=== PATIENT | male | born 1990 | race Caucasian/White ===

== ENCOUNTER 2019-07-09 23:14 | Inpatient (IN) ==
--- OUTSIDE RECORDS SUMMARY | 2019-07-09 23:17 | External Medical Summary | Continuity of Care Document ---
:1990 Author Name Joaquín Alfaro, Provider Address Unavailable Unavailable , Care Team Providers Name Role Phone Evette Benedict Unavailable [email or web address] PCP, UNKNOWN Unavailable Unavailable Problems Active medical history not documented Allergies and Adverse Reactions Allergy history not documented Medications Medications not documented Procedures Procedures not documented Immunizations Immunizations not documented Plan of Treatment Planned Observations Planned Goals not documented Results No Known Results Results not documented
[2019-07-10 00:03] LABS: Basophils # (auto) 0.02 K/uL (0-0.2); Basophils % (auto) 0.3 %; Eosinophils # (auto) 0.01 K/uL (0-0.5); Eosinophils % (auto) 0.2 %; Hemoglobin 11.8 g/dL (14.0-18.0); Immature Granulocytes # (auto) 0.01 K/uL (0.00-0.02); Immature Granulocytes % (auto) 0.2 %; Lymphocytes # (auto) 1.73 K/uL (1.2-3.4); Lymphocytes % (auto) 29.6 %; Mean Corpuscular Hemoglobin 32.2 pg (25-34); Mean Corpuscular Hgb Conc 35.8 g/dL (32-36); Mean Corpuscular Volume 89.9 fL (80-100); Mean Platelet Volume 10.7 fL (7.4-10.4); Monocytes # (auto) 0.51 K/uL (0.11-0.59); Monocytes % (auto) 8.7 %; Neutrophils # (auto) 3.56 K/uL (1.4-6.5); Platelet Count 193 K/uL (130-400); RDW Coefficient of Variation 11.9 % (11.5-14.5); Red Blood Count 3.67 M/uL (4.7-6.1); White Blood Count 5.84 K/uL (4.8-10.8)
[2019-07-10 00:13] LABS: Appearance Urine Clear (Clear); Bilirubin Urine Negative (Negative); Blood Urine Negative (Negative); Color Urine Yellow; Glucose Urine UA Negative (Negative); Ketones Urine Negative (Negative); Leukocyte Esterase Urine Negative (Negative); Nitrite Urine Negative (Negative); Protein Urine Negative (Negative); Specific Gravity Urine 1.008 (1.000-1.030); Urobilinogen Urine Negative (Negative); pH Urine 7.5 (4.5-7.5)
[2019-07-10 00:20] LABS: Alanine Aminotransferase 15 U/L (12-78); Albumin Level 4.1 gm/dl (3.4-5.0); Aspartate Aminotransferase 11 U/L (15-37); BUN Creatinine Ratio 5.2 (10-20); Blood Urea Nitrogen 3 mg/dl (7-18); Calcium 8.7 mg/dl (8.5-10.1); Carbon Dioxide 25 mmol/L (21-32); Chloride 88 mmol/L (98-107); Creatinine Clr Calc Pharmacy 171.6 ml/min; Est GFR (African American) > 150.0; Est GFR (Non-African American) 130.6; Glucose 88 mg/dl (70-99); Potassium 3.7 mmol/L (3.5-5.1); Sodium 121 mmol/L (136-145)
[2019-07-10 00:30] LABS: Amphetamines+Metham, Urine Neg (Neg); Barbiturates, Urine Neg (Neg); Benzodiazepine, Urine Neg (Neg); Cocaine, Urine Neg (Neg); MDMA (Ecstacy), Urine Neg (Neg); Methadone, Urine Neg (Neg); Opiate, Urine Neg (Neg); Phencyclidine, Urine Neg (Neg)
[2019-07-10 00:31] LABS: Albumin Globulin Ratio 1.6 (0.9-2); Alkaline Phosphatase 53 U/L (45-117); Bilirubin,Total 0.9 mg/dl (0.2-1); Globulin 2.5 gm/dl (2.5-4.0); Total Protein 6.6 gm/dl (6.4-8.2)
[2019-07-10 00:42] LABS: Acetaminophen < 2 ug/ml (10-30); Salicylate < 1.7 mg/dl (2.8-20)
[2019-07-10] MEDS ORDERED: SODIUM CHLORIDE 0.9% 1000ML 1,000 ML IV SCH (01:30)
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
[2019-07-10] MEDS ORDERED: ACETAMINOPHEN 325 MG TAB PO PRN (04:15)
[2019-07-10] MEDS ORDERED: ONDANSETRON INJ 2 MG/ML 2 ML VIAL IV PRN (04:15)
--- NOTE | 2019-07-10 04:24 | History & Physical Report ---
Date of Service July 10, 2019 Assessment & Plan (1) Hyponatremia: Admit Med/surg Fluid restrict to 1500ml Follow sodium level. (2) Psychogenic polydipsia: (3) Intellectual disability: History of Present Illness 29 y/o male presented to the ED following an argument with his mother. He is here for a mental health evaluation. The patient reported that he wanted to talk to his mother, but he had an outburst because often he and his mother can not gore ve a civil conversation. The patient reports that he was recently at the [facility] for depression and there he was able to taper his meds to off. He does report to drinking a lot of free water. He is felt not to have a mental health crisis and is being placed in observation due to hyponatremia. . 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 and No Beliefs That Will Affect Care: None marital status: Single Current Living Situation: Family current occupational status: unemployed Feels Safe at Home: Yes Smoking Status: Never smoker Review of Systems Review of Systems: NEEDS EDITING Constitutional- no fever; no weight loss Eyes- no acute visual changes ENT- no sinus drainage; no pharyngitis Pulmonary- no cough, no wheezing, no shortness of breath Cardiac- no chest pain, no palpitations, no orthopnea, no dependent edema GI- no nausea, no vomiting, no diarrhea, no melena, no hematochezia - no dysuria, no hematuria Musculoskeletal- no arthralgias, no myalgias Derm- no rashes, no new skin lesions, no changing skin lesions Hematologic- no unusual bruising, no unusual bleeding Lymphatics- no adenopathy Endocrine- no polyuria or polydipsia; no heat or cold intolerance Neuro- no headaches, no focal neurologic symptoms Psych- no anxiety. + depressive mood intermittently. Physical Exam Physical Exam: NEEDS EDITING General- adult male, resting comfortably, cooperative. Head- atraumatic Eyes- PERRL, EOMI, anicteric ENT- oropharynx clear Neck- supple, no JVD, no adenopathy, no thyromegaly; carotids +2/2, no bruits appreciated Lungs- clear to auscultation. No rales, rhonchi, or wheezes. Heart- regular rhythm; no murmur, no gallop, no rub appreciated Abdomen- normal bowel sounds, soft, nontender. Extremities- no pretibial edema, no calf tenderness; peripheral pulses intact Neuro- alert, oriented x 3; PERRL, EOMI; bonding molder II-XII grossly intact, Non-focal. Skin- warm & dry Results & Data Vital Signs (Past 12 Hours) Vital Signs Temp Pulse Pulse Resp BP BP Pulse Ox 07/10/19 03:28 68 18 124/68 98 07/10/19 01:40 65 18 117/76 100 07/09/19 23:18 36.6 C 84 18 145/90 H 100 Laboratory Results Laboratory Results WBC 5.84 K/uL (4.8-10.8) 07/09/19 23:41 RBC 3.67 M/uL (4.7-6.1) L 07/09/19 23:41 Hgb 11.8 g/dL (14.0-18.0) L 07/09/19 23:41 Hct 33.0 % (42-52) L 07/09/19 23:41 MCV 89.9 fL (80-100) 07/09/19 23:41 MCH 32.2 pg (25-34) 07/09/19 23:41 MCHC 35.8 g/dL (32-36) 07/09/19 23:41 RDW Std Deviation 39.0 fL (36.4-46.3) 07/09/19 23:41 RDW Coeff of Fito 11.9 % (11.5-14.5) 07/09/19 23:41 Plt Count 193 K/uL (130-400) 07/09/19 23:41 MPV 10.7 fL (7.4-10.4) H 07/09/19 23:41 Immature Gran % (Auto) 0.2 % 07/09/19 23:41 Neut % (Auto) 61.0 % 07/09/19 23:41 Lymph % (Auto) 29.6 % 07/09/19 23:41 [place] % (Auto) 8.7 % 07/09/19 23:41 Eos % (Auto) 0.2 % 07/09/19 23:41 Baso % (Auto) 0.3 % 07/09/19 23:41 Immature Gran # (Auto) 0.01 K/uL (0.00-0.02) 07/09/19 23:41 Neut # (Auto) 3.56 K/uL (1.4-6.5) 07/09/19 23:41 Lymph # (Auto) 1.73 K/uL (1.2-3.4) 07/09/19 23:41 [place] # (Auto) 0.51 K/uL (0.11-0.59) 07/09/19 23:41 Eos # (Auto) 0.01 K/uL (0-0.5) 07/09/19 23:41 Baso # (Auto) 0.02 K/uL (0-0.2) 07/09/19 23:41 Sodium 121 mmol/L (136-145) L 07/09/19 23:41 Potassium 3.7 mmol/L (3.5-5.1) 07/09/19 23:41 Chloride 88 mmol/L (98-107) L 07/09/19 23:41 Carbon Dioxide 25 mmol/L (21-32) 07/09/19 23:41 Anion Gap 8.0 (3-11) 07/09/19 23:41 BUN 3 mg/dl (7-18) L 07/09/19 23:41 Creatinine 0.65 mg/dl (0.6-1.4) 07/09/19 23:41 Est Cr Clr Drug Dosing 171.6 ml/min 07/09/19 23:41 Est GFR ( Amer) > 150.0 07/09/19 23:41 Est GFR (Non-Af Amer) 130.6 07/09/19 23:41 BUN/Creatinine Ratio 5.2 (10-20) L 07/09/19 23:41 Glucose 88 mg/dl (70-99) 07/09/19 23:41 Calcium 8.7 mg/dl (8.5-10.1) 07/09/19 23:41 Total Bilirubin 0.9 mg/dl (0.2-1) 07/09/19 23:41 AST 11 U/L (15-37) L 07/09/19 23:41 ALT 15 U/L (12-78) 07/09/19 23:41 Alkaline Phosphatase 53 U/L (45-117) 07/09/19 23:41 Total Protein 6.6 gm/dl (6.4-8.2) 07/09/19 23:41 Albumin 4.1 gm/dl (3.4-5.0) 07/09/19 23:41 Globulin 2.5 gm/dl (2.5-4.0) 07/09/19 23:41 Albumin/Globulin Ratio 1.6 (0.9-2) 07/09/19 23:41 TSH 1.980 uIu/ml (0.300-4.500) 07/09/19 23:41 Urine Color Yellow 07/09/19 23:59 Urine Appearance Clear (Clear) 07/09/19 23:59 Urine pH 7.5 (4.5-7.5) 07/09/19 23:59 Ur Specific [place] 1.008 (1.000-1.030) 07/09/19 23:59 Urine Protein Negative (Negative) 07/09/19 23:59 Urine Glucose (UA) Negative (Negative) 07/09/19 23:59 Urine Ketones Negative (Negative) 07/09/19 23:59 Urine Blood Negative (Negative) 07/09/19 23:59 Urine Nitrite Negative (Negative) 07/09/19 23:59 Urine Bilirubin Negative (Negative) 07/09/19 23:59 Urine Urobilinogen Negative (Negative) 07/09/19 23:59 Ur Leukocyte Esterase Negative (Negative) 07/09/19 23:59 Salicylates < 1.7 mg/dl (2.8-20) L 07/09/19 23:41 Urine Opiates Screen Neg (Neg) 07/09/19 23:59 Ur Methadone, Qual Neg (Neg) 07/09/19 23:59 Acetaminophen < 2 ug/ml (10-30) L 07/09/19 23:41 Urine Barbiturates Neg (Neg) 07/09/19 23:59 Ur Phencyclidine (PCP) Neg (Neg) 07/09/19 23:59 U Amphetamin/Meth Scrn Neg (Neg) 07/09/19 23:59 MDMA (Ecstasy) Screen Neg (Neg) 07/09/19 23:59 U Benzodiazepines Scrn Neg (Neg) 07/09/19 23:59 Ur Cocaine Metabolite Neg (Neg) 07/09/19 23:59 U Marijuana (THC) Screen Neg (Neg) 07/09/19 23:59 Ethyl Alcohol mg/dL < 3.0 mg/dl (0-3) 07/09/19 23:41 Code Status & VTE Plan VTE Prophylaxis Plan VTE Prophylaxis will be ordered: Yes PG Care Time/CCT Total # of Minutes Spent Total Time Spent: 45 Total Time Spent with Patient: Total time spent is greater than 50% in coordination of care (as documented) at patient's floor/unit and/or counseling patient:
[2019-07-10 06:51] LABS: BUN Creatinine Ratio 6.3 (10-20); Blood Urea Nitrogen 4 mg/dl (7-18); Calcium 9.1 mg/dl (8.5-10.1); Carbon Dioxide 24 mmol/L (21-32); Chloride 101 mmol/L (98-107); Creatinine Clr Calc Pharmacy 195.7 ml/min; Est GFR (African American) > 150.0; Est GFR (Non-African American) 137.8; Glucose 84 mg/dl (70-99); Magnesium 2.4 mg/dl (1.8-2.4); Potassium 3.5 mmol/L (3.5-5.1); Sodium 133 mmol/L (136-145)
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
[2019-07-11 08:22] VITALS: BP 108/64; TEMP 98.2; O2SAT 99
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
[2019-07-11 11:55] VITALS: PULSE 62
--- NOTE | 2019-07-11 17:03 | Discharge Summary ---
Date of Service July 11, 2019 Admission HPI Per Admitting Provider Record reviewed and case discussed with primary attending, Dr. Castro. The patient is known to me from multiple previous hospitalizations, last on our unit 1 year ago and 07/2018. At that time he had gone off of his psychotropic medications for the past 9 months, which is his pattern, and was willing to resume aripiprazole and fluoxetine. He had previously done well on a combination of aripiprazole, fluoxetine, and lorazepam. He had a family meeting with his mother, and was discharged to outpatient treatment with Dr. Cancino and his therapist at the [facility] psych clinic. He reports that he went off medications soon after discharge, and has not been on any psychotropic medications for about a year. He thinks that he was doing well, but also states that he was "depressed all last year." He attributes his depression to his mother, stating "the relationship is falling apart," which he blames on her for pushing him to get out of the house more and follow through on things like outpatient treatment. It is difficult to clarify the events that led to presentation, but he eventually states that he had an altercation with his mother, stating "I did something that scared her pretty bad, and I am beating myself up about it. I had an outburst of anger and frustration, hit something by accident, was just upset." Afterwards he "ran out of the house and did not want to come back," and the police came and brought him in. He admits to suicidal thoughts last week, stating "I think there may have been an incident, was out on the patio or something, saying some things or something." He denies that he held a knife to his throat and told his mother to kill him, although this was reported through can help when he presented to the ER. Multiple hospital staff have attempted to contact his mother and have had difficulty doing so, but she did report to nursing staff that he is not able to return to her home, and that she was dropping his belongings off at the hospital. He has been poorly compliant with treatment on the medical floor, refusing repeat lab draws to follow his sodium, which had come up to 133 as of yesterday. He says this is because he does not like needles, and he feels "traumatized" by medical treatment in the past. He is aware of the risks of hyponatremia, including seizures, which he has experienced in the past. He states he is not concerned about seizures currently because he has not had them in years, and because he thinks he has his water drinking under control for the past year. When reviewed his sodium results from admission, he admits that for the past few weeks he was drinking excessive water because "overly stressed." He describes his mood recently as overwhelmed and distraught, sleep is chronically disrupted, endorses hopelessness, low mood, inability to function on a daily basis, and difficulty processing information or doing basic activities independently. He admits to isolating in the home, and not following up with treatment after discharge from the [facility]. He is evasive when asked if he was prescribed medication there, stating "I don't think I need it." He indicates that he was noncompliant with outpatient treatment after discharge, but is unable to give details about what that treatment was. He reports that over the past year he has been "slipping back into old patterns," "rapidly went backwards again," but does not connect this with the fact that he went off his medications one year ago and has not been getting any mental health treatment. His goal is to move out of his mother's house, but he is unable to say what other options he has, and denies any other supports besides his younger brother, who also lives with her mother. He does have an outpatient business case analyst, Emily, but has been declining to contact her here in the hospital. He denies that he has been spending excessive amounts of time worrying about his appearance or applying makeup, but cannot explain how he spends his time at home. He continues to say that he is going to talk to his mother and that things will be okay after she listens to him, but per hospital staff she is stating unwillingness to talk with him or consider allowing him to return home. 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 Discharge Exam Constitutional WD/WN, vitals as above Eyes EOM intact bilaterally; no conjunctival abnormality ENMT external ear and nose normal, oropharynx normal Neck trachea midline, no thyromegaly normal visual inspection Respiratory normal respiratory effort, lungs clear to auscultation no respiratory distress Cardiovascular RRR, no murmur, no edema Gastrointestinal (Abdomen) Inspection/Auscultation: abdomen normal to inspection; abdomen not distended Musculoskeletal no cyanosis or clubbing, extremities motor strength 5/5 Skin no rashes, warm and dry Neurologic moves all extremities and awake Psychiatric Orientation: alert, oriented to person and cooperative Apperance: + disheveled Eye Contact: + fair eye contact Motor Behavior: no abnormal motor movements Speech: normal rate/rhythm/volume of speech Affect: + anxious affect Mood: + anxious mood Thought Process: + tangential thought process Thought Content: + preoccupation Suicidal Thoughts: denies suicidal thoughts, denies suicidal plan and denies suicidal intent Homicidal Thoughts: denies homicidal thoughts, denies homicidal plan and denies homicidal intent Hallucinations: no auditory hallucinations and no visual hallucinations Cognition: recent memory grossly intact and remote memory grossly intact Estimated Intelligence: + below average estimated intelligence Insight: + poor insight Judgement: + limited judgement Discharge Data Allergies Allergy/AdvReac Type Severity Reaction Status Date / Time No Known Allergies Allergy Verified 07/10/19 00:30 Consultations 07/10/19 01:25 ED Decision to Admit Stat 07/11/19 08:41 Consult Psychiatry Routine Hospital Course (1) Hyponatremia: Due to psychogenic polydipsia. In the past, the patient reports that he has had seizures, but none in a decade or more. - Na was 121 on admission, then up to 133 about 6 hours after getting normal saline in the ED. - No signs/symptoms of seizure, headache, or other neurologic issue. No signs/symptoms of osmotic demyelination syndrome. (2) Psychogenic polydipsia: (3) Intellectual disability: Admitted to inpatient psychiatry. Total Time Total Time Spent Total Time Spent (In Minutes): 35 Total Time Includes: Examination of the Patient and Communication With Other Providers Discharge Plan Discharge Items Patient Disposition: Transfer Behavioral Health Fac Reason For Visit: HYPONATREMIA Discharge Diagnosis: Hyponatremia, mental health issues Activity: Resume your previous activity Non-emergency contact: Primary Care Provider Call non-emergency contact if: your symptoms worsen Follow-up/Referrals: Jacob Donato III, CRNP [Primary Care Provider] - 07/17/19 8:45 am (Please, follow up at [facility] with Jacob MANTILLA on MondayJuly 17 at 8:45 am. He will be your new primary care provider. *The office is located at [facility] in [place]. This is across the road from [employer]. If you need to change this appointment, call the office at [phone]. PLEASE, BE SURE TO TAKE YOUR INSURANCE CARD AND A PHOTO ID WITH YOU TO THIS APPOINTMENT.) Diet: Regular Addtl Attending Provider Instructions: Please follow up with your PCP and psychiatrist. You should get your sodium checked in the next 1-2 days if you are willing. Pending Studies at Discharge: No Stand-Alone Forms: My [facility] Medications and DC Order Prescriptions: No Action No Known Home Medications RF: 0 Discharge Orders: Discharge Order (Routine); Ordered 07/11/19 Ordered By: Delio Castro Left Against Medical Advice (Routine); Ordered 07/10/19 Ordered By: Delio Rosenberg/Other Patient Handouts: Hypernatremia Dc Admission Data Admit Date/Time: 07/10/19 02:42 Attending Provider: Delio Castro Admit Provider: Teressa Dowd Primary Care Provider: Jacob Donato III Other Providers: Delio Castro ; Brigette Rg Other Interventions: Discharge Summary Assessment (RN) Last Done: 07/11/19 11:53 DC Date/Time DO NOT enter until pt leaves facility: 07/11/19 12:06
--- NOTE | 2019-07-11 17:04 | Hospitalist Progress Note ---
Date of Service July 10, 2019 Assessment & Plan (1) Hyponatremia: Due to psychogenic polydipsia. In the past, the patient reports that he has had seizures, but none in a decade or more. - Na was 121 on admission, then up to 133 about 6 hours after getting normal saline in the ED. - No signs/symptoms of seizure, headache, or other neurologic issue. No signs/symptoms of osmotic demyelination syndrome. (2) Psychogenic polydipsia: (3) Intellectual disability: Unable to capably understand his ongoing medical and social issues. Subjective Very upset about not being able to talk with his mom. Review of Systems Review of Systems: All systems reviewed & are unremarkable except as noted in HPI & below Physical Exam Constitutional: WD/WN, vitals as above Eyes: EOM intact bilaterally; no conjunctival abnormality ENMT: external ear and nose normal, oropharynx normal Neck: trachea midline, no thyromegaly normal visual inspection Respiratory: normal respiratory effort, lungs clear to auscultation no respiratory distress Cardiovascular: RRR, no murmur, no edema Gastrointestinal (Abdomen): Inspection/Auscultation: abdomen normal to inspection; abdomen not distended Musculoskeletal: no cyanosis or clubbing, extremities motor strength 5/5 Skin: no rashes, warm and dry Neurologic: moves all extremities and awake Psychiatric: Orientation: alert, oriented to person and cooperative Apperance: + disheveled Eye Contact: + fair eye contact Motor Behavior: no abnormal motor movements Speech: normal rate/rhythm/volume of speech Affect: + anxious affect Mood: + anxious mood Thought Process: + tangential thought process Thought Content: + preoccupation Suicidal Thoughts: denies suicidal thoughts, denies suicidal plan and denies suicidal intent Homicidal Thoughts: denies homicidal thoughts, denies homicidal plan and denies homicidal intent Hallucinations: no auditory hallucinations and no visual hallucinations Cognition: recent memory grossly intact and remote m rina grossly intact Estimated Intelligence: + below average estimated intelligence Insight: + poor insight Judgement: + limited judgement Results & Data Vital Signs (Past 12 Hours) Vital Signs Temp Pulse Pulse Pulse Resp BP Pulse Ox 07/11/19 11:53 36.8 C 81 65 62 16 108/64 99 07/11/19 07:38 36.8 C 65 16 108/64 99 PG Care Time/CCT Total # of Minutes Spent Total Time Spent with Patient: Total time spent is greater than 50% in coordination of care (as documented) at patient's floor/unit and/or counseling patient:
== END 2019-07-11 12:06 | DRG 641 ==
LOC: ED 23:14 → SUATTDRO 07-10 02:42 → 3E 07-10 02:42

== ENCOUNTER 2019-07-11 12:04 | Inpatient (IN) ==
[2019-07-11] MEDS ORDERED: ACETAMINOPHEN 325 MG TAB PO PRN (12:43)
[2019-07-11] MEDS ORDERED: BISMUTH SUBSALICYLATE PER ML OMNICELL CHARGE PO PRN (12:43)
[2019-07-11] MEDS ORDERED: SODIUM CHLORIDE 0.65% NA SOLN 45 ML (OCEAN) PRN (12:43)
[2019-07-11] MEDS ORDERED: MAGNESIUM HYDROXIDE SUSP 30 ML UDC PO PRN (12:43)
[2019-07-11] MEDS ORDERED: ALUMINUM/MAGNESIUM SUSP 30 ML UDC PO PRN (12:43)
[2019-07-12] MEDS: CEROVITE ADV FORMULA TAB PO SCH (09:32)
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
[2019-07-12] MEDS: FLUOXETINE HCL 10 MG CAP PO SCH (14:05)
[2019-07-12 14:20] LABS: Potassium 4.2 mmol/L (3.5-5.1)
[2019-07-12] MEDS ORDERED: HYDROCORTISONE 1% CRM 30 GM TUBE EXT PRN (14:24)
[2019-07-13] MEDS: CEROVITE ADV FORMULA TAB PO SCH (09:27)
[2019-07-13] MEDS: FLUOXETINE HCL 10 MG CAP PO SCH (09:27)
--- NOTE | 2019-07-13 12:23 | Psychiatric Progress Note ---
Date of Service July 13, 2019 Impression / Recommendations Impression This 29-year-old man presents with a history of multiple previous psychiatric hospitalizations. The crisis that precipitated the admission involved the patient having an argument with his mother over money. According to police reports, the patient had threatened to kill himself with a knife. He has a long history of nonadherence with outpatient psychiatric treatment and, according the mother, he frequently is unmanageable at home because of oppositional behaviors that have included his grabbing the phone out of her hands when she attempts to call 911 for help. He had been refusing serial sodium levels and presented with a serum sodium level of 121 several days ago. (1) Autism spectrum disorder: 07/12/19 -Many of the patient's presenting symptoms may best be explained by his diagnosis of autism spectrum disorder. -The ease with which the patient may be able to tolerate group and activity therapies as likely to be impacted by his pervasive developmental disorder. -The patient's current treatment will need to be informed by an understanding of the limitations as well as the opportunities for individuals who fall in the autism spectrum. -Certain symptoms of this disorder, including emotional lability and difficulty with mood regulation may benefit from a low-dose of an antidepressant, such as fluoxetine. -The patient is reluctant to accept psychiatric medications per, but today agreed to a trial of fluoxetine. We will begin at 10 mg daily and titrate as indicated. -Material risks and anticipated benefits of fluoxetine were reviewed with the patient and he indicated understanding. (2) OCD (obsessive compulsive disorder): 07/12 -Monitor the patient for excessive handwashing and other forms of bathing. -Begin fluoxetine 10 mg daily and titrate as indicated for mood regulation as well as for obsessive-compulsive symptoms. 07/13 --repeat sodium in am with plan to titrate to 20 mg, he states that Prozac weekly would be a beneficial option for him. 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 -He notes that he is aware of the risks associated with excessive water drinking and seeks to bring the behavior under control. He notes that recently he has been drinking significantly less water and often does not drink more than recommended, although he admits that recently he has been drinking more than he should. His explanation is that excessive water consumption relieves his anxiety and provides a calming effect. -As part of his treatment for psychogenic polydipsia we will focus on obsessive-compulsive symptoms as well as anxiety symptoms. As noted above, the patient is being offered a trial of fluoxetine, beginning 10 mg daily and this will be titrated as indicated. (4) Hyponatremia: 07/12 -The patient is aware that his serum sodium level was dangerously low. He is able to tell us that he realizes that low sodium levels can cause seizures and, in fact, he notes that he has experienced seizures related to hyponatremia on several occasions in the past. He also was advised that hyponatremia can also lead to , and the patient says that he is motivated to get his water consumption under better control. -Patient had been refusing to allow his blood to be drawn for follow-up serial serum sodium levels. Today, he is agreeing and we will order a stat serum sodium level, with serial sodium levels to follow. (5) Intellectual disability: 07/12 -The patient has explained that because of his intellectual disability he has difficulty processing information. Accordingly, he explains that he often has to have things explained to him slowly and several times over, and that he needs to have some time to process what he has been told before he is able to understand. -This circumstance has been considered by his treatment team on the behavioral health unit and we will approach individual, group and activity therapy informed of this need. Inventory Assets Strengths: Some insight into his needs and problematic behaviors. Family involvement. Needs: Adherence with treatment. Suitable placement. Mood regulation. Avoidance of water intoxication. Does not abuse alcohol or other drugs. Risk Factors Assessment Male: Yes Do You Have Access To A Gun?: No Health Problems: No Mental Health Diagnoses: Yes Substance Use Disorders: No Previous Attempt: No Family History of Suicide: No Previous Psychiatric Hospitalization: Yes Hopelessness: No Smoker: No Protective Factors Assessment Yazdanism Beliefs: Yes : No Responsible for Young Children: No Employed: No Stable Relationships: No Supportive Family: Yes Good Rapport with Provider: No Absence of Any Risk Factors Above: No Interval History Chief Complaint "I just wish my mom would understand this all". Review of Systems Sleep Information Total Hours of Sleep: 6.75 Meal Information Percent Meal Consumed - Breakfast: 100 Percent Meal Consumed - Lunch: 100 Percent Meal Consumed - Dinner: 100 Subjective Subjective Patient was seen & assessed and interval progress reviewed with nursing and social work. No polydipsia noted since transfer. Patient states he perseverates at home when angry and cannot control his PO intake. Drinking water makes him feel calmer. Mother is reportedly adamant that he cannot return home and no appropriate long term options given his OCD and mental health issues. He has agreed to Prozac trial. Sodium normalized 07/12. He denies urges to self harm on unit and states in past he did not require fluid restriction. Physical Exam Psychiatric Orientation: alert and oriented x 3 Apperance: appropriately dressed Eye Contact: + poor eye contact Affect: + anxious affect Mood: + depressed mood and + anxious mood Thought Process: + perseveration Thought Content: + preoccupation, + obsessions and reality based without delusions Suicidal Thoughts: denies suicidal thoughts Homicidal Thoughts: denies homicidal thoughts Hallucinations: no auditory hallucinations, no visual hallucinations and no tactile hallucinations Estimated Intelligence: + below average estimated intelligence Insight: + poor insight Judgement: + limited judgement Vital Signs (Past 24 Hours) Last Vital Signs Temp 36.5 C 07/13/19 06:00 Pulse 73 07/13/19 06:00 Resp 16 07/13/19 06:00 BP 115/68 07/13/19 06:00 Results & Data Laboratory Results Laboratory Results - last 24 hr 07/12/19 13:45 Sodium 137 Potassium 4.2 Current Inpatient Medications Current Inpatient Medications: Current Inpatient Medications Acetaminophen (Tylenol) 650 mg PO Q4H PRN PRN Reason: Headache or Minor Fever Stop: 08/10/19 12:42 Al Hydrox/Mg Hydrox/Simethicone (Maalox) 30 ml PO Q4H PRN PRN Reason: GI Upset Stop: 08/10/19 12:42 Bismuth Subsalicylate (Kaopectate) 15 ml PO PRN PRN PRN Reason: Loose Stool Stop: 08/10/19 12:42 Fluoxetine HCl (Prozac) 10 mg PO QAM MICHAEL Stop: 08/11/19 12:59 Last Admin: 07/13/19 09:27 Dose: 10 mg Documented by: Hydrocortisone (Hydrocortisone 1%) 1 appln EXT QID PRN PRN Reason: Rash/itching left leg Stop: 08/11/19 14:23 Hydroxyzine HCl (Vistaril) 25 mg PO Q4H PRN PRN Reason: Anxiety Stop: 08/10/19 12:42 Hydroxyzine HCl (Vistaril) 50 mg PO HSZ PRN PRN Reason: Insomnia Stop: 08/10/19 12:42 Magnesium Hydroxide (Milk Of Magnesia) 30 ml PO DAILY PRN PRN Reason: Constipation Stop: 08/10/19 12:42 Multivitamins/Minerals (Multivitamin W/ Minerals Tab) 1 tab PO QAM MICHAEL Stop: 08/11/19 08:59 Last Admin: 07/13/19 09:27 Dose: 1 tab Documented by: Sodium Chloride ([place] Nasal) 1 - 2 sprays NA PRN PRN PRN Reason: Nasal Dryness/Congestion Stop: 08/10/19 12:42 Mental Health & Subst Abuse Tx Therapist Name of Therapist: "they set up somebody at the [facility] but I don't know who and didn't go." Hvac Mechanic Name of Hvac Mechanic: Emily with [facility] & Krissy with [employer] CPT Code CPT Code 80519
[2019-07-14] MEDS: FLUOXETINE HCL 10 MG CAP PO SCH (08:50)
[2019-07-14] MEDS: CEROVITE ADV FORMULA TAB PO SCH (08:50)
--- NOTE | 2019-07-14 11:48 | Psychiatric Progress Note ---
Date of Service July 14, 2019 Impression / Recommendations Impression This 29-year-old man presents with a history of multiple previous psychiatric hospitalizations. The crisis that precipitated the admission involved the patient having an argument with his mother over money. According to police reports, the patient had threatened to kill himself with a knife. He has a long history of nonadherence with outpatient psychiatric treatment and, according the mother, he frequently is unmanageable at home because of oppositional behaviors that have included his grabbing the phone out of her hands when she attempts to call 911 for help. He had been refusing serial sodium levels and presented with a serum sodium level of 121 several days ago. (1) Autism spectrum disorder: 07/12/19 -Many of the patient's presenting symptoms may best be explained by his diagnosis of autism spectrum disorder. -The ease with which the patient may be able to tolerate group and activity therapies as likely to be impacted by his pervasive developmental disorder. -The patient's current treatment will need to be informed by an understanding of the limitations as well as the opportunities for individuals who fall in the autism spectrum. -Certain symptoms of this disorder, including emotional lability and difficulty with mood regulation may benefit from a low-dose of an antidepressant, such as fluoxetine. -The patient is reluctant to accept psychiatric medications per, but today agreed to a trial of fluoxetine. We will begin at 10 mg daily and titrate as indicated. -Material risks and anticipated benefits of fluoxetine were reviewed with the patient and he indicated understanding 07/[address] Daniel, agree unusual prosody to voice. suspect some of his water drinking may be more delusional than perseveration, unclear IQ. (2) OCD (obsessive compulsive disorder): 07/12 -Monitor the patient for excessive handwashing and other forms of bathing. -Begin fluoxetine 10 mg daily and titrate as indicated for mood regulation as well as for obsessive-compulsive symptoms. 07/13 --repeat sodium in am with plan to titrate to 20 mg, he states that Prozac weekly would be a beneficial option for him. 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 -He notes that he is aware of the risks associated with excessive water drinking and seeks to bring the behavior under control. He notes that recently he has been drinking significantly less water and often does not drink more than recommended, although he admits that recently he has been drinking more than he should. His explanation is that excessive water consumption relieves his anxiety and provides a calming effect. -As part of his treatment for psychogenic polydipsia we will focus on obsessive-compulsive symptoms as well as anxiety symptoms. As noted above, the patient is being offered a trial of fluoxetine, beginning 10 mg daily and this will be titrated as indicated. (4) Hyponatremia: 07/12 -The patient is aware that his serum sodium level was dangerously low. He is able to tell us that he realizes that low sodium levels can cause seizures and, in fact, he notes that he has experienced seizures related to hyponatremia on several occasions in the past. He also was advised that hyponatremia can also lead to , and the patient says that he is motivated to get his water consumption under better control. -Patient had been refusing to allow his blood to be drawn for follow-up serial serum sodium levels. Today, he is agreeing and we will order a stat serum sodium level, with serial sodium levels to follow. 07/14 sodium 144 today (5) Intellectual disability: 07/12 -The patient has explained that because of his intellectual disability he has difficulty processing information. Accordingly, he explains that he often has to have things explained to him slowly and several times over, and that he needs to have some time to process what he has been told before he is able to understand. -This circumstance has been considered by his treatment team on the behavioral health unit and we will approach individual, group and activity therapy informed of this need. Inventory Assets Strengths: Some insight into his needs and problematic behaviors. Family involvement. Needs: Adherence with treatment. Suitable placement. Mood regulation. Avoidance of water intoxication. Does not abuse alcohol or other drugs. Risk Factors Assessment Male: Yes Do You Have Access To A Gun?: No Health Problems: No Mental Health Diagnoses: Yes Substance Use Disorders: No Previous Attempt: No Family History of Suicide: No Previous Psychiatric Hospitalization: Yes Hopelessness: No Smoker: No Protective Factors Assessment Lutheran Beliefs: Yes : No Responsible for Young Children: No Employed: No Stable Relationships: No Supportive Family: Yes Good Rapport with Provider: No Absence of Any Risk Factors Above: No Interval History Chief Complaint "I'm still thinking about all this". Review of Systems Sleep Information Total Hours of Sleep: 7.5 Meal Information Percent Meal Consumed - Breakfast: 100 Percent Meal Consumed - Lunch: 100 Percent Meal Consumed - Dinner: 100 Subjective Subjective Patient was seen & assessed and interval progress reviewed with nursing and social work. Unclear how much time he is spending washing, hands not as red as yesterday. Does seem to pull at his hair when talking as if he doesn't notice but denies trich. Same preoccupations with mother but they've had no contact. He is still hoping that if he takes med and works on transition plan she will allow him back home temporarily. He reviewed how beneficial the schedule is here. Physical Exam Psychiatric Orientation: alert and oriented x 3 Apperance: appropriately dressed Eye Contact: + poor eye contact Affect: + anxious affect Mood: + depressed mood and + anxious mood Thought Process: + perseveration Thought Content: + preoccupation, + obsessions and reality based without delusions Suicidal Thoughts: denies suicidal thoughts Homicidal Thoughts: denies homicidal thoughts Hallucinations: no auditory hallucinations, no visual hallucinations and no tactile hallucinations Estimated Intelligence: + below average estimated intelligence Insight: + poor insight Judgement: + limited judgement Vital Signs (Past 24 Hours) Last Vital Signs Temp 36.5 C 07/14/19 06:00 Pulse 68 07/14/19 06:54 Resp 18 07/14/19 06:00 BP 111/68 07/14/19 06:54 Results & Data Laboratory Results Laboratory Results - last 24 hr 07/14/19 08:02 Sodium 144 D Current Inpatient Medications Current Inpatient Medications: Current Inpatient Medications Acetaminophen (Tylenol) 650 mg PO Q4H PRN PRN Reason: Headache or Minor Fever Stop: 08/10/19 12:42 Al Hydrox/Mg Hydrox/Simethicone (Maalox) 30 ml PO Q4H PRN PRN Reason: GI Upset Stop: 08/10/19 12:42 Bismuth Subsalicylate (Kaopectate) 15 ml PO PRN PRN PRN Reason: Loose Stool Stop: 08/10/19 12:42 Fluoxetine HCl (Prozac) 20 mg PO QAM MICHAEL Stop: 08/14/19 08:59 Hydrocortisone (Hydrocortisone 1%) 1 appln EXT QID PRN PRN Reason: Rash/itching left leg Stop: 08/11/19 14:23 Hydroxyzine HCl (Vistaril) 25 mg PO Q4H PRN PRN Reason: Anxiety Stop: 08/10/19 12:42 Hydroxyzine HCl (Vistaril) 50 mg PO HSZ PRN PRN Reason: Insomnia Stop: 08/10/19 12:42 Magnesium Hydroxide (Milk Of Magnesia) 30 ml PO DAILY PRN PRN Reason: Constipation Stop: 08/10/19 12:42 Multivitamins/Minerals (Multivitamin W/ Minerals Tab) 1 tab PO QAM MICHAEL Stop: 08/11/19 08:59 Last Admin: 07/14/19 08:50 Dose: 1 tab Documented by: Sodium Chloride ([place] Nasal) 1 - 2 sprays NA PRN PRN PRN Reason: Nasal Dryness/Congestion Stop: 08/10/19 12:42 Mental Health & Subst Abuse Tx Therapist Name of Therapist: "they set up somebody at the [facility] but I don't know who and didn't go." Physicist Acoustics Name of Physicist Acoustics: Emily with [facility] & Krissy with [employer] CPT Code CPT Code 40959
[2019-07-15] MEDS ORDERED: FLUOXETINE HCL 20 MG CAP PO SCH (09:00)
[2019-07-15] MEDS: CEROVITE ADV FORMULA TAB PO SCH (10:08)
--- NOTE | 2019-07-15 11:08 | Psychiatric Progress Note ---
Date of Service July 15, 2019 Impression / Recommendations Impression This 29-year-old man presents with a history of multiple previous psychiatric hospitalizations. The crisis that precipitated the admission involved the patient having an argument with his mother over money. According to police reports, the patient had threatened to kill himself with a knife. He has a long history of nonadherence with outpatient psychiatric treatment and, according the mother, he frequently is unmanageable at home because of oppositional behaviors that have included his grabbing the phone out of her hands when she attempts to call 911 for help. He had been refusing serial sodium levels and presented with a serum sodium level of 121 several days ago. He was agreeable with sodium recheck which was 137 and 144 on 07/12 and 07/14 respectively. Pt agreeable to titration of fluoxetine to 30mg qAM starting tomorrow. (1) Autism spectrum disorder: 07/12/19 -Many of the patient's presenting symptoms may best be explained by his diagnosis of autism spectrum disorder. -The ease with which the patient may be able to tolerate group and activity therapies as likely to be impacted by his pervasive developmental disorder. -The patient's current treatment will need to be informed by an understanding of the limitations as well as the opportunities for individuals who fall in the autism spectrum. -Certain symptoms of this disorder, including emotional lability and difficulty with mood regulation may benefit from a low-dose of an antidepressant, such as fluoxetine. -The patient is reluctant to accept psychiatric medications per, but today a greed to a trial of fluoxetine. We will begin at 10 mg daily and titrate as indicated. -Material risks and anticipated benefits of fluoxetine were reviewed with the patient and he indicated understanding 07/[address] Daniel, agree unusual prosody to voice. suspect some of his water drinking may be more delusional than perseveration, unclear IQ. 07/15 - Clarify diagnosis of autism spectrum disorder; unsure if historical diagnosis or newly determined (2) OCD (obsessive compulsive disorder): 07/12 -Monitor the patient for excessive handwashing and other forms of bathing. -Begin fluoxetine 10 mg daily and titrate as indicated for mood regulation as well as for obsessive-compulsive symptoms. 07/13 --repeat sodium in am with plan to titrate to 20 mg, he states that Prozac weekly would be a beneficial option for him. 07/15 - Pt agreeable to titration of fluoxetine to 30mg daily, starting tomorrow morning - Continue to assist in the development of healthy and effective coping strategies (3) Psychogenic polydipsia: 07/12 -The patient reports that he has a long history of excessive water consumption and notes that, as recently as several years in the past, he was consuming as much as 4 or 5 gallons of water per day. -He notes that he is aware of the risks associated with excessive water drinking and seeks to bring the behavior under control. He notes that recently he has been drinking significantly less water and often does not drink more than recommended, although he admits that recently he has been drinking more than he should. His explanation is that excessive water consumption relieves his anxiety and provides a calming effect. -As part of his treatment for psychogenic polydipsia we will focus on obsessive-compulsive symptoms as well as anxiety symptoms. As noted above, the patient is being offered a trial of fluoxetine, beginning 10 mg daily and this will be titrated as indicated. (4) Hyponatremia: 07/12 -The patient is aware that his serum sodium level was dangerously low. He is able to tell us that he realizes that low sodium levels can cause seizures and, in fact, he notes that he has experienced seizures related to hyponatremia on several occasions in the past. He also was advised that hyponatremia can also lead to , and the patient says that he is motivated to get his water consumption under better control. -Patient had been refusing to allow his blood to be drawn for follow-up serial serum sodium levels. Today, he is agreeing and we will order a stat serum sodium level, with serial sodium levels to follow. 07/14 sodium 144 today (5) Intellectual disability: 07/12 -The patient has explained that because of his intellectual disability he has difficulty processing information. Accordingly, he explains that he often has to have things explained to him slowly and several times over, and that he needs to have some time to process what he has been told before he is able to understand. -This circumstance has been considered by his treatment team on the behavioral health unit and we will approach individual, group and activity therapy informed of this need. Inventory Assets Strengths: Some insight into his needs and problematic behaviors. Family involvement. Needs: Adherence with treatment. Suitable placement. Mood regulation. Avoidance of water intoxication. Does not abuse alcohol or other drugs. Risk Factors Assessment Male: Yes Do You Have Access To A Gun?: No Health Problems: No Mental Health Diagnoses: Yes Substance Use Disorders: No Previous Attempt: No Family History of Suicide: No Previous Psychiatric Hospitalization: Yes Hopelessness: No Smoker: No Protective Factors Assessment Islam Beliefs: Yes : No Responsible for Young Children: No Employed: No Stable Relationships: No Supportive Family: Yes Good Rapport with Provider: No Absence of Any Risk Factors Above: No Interval History Identifying Information TASHA MAC is a 29-year-old M who currently lives in the [facility] with his mother and 27-year-old brother. He has a past diagnosis of recurrent major depression, as well as a history of obsessive-compulsive disorder and psychogenic polydipsia. He was brought into the emergency room on 07/09/2019 by the police following a verbal altercation with his mother in which he reportedly had threatened suicide. He was subsequently admitted to the medical service with a serum sodium level of 121, and then was transferred to the behavioral health unit on the afternoon of 07/11/2019 on a voluntary basis. Chief Complaint "I don't think she [mom] knows how far I've come." Review of Systems Notes Constitutional: denied Cardiovascular: denied Respiratory: denied Gastrointestinal: denied Neurological: denied Psychiatric: denies symptoms other than stated above Total of at least 10 systems reviewed, pertinent positives as above and in HPI. Sleep Information Total Hours of Sleep: 7 Sleep Comments: pt on q-15 minute checks Meal Information Percent Meal Consumed - Breakfast: 100 Percent Meal Consumed - Lunch: 100 Percent Meal Consumed - Dinner: 100 Subjective Subjective Patient was seen & assessed and interval progress reviewed with treatment team. Staff reports the patient is scheduled to meet with his sample case porter today. There will be attempts to have patient's mother involved in a family meeting to discuss discharge planning, as at this time the patient is not permitted to return home. Pt was seen today to assess progress since admission. Pt reports that he is doing well, but remains concerned about what will happen after discharge. Pt states that while he does wish to rectify things with his mother, he has come to the realization that they both would benefit with some space. He reports sadness because, "I don't think she knows how far I've come. She doesn't think I'm gonna make the changes I say I will." Pt reports a desire to "move on with my life." He also admits that living with his mother has "put a lot of added stress on me. I started slipping back into old patterns." Despite verbalizing these desires, patient admits to hesitancy with medication changes and committing to alternative housing options. Pt is agreeable to titrating fluoxetine to 30mg after discussing risks and benefits. Pt continues to deny SI and thoughts to harm himself or others. He denies acute needs or concerns at this time. Physical Exam Psychiatric Orientation: alert, oriented x 3 and cooperative Apperance: appropriately dressed (in long-sleeve sweater and scrub pants), appropriately groomed (thick layer of foundation covering face) and appeared stated age Eye Contact: good eye contact Motor Behavior: steady gait and station and + psychomotor agitation (fidgeting with hands, appearing restless) Speech: normal rate/rhythm/volume of speech (soft tone) Affect: + depressed affect and + anxious affect Mood: + anxious mood Thought Process: goal directed thought process and thought association intact Thought Content: + preoccupation (with housing options and repairing relationship with mother) and + guilt; no hopelessness Suicidal Thoughts: denies suicidal thoughts and denies suicidal intent Homicidal Thoughts: denies homicidal thoughts Hallucinations: no auditory hallucinations and no visual hallucinations Cognition: attention grossly intact and language grossly intact Insight: + poor insight Judgement: + limited judgement Vital Signs (Past 24 Hours) Last Vital Signs Temp 36.3 C L 07/15/19 06:57 Pulse 71 07/15/19 06:58 Resp 18 07/15/19 06:57 BP 134/83 07/15/19 06:58 Results & Data Current Inpatient Medications Current Inpatient Medications: Current Inpatient Medications Acetaminophen (Tylenol) 650 mg PO Q4H PRN PRN Reason: Headache or Minor Fever Stop: 08/10/19 12:42 Al Hydrox/Mg Hydrox/Simethicone (Maalox) 30 ml PO Q4H PRN PRN Reason: GI Upset Stop: 08/10/19 12:42 Bismuth Subsalicylate (Kaopectate) 15 ml PO PRN PRN PRN Reason: Loose Stool Stop: 08/10/19 12:42 Fluoxetine HCl (Prozac) 20 mg PO QAM [facility] Stop: 08/14/19 08:59 Last Admin: 07/15/19 10:08 Dose: 20 mg Documented by: Hydrocortisone (Hydrocortisone 1%) 1 appln EXT QID PRN PRN Reason: Rash/itching left leg Stop: 08/11/19 14:23 Hydroxyzine HCl (Vistaril) 25 mg PO Q4H PRN PRN Reason: Anxiety Stop: 08/10/19 12:42 Hydroxyzine HCl (Vistaril) 50 mg PO HSZ PRN PRN Reason: Insomnia Stop: 08/10/19 12:42 Magnesium Hydroxide (Milk Of Magnesia) 30 ml PO DAILY PRN PRN Reason: Constipation Stop: 08/10/19 12:42 Multivitamins/Minerals (Multivitamin W/ Minerals Tab) 1 tab PO QAM [facility] Stop: 08/11/19 08:59 Last Admin: 07/15/19 10:08 Dose: 1 tab Documented by: Sodium Chloride (Aspen Nasal) 1 - 2 sprays NA PRN PRN PRN Reason: Nasal Dryness/Congestion Stop: 08/10/19 12:42 Mental Health & Subst Abuse Tx Therapist Name of Therapist: "they set up somebody at the [facility] but I don't know who and didn't go." Surgical Training Specialist Name of Surgical Training Specialist: Emily with [facility] & Krissy with [facility] CPT Code CPT Code 56959
[2019-07-16] MEDS: FLUOXETINE HCL 10 MG CAP PO SCH (08:57)
[2019-07-16] MEDS: CEROVITE ADV FORMULA TAB PO SCH (08:57)
--- NOTE | 2019-07-16 10:38 | Psychiatric Progress Note ---
Date of Service July 16, 2019 Impression / Recommendations Impression This 29-year-old man presents with a history of multiple previous psychiatric hospitalizations. The crisis that precipitated the admission involved the patient having an argument with his mother over money. According to police reports, the patient had threatened to kill himself with a knife. He has a long history of nonadherence with outpatient psychiatric treatment and, according the mother, he frequently is unmanageable at home because of oppositional behaviors that have included his grabbing the phone out of her hands when she attempts to call 911 for help. He had been refusing serial sodium levels and presented with a serum sodium level of 121 several days ago. He was agreeable with sodium recheck which was 137 and 144 on 07/12 and 07/14 respectively. Patient agreeable to titration of fluoxetine to 30mg qAM starting tomorrow. (1) Anxiety: 07/16 -symptoms of CARLOS and social anxiety. -Titrate fluoxetine as below. -Continue encouragement, as he is finally taking steps to reach some of his long-term goals, including moving out of his mother's home and becoming more independent. -Encourage his BCM to meet with him here to develop rapport, and encouraged him to work closely with his outpatient clinicians to work towards his goals. -Work on healthy coping mechanisms and behavioral techniques for managing anxiety. -Family meeting with mother today. Patient is willing for a referral to the [facility], and is an appropriate candidate. [facility] agreed they would refer him, although there is a wait list. He is able to perform ADLs, do laundry, cooks, and clean, but has typically relied on his mother to do the shopping and manage his finances. The longterm setting would be helpful for him to increase his independence and confidence in his ability to function and live independently. He may benefit from a rep payee (reportedly currently his mother), and structured assistance to learn how to manage finances on his own. Our hope is that if he commits to working toward a goal of moving out of living independently, but his mother will allow him to return home temporarily. -Discussed with patient our plan to transition to a 304 involuntary outpatient commitment at the time of discharge, as a way to assist him in remaining engaged in treatment and moving towards his goals, given his tendency to disengage from treatment due to anxiety. Present on Admission?: Yes (2) OCD (obsessive compulsive disorder): 07/12 -Monitor the patient for excessive handwashing and other forms of bathing. -Begin fluoxetine 10 mg daily and titrate as indicated for mood regulation as well as for obsessive-compulsive symptoms. 07/13 -repeat sodium in am with plan to titrate to 20 mg, he states that Prozac weekly would be a beneficial option for him. 07/15 - Pt agreeable to titration of fluoxetine to 30mg daily, starting tomorrow morning - Continue to assist in the development of healthy and effective coping strategies Present on Admission?: Yes (3) Autism spectrum disorder: 07/12/19 -Many of the patient's presenting symptoms may best be explained by autism spectrum disorder. -The ease with which the patient may be able to tolerate group and activity therapies as likely to be impacted by his pervasive developmental disorder. -The patient's current treatment will need to be informed by an understanding of the limitations as well as the opportunities for individuals who fall in the autism spectrum. -Certain symptoms of this disorder, including emotional lability and difficulty with mood regulation may benefit from a low-dose of an an tidepressant, such as fluoxetine. -The patient is reluctant to accept psychiatric medications per, but today agreed to a trial of fluoxetine. We will begin at 10 mg daily and titrate as indicated. -Material risks and anticipated benefits of fluoxetine were reviewed with the patient and he indicated understanding 07/14 -Dx of autism by Dr. Daniel, agree unusual prosody to voice. suspect some of his water drinking may be more delusional than perseveration, unclear IQ. 07/15 -Clarify diagnosis of autism spectrum disorder; unsure if historical diagnosis or newly determined. 108 -Reviewed records from [facility] psych clinic from initial evaluation in October 2012, based on hospital records, clinical interview with patient, anxiety disorder interview schedule, and an [facility]I-III. He was diagnosed with anxiety disorder NOS, chronic PTSD, body dysmorphic disorder, delusional disorder somatic type, and dependent personality traits. Per mother, he has an IQ of 82, so has not been eligible for ID services. -Recommend neuropsychological testing as an outpatient to help clarify diagnoses. 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 -He notes that he is aware of the risks associated with excessive water drinking and seeks to bring the behavior under control. He notes that recently he has been drinking significantly less water and often does not drink more than recommended, although he admits that recently he has been drinking more than he should. His explanation is that excessive water consumption relieves his anxiety and provides a calming effect. -As part of his treatment for psychogenic polydipsia we will focus on obsessive-compulsive symptoms as well as anxiety symptoms. As noted above, the patient is being offered a trial of fluoxetine, beginning 10 mg daily and this will be titrated as indicated. Present on Admission?: Yes (5) Hyponatremia: 07/12 -The patient is aware that his serum sodium level was dangerously low. He is able to tell us that he realizes that low sodium levels can cause seizures and, in fact, he notes that he has experienced seizures related to hyponatremia on several occasions in the past. He also was advised that hyponatremia can also lead to , and the patient says that he is motivated to get his water consumption under better control. -Patient had been refusing to allow his blood to be drawn for follow-up serial serum sodium levels. Today, he is agreeing and we will order a stat serum sodium level, with serial sodium levels to follow. 07/14 sodium 144 today Present on Admission?: Yes (6) Body dysmorphic disorder: 07/16 -patient has a history of body dysmorphic disorder with focus on facial scarring. He continues to wear foundation on his face, but is less preoccupied with this than he has been in the past. Present on Admission?: Yes (7) Delusional disorder: 07/16 -history of delusional disorder somatic type. As above, less focused on this than during past hospitalizations. Consider an antipsychotic in the future, but will not pursue now as we have just resume fluoxetine, he is somewhat reluctant to take medication, and due to the high risk benefit ratio with these medications in delusional disorder. Present on Admission?: Yes Inventory Assets Strengths: Some insight into his needs and problematic behaviors. Family involvement. Needs: Adherence with treatment. Suitable placement. Mood regulation. Avoidance of water intoxication. Does not abuse alcohol or other drugs. Risk Factors Assessment Male: Yes Do You Have Access To A Gun?: No Health Problems: No Mental Health Diagnoses: Yes Substance Use Disorders: No Previous Attempt: No Family History of Suicide: No Previous Psychiatric Hospitalization: Yes Hopelessness: No Smoker: No Protective Factors Assessment Judaism Beliefs: Yes : No Responsible for Young Children: No Employed: No Stable Relationships: No Supportive Family: Yes Good Rapport with Provider: No Absence of Any Risk Factors Above: No Interval History Identifying Information TASHA MAC is a 29-year-old M who currently lives in the [place] area with his mother and 27-year-old brother. He has a past diagnosis of recurrent major depression, as well as a history of obsessive-compulsive disorder and psychogenic polydipsia. He was brought into the emergency room on 07/09/2019 by the police following a verbal altercation with his mother in which he reportedly had threatened suicide. He was subsequently admitted to the medical service with a serum sodium level of 121, and then was transferred to the behavioral health unit on the afternoon of 07/11/2019 on a voluntary basis. Chief Complaint "I'm a mess right now". Review of Systems Sleep Information Total Hours of Sleep: 7 Sleep Comments: pt on q-15 minute checks Meal Information Percent Meal Consumed - Breakfast: 100 Percent Meal Consumed - Lunch: 100 Percent Meal Consumed - Dinner: 100 Subjective Subjective Patient was seen & assessed and interval progress reviewed with nursing and social work. Staff report On my assessment, he was seen with Talha Mistry, MS2, with his permission. He is focused on meeting with his mother, stating that he is hopeful she will come in and visit with him, and that they will be able to reconcile. He states he has been "scared an overwhelmed, wasn't ready to make those changes, but I'm at the age where it has to happen, I want to be an independent adult, live on my own, I have goals, I want to accomplish those goals." He says "it may take me a couple of years, but I really want to do it." He states goals of getting his own place, working, and being independent, but also maintaining relationships with his family. He says he met with his watch case polisher yesterday and talked to her about group homes and low income housing options. He says his mother was upset that he was not on medication, but he is now willing to take meds and is on fluoxetine. He is hopeful his mother will allow him to return home while he works on his housing, stating he doesn't want their relationship to end on a bad note and wants to be able to say goodbye to his mother, brother, and the cats. He says he is also willing to go back to [facility], as he felt it was helpful in the past. He does his own cooking at home, but his mother usually does the grocery shopping. He is able to do his own laundry and has been doing it here, cleans the house, does dishes, and cleans up after himself. He does not have his own bank account and his mother manages all the finances, including his social security income. Mood remains distraught, easily overwhelmed, but more hopeful. He continues to spend excessive amounts of time in the bathroom applying foundation/makeup to his face. He reports embarrassment that "I had to live my entire life with my mother because I was suffering from mental illness, drowning myself with water, drowning my insides...I was isolated, had no human contact." He says he didn't meet with his watch case polisher the first time she came to his mother's house because "I was a little scared, hadn't had a watch case polisher in a long time." He was able to meet with her yesterday and thinks it went well. He denies SI, HI, AVH, and paranoia. Physical Exam Psychiatric Orientation: alert, oriented x 3 and cooperative Apperance: appropriately dressed, appropriately groomed and appeared stated age Wearing thick layer of foundation. Eye Contact: + fair eye contact Motor Behavior: steady gait and station fidgeting Speech: normal rate/rhythm/volume of speech Affect: + anxious affect and mood congruent with affect "overwhelmed" Thought Process: goal directed thought process Thought Content: reality based without delusions Suicidal Thoughts: + reports suicidal thoughts Homicidal Thoughts: + reports homicidal thoughts Hallucinations: no auditory hallucinations and no visual hallucinations Cognition: recent memory grossly intact, attention grossly intact and language grossly intact Insight: + fair insight Judgement: + fair judgement Vital Signs (Past 24 Hours) Last Vital Signs Temp 36.7 C 07/16/19 07:06 Pulse 78 07/16/19 07:07 Resp 18 07/16/19 07:06 BP 125/77 07/16/19 07:07 Results & Data Current Inpatient Medications Current Inpatient Medications: Current Inpatient Medications Acetaminophen (Tylenol) 650 mg PO Q4H PRN PRN Reason: Headache or Minor Fever Stop: 08/10/19 12:42 Al Hydrox/Mg Hydrox/Simethicone (Maalox) 30 ml PO Q4H PRN PRN Reason: GI Upset Stop: 08/10/19 12:42 Bismuth Subsalicylate (Kaopectate) 15 ml PO PRN PRN PRN Reason: Loose Stool Stop: 08/10/19 12:42 Fluoxetine HCl (Prozac) 30 mg PO QAM MICHAEL Stop: 08/15/19 08:59 Last Admin: 07/16/19 08:57 Dose: 30 mg Documented by: Hydrocortisone (Hydrocortisone 1%) 1 appln EXT QID PRN PRN Reason: Rash/itching left leg Stop: 08/11/19 14:23 Hydroxyzine HCl (Vistaril) 25 mg PO Q4H PRN PRN Reason: Anxiety Stop: 08/10/19 12:42 Hydroxyzine HCl (Vistaril) 50 mg PO HSZ PRN PRN Reason: Insomnia Stop: 08/10/19 12:42 Magnesium Hydroxide (Milk Of Magnesia) 30 ml PO DAILY PRN PRN Reason: Constipation Stop: 08/10/19 12:42 Multivitamins/Minerals (Multivitamin W/ Minerals Tab) 1 tab PO QAM MICHAEL Stop: 08/11/19 08:59 Last Admin: 07/16/19 08:57 Dose: 1 tab Documented by: Sodium Chloride ([place] Nasal) 1 - 2 sprays NA PRN PRN PRN Reason: Nasal Dryness/Congestion Stop: 08/10/19 12:42 Mental Health & Subst Abuse Tx Therapist Name of Therapist: "they set up somebody at the [facility] but I don't know who and didn't go." Home Attendant Name of Home Attendant: Emily with [facility] & Krissy with [facility] CPT Code CPT Code 95640
--- NOTE | 2019-07-17 09:26 | Psychiatric Progress Note ---
Date of Service July 17, 2019 Impression / Recommendations Impression 29-year-old man presents with a history of multiple previous psychiatric hospitalizations and diagnoses, recently hospitalized at the [facility] where he apparently declined medications, and was set up with a therapist and bottle caser, but then declined to engage in treatment. The crisis that precipitated this admission involved an argument with his mother. According to reports, the patient had also threatened to kill himself with a knife a week prior during an argument with his mother. He has a long history of resistance to treatment, nonadherence, and has not been in treatment for the past year since his last hospitalization here. He was initially admitted to the hospitalist service due to hyponatremia secondary to psychogenic polydipsia, which has since resolved. He has been restarted on fluoxetine, which was helpful in the past, and has been more engaged in treatment and willing to work on discharge plans at increasing his independence than he has on previous admissions. They are exploring options for supportive living, including housing transitions in the [facility]. At this time, inpatient treatment is medically necessary due to the risk of rapid relapse and decompensation if discharged without sufficient outpatient treatment and supports in place. 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 (1) Anxiety: 07/16 -symptoms of CARLOS and social anxiety. -Titrate fluoxetine as below. -Continue encouragement, as he is finally taking steps to reach some of his long-term goals, including moving out of his mother's home and becoming more independent. -Encourage his BCM to meet with him here to develop rapport, and encouraged him to work closely with his outpatient clinicians to work towards his goals. -Work on healthy coping mechanisms and behavioral techniques for managing anxiety. -Family meeting with mother today. Patient is willing for a referral to the [facility], and is an appropriate candidate. [facility]oke with Virg[facility] who agreed they would refer him, although there is a wait list. He is able to perform ADLs, do laundry, cooks, and clean, but has typically relied on his mother to do the shopping and manage his finances. The [facility] setting would be helpful for him to increase his independence and confidence in his ability to function and live independently. He may benefit from a rep payee (reportedly currently his mother), and structured assistance to learn how to manage finances on his own. Our hope is that if he commits to working toward a goal of moving out of living independently, but his mother will allow him to return home temporarily. -Discussed with patient our plan to transition to a 304 involuntary outpatient commitment at the time of discharge, as a way to assist him in remaining engaged in treatment and moving towards his goals, given his tendency to disengage from treatment due to anxiety. 07/17 -continue fluoxetine 30 mg daily which was just increased yesterday. -Family meeting held with mother; continue to explore housing options. -Refer for outpatient psychiatric care and therapy. -We have requested that his bottle caser meet with him here to complete the [facility] referral and start to develop rapport. (2) OCD (obsessive compulsive disorder): 07/12 -Monitor the patient for excessive handwashing and other forms of bathing. -Begin fluoxetine 10 mg daily and titrate as indicated for mood regulation as well as for obsessive-compulsive symptoms. 07/13 - Repeat sodium in am with plan to titrate to 20 mg, he states that Prozac weekly would be a beneficial option for him. 07/15 - Pt agreeable to titration of fluoxetine to 30mg daily, starting tomorrow morning - Continue to assist in the development of healthy and effective coping strategies 07/16 -Patient's OCD symptoms are much less severe than on previous hospitalizations. Although somewhat rigid in his routines, he is demonstrating an ability to be much more flexible and interactive with others, is less preoccupied with compulsive behaviors, and better able to function. (3) Autism spectrum disorder: 07/12/19 -Many of the patient's presenting symptoms may best be explained by autism spectrum disorder. -The ease with which the patient may be able to tolerate group and activity therapies as likely to be impacted by his pervasive developmental disorder. -The patient's current treatment will need to be informed by an understanding of the limitations as well as the opportunities for individuals who fall in the autism spectrum. -Certain symptoms of this disorder, including emotional lability and difficulty with mood regulation may benefit from a low-dose of an antidepressant, such as fluoxetine. -The patient is reluctant to accept psychiatric medications per, but today agreed to a trial of fluoxetine. We will begin at 10 mg daily and titrate as indicated. -Material risks and anticipated benefits of fluoxetine were reviewed with the patient and he indicated understanding 07/14 -Dx of autism by Dr. Daniel, agree unusual prosody to voice. suspect some of his water drinking may be more delusional than perseveration, unclear IQ. 07/15 -Clarify diagnosis of autism spectrum disorder; unsure if historical diagnosis or newly determined. 07/16 -Reviewed records from [facility] psych clinic from initial evaluation in October 2012, based on hospital records, clinical interview with patient, anxiety disorder interview schedule, and an MCMI-III. He was diagnosed with anxiety disorder NOS, chronic PTSD, body dysmorphic disorder, delusional disorder somatic type, and dependent personality traits. Per mother, he has an IQ of 82, so has not been eligible for ID services. -Recommend neuropsychological testing as an outpatient to help clarify diagnoses. (4) Psychogenic polydipsia: 07/12 -The patient reports that he has a long history of excessive water consumption and notes that, as recently as several years in the past, he was consuming as much as 4 or 5 gallons of water per day. -He notes that he is aware of the risks associated with excessive water drinking and seeks to bring the behavior under control. He notes that recently he has been drinking significantly less water and often does not drink more than recommended, although he admits that recently he has been drinking more than he should. His explanation is that excessive water consumption relieves his anxiety and provides a calming effect. -As part of his treatment for psychogenic polydipsia we will focus on obsessive-compulsive symptoms as well as anxiety symptoms. As noted above, the patient is being offered a trial of fluoxetine, beginning 10 mg daily and this will be titrated as indicated. (5) Hyponatremia: 07/12 -The patient is aware that his serum sodium level was dangerously low. He is able to tell us that he realizes that low sodium levels can cause seizures and, in fact, he notes that he has experienced seizures related to hyponatremia on several occasions in the past. He also was advised that hyponatremia can also lead to , and the patient says that he is motivated to get his water consumption under better control. -Patient had been refusing to allow his blood to be drawn for follow-up serial serum sodium levels. Today, he is agreeing and we will order a stat serum sodium level, with serial sodium levels to follow. 07/14 sodium 144 today (6) Body dysmorphic disorder: 07/16 -patient has a history of body dysmorphic disorder with focus on facial scarring. He continues to wear foundation on his face, but is less preoccupied with this than he has been in the past. (7) Delusional disorder: 07/16 -history of delusional disorder somatic type. As above, less focused on this than during past hospitalizations. Consider an antipsychotic in the future, but will not pursue now as we have just resume fluoxetine, he is somewhat reluctant to take medication, and due to the high risk benefit ratio with these medications in delusional disorder. Inventory Assets Strengths: Some insight into his needs and problematic behaviors. Family involvement. Needs: Adherence with treatment. Suitable placement. Mood regulation. Avoidance of water intoxication. Does not abuse alcohol or other drugs. Risk Factors Assessment Male: Yes Do You Have Access To A Gun?: No Health Problems: No Mental Health Diagnoses: Yes Substance Use Disorders: No Previous Attempt: No Family History of Suicide: No Previous Psychiatric Hospitalization: Yes Hopelessness: No Smoker: No Protective Factors Assessment Rastafari Beliefs: Yes : No Responsible for Young Children: No Employed: No Stable Relationships: No Supportive Family: Yes Good Rapport with Provider: No Absence of Any Risk Factors Above: No Interval History Identifying Information TASHA MAC is a 29-year-old M who currently lives in the [place] area with his mother and 27-year-old brother. He has a past diagnosis of recurrent major depression, as well as a history of obsessive-compulsive disorder and psychogenic polydipsia. He was brought into the emergency room on 07/09/2019 by the police following a verbal altercation with his mother in which he reportedly had threatened suicide. He was subsequently admitted to the medical service with a serum sodium level of 121, and then was transferred to the behavioral health unit on the afternoon of 07/11/2019 on a voluntary basis. Chief Complaint "She's not allowing me to come home". Review of Systems Sleep Information Total Hours of Sleep: 6.75 Sleep Comments: pt on q-15 minute checks Meal Information Percent Meal Consumed - Breakfast: 100 Percent Meal Consumed - Lunch: 100 Percent Meal Consumed - Dinner: 100 Subjective Subjective Patient was seen & assessed and interval progress reviewed with treatment team. Staff report he had a difficult family meeting with his mother yesterday, as she stated he absolutely could not come home, even temporarily. He was upset but able to process with staff. The oncology social work assisted him to call [facility] and apply for services, and he was anxious about answering their questions, but was able to complete the interview. He has been going to groups and interacting appropriately with staff and peers. On my assessment, he was seen with KATIE Salas, with his permission. He reports disappointment with his interaction with his mother, feeling she was angry and doesn't appreciate how hard it is for him to make changes, even though he wants to. He feels he has made progress over the years and that she doesn't recognize that, and that he cares more about her than she does about him. He is hopeful t hat they will be able to reconcile at some point. Mood is improved from admission, and appetite is good. He is performing ADLs, showering daily, and describes sleep as "decent, but it's always hard to sleep in hospitals." He denies SI. Physical Exam Psychiatric Well-nourished well-developed white male appearing his stated age. Casually dressed, adequately groomed. Wearing foundation on his face, bearded. Seated in no acute distress. Mild fidgeting, good eye contact, stable gait and station. Alert and oriented. Calm, cooperative, and pleasant. Mood is "okay," affect is stable, euthymic, mildly anxious, appropriate, and mood congruent. Thoughts are linear and goal directed. No SI, HI, hallucinations, delusions, or paranoia evident. Attention, language, and memory intact per interview. Insight and judgment are fair. Vital Signs (Past 24 Hours) Last Vital Signs Temp 36.2 C L 07/17/19 06:00 Pulse 84 07/17/19 06:00 Resp 16 07/17/19 06:00 BP 115/84 07/17/19 06:00 Results & Data Current Inpatient Medications Current Inpatient Medications: Current Inpatient Medications Acetaminophen (Tylenol) 650 mg PO Q4H PRN PRN Reason: Headache or Minor Fever Stop: 08/10/19 12:42 Al Hydrox/Mg Hydrox/Simethicone (Maalox) 30 ml PO Q4H PRN PRN Reason: GI Upset Stop: 08/10/19 12:42 Bismuth Subsalicylate (Kaopectate) 15 ml PO PRN PRN PRN Reason: Loose Stool Stop: 08/10/19 12:42 Fluoxetine HCl (Prozac) 30 mg PO QAM MICHAEL Stop: 08/15/19 08:59 Last Admin: 07/16/19 08:57 Dose: 30 mg Documented by: Hydrocortisone (Hydrocortisone 1%) 1 appln EXT QID PRN PRN Reason: Rash/itching left leg Stop: 08/11/19 14:23 Hydroxyzine HCl (Vistaril) 25 mg PO Q4H PRN PRN Reason: Anxiety Stop: 08/10/19 12:42 Hydroxyzine HCl (Vistaril) 50 mg PO HSZ PRN PRN Reason: Insomnia Stop: 08/10/19 12:42 Magnesium Hydroxide (Milk Of Magnesia) 30 ml PO DAILY PRN PRN Reason: Constipation Stop: 08/10/19 12:42 Multivitamins/Minerals (Multivitamin W/ Minerals Tab) 1 tab PO QAM MICHAEL Stop: 08/11/19 08:59 Last Admin: 07/16/19 08:57 Dose: 1 tab Documented by: Sodium Chloride ([place] Nasal) 1 - 2 sprays NA PRN PRN PRN Reason: Nasal Dryness/Congestion Stop: 08/10/19 12:42 Mental Health & Subst Abuse Tx Therapist Name of Therapist: "they set up somebody at the [facility] but I don't know who and didn't go." Drier Operator Helper Name of Drier Operator Helper: Emily with [facility] & Krissy with [facility] Post Discharge Appointments Primary Care Physician Name Of Family Doctor: Shamika Oro CPT Code CPT Code 06653
[2019-07-17] MEDS: FLUOXETINE HCL 10 MG CAP PO SCH (09:30)
[2019-07-17] MEDS: CEROVITE ADV FORMULA TAB PO SCH (09:30)
[2019-07-18] MEDS: FLUOXETINE HCL 10 MG CAP PO SCH (09:03)
[2019-07-18] MEDS: CEROVITE ADV FORMULA TAB PO SCH (09:03)
--- NOTE | 2019-07-18 12:45 | Psychiatric Progress Note ---
Date of Service July 18, 2019 Impression / Recommendations Impression 29-year-old man presents with a history of multiple previous psychiatric hospitalizations and diagnoses, recently hospitalized at the [facility] where he apparently declined medications, and was set up with a therapist and counter caser, but then declined to engage in treatment. The crisis that precipitated this admission involved an argument with his mother. According to reports, the patient had also threatened to kill himself with a knife a week prior during an argument with his mother. He has a long history of resistance to treatment, nonadherence, and has not been in treatment for the past year since his last hospitalization here. He was initially admitted to the hospitalist service due to hyponatremia secondary to psychogenic polydipsia, which has since resolved. He has been restarted on fluoxetine, which was helpful in the past, and has been more engaged in treatment and willing to work on discharge plans at increasing his independence than he has on previous admissions. They are exploring options for supportive living, including housing transitions. At this time, inpatient treatment is medically necessary due to the risk of rapid relapse and decompensation if discharged without sufficient outpatient treatment and supports in place. 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 (1) Anxiety: 07/16 -symptoms of CARLOS and social anxiety. -Titrate fluoxetine as below. -Continue encouragement, as he is finally taking steps to reach some of his long-term goals, including moving out of his mother's home and becoming more independent. -Encourage his BCM to meet with him here to develop rapport, and encouraged him to work closely with his outpatient clinicians to work towards his goals. -Work on healthy coping mechanisms and behavioral techniques for managing anxiety. -Family meeting with mother today. Patient is willing for a referral to the [facility], and is an appropriate candidate. [facility] with [facility] who agreed they would refer him, although there is a wait list. He is able to perform ADLs, do laundry, cooks, and clean, but has typically relied on his mother to do the shopping and manage his finances. The [facility]ci setting would be helpful for him to increase his independence and confidence in his ability to function and live independently. He may benefit from a rep payee (reportedly currently his mother), and structured assistance to learn how to manage finances on his own. Our hope is that if he commits to working toward a goal of moving out of living independently, but his mother will allow him to return home temporarily. -Discussed with patient our plan to transition to a 304 involuntary outpatient commitment at the time of discharge, as a way to assist him in remaining engaged in treatment and moving towards his goals, given his tendency to disengage from treatment due to anxiety. 07/17 -continue fluoxetine 30 mg daily which was just increased yesterday. -Family meeting held with mother; continue to explore housing options. -Refer for outpatient psychiatric care and therapy. -We have requested that his counter caser meet with him here to complete the [facility] referral and start to develop rapport. 07/18 - Continue fluoxetine 30mg daily, not willing for increase and actually was requesting to discontinue the medication - Accepted to [facility] through Housing Transitions - manager home healthcare has been involved in coordination of aftercare (2) OCD (obsessive compulsive disorder): 07/12 -Monitor the patient for excessive handwashing and other forms of bathing. -Begin fluoxetine 10 mg daily and titrate as indicated for mood regulation as well as for obsessive-compulsive symptoms. 07/13 - Repeat sodium in am with plan to titrate to 20 mg, he states that Prozac weekly would be a beneficial option for him. 07/15 - Pt agreeable to titration of fluoxetine to 30mg daily, starting tomorrow morning - Continue to assist in the development of healthy and effective coping strategies 07/16 -Patient's OCD symptoms are much less severe than on previous hospitalizations. Although somewhat rigid in his routines, he is demonstrating an ability to be much more flexible and interactive with others, is less preoccupied with compulsive behaviors, and better able to function. 07/18 - Continue fluoxetine 30mg daily (3) Autism spectrum disorder: 07/12/19 -Many of the patient's presenting symptoms may best be explained by autism spectrum disorder. -The ease with which the patient may be able to tolerate group and activity therapies as likely to be impacted by his pervasive developmental disorder. -The patient's current treatment will need to be informed by an understanding of the limitations as well as the opportunities for individuals who fall in the autism spectrum. -Certain symptoms of this disorder, including emotional lability and difficulty with mood regulation may benefit from a low-dose of an antidepressant, such as fluoxetine. -The patient is reluctant to accept psychiatric medications per, but today agreed to a trial of fluoxetine. We will begin at 10 mg daily and titrate as indicated. -Material risks and anticipated benefits of fluoxetine were reviewed with the patient and he indicated understanding 07/14 -Dx of autism by Dr. Daniel, agree unusual prosody to voice. suspect some of his water drinking may be more delusional than perseveration, unclear IQ. 07/15 -Clarify diagnosis of autism spectrum disorder; unsure if historical diagnosis or newly determined. 07/16 -Reviewed records from [facility] psych clinic from initial evaluation in October 2012, based on hospital records, clinical interview with patient, anxiety disorder interview schedule, and an MCMI-III. He was diagnosed with anxiety disorder NOS, chronic PTSD, body dysmorphic disorder, delusional disorder somatic type, and dependent personality traits. Per mother, he has an IQ of 82, so has not been eligible for ID services. -Recommend neuropsychological testing as an outpatient to help clarify diagnoses. (4) Psychogenic polydipsia: 07/12 -The patient reports that he has a long history of excessive water consumption and notes that, as recently as several years in the past, he was consuming as much as 4 or 5 gallons of water per day. -He notes that he is aware of the risks associated with excessive water drinking and seeks to bring the behavior under control. He notes that recently he has been drinking significantly less water and often does not drink more than recommended, although he admits that recently he has been drinking more than he should. His explanation is that excessive water consumption relieves his anxiety and provides a calming effect. -As part of his treatment for psychogenic polydipsia we will focus on obsessive-compulsive symptoms as well as anxiety symptoms. As noted above, the patient is being offered a trial of fluoxetine, beginning 10 mg daily and this will be titrated as indicated. (5) Hyponatremia: 07/12 -The patient is aware that his serum sodium level was dangerously low. He is able to tell us that he realizes that low sodium levels can cause seizures and, in fact, he notes that he has experienced seizures related to hyponatremia on several occasions in the past. He also was advised that hyponatremia can also lead to , and the patient says that he is motivated to get his water consumption under better control. -Patient had been refusing to allow his blood to be drawn for follow-up serial serum sodium levels. Today, he is agreeing and we will order a stat serum sodium level, with serial sodium levels to follow. 07/14 sodium 144 today 07/18 - Pt agreeable with having his sodium checked again tomorrow morning - labs ordered (6) Body dysmorphic disorder: 07/16 -patient has a history of body dysmorphic disorder with focus on facial scarring. He continues to wear foundation on his face, but is less preoccupied with this than he has been in the past. (7) Delusional disorder: 07/16 -history of delusional disorder somatic type. As above, less focused on this than during past hospitalizations. Consider an antipsychotic in the future, but will not pursue now as we have just resume fluoxetine, he is somewhat reluctant to take medication, and due to the high risk benefit ratio with these medications in delusional disorder. Inventory Assets Strengths: Some insight into his needs and problematic behaviors. Family involvement. Needs: Adherence with treatment. Suitable placement. Mood regulation. Avoidance of water intoxication. Does not abuse alcohol or other drugs. Risk Factors Assessment Male: Yes Do You Have Access To A Gun?: No Health Problems: No Mental Health Diagnoses: Yes Substance Use Disorders: No Previous Attempt: No Family History of Suicide: No Previous Psychiatric Hospitalization: Yes Hopelessness: No Smoker: No Protective Factors Assessment Hindu Beliefs: Yes : No Responsible for Young Children: No Employed: No Stable Relationships: No Supportive Family: Yes Good Rapport with Provider: No Absence of Any Risk Factors Above: No Interval History Identifying Information TASHA MAC is a 29-year-old M who currently lives in the [place] area with his mother and 27-year-old brother. He has a past diagnosis of recurrent major depression, as well as a history of obsessive-compulsive disorder and psychogenic polydipsia. He was brought into the emergency room on 07/09/2019 by the police following a verbal altercation with his mother in which he reportedly had threatened suicide. He was subsequently admitted to the medical service with a serum sodium level of 121, and then was transferred to the behavioral health unit on the afternoon of 07/11/2019 on a voluntary basis. Chief Complaint "Um, ok..." Review of Systems Notes Constitutional: denied Cardiovascular: denied Respiratory: denied Gastrointestinal: denied Neurological: denied Psychiatric: denies symptoms other than stated above Total of at least 10 systems reviewed, pertinent positives as above and in HPI. Sleep Information Total Hours of Sleep: 6.75 Sleep Comments: came to day room for water x 2 Meal Information Percent Meal Consumed - Breakfast: 100 Percent Meal Consumed - Lunch: 100 Percent Meal Consumed - Dinner: 100 Subjective Subjective Patient was seen & assessed and interval progress reviewed with nursing and social work. Staff reports the patient has been demonstrating improvement over the course of his admission. He has completed a CRR application, and was reportedly accepted at [facility] but they cannot take him until after the weekend. Patient was seen today to assess progress since admission. Pt is cooperative with conversation and reports that he is "Ok, I had a good conversation with my brother. And then talked to my mom on the phone." Pt states that he had a good meeting with staff from [facility] - stating "it went a lot better than I thought." Pt's affect appears to brighten when he discusses the idea of going to [facility]. He continues to report motivation to live independently, but is admittedly anxious about the process. He denies SI here on the unit, but is worried about how he would function out of the hospital if he does not have adequate support. Pt reports concern about his current dosage of fluoxetine, stating - "I think it is too high of a dose." Whe n asked why he believes this, he states, "I just feel like my bodily functions are off. I feel slowed, it's harder to focus." We discussed that while there is a possibility that these are medication side effects, it is most likely that these concerns will resolve over time as he continues on the medication. This provider explained that with anticipated transitions, it is not our recommendation that he discontinue medication at this time. This provider suggested the patient continue on the medication throughout this transitional period, and be sure to discuss any changes with his outpatient prescriber before deciding to discontinue. Pt was able to verbalize understanding of the reasoning for this, and was ultimately agreeable to continuing fluoxetine 30mg daily. Pt was willing to discuss his fluid intake, which he perceives to be improved. He states, "it's a lot less than it was when it was causing me seizures. I'm only sipping it now." Pt was hesitant, but ultimately agreeable, to having his serum sodium checked tomorrow morning, to ensure his hydration is not problematic. Pt denies other acute needs at this time. Physical Exam Psychiatric Orientation: alert, oriented x 3 and cooperative (timid, but pleasant) Apperance: appropriately dressed (wearing sweater and scrub pants) and appropriately groomed (wearing a thick layer of foundation, which is usual for the patient) Eye Contact: good eye contact Motor Behavior: steady gait and station and no abnormal motor movements Speech: normal rate/rhythm/volume of speech (timid speech) Affect: + anxious affect (highly anxious affect) and mood congruent with affect Mood: + anxious mood; no depressed mood Thought Process: goal directed thought process, clear/coherent thought process and + concrete thought process Thought Content: reality based without delusions Suicidal Thoughts: denies suicidal thoughts and denies suicidal intent Hallucinations: no auditory hallucinations and no visual hallucinations Cognition: remote memory grossly intact, attention grossly intact and language grossly intact Insight: + limited insight Judgement: + limited judgement Vital Signs (Past 24 Hours) Last Vital Signs Temp 36.7 C 07/18/19 06:00 Pulse 88 07/18/19 06:58 Resp 18 07/18/19 06:00 BP 123/83 07/18/19 06:58 Results & Data Current Inpatient Medications Current Inpatient Medications: Current Inpatient Medications Acetaminophen (Tylenol) 650 mg PO Q4H PRN PRN Reason: Headache or Minor Fever Stop: 08/10/19 12:42 Al Hydrox/Mg Hydrox/Simethicone (Maalox) 30 ml PO Q4H PRN PRN Reason: GI Upset Stop: 08/10/19 12:42 Bismuth Subsalicylate (Kaopectate) 15 ml PO PRN PRN PRN Reason: Loose Stool Stop: 08/10/19 12:42 Fluoxetine HCl (Prozac) 30 mg PO QAM MICHAEL Stop: 08/15/19 08:59 Last Admin: 07/18/19 09:03 Dose: 30 mg Documented by: Hydrocortisone (Hydrocortisone 1%) 1 appln EXT QID PRN PRN Reason: Rash/itching left leg Stop: 08/11/19 14:23 Hydroxyzine HCl (Vistaril) 25 mg PO Q4H PRN PRN Reason: Anxiety Stop: 08/10/19 12:42 Hydroxyzine HCl (Vistaril) 50 mg PO HSZ PRN PRN Reason: Insomnia Stop: 08/10/19 12:42 Magnesium Hydroxide (Milk Of Magnesia) 30 ml PO DAILY PRN PRN Reason: Constipation Stop: 08/10/19 12:42 Multivitamins/Minerals (Multivitamin W/ Minerals Tab) 1 tab PO QAM MICHAEL Stop: 08/11/19 08:59 Last Admin: 07/18/19 09:03 Dose: 1 tab Documented by: Sodium Chloride (Dinuba Nasal) 1 - 2 sprays NA PRN PRN PRN Reason: Nasal Dryness/Congestion Stop: 08/10/19 12:42 Mental Health & Subst Abuse Tx Therapist Name of Therapist: "they set up somebody at the [facility] but I don't know who and didn't go." [employer] Name of [employer]: Emily with [facility] & Krissy with [facility] Post Discharge Appointments Primary Care Physician Name Of Family Doctor: Shamika Oro Other #1: Name of Aftercare Appointment: [facility] [employer] - Krissy #2: Name of Aftercare Appointment: Clarita SOTELO [employer] Lieutenant - Nicolasa Tomas Phone Number of Aftercare Appointment: [phone] CPT Code CPT Code 56009
[2019-07-19] MEDS: FLUOXETINE HCL 10 MG CAP PO SCH (08:42)
[2019-07-19] MEDS: CEROVITE ADV FORMULA TAB PO SCH (08:42)
--- NOTE | 2019-07-19 15:32 | Psychiatric Progress Note ---
Date of Service July 19, 2019 Impression / Recommendations Impression 29-year-old man presents with a history of multiple previous psychiatric hospitalizations and diagnoses, recently hospitalized at the [facility] where he apparently declined medications, and was set up with a therapist and vocational case manager, but then declined to engage in treatment. During the current hospital stay the patient has worked to form alliances among his peer group here, and has also focused on developing improved coping strategies. He acknowledges that 1 of the coping strategies that he has used previously has been to drink excessive amounts of water as a way of managing his anxiety. In the hospital, the patient notes that he has been "practicing" managing anxiety without relying on excessive water consumption and says that he has limited his water intake to no more than the equivalent of 8 cups of water a day. His affect is brighter, and he reports that his mood is improved. He is tolerating fluoxetine without any difficulty and tells us that he feels that he is motivated to continue to take it because it has helped, both with depression and with anxiety. We have scheduled a outpatient commitment hearing for the beginning of next week, and the plan will be for the patient to be discharged to temporary housing shortly thereafter. (1) Anxiety: 07/16 -symptoms of CARLOS and social anxiety. -Titrate fluoxetine as below. -Continue encouragement, as he is finally taking steps to reach some of his long-term goals, including moving out of his mother's home and becoming more independent. -Encourage his BCM to meet with him here to develop rapport, and encouraged him to work closely with his outpatient clinicians to work towards his goals. -Work on healthy coping mechanisms and behavioral techniques for managing anxiety. -Family meeting with mother today. Patient is willing for a referral to the [facility], and is an appropriate candidate. [facility] with [facility] who agreed they would refer him, although there is a wait list. He is able to perform ADLs, do laundry, cooks, and clean, but has typically relied on his mother to do the shopping and manage his finances. The residential setting would be helpful for him to increase his independence and confidence in his ability to function and live independently. He may benefit from a rep payee (reportedly currently his mother), and structured assistance to learn how to manage finances on his own. Our hope is that if he commits to working toward a goal of moving out of living independently, but his mother will allow him to return home temporarily. -Discussed with patient our plan to transition to a 304 involuntary outpatient commitment at the time of discharge, as a way to assist him in remaining engaged in treatment and moving towards his goals, given his tendency to disengage from treatment due to anxiety. 07/17 -continue fluoxetine 30 mg daily which was just increased yesterday. -Family meeting held with mother; continue to explore housing options. -Refer for outpatient psychiatric care and therapy. -We have requested that his vocational case manager meet with him here to complete the [facility] referral and start to develop rapport. 07/18 - Continue fluoxetine 30mg daily, not willing for increase and actually was requesting to discontinue the medication - Accepted to [facility] through [facility] - mechanical engineering manager has been involved in coordination of aftercare 07/19 -Today, we discussed the patient's request yesterday to discontinue fluoxetine. We pointed out that he reports that his mood has been improving and that he is tolerating fluoxetine well. We also reinforced the fact that the patient will need to be adherent with recommended treatments on an outpatient basis as a condition of continuing treatment on an outpatient basis. The patient does say that he recognizes that fluoxetine has been helpful to him, both in terms of his depression and his anxiety and he voices a plan to continue taking it, as prescribed. (2) OCD (obsessive compulsive disorder): 07/12 -Monitor the patient for excessive handwashing and other forms of bathing. -Begin fluoxetine 10 mg daily and titrate as indicated for mood regulation as well as for obsessive-compulsive symptoms. 07/13 - Repeat sodium in am with plan to titrate to 20 mg, he states that Prozac weekly would be a beneficial option for him. 07/15 - Pt agreeable to titration of fluoxetine to 30mg daily, starting tomorrow morning - Continue to assist in the development of healthy and effective coping strategies 07/16 -Patient's OCD symptoms are much less severe than on previous hospitalizations. Although somewhat rigid in his routines, he is demonstrating an ability to be much more flexible and interactive with others, is less preoccupied with compulsive behaviors, and better able to function. 07/18 - Continue fluoxetine 30mg daily 07/19 -The patient was reminded today that fluoxetine can be helpful with depression, anxiety and with obsessive compulsive features. It is for that reason that we are recommending that he continue fluoxetine as prescribed. He was also advised that his outpatient provider may choose to titrate the med ication further. (3) Autism spectrum disorder: 07/12/19 -Many of the patient's presenting symptoms may best be explained by autism spectrum disorder. -The ease with which the patient may be able to tolerate group and activity therapies as likely to be impacted by his pervasive developmental disorder. -The patient's current treatment will need to be informed by an understanding of the limitations as well as the opportunities for individuals who fall in the autism spectrum. -Certain symptoms of this disorder, including emotional lability and difficu lty with mood regulation may benefit from a low-dose of an antidepressant, such as fluoxetine. -The patient is reluctant to accept psychiatric medications per, but today agreed to a trial of fluoxetine. We will begin at 10 mg daily and titrate as indicated. -Material risks and anticipated benefits of fluoxetine were reviewed with the patient and he indicated understanding 07/14 -Dx of autism by Dr. Daniel, agree unusual prosody to voice. suspect some of his water drinking may be more delusional than perseveration, unclear IQ. 07/15 -Clarify diagnosis of autism spectrum disorder; unsure if historical diagnosis or newly determined. 07/19 -Reportedly, diagnosis of autism Spectrum had previously been considered. The focus of treatment will remain on his anxiety, his obsessive-compulsive symptoms, and his excessive water drinking as a dysfunctional method of managing anxiety. 07/16 -Reviewed records from [facility] psych clinic from initial evaluation in October 2012, based on hospital records, clinical interview with patient, anxiety disorder interview schedule, and an MCMI-III. He was diagnosed with anxiety disorder NOS, chronic PTSD, body dysmorphic disorder, delusional di sorder somatic type, and dependent personality traits. Per mother, he has an IQ of 82, so has not been eligible for ID services. -Recommend neuropsychological testing as an outpatient to help clarify diagnoses. (4) Psychogenic polydipsia: 07/12 -The patient reports that he has a long history of excessive water consumption and notes that, as recently as several years in the past, he was consuming as much as 4 or 5 gallons of water per day. -He notes that he is aware of the risks associated with excessive water drinking and seeks to bring the behavior under control. He notes that recently he has been drinking significantly less water and often does not drink more than recommended, although he admits that recently he has been drinking more than he should. His explanation is that excessive water consumption relieves his anxiety and provides a calming effect. -As part of his treatment for psychogenic polydipsia we will focus on obsessive-compulsive symptoms as well as anxiety symptoms. As noted above, the patient is being offered a trial of fluoxetine, beginning 10 mg daily and this will be titrated as indicated. 07/19 -We have continued to educate the patient regarding the substantial risks associated with water intoxication including, up to seizures, grave disability and . The patient has consistently indicated understanding and expresses an eagerness to continue to learn improved coping strategies. -Today, the patient was able to discuss certain coping strategies that he has been able to use in the hospital as a way of avoiding excessive water intake. He notes that these strategies have primarily involved seeking out of the people with whom to discuss his concerns and he notes that, at home, he has tended to isolate and not talk about what he is feeling. He adds, "in the hospital, I have learned to talk to other people when I am feeling nervous. Usually, that helps." (5) Hyponatremia: 07/12 -The patient is aware that his serum sodium level was dangerously low. He is able to tell us that he realizes that low sodium levels can cause seizures and, in fact, he notes that he has experienced seizures related to hyponatremia on several occasions in the past. He also was advised that hyponatremia can also lead to , and the patient says that he is motivated to get his water consumption under better control. -Patient had been refusing to allow his blood to be drawn for follow-up serial serum sodium levels. Today, he is agreeing and we will order a stat serum sodium level, with serial sodium levels to follow. 07/14 sodium 144 today 07/18 - Pt agreeable with having his sodium checked again tomorrow morning - labs ordered 07/19 -Patient's serum sodium level today was within normal limits. (6) Body dysmorphic disorder: 07/16 -patient has a history of body dysmorphic disorder with focus on facial scarring. He continues to wear foundation on his face, but is less preoccupied with this than he has been in the past. (7) Delusional disorder: 07/16 -history of delusional disorder somatic type. As above, less focused on this than during past hospitalizations. Consider an antipsychotic in the future, but will not pursue now as we have just resume fluoxetine, he is somewhat reluctant to take medication, and due to the high risk benefit ratio with these medications in delusional disorder. 07/19 -The patient's body dysmorphia may be, at least in part, function of his autism spectrum symptoms. He genuinely seems unable to recognize that wearing fairly thick liquid "foundation" makeup unevenly on his face causes his appearance to "stand out" in a way that may send unintended signals to other people. The patient's mind, the makeup is simply a "tinted moisturizer" that hides facial scarring from acne. Inventory Assets Strengths: Some insight into his needs and problematic behaviors. Family involvement. Needs: Adherence with treatment. Suitable placement. Mood regulation. Avoidance of water intoxication. Does not abuse alcohol or other drugs. Risk Factors Assessment Male: Yes Do You Have Access To A Gun?: No Health Problems: No Mental Health Diagnoses: Yes Substance Use Disorders: No Previous Attempt: No Family History of Suicide: No Previous Psychiatric Hospitalization: Yes Hopelessness: No Smoker: No Protective Factors Assessment Episcopal Beliefs: Yes : No Responsible for Young Children: No Employed: No Stable Relationships: No Supportive Family: Yes Good Rapport with Provider: No Absence of Any Risk Factors Above: No Interval History Identifying Information TASHA MAC is a 29-year-old M who currently lives in the [place] area with his mother and 27-year-old brother. He has a past diagnosis of recurrent major depression, as well as a history of obsessive-compulsive disorder and psychogenic polydipsia. He was brought into the emergency room on 07/09/2019 by the police following a verbal altercation with his mother in which he reportedly had threatened suicide. He was subsequently admitted to the medical service with a serum sodium level of 121, and then was transferred to the behavioral health unit on the afternoon of 07/11/2019 on a voluntary basis. Chief Complaint "I am doing better." Review of Systems Sleep Information Total Hours of Sleep: 7.25 Sleep Comments: pt on q-15 minute checks Meal Information Percent Meal Consumed - Breakfast: 100 Percent Meal Consumed - Lunch: 100 Percent Meal Consumed - Dinner: 100 Subjective Subjective Patient was seen & assessed and interval progress reviewed with treatment team. I met with the patient individually in order to assess his current mental status, evaluate his response to treatment, coordinate any necessary changes in his treatment regimen with the patient, and address issues, questions and concerns that may arise. The patient begins by telling me that he is doing "better," but notes that he has recently been somewhat anxious because he is aware that there is a plan for him to go into a temporary housing placement. He is able to spontaneously articulate the wisdom associated with the decision for him to home at least for the time being, no longer live with his mother. He accepts his mother's decision to not allow him to return home and says that he realizes that "at the age of 29" it is time for him to take definitive steps towards having his own place. He also says that he finds that he does much better in the hospital and attributes this, as he has in the past, to increase to structure associated with psychiatric hospitalization. He indicates that he is aware that there is a structured program linked to his upcoming community placement and he feels that this will improve the likelihood of a positive long- term outcome with recovery. Also, we discussed the patient's history of nonadherence with outpatient treatment and the patient agrees that an outpatient commitment is likely to motivate him to keep his outpatient appointments, and take the medications that are prescribed. We also talked about the fact that the patient has sometimes used excessive water drinking as a way of managing his anxiety and, in fact, he acknowledges that he is feeling anxious about the prospects of living someplace other than with his mother, particularly within the context of his discomfort around people that he does not know very well. However, he was able to look at the strengths that he accessed during the current hospitalization, the fact that he was able to form alliances here among the patient population, and the fact that it is "time" for him to begin to "move on" with his life. We discussed coping strategies that he has learned in the hospital, and he notes that the one that has been most effective for him has been to address his concerns with other people when he is feeling anxious. He w as able to do this successfully during today's encounter and he specifically asked me to review of the rules and expectations of his upcoming placement with him as a way of feeling reassured. Patient was also reminded of the material risks associated with excessive water intake, including disability and even . Physical Exam Psychiatric Orientation: alert and oriented x 3 Apperance: appropriately dressed The patient wears fairly thick "foundation" makeup that, unfortunately, causes him to stand out when, in fact, he says that his goal is to "fit in" without being noticed. He continues to tell us that he wears the make up in order to hide acne scars, and has trouble accepting the observation that, in fact, the makeup seems to accentuate the scars rather than hide them. Eye Contact: + fair eye contact Motor Behavior: steady gait and station and no abnormal motor movements Speech: normal rate/rhythm/volume of speech Affect: + anxious affect "A little nervous, but not depressed. Unkind is excited about the next step." Thought Process: goal directed thought process Thought Content: reality based without delusions Suicidal Thoughts: denies suicidal thoughts Homicidal Thoughts: denies homicidal thoughts Hallucinations: no auditory hallucinations Cognition: recent memory grossly intact, remote memory grossly intact and language grossly intact Estimated Intelligence: + below average estimated intelligence Insight: + limited insight Judgement: + fair judgement Vital Signs (Past 24 Hours) Last Vital Signs Temp 36.7 C 07/19/19 07:04 Pulse 84 07/19/19 07:04 Resp 18 07/19/19 07:04 BP 125/77 07/19/19 07:04 Results & Data Laboratory Results Laboratory Results - last 24 hr 07/19/19 08:17 Sodium 138 Current Inpatient Medications Current Inpatient Medications: Current Inpatient Medications Acetaminophen (Tylenol) 650 mg PO Q4H PRN PRN Reason: Headache or Minor Fever Stop: 08/10/19 12:42 Al Hydrox/Mg Hydrox/Simethicone (Maalox) 30 ml PO Q4H PRN PRN Reason: GI Upset Stop: 08/10/19 12:42 Bismuth Subsalicylate (Kaopectate) 15 ml PO PRN PRN PRN Reason: Loose Stool Stop: 08/10/19 12:42 Fluoxetine HCl (Prozac) 30 mg PO QAM MICHAEL Stop: 08/15/19 08:59 Last Admin: 07/19/19 08:42 Dose: 30 mg Documented by: Hydrocortisone (Hydrocortisone 1%) 1 appln EXT QID PRN PRN Reason: Rash/itching left leg Stop: 08/11/19 14:23 Hydroxyzine HCl (Vistaril) 25 mg PO Q4H PRN PRN Reason: Anxiety Stop: 08/10/19 12:42 Hydroxyzine HCl (Vistaril) 50 mg PO HSZ PRN PRN Reason: Insomnia Stop: 08/10/19 12:42 Magnesium Hydroxide (Milk Of Magnesia) 30 ml PO DAILY PRN PRN Reason: Constipation Stop: 08/10/19 12:42 Multivitamins/Minerals (Multivitamin W/ Minerals Tab) 1 tab PO QAM MICHAEL Stop: 08/11/19 08:59 Last Admin: 07/19/19 08:42 Dose: 1 tab Documented by: Sodium Chloride (Angelina Nasal) 1 - 2 sprays NA PRN PRN PRN Reason: Nasal Dryness/Congestion Stop: 08/10/19 12:42 Mental Health & Subst Abuse Tx Psychiatrist Name of Psychiatrist: Yasmani Roberson Psychiatrist's Time of Appointment with Psychiatrist: Apt will be set after meeting with therapist. Psychiatric Appointment Comment: [address], [place], [place] [address] Therapist Name of Therapist: Yasmani Roberson - Litzy Espinoza Therapist's Date of Therapist Appointment: 07/24/19 Time of Therapist Appointment: 8:30am Therapy Appointment Comment: [address], [place] [address] Barrel Liner Name of Barrel Liner: [facility] Emily Phone Number for Barrel Liner: [phone] Case Management Appointment Comment: [address], [place] [address] Post Discharge Appointments Primary Care Physician Name Of Family Doctor: Shamika Oro [facility] Time of Appointment with PCP: Follow up as needed. Provider Appointment Comment: [address] [place] [address] Contact Information Discharge Discharge Address: [address], [place] [address] Contact Information Comment: Will be staying at [facility] intermediate. CPT Code CPT Code 52256
--- NOTE | 2019-07-20 08:54 | Psychiatric Progress Note ---
Date of Service July 20, 2019 Impression / Recommendations Impression 29-year-old man presents with a history of multiple previous psychiatric hospitalizations and diagnoses, recently hospitalized at the [facility] where he apparently declined medications, and was set up with a therapist and correctional counselor/case manager, but then declined to engage in treatment. During the current hospital stay the patient has worked to form alliances among his peer group here, and has also focused on developing improved coping strategies. He acknowledges that 1 of the coping strategies that he has used previously has been to drink excessive amounts of water as a way of managing his anxiety. In the hospital, the patient notes that he has been "practicing" managing anxiety without relying on excessive water consumption and says that he has limited his water intake to no more than the equivalent of 8 cups of water a day. His affect is brighter, and he reports that his mood is improved. He is tolerating fluoxetine without any difficulty and tells us that he feels that he is motivated to continue to take it because it has helped, both with depression and with anxiety. We have scheduled a outpatient commitment hearing for the beginning of next week, and the plan will be for the patient to be discharged to temporary housing shortly thereafter. (1) Anxiety: 07/16 -symptoms of CARLOS and social anxiety. -Titrate fluoxetine as below. -Continue encouragement, as he is finally taking steps to reach some of his long-term goals, including moving out of his mother's home and becoming more independent. -Encourage his BCM to meet with him here to develop rapport, and encouraged him to work closely with his outpatient clinicians to work towards his goals. -Work on healthy coping mechanisms and behavioral techniques for managing anxiety. -Family meeting with mother today. Patient is willing for a referral to the [facility], and is an appropriate candidate. [facility] with [facility] who agreed they would refer him, although there is a wait list. He is able to perform ADLs, do laundry, cooks, and clean, but has typically relied on his mother to do the shopping and manage his finances. The shelter setting would be helpful for him to increase his independence and confidence in his ability to function and live independently. He may benefit from a rep payee (reportedly currently his mother), and structured assistance to learn how to manage finances on his own. Our hope is that if he commits to working toward a goal of moving out of living independently, but his mother will allow him to return home temporarily. -Discussed with patient our plan to transition to a 304 involuntary outpatient commitment at the time of discharge, as a way to assist him in remaining engaged in treatment and moving towards his goals, given his tendency to disengage from treatment due to anxiety. 07/17 -continue fluoxetine 30 mg daily which was just increased yesterday. -Family meeting held with mother; continue to explore housing options. -Refer for outpatient psychiatric care and therapy. -We have requested that his correctional counselor/case manager meet with him here to complete the [facility] referral and start to develop rapport. 07/18 - Continue fluoxetine 30mg daily, not willing for increase and actually was requesting to discontinue the medication - Accepted to [facility] through [facility] - manager terminal has been involved in coordination of aftercare 07/19 -Today, we discussed the patient's request yesterday to discontinue fluoxetine. We pointed out that he reports that his mood has been improving and that he is tolerating fluoxetine well. We also reinforced the fact that the patient will need to be adherent with recommended treatments on an outpatient basis as a condition of continuing treatment on an outpatient basis. The patient does say that he recognizes that fluoxetine has been helpful to him, both in terms of his depression and his anxiety and he voices a plan to continue taking it, as prescribed. 07/20 - Continue fluoxetine 30mg daily (2) OCD (obsessive compulsive disorder): 07/12 -Monitor the patient for excessive handwashing and other forms of bathing. -Begin fluoxetine 10 mg daily and titrate as indicated for mood regulation as well as for obsessive-compulsive symptoms. 07/13 - Repeat sodium in am with plan to titrate to 20 mg, he states that Prozac weekly would be a beneficial option for him. 07/15 - Pt agreeable to titration of fluoxetine to 30mg daily, starting tomorrow morning - Continue to assist in the development of healthy and effective coping strategies 07/16 -Patient's OCD symptoms are much less severe than on previous hospitalizations. Although somewhat rigid in his routines, he is demonstrating an ability to be much more flexible and interactive with others, is less preoccupied with compulsive behaviors, and better able to function. 07/18 - Continue fluoxetine 30mg daily 07/19 -The patient was reminded today that fluoxetine can be helpful with depression, anxiety and with obsessive compulsive features. It is for that reason that we are recommending that he continue fluoxetine as prescribed. He was also advised that his outpatient provider may choose to titrate the medication further. (3) Autism spectrum disorder: 07/12/19 -Many of the patient's presenting symptoms may best be explained by autism spectrum disorder. -The ease with which the patient may be able to tolerate group and activity therapies as likely to be impacted by his pervasive developmental disorder. -The patient's current treatment will need to be informed by an understanding of the limitations as well as the opportunities for individuals who fall in the autism spectrum. -Certain symptoms of this disorder, including emotional lability and difficulty with mood regulation may benefit from a low-dose of an antidepressant, such as fluoxetine. -The patient is reluctant to accept psychiatric medications per, but today agreed to a trial of fluoxetine. We will begin at 10 mg daily and titrate as indicated. -Material risks and anticipated benefits of fluoxetine were reviewed with the patient and he indicated understanding 07/14 -Dx of autism by Dr. Daniel, agree unusual prosody to voice. suspect some of his water drinking may be more delusional than perseveration, unclear IQ. 07/15 -Clarify diagnosis of autism spectrum disorder; unsure if historical diagnosis or newly determined. -Reportedly, diagnosis of autism Spectrum had previously been considered. The focus of treatment will remain on his anxiety, his obsessive-compulsive symptoms, and his excessive water drinking as a dysfunctional method of managing anxiety. 07/16 -Reviewed records from [facility] psych clinic from initial evaluation in October 2012, based on hospital records, clinical interview with patient, anxiety disorder interview schedule, and an MCMI-III. He was diagnosed with anxiety disorder NOS, chronic PTSD, body dysmorphic disorder, delusional disorder somatic type, and dependent personality traits. Per mother, he has an IQ of 82, so has not been eligible for ID services. -Recommend neuropsychological testing as an outpatient to help clarify diagnoses. (4) Psychogenic polydipsia: 07/12 -The patient reports that he has a long history of excessive water consumpt ion and notes that, as recently as several years in the past, he was consuming as much as 4 or 5 gallons of water per day. -He notes that he is aware of the risks associated with excessive water dri nking and seeks to bring the behavior under control. He notes that recently he has been drinking significantly less water and often does not drink more than recommended, although he admits that recently he has been drinking more than he should. His explanation is that excessive water consumption relieves his anxiety and provides a calming effect. -As part of his treatment for psychogenic polydipsia we will focus on obsessive-compulsive symptoms as well as anxiety symptoms. As noted above, the patient is being offered a trial of fluoxetine, beginning 10 mg daily and this will be titrated as indicated. 07/19 -We have continued to educate the patient regarding the substantial risks associated with water intoxication including, up to seizures, grave disability and . The patient has consistently indicated understanding and expresses an eagerness to continue to learn improved coping strategies. -Today, the patient was able to discuss certain coping strategies that he has been able to use in the hospital as a way of avoiding excessive water intake. He notes that these strategies have primarily involved seeking out of the people with whom to discuss his concerns and he notes that, at home, he has tended to isolate and not talk about what he is feeling. He adds, "in the hospital, I have learned to talk to other people when I am feeling nervous. Usually, that helps." (5) Hyponatremia: 07/12 -The patient is aware that his serum sodium level was dangerously low. He is able to tell us that he realizes that low sodium levels can cause seizures and, in fact, he notes that he has experienced seizures related to hyponatremia on several occasions in the past. He also was advised that hyponatremia can also lead to , and the patient says that he is motivated to get his water consumption under better control. -Patient had been refusing to allow his blood to be drawn for follow-up serial serum sodium levels. Today, he is agreeing and we will order a stat serum sodium level, with serial sodium levels to follow. 07/14 sodium 144 today 07/18 - Pt agreeable with having his sodium checked again tomorrow morning - labs ordered 07/19 -Patient's serum sodium level today was within normal limits. (6) Body dysmorphic disorder: 07/16 -patient has a history of body dysmorphic disorder with focus on facial scarring. He continues to wear foundation on his face, but is less preoccupied with this than he has been in the past. (7) Delusional disorder: 07/16 -history of delusional disorder somatic type. As above, less focused on this than during past hospitalizations. Consider an antipsychotic in the future, but will not pursue now as we have just resume fluoxetine, he is somewhat reluctant to take medication, and due to the high risk benefit ratio with these medications in delusional disorder. 07/19 -The patient's body dysmorphia may be, at least in part, function of his autism spectrum symptoms. He genuinely seems unable to recognize that wearing fairly thick liquid "foundation" makeup unevenly on his face causes his appearance to "stand out" in a way that may send unintended signals to other people. The patient's mind, the makeup is simply a "tinted moisturizer" that hides facial scarring from acne. Inventory Assets Strengths: Some insight into his needs and problematic behaviors. Family involvement. Needs: Adherence with treatment. Suitable placement. Mood regulation. Avoidance of water intoxication. Does not abuse alcohol or other drugs. Risk Factors Assessment Male: Yes Do You Have Access To A Gun?: No Health Problems: No Mental Health Diagnoses: Yes Substance Use Disorders: No Previous Attempt: No Family History of Suicide: No Previous Psychiatric Hospitalization: Yes Hopelessness: No Smoker: No Protective Factors Assessment Episcopal Beliefs: Yes : No Responsible for Young Children: No Employed: No Stable Relationships: No Supportive Family: Yes Good Rapport with Provider: No Absence of Any Risk Factors Above: No Interval History Identifying Information TASHA MAC is a 29-year-old M who currently lives in the [place] area with his mother and 27-year-old brother. He has a past diagnosis of recurrent major depression, as well as a history of obsessive-compulsive disorder and psychogenic polydipsia. He was brought into the emergency room on 07/09/2019 by the police following a verbal altercation with his mother in which he reportedly had threatened suicide. He was subsequently admitted to the medical service with a serum sodium level of 121, and then was transferred to the behavioral health unit on the afternoon of 07/11/2019 on a voluntary basis. Chief Complaint "Ok....a little more sick in here [pointing to stomach]." Review of Systems Notes Constitutional: denied Cardiovascular: denied Respiratory: denied Gastrointestinal: reports nausea, described as "a weird feeling in my bowels" Neurological: denied Psychiatric: denies symptoms other than stated above Total of at least 10 systems reviewed, pertinent positives as above and in HPI. Sleep Information Total Hours of Sleep: 7.5 Sleep Comments: pt on q-15 minute checks Meal Information Percent Meal Consumed - Breakfast: 100 Percent Meal Consumed - Lunch: 100 Percent Meal Consumed - Dinner: 100 Subjective Subjective Patient was seen & assessed and interval progress reviewed with nursing and social work. Staff reports the patient has continued to do well, participates in groups, and is demonstrating improvement in condition. Pt rated his mood a 6/10 and "hopeful" last evening. Pt was seen today to assess progress since admission. Pt reports what is vaguely described as nausea. He begins the visit by discussing what he perceives to be side effects to "the medications", but symptoms which also could be attributed to the reported anxiety he admits to experiencing. Pt states that while he is excited for "a new start and being independent", he admits that he has been more nervous in the last few days. Pt states, "I am nervous, but this move will be tremendously great for my life." Pt does report desire to call [facility] to ask some additional questions about their facility and the expected daily schedule - as he believes this will help to calm his anxiety. Pt states that his mood has "stayed about the same, but I know it will eventually go up. Once I'm there and in the program and independent." Pt continues to deny SI and other concerns at this time. We finished the visit be again discussing the importance of remaining on medications during the transitional period and that discontinuation of fluoxetine is not recommended at this time. Pt was agreeable to continuing the medication. Physical Exam Psychiatric Orientation: alert, oriented x 3 and cooperative (and pleasant) Apperance: appropriately dressed (neat and casually in a sweater and scrub pants), appropriately groomed (thick layer of foundation covering patient's case; danielle is well groomed) and appeared stated age Eye Contact: good eye contact Motor Behavior: steady gait and station and no abnormal motor movements Speech: normal rate/rhythm/volume of speech (timid and hesitant, but spontaneous - frequently using "um" and "ah") Affect: + anxious affect (but brighter, appearing excited at times) and mood congruent with affect Mood: + anxious mood ("my mood has stayed about the same" and "nervous"); no depressed mood Thought Process: goal directed thought process, clear/coherent thought process and thought association intact Thought Content: + cognitive distortions (long-standing); no delusions, no hopelessness and no worthlessness Suicidal Thoughts: denies suicidal thoughts Homicidal Thoughts: denies homicidal thoughts Hallucinations: no auditory hallucinations and no visual hallucinations Cognition: attention grossly intact and language grossly intact Insight: + limited insight (improving overall, limited by chronic condition) Judgement: + limited judgement (improving overall, limited by chronic condition) Vital Signs (Past 24 Hours) Last Vital Signs Temp 36.7 C 07/20/19 07:00 Pulse 96 H 07/20/19 07:00 Resp 18 07/20/19 07:00 BP 123/74 07/20/19 07:00 Results & Data Laboratory Results Laboratory Results - last 24 hr 07/19/19 08:17 Sodium 138 Current Inpatient Medications Current Inpatient Medications: Current Inpatient Medications Acetaminophen (Tylenol) 650 mg PO Q4H PRN PRN Reason: Headache or Minor Fever Stop: 08/10/19 12:42 Al Hydrox/Mg Hydrox/Simethicone (Maalox) 30 ml PO Q4H PRN PRN Reason: GI Upset Stop: 08/10/19 12:42 Bismuth Subsalicylate (Kaopectate) 15 ml PO PRN PRN PRN Reason: Loose Stool Stop: 08/10/19 12:42 Fluoxetine HCl (Prozac) 30 mg PO QAM MICHAEL Stop: 08/15/19 08:59 Last Admin: 07/19/19 08:42 Dose: 30 mg Documented by: Hydrocortisone (Hydrocortisone 1%) 1 appln EXT QID PRN PRN Reason: Rash/itching left leg Stop: 08/11/19 14:23 Hydroxyzine HCl (Vistaril) 25 mg PO Q4H PRN PRN Reason: Anxiety Stop: 08/10/19 12:42 Hydroxyzine HCl (Vistaril) 50 mg PO HSZ PRN PRN Reason: Insomnia Stop: 08/10/19 12:42 Magnesium Hydroxide (Milk Of Magnesia) 30 ml PO DAILY PRN PRN Reason: Constipation Stop: 08/10/19 12:42 Multivitamins/Minerals (Multivitamin W/ Minerals Tab) 1 tab PO QAM MICHAEL Stop: 08/11/19 08:59 Last Admin: 07/19/19 08:42 Dose: 1 tab Documented by: Sodium Chloride (Hutton Nasal) 1 - 2 sprays NA PRN PRN PRN Reason: Nasal Dryness/Congestion Stop: 08/10/19 12:42 Mental Health & Subst Abuse Tx Psychiatrist Name of Psychiatrist: Yasmani Roberson Psychiatrist's Time of Appointment with Psychiatrist: Apt will be set after meeting with therapist. Psychiatric Appointment Comment: [address], [place] [address] Therapist Name of Therapist: Yasmani Roberson - Litzy Espinoza Therapist's Date of Therapist Appointment: 07/24/19 Time of Therapist Appointment: 8:30am Therapy Appointment Comment: [address], [place] [address] Production Associate Name of Production Associate: [facility] Rufus Diaz Phone Number for Production Associate: [phone] Case Management Appointment Comment: [address], [place] [address] Post Discharge Appointments Primary Care Physician Name Of Family Doctor: Shamika [facility] Time of Appointment with PCP: Follow up as needed. Provider Appointment Comment: [address] [place] [address] Other #1: Name of Aftercare Appointment: [facility] Production Associate - Krissy Kimbrough Phone Number of Aftercare Appointment: [phone] Aftercare Appointment Comment: [place] [address] #2: Name of Aftercare Appointment: Clarita SOTEL[facility] Benefit Manager - Nicolasa Tomas Phone Number of Aftercare Appointment: [phone] Contact Information Discharge Discharge Address: [address], [place] [address] Contact Information Comment: Will be staying at [facility]. CPT Code CPT Code 67532
[2019-07-20] MEDS: FLUOXETINE HCL 10 MG CAP PO SCH (09:11)
[2019-07-20] MEDS: CEROVITE ADV FORMULA TAB PO SCH (09:11)
--- NOTE | 2019-07-21 08:51 | Psychiatric Progress Note ---
Date of Service July 21, 2019 Impression / Recommendations Impression 29-year-old man presents with a history of multiple previous psychiatric hospitalizations and diagnoses, recently hospitalized at the [facility] where he apparently declined medications, and was set up with a therapist and high risk case manager, but then declined to engage in treatment. During the current hospital stay the patient has worked to form alliances among his peer group here, and has also focused on developing improved coping strategies. He acknowledges that 1 of the coping strategies that he has used previously has been to drink excessive amounts of water as a way of managing his anxiety. In the hospital, the patient notes that he has been "practicing" managing anxiety without relying on excessive water consumption and says that he has limited his water intake to no more than the equivalent of 8 cups of water a day. His affect is brighter, and he reports that his mood is improved. He is tolerating fluoxetine without any difficulty and tells us that he feels that he is motivated to continue to take it because it has helped, both with depression and with anxiety. We have scheduled a outpatient commitment hearing for the beginning of next week, and the plan will be for the patient to be discharged to temporary housing shortly thereafter. (1) Anxiety: 07/16 -symptoms of CARLOS and social anxiety. -Titrate fluoxetine as below. -Continue encouragement, as he is finally taking steps to reach some of his long-term goals, including moving out of his mother's home and becoming more independent. -Encourage his BCM to meet with him here to develop rapport, and encouraged him to work closely with his outpatient clinicians to work towards his goals. -Work on healthy coping mechanisms and behavioral techniques for managing anxiety. -Family meeting with mother today. Patient is willing for a referral to the [facility], and is an appropriate candidate. [facility] with [facility] who agreed they would refer him, although there is a wait list. He is able to perform ADLs, do laundry, cooks, and clean, but has typically relied on his mother to do the shopping and manage his finances. The nursing home setting would be helpful for him to increase his independence and confidence in his ability to function and live independently. He may benefit from a rep payee (reportedly currently his mother), and structured assistance to learn how to manage finances on his own. Our hope is that if he commits to working toward a goal of moving out of living independently, but his mother will allow him to return home temporarily. -Discussed with patient our plan to transition to a 304 involuntary outpatient commitment at the time of discharge, as a way to assist him in remaining engaged in treatment and moving towards his goals, given his tendency to disengage from treatment due to anxiety. 07/17 -continue fluoxetine 30 mg daily which was just increased yesterday. -Family meeting held with mother; continue to explore housing options. -Refer for outpatient psychiatric care and therapy. -We have requested that his high risk case manager meet with him here to complete the [facility] referral and start to develop rapport. 07/18 - Continue fluoxetine 30mg daily, not willing for increase and actually was requesting to discontinue the medication - Accepted to [facility] - logistics project manager has been involved in coordination of aftercare 07/19 -Today, we discussed the patient's request yesterday to discontinue fluoxetine. We pointed out that he reports that his mood has been improving and that he is tolerating fluoxetine well. We also reinforced the fact that the patient will need to be adherent with recommended treatments on an outpatient basis as a condition of continuing treatment on an outpatient basis. The patient does say that he recognizes that fluoxetine has been helpful to him, both in terms of his depression and his anxiety and he voices a plan to continue taking it, as prescribed. 07/20 - Continue fluoxetine 30mg daily 07/21 - Continue treatment plan as above, fluoxetine 30mg daily (2) OCD (obsessive compulsive disorder): 07/12 -Monitor the patient for excessive handwashing and other forms of bathing. -Begin fluoxetine 10 mg daily and titrate as indicated for mood regulation as well as for obsessive-compulsive symptoms. 07/13 - Repeat sodium in am with plan to titrate to 20 mg, he states that Prozac weekly would be a beneficial option for him. 07/15 - Pt agreeable to titration of fluoxetine to 30mg daily, starting tomorrow morning - Continue to assist in the development of healthy and effective coping strategies 07/16 -Patient's OCD symptoms are much less severe than on previous hospitalizations. Although somewhat rigid in his routines, he is demonstrating an ability to be much more flexible and interactive with others, is less preoccupied with compulsive behaviors, and better able to function. 07/18 - Continue fluoxetine 30mg daily 07/19 -The patient was reminded today that fluoxetine can be helpful with depression, anxiety and with obsessive compulsive features. It is for that reason that we are recommending that he continue fluoxetine as prescribed. He was also advised that his outpatient provider may choose to titrate the medication further. (3) Autism spectrum disorder: 07/12/19 -Many of the patient's presenting symptoms may best be explained by autism spectrum disorder. -The ease with which the patient may be able to tolerate group and activity therapies as likely to be impacted by his pervasive developmental disorder. -The patient's current treatment will need to be informed by an understanding of the limitations as well as the opportunities for individuals who fall in the autism spectrum. -Certain symptoms of this disorder, including emotional lability and difficulty with mood regulation may benefit from a low-dose of an antidepressant, such as fluoxetine. -The patient is reluctant to accept psychiatric medications per, but today agreed to a trial of fluoxetine. We will begin at 10 mg daily and titrate as indicated. -Material risks and anticipated benefits of fluoxetine were reviewed with the patient and he indicated understanding 07/14 -Dx of autism by Dr. Daniel, agree unusual prosody to voice. suspect some of his water drinking may be more delusional than perseveration, unclear IQ. 07/15 -Clarify diagnosis of autism spectrum disorder; unsure if historical diagnosis or newly determined. -Reportedly, diagnosis of autism Spectrum had previously been considered. The focus of treatment will remain on his anxiety, his obsessive-compulsive symptoms, and his excessive water drinking as a dysfunctional method of managing anxiety. 07/16 -Reviewed records from [facility] psych clinic from initial evaluation in October 2012, based on hospital records, clinical interview with patient, anxiety disorder interview schedule, and an MCMI-III. He was diagnosed with anxiety disorder NOS, chronic PTSD, body dysmorphic disorder, delusional disorder somatic type, and dependent personality traits. Per mother, he has an IQ of 82, so has not been eligible for ID services. -Recommend neuropsychological testing as an outpatient to help clarify diagnoses. (4) Psychogenic polydipsia: 07/12 -The patient reports that he has a long history of excessive water consumption and notes that, as recently as several years in the past, he was consuming as much as 4 or 5 gallons of water per day. -He notes that he is aware of the risks associated with excessive water drinking and seeks to bring the behavior under control. He notes that recently he has been drinking significantly less water and often does not drink more than recommended, although he admits that recently he has been drinking more than he should. His explanation is that excessive water consumption relieves his anxiety and provides a calming effect. -As part of his treatment for psychogenic polydipsia we will focus on obsessive-compulsive symptoms as well as anxiety symptoms. As noted above, the patient is being offered a trial of fluoxetine, beginning 10 mg daily and this will be titrated as indicated. 07/19 -We have continued to educate the patient regarding the substantial risks associated with water intoxication including, up to seizures, grave disability and . The patient has consistently indicated understanding and expresses an eagerness to continue to learn improved coping strategies. -Today, the patient was able to discuss certain coping strategies that he has been able to use in the hospital as a way of avoiding excessive water intake. He notes that these strategies have primarily involved seeking out of the people with whom to discuss his concerns and he notes that, at home, he has tended to isolate and not talk about what he is feeling. He adds, "in the hospital, I have learned to talk to other people when I am feeling nervous. Usually, that helps." (5) Hyponatremia: 07/12 -The patient is aware that his serum sodium level was dangerously low. He is able to tell us that he realizes that low sodium levels can cause seizures and, in fact, he notes that he has experienced seizures related to hyponatremia on several occasions in the past. He also was advised that hyponatremia can also lead to , and the patient says that he is motivated to get his water consumption under better control. -Patient had been refusing to allow his blood to be drawn for follow-up serial serum sodium levels. Today, he is agreeing and we will order a stat serum sodium level, with serial sodium levels to follow. 07/14 sodium 144 today 07/18 - Pt agreeable with having his sodium checked again tomorrow morning - labs ordered 07/19 -Patient's serum sodium level today was within normal limits. (6) Body dysmorphic disorder: 07/16 -patient has a history of body dysmorphic disorder with focus on facial scarring. He continues to wear foundation on his face, but is less preoccupied with this than he has been in the past. (7) Delusional disorder: 07/16 -history of delusional disorder somatic type. As above, less focused on this than during past hospitalizations. Consider an antipsychotic in the future, but will not pursue now as we have just resume fluoxetine, he is somewhat reluctant to take medication, and due to the high risk benefit ratio with these medications in delusional disorder. 07/19 -The patient's body dysmorphia may be, at least in part, function of his autism spectrum symptoms. He genuinely seems unable to recognize that wearing fairly thick liquid "foundation" makeup unevenly on his face causes his appearance to "stand out" in a way that may send unintended signals to other people. The patient's mind, the makeup is simply a "tinted moisturizer" that hides facial scarring from acne. Inventory Assets Strengths: Some insight into his needs and problematic behaviors. Family involvement. Needs: Adherence with treatment. Suitable placement. Mood regulation. Avoidance of water intoxication. Does not abuse alcohol or other drugs. Risk Factors Assessment Male: Yes Do You Have Access To A Gun?: No Health Problems: No Mental Health Diagnoses: Yes Substance Use Disorders: No Previous Attempt: No Family History of Suicide: No Previous Psychiatric Hospitalization: Yes Hopelessness: No Smoker: No Protective Factors Assessment Druze Beliefs: Yes : No Responsible for Young Children: No Employed: No Stable Relationships: No Supportive Family: Yes Good Rapport with Provider: No Absence of Any Risk Factors Above: No Interval History Identifying Information TASHA MAC is a 29-year-old M who currently lives in the [place] area with his mother and 27-year-old brother. He has a past diagnosis of recurrent major depression, as well as a history of obsessive-compulsive disorder and psychogenic polydipsia. He was brought into the emergency room on 07/09/2019 by the police following a verbal altercation with his mother in which he reportedly had threatened suicide. He was subsequently admitted to the medical service with a serum sodium level of 121, and then was transferred to the behavioral health unit on the afternoon of 07/11/2019 on a voluntary basis. Chief Complaint "Well, we talked about transportation. I don't know, I'm still nervous." Review of Systems Notes Constitutional: denied Cardiovascular: denied Respiratory: denied Gastrointestinal: denied Neurological: denied Psychiatric: denies symptoms other than stated above Total of at least 10 systems reviewed, pertinent positives as above and in HPI. Sleep Information Total Hours of Sleep: 8.25 Sleep Comments: pt appeared to sleep 1.25 hrs during evening shift. pt on q-15 minute checks Meal Information Percent Meal Consumed - Breakfast: 100 Percent Meal Consumed - Lunch: 100 Percent Meal Consumed - Dinner: 100 Subjective Subjective Patient was seen & assessed and interval progress reviewed with nursing and social work. Staff reports the patient is aware of plan for discharge tomorrow after his 304 outpatient commitment hearing. He rated his mood a 6/10 and "hopeful and anxious." Pt was seen today to assess progress since admission. He states that he and social work discussed fine details of his discharge plan today, specifically transportation. He states that he is considering calling his mother for a ride rather than taking the taxi that we had planned to arrange. Pt was informed that our recommendation was that he take a taxi, and it was suggested that his mother drop off any desired belongings to him at [facility]. Pt continued to have difficulty accepting this plan, as he wants to show his mom his progress and share this "big step" with her. He rates his mood a 6/10 and states he is "right in between" in regard to mood. He states, "I'm excited and thankful, but also nervewracked and scared." Pt denies SI and despite his anxiety, he admits to feeling comfortable with being discharged tomorrow. Physical Exam Psychiatric Orientation: alert, oriented x 3 and cooperative (but remains timid and reserved) Apperance: appropriately dressed and appropriately groomed (wearing a thick layer of foundation covering face) Eye Contact: good eye contact Motor Behavior: steady gait and station and no abnormal motor movements Speech: normal rate/rhythm/volume of speech Affect: + anxious affect Mood: + anxious mood Thought Process: goal directed thought process and + concrete thought process Thought Content: + preoccupation (with determining transportation) and + cognitive distortions; no hopelessness and no worthlessness Suicidal Thoughts: denies suicidal thoughts Homicidal Thoughts: denies homicidal thoughts Hallucinations: no auditory hallucinations and no visual hallucinations Cognition: attention grossly intact and language grossly intact Insight: + limited insight Judgement: + limited judgement Vital Signs (Past 24 Hours) Last Vital Signs Temp 36.6 C 07/21/19 07:09 Pulse 83 07/21/19 07:10 Resp 18 07/21/19 07:09 BP 116/71 07/21/19 07:10 Results & Data Current Inpatient Medications Current Inpatient Medications: Current Inpatient Medications Acetaminophen (Tylenol) 650 mg PO Q4H PRN PRN Reason: Headache or Minor Fever Stop: 08/10/19 12:42 Al Hydrox/Mg Hydrox/Simethicone (Maalox) 30 ml PO Q4H PRN PRN Reason: GI Upset Stop: 08/10/19 12:42 Bismuth Subsalicylate (Kaopectate) 15 ml PO PRN PRN PRN Reason: Loose Stool Stop: 08/10/19 12:42 Fluoxetine HCl (Prozac) 30 mg PO QAM MICHAEL Stop: 08/15/19 08:59 Last Admin: 07/20/19 09:11 Dose: 30 mg Documented by: Hydrocortisone (Hydrocortisone 1%) 1 appln EXT QID PRN PRN Reason: Rash/itching left leg Stop: 08/11/19 14:23 Hydroxyzine HCl (Vistaril) 25 mg PO Q4H PRN PRN Reason: Anxiety Stop: 08/10/19 12:42 Hydroxyzine HCl (Vistaril) 50 mg PO HSZ PRN PRN Reason: Insomnia Stop: 08/10/19 12:42 Magnesium Hydroxide (Milk Of Magnesia) 30 ml PO DAILY PRN PRN Reason: Constipation Stop: 08/10/19 12:42 Multivitamins/Minerals (Multivitamin W/ Minerals Tab) 1 tab PO QAM MICHAEL Stop: 08/11/19 08:59 Last Admin: 07/20/19 09:11 Dose: 1 tab Documented by: Sodium Chloride ([place] Nasal) 1 - 2 sprays NA PRN PRN PRN Reason: Nasal Dryness/Congestion Stop: 08/10/19 12:42 Mental Health & Subst Abuse Tx Psychiatrist Name of Psychiatrist: Yasmani Roberson Psychiatrist's Time of Appointment with Psychiatrist: Apt will be set after meeting with therapist. Psychiatric Appointment Comment: [address], [place] [address] Therapist Name of Therapist: Yamsani Roberson - Litzy Espinoza Therapist's Date of Therapist Appointment: 07/24/19 Time of Therapist Appointment: 8:30am Therapy Appointment Comment: [address], [place] [address] Plastic Worker Name of Plastic Worker: [facility] - Emily Phone Number for Plastic Worker: [phone] Case Management Appointment Comment: [address], [place] [address] Post Discharge Appointments Primary Care Physician Name Of Family Doctor: Shamika Oro [facility] Time of Appointment with PCP: Follow up as needed. Provider Appointment Comment: [address] [place] [address] Other #1: Name of Aftercare Appointment: [facility] Plastic Worker - Krissy Kimbrough Phone Number of Aftercare Appointment: [phone] Aftercare Appointment Comment: [address] [place] [address] #2: Name of Aftercare Appointment: [facility] - Nicolasa Tomas Phone Number of Aftercare Appointment: [phone] Contact Information Discharge Discharge Address: [address], [place] [address] Contact Information Comment: Will be staying at [facility]. CPT Code CPT Code 53437
[2019-07-21] MEDS: CEROVITE ADV FORMULA TAB PO SCH (09:07)
[2019-07-21] MEDS: FLUOXETINE HCL 10 MG CAP PO SCH (09:07)
[2019-07-22] MEDS: FLUOXETINE HCL 10 MG CAP PO SCH (08:09)
[2019-07-22] MEDS: CEROVITE ADV FORMULA TAB PO SCH (08:09)
--- NOTE | 2019-07-22 10:40 | Discharge Summary ---
Date of Service July 22, 2019 History of Present Illness The patient is a 29 year old male who presented to the emergency department for ar mental health evaluation. Per police report, the patient had an argument with his mother over a money. According to the police report the patient threatened to kill himself with a knife to his neck last week. The patient himself says that he only said that he wished he was and that he wanted to kill himself, but insists that his mother is "exaggerating." The police report also notes that when the patient's mother tries to call 911 because of his behaviors, the patient takes the phone away from her. He acknowledges that during the argument he did kick a door with full force and that that behavior frightened his mother. The patient reports that he was recently at the [facility] where they psychiatric medication. He reports that he is depressed, but only within the context of the fact that his mother is unwilling to allow him to return home at this point and, as above, his goal is to prove himself to her, by which he means that he can follow the rules and not argue with her. He does acknowledge that living with his mother has been stressful and that the 2 of them periodically get into arguments. At the same time, he notes that he is "comfortable" living at home and is rendered anxious by the possibility of having to live elsewhere. He notes that he has no friends and is exquisitely uncomfortable around persons other than his mother and his brother. According the patient, he has had periodic thoughts of killing himself by, for example, jumping from a high structure, but he has never acted on these thoughts and notes that he does not have any history of intentional self-injurious behaviors. Patient also acknowledges a long history of consuming large quantities of water. His assertion is that the problem was much more severe a number of years ago and, at the height of his water use, he was consuming as many as 4 or 5 gallons of water daily. He also acknowledges that, recently, he has been drinking "more water than I should," and describes this behavior as being motivated by the fact that drinking water makes him feel less anxious and more calm. He understands that his serum sodium level was dangerously low at admission and he understands that he is taking at risk by using water consumption as a means of managing anxiety. Initially, the patient denied that he had any symptoms of OCD and, specifically, when asked if he had excessive handwashing, fear of germs, or found that he needed to [place] excessively he answered in the negative. However, when it was observed that his hands are badly chapped he acknowledged that he "has a thing" about germs and washes his hands very regularly. He then alters his report and says "I think my hands just get chapped easily." The patient is wearing foundation makeup on his face and seems to have no awareness that this would be considered as being somewhat peculiar by other people. Also complicating the clinical picture is the fact that the patient appears to be intellectually disabled, and we would estimate his IQ to be at the 50-55 up to 70 range. He is unable to subtract 7 from 100 and after about a minute says "97?" When asked to subtract 7 from 10 he said that he could not solve the problem, and when he was shown the math problem on a piece of paper from disease 10 minus 7) he thought for a moment and said "17." When he was reminded that he should be subtracting not adding, he told us that he had forgotten how to do math. He was able to read the phrase "issue brief, addressing claims"but struggled with several of the words, and spontaneously noted that he has difficulty with comprehension when he reads. Physical Exam Psychiatric Orientation: alert and cooperative Apperance: appropriately dressed, appropriately groomed and appeared stated age Eye Contact: + fair eye contact Motor Behavior: steady gait and station and no abnormal motor movements Speech: normal rate/rhythm/volume of speech Affect is euthymic with mild anxiety, smiles appropriately, congruent with stated mood. "Ready, but a little anxious." Thought Process: goal directed thought process Thought Content: reality based without delusions Suicidal Thoughts: denies suicidal thoughts Homicidal Thoughts: denies homicidal thoughts Hallucinations: no auditory hallucinations and no visual hallucinations Cognition: recent memory grossly intact, attention grossly intact and language grossly intact Estimated Intelligence: consistent with education level Insight: + fair insight Judgement: + fair judgement Vital Signs (Past 24 Hours) Last Vital Signs Temp 36.6 C 07/22/19 09:25 Pulse 84 07/22/19 09:25 Resp 18 07/22/19 09:25 BP 115/84 07/22/19 09:25 Principal Diagnosis Generalized anxiety disorder Social anxiety Obsessive-compulsive disorder Rule out autism spectrum disorder Body dysmorphic disorder Psychogenic polydipsia Hyponatremia Psychiatric Data Patient was hospitalized on our unit for 11 days. He was restarted on fluoxetine, which has been beneficial in the past, and tolerated it well. He attended and participated in groups and therapy, and had a family meeting with his mother on 07/16/2019. She indicated unwillingness to allow him to return to the home, which she was disappointed about, although also stated that it was his goal to move out and live independently. He agreed to a referral to the [facility], which was completed by his blended manager rn case. He was assisted to explore other options for housing in the interim, and was accepted at [facility] through [facility]. His psychogenic polydipsia improved and sodium level normalized. A question of autism spectrum disorder was raised; old records from [facility] psychological clinic reviewed including his initial evaluation and diagnoses there. It was questioned whether his body dysmorphia may be in part a function of autism spectrum symptoms, as he seemed unable to recognize that wearing thick liquid foundation on his face because this is apparent to stand out, and reported his belief that the makeup was a tinted moisturizer hiding facial scarring from acne. He was referred for outpatient therapy and psychiatric care, and placed on a 304 involuntary commitment prior to discharge given his history of noncompliance with outpatient treatment, and multiple recent hospitalizations, including medical treatment for severe hyponatremia due to psychogenic polydipsia. Day of Discharge Assessment Patient reports that he is looking forward to discharge, but also anxious about going to [facility] and the new environment. He is hopeful that he will be successful and eventually be able to get independent housing and a job. Although the hospital has been helpful, he is now feeling bored, and feels "I am absolutely ready for this change in my life." He states he is trying to notice his thoughts and focus on positives. He denies thoughts of harming himself or anyone else, and denies excessive water intake. He denies side effects to medications, and is willing to follow up with outpatient treatment. Reviewed what will be discussed at his 304 outpatient commitment hearing, and he states he agrees with the recommended treatment, but does not want to attend the hearing as he thinks it will make him more anxious. The IOC was granted. Transition of Care Transition Of Care Record: was reviewed with the patient Advance Directives Advance Directives Information Provided: Yes Advance Directives: No Mental Health Advance Directive: No Advance Directives on File: No Living Will: No Power of Partition Notcher: No Advance Directives Reason:: Declines as Mental Health Visit. Risk Factors Assessment Risk factors were mitigated by admission to the inpatient unit, education about his diagnoses and the recommended treatment, use of medications to target anxiety symptoms, involving him in groups and therapy, working on healthy coping skills and a discharge safety plan, family meeting with his mother, involving his BCM, referring him for assistance with housing/local alf, referring him for outpatient psychiatric care and therapy, treating comorbid medical conditions, and placing him on an involuntary outpatient commitment due to his history of noncompliance with outpatient treatment. He has demonstrated improvement in mood and anxiety, it has been in good behavioral control here without agitation, aggression, or threats to others, has consistently denied thoughts of harming himself and has not engaged in self-injurious behaviors, is tending to ADLs independently and taking medication as prescribed, stating willingness to follow up as an outpatient, and reporting help with the future. He is no longer at acute risk of harm to himself or others, and will be discharged on an involuntary outpatient commitment. Male: Yes : Yes Do You Have Access To A Gun?: No Health Problems: No Mental Health Diagnoses: Yes Substance Use Disorders: No Previous Attempt: No Family History of Suicide: No Previous Psychiatric Hospitalization: Yes Hopelessness: No Smoker: No Protective Factors Assessment Mu-Ism Beliefs: Yes : No Responsible for Young Children: No Employed: No Stable Relationships: No Supportive Family: Yes Good Rapport with Provider: No Absence of Any Risk Factors Above: No Tobacco Cessation at Discharge Tobacco Cessation Medication Prescribed at Discharge: Not Applicable/Non-Smoker Total Time Total Time Spent: Greater Than 30 Minutes Total Time Includes: Examination of the patient, Discharge Planning, Medication Reconciliation and Communication with other providers (304 [facility]) Discharge Data Lab Results 07/12/19 07/14/19 07/19/19 13:45 08:02 08:17 Sodium 137 144 D 138 Potassium 4.2 Hospital Course (1) Anxiety: 07/16 -symptoms of CARLOS and social anxiety. -Titrate fluoxetine as below. -Continue encouragement, as he is finally taking steps to reach some of his long-term goals, including moving out of his mother's home and becoming more independent. -Encourage his BCM to meet with him here to develop rapport, and encouraged him to work closely with his outpatient clinicians to work towards his goals. -Work on healthy coping mechanisms and behavioral techniques for managing anxiety. -Family meeting with mother today. Patient is willing for a referral to the [facility], and is an appropriate candidate. Spoke with Virgilio at the [facility] service unit who agreed they would refer him, although there is a wait list. He is able to perform ADLs, do laundry, cooks, and clean, but has typically relied on his mother to do the shopping and manage his finances. The intermediate setting would be helpful for him to increase his independence and confidence in his ability to function and live independently. He may benefit from a rep payee (reportedly currently his mother), and structured assistance to learn how to manage finances on his own. Our hope is that if he commits to working toward a goal of moving out of living independently, but his mother will allow him to return home temporarily. -Discussed with patient our plan to transition to a 304 involuntary outpatient commitment at the time of discharge, as a way to assist him in remaining engaged in treatment and moving towards his goals, given his tendency to disengage from treatment due to anxiety. 07/17 -continue fluoxetine 30 mg daily which was just increased yesterday. -Family meeting held with mother; continue to explore housing options. -Refer for outpatient psychiatric care and therapy. -We have requested that his manager rn case meet with him here to complete the [facility] referral and start to develop rapport. 07/18 - Continue fluoxetine 30mg daily, not willing for increase and actually was requesting to discontinue the medication - Accepted to [facility] through [facility] - fountain manager has been involved in coordination of aftercare 07/19 -Today, we discussed the patient's request yesterday to discontinue fluoxetine. We pointed out that he reports that his mood has been improving and that he is tolerating fluoxetine well. We also reinforced the fact that the patient will need to be adherent with recommended treatments on an outpatient basis as a condition of continuing treatment on an outpatient basis. The patient does say that he recognizes that fluoxetine has been helpful to him, both in terms of his depression and his anxiety and he voices a plan to continue taking it, as prescribed. 07/20 - Continue fluoxetine 30mg daily 07/21 - Continue treatment plan as above, fluoxetine 30mg daily (2) OCD (obsessive compulsive disorder): 07/12 -Monitor the patient for excessive handwashing and other forms of bathing. -Begin fluoxetine 10 mg daily and titrate as indicated for mood regulation as well as for obsessive-compulsive symptoms. 07/13 - Repeat sodium in am with plan to titrate to 20 mg, he states that Prozac weekly would be a beneficial option for him. 07/15 - Pt agreeable to titration of fluoxetine to 30mg daily, starting tomorrow morning - Continue to assist in the development of healthy and effective coping strat egies 07/16 -Patient's OCD symptoms are much less severe than on previous hospitalizations. Although somewhat rigid in his routines, he is demonstrating an ability to be much more flexible and interactive with others, is less preoccupied with compulsive behaviors, and better able to function. 07/18 - Continue fluoxetine 30mg daily 07/19 -The patient was reminded today that fluoxetine can be helpful with depression, anxiety and with obsessive compulsive features. It is for that reason that we are recommending that he continue fluoxetine as prescribed. He was also advised that his outpatient provider may choose to titrate the medication further. (3) Autism spectrum disorder: 07/12/19 -Many of the patient's presenting symptoms may best be explained by autism spectrum disorder. -The ease with which the patient may be able to tolerate group and activity therapies as likely to be impacted by his pervasive developmental disorder. -The patient's current treatment will need to be informed by an understanding of the limitations as well as the opportunities for individuals who fall in the autism spectrum. -Certain symptoms of this disorder, including emotional lability and difficulty with mood regulation may benefit from a low-dose of an antidepressant, such as fluoxetine. -The patient is reluctant to accept psychiatric medications per, but today agreed to a trial of fluoxetine. We will begin at 10 mg daily and titrate as indicated. -Material risks and anticipated benefits of fluoxetine were reviewed with the patient and he indicated understanding 07/14 -Dx of autism by Dr. Daniel, agree unusual prosody to voice. suspect some of his water drinking may be more delusional than perseveration, unclear IQ. 07/15 -Clarify diagnosis of autism spectrum disorder; unsure if historical diagnosis or newly determined. -Reportedly, diagnosis of autism Spectrum had previously been considered. The focus of treatment will remain on his anxiety, his obsessive-compulsive symptoms, and his excessive water drinking as a dysfunctional method of managing anxiety. 07/16 -Reviewed records from [facility] psych clinic from initial evaluation in October 2012, based on hospital records, clinical interview with patient, anxiety disorder interview schedule, and an MCMI-III. He was diagnosed with anxiety disorder NOS, chronic PTSD, body dysmorphic disorder, delusional disorder somatic type, and dependent personality traits. Per mother, he has an IQ of 82, so has not been eligible for ID services. -Recommend neuropsychological testing as an outpatient to help clarify diagnoses. (4) Psychogenic polydipsia: 07/12 -The patient reports that he has a long history of excessive water consumption and notes that, as recently as several years in the past, he was consuming as much as 4 or 5 gallons of water per day. -He notes that he is aware of the risks associated with excessive water drinking and seeks to bring the behavior under control. He notes that recently he has been drinking significantly less water and often does not drink more than recommended, although he admits that recently he has been drinking more than he should. His explanation is that excessive water consumption relieves his anxiety and provides a calming effect. -As part of his treatment for psychogenic polydipsia we will focus on obsessive-compulsive symptoms as well as anxiety symptoms. As noted above, the patient is being offered a trial of fluoxetine, beginning 10 mg daily and this will be titrated as indicated. 07/19 -We have continued to educate the patient regarding the substantial risks associated with water intoxication including, up to seizures, grave disability and . The patient has consistently indicated understanding and expresses an eagerness to continue to learn improved coping strategies. -Today, the patient was able to discuss certain coping strategies that he has been able to use in the hospital as a way of avoiding excessive water intake. He notes that these strategies have primarily involved seeking out of the people with whom to discuss his concerns and he notes that, at home, he has tended to isolate and not talk about what he is feeling. He adds, "in the hospital, I have learned to talk to other people when I am feeling nervous. Usually, that helps." (5) Hyponatremia: 07/12 -The patient is aware that his serum sodium level was dangerously low. He is able to tell us that he realizes that low sodium levels can cause seizures and, in fact, he notes that he has experienced seizures related to hyponatremia on several occasions in the past. He also was advised that hyponatremia can also lead to , and the patient says that he is motivated to get his water consumption under better control. -Patient had been refusing to allow his blood to be drawn for follow-up serial serum sodium levels. Today, he is agreeing and we will order a stat serum sodium level, with serial sodium levels to follow. 07/14 sodium 144 today 07/18 - Pt agreeable with having his sodium checked again tomorrow morning - labs ordered 07/19 -Patient's serum sodium level today was within normal limits. (6) Body dysmorphic disorder: 07/16 -patient has a history of body dysmorphic disorder with focus on facial scarring. He continues to wear foundation on his face, but is less preoccupied with this than he has been in the past. (7) Delusional disorder: 07/16 -history of delusional disorder somatic type. As above, less focused on this than during past hospitalizations. Consider an antipsychotic in the future, but will not pursue now as we have just resume fluoxetine, he is somewhat reluctant to take medication, and due to the high risk benefit ratio with these medications in delusional disorder. 07/19 -The patient's body dysmorphia may be, at least in part, function of his autism spectrum symptoms. He genuinely seems unable to recognize that wearing fairly thick liquid "foundation" makeup unevenly on his face causes his appearance to "stand out" in a way that may send unintended signals to other people. The patient's mind, the makeup is simply a "tinted moisturizer" that hides facial scarring from acne. Mental Health & Subst Abuse Tx Psychiatrist Name of Psychiatrist: Yasmani Roberson Psychiatrist's Time of Appointment with Psychiatrist: Apt will be set after meeting with therapist. Psychiatric Appointment Comment: [address], [place] [address] Psychiatrist Release of Information: Obtained, Reviewed and Signed Therapist Name of Therapist: Yasmani Roberson - Litzy Espinoza Therapist's Date of Therapist Appointment: 07/24/19 Time of Therapist Appointment: 8:30am Therapy Appointment Comment: [address], [place] [address] Therapist Release of Information: Obtained, Reviewed and Signed Kettle Chipper Name of Kettle Chipper: Shalonda Diaz Phone Number for Kettle Chipper: [phone] Date of Appointment with Kettle Chipper: 07/25/19 Time of Appointment with Kettle Chipper: 2:30 p.m. Case Management Appointment Comment: Will meet with you at [facility] Kettle Chipper Release of Information: Obtained, Reviewed and Signed Post Discharge Appointments Primary Care Physician Name Of Family Doctor: Shamika Oros Primary Care Time of Appointment with PCP: Follow up as needed. Provider Appointment Comment: [address] [place] [address] Primary Care Release of Information: Obtained, Reviewed and Signed Smoking Cessation Counseling Tobacco Cessation Medication Prescribed at Discharge: Not Applicable/Non-Smoker Contact Information Discharge Discharge Address: [address], [place] [address] Contact Information Comment: Will be staying at [facility] alf. Discharge Plan Discharge Items Patient Disposition: Home - Home Health Services Reason For Visit: DEPRESSION Discharge Diagnosis: OCD, Depression Activity: Per Instructions section Non-emergency contact: Primary Care Provider, Psychiatrist and Therapist Call non-emergency contact if: you have any medication questions and your symptoms worsen Follow-up/Referrals: PCP,NO [Primary Care Provider] - Diet: Regular Addtl Attending Provider Instructions: SPECIAL CARE INSTRUCTIONS: 1. Follow through with your scheduled aftercare appointments. If unable to keep an appointment, please call to reschedule. 2. Take your medication only as prescribed. Medication should not be changed or stopped without the approval of your doctor. In the event of worsening symptoms or concerns about side effects, contact your doctor immediately. 3. Utilize new healthy coping skills, anger management skills, and stress management skills learned during your hospitalization. Journal feelings and process them with a support person. Identify stressors or situations that may result in relapse, deterioration or inappropriate behaviors and develop a plan to deal with those issues. 4. If your coping skills are ineffective and you are in crisis, contact your outpatient providers for direction. If unable to reach your providers, please call the CAN HELP LINE AT or go to the closest Emergency Room. 5. Avoid alcohol and un-prescribed drugs. 6. You have been provided with the Mental Health Advance Directives Pamphlet for your review. AFTERCARE APPOINTMENTS: * Please call your insurance company prior to your scheduled appointment to confirm your aftercare providers are covered. Take your insurance information to your appointments. WHO TO CALL AND WHEN: Medical Emergencies: For questions or emergencies related to your hospital stay, please contact the Inpatient Behavioral Health Unit at [phone]. A delivery mgr is on-call 01/05 for the Behavioral Health Unit for emergencies At any time you feel your situation is an emergency, you may also call 911 immediately. Your Doctors Instructions noted above were prepared by provider Brigette Rg MD. Pending Studies at Discharge: No Stand-Alone Forms: [facility] Medications and DC Order Prescriptions: New fluoxetine 10 mg Capsule 30 mg PO QAM Qty: 90 RF: 0 No Action No Known Home Medications RF: 0 Discharge Orders: Discharge Order (Routine); Ordered 07/22/19 Ordered By: Brigette Rg Admission Data Admit Date/Time: 07/11/19 12:07 Attending Provider: Brigette Rg Admit Provider: Brigette Rg Primary Care Provider: PCP,NO Other Interventions: Discharge Summary Assessment (RN) Last Done: 07/22/19 09:25 PSY Interdisciplinary Discharge Planning Last Done: 07/22/19 09:57 DC Date/Time DO NOT enter until pt leaves facility: 07/22/19 10:25 Coding Level of Care Code 36768 D/C day mgmt > 30 min Diagnoses Anxiety F41.9 OCD (obsessive compulsive disorder) F42.9 Autism spectrum disorder F84.0 Psychogenic polydipsia R63.1; F54 Hyponatremia E87.1 Body dysmorphic disorder F45.22 Delusional disorder F22
== END 2019-07-22 10:25 | disposition home or self-care (01) | DRG 880 ==
LOC: SUATTDRO 12:07 → 3S 12:07

== ENCOUNTER 2019-07-30 17:20 | Inpatient (IN) ==
[2019-07-30 18:01] LABS: Appearance Urine Clear (Clear); Bilirubin Urine Negative (Negative); Blood Urine Negative (Negative); Color Urine Yellow; Glucose Urine UA Negative (Negative); Ketones Urine Negative (Negative); Leukocyte Esterase Urine Negative (Negative); Nitrite Urine Negative (Negative); Protein Urine Negative (Negative); Specific Gravity Urine 1.008 (1.000-1.030); Urobilinogen Urine Negative (Negative)
[2019-07-30 18:37] LABS: Basophils # (auto) 0.02 K/uL (0-0.2); Basophils % (auto) 0.2 %; Eosinophils # (auto) 0.01 K/uL (0-0.5); Eosinophils % (auto) 0.1 %; Hematocrit (blood only) 33.7 % (42-52); Hemoglobin 12.2 g/dL (14.0-18.0); Immature Granulocytes # (auto) 0.01 K/uL (0.00-0.02); Immature Granulocytes % (auto) 0.1 %; Lymphocytes % (auto) 16.1 %; Mean Corpuscular Hemoglobin 32.5 pg (25-34); Mean Corpuscular Hgb Conc 36.2 g/dL (32-36); Mean Corpuscular Volume 89.9 fL (80-100); Monocytes # (auto) 0.48 K/uL (0.11-0.59); Monocytes % (auto) 5.5 %; Neutrophils # (auto) 6.76 K/uL (1.4-6.5); Platelet Count 270 K/uL (130-400); RDW Standard Deviation 39.1 fL (36.4-46.3); Red Blood Count 3.75 M/uL (4.7-6.1); White Blood Count 8.68 K/uL (4.8-10.8)
[2019-07-30 18:54] LABS: Albumin Level 3.9 gm/dl (3.4-5.0); BUN Creatinine Ratio 4.5 (10-20); Calcium 8.9 mg/dl (8.5-10.1); Creatinine Clr Calc Pharmacy 144.8 ml/min; Est GFR (African American) 141.1; Est GFR (Non-African American) 121.8; Potassium 3.8 mmol/L (3.5-5.1)
[2019-07-30 18:57] LABS: Acetaminophen < 2 ug/ml (10-30); Salicylate < 1.7 mg/dl (2.8-20)
[2019-07-30 19:05] LABS: Albumin Globulin Ratio 1.3 (0.9-2); Bilirubin,Total 0.8 mg/dl (0.2-1); Globulin 2.9 gm/dl (2.5-4.0); Thyroid Stimulating Hormone 1.02 uIu/ml (0.300-4.500); Total Protein 6.8 gm/dl (6.4-8.2)
[2019-07-30 19:09] LABS: Amphetamines+Metham, Urine Neg (Neg); Barbiturates, Urine Neg (Neg); Benzodiazepine, Urine Neg (Neg); Cocaine, Urine Neg (Neg); MDMA (Ecstacy), Urine Neg (Neg); Methadone, Urine Neg (Neg); Opiate, Urine Neg (Neg); Phencyclidine, Urine Neg (Neg)
[2019-07-30] MEDS: SODIUM CHLORIDE 0.9% 1000ML 1,000 ML IV SCH (19:38)
--- NOTE | 2019-07-30 19:59 | History & Physical Report ---
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 Pt states he was recently moved to a half way house, but it is not working well for him. He has a lot of stress and anxiety about his new living situation. He is unable to sleep there. This is all causing him a lot of anxiety and when he becomes this anxious, he drinks excess amounts of water to cope. He states he has done in this in the past, most recently earlier this month. He states a few years ago the situation became so extreme that he actually had a seizure due to his sodium dropping so low. He was concerned that his anxiety was so poorly uncontrolled today that this would happen again, so he came to the ED for care. Pt denies fever, SOB, abd pain, n/v/c/d, LE pain or swelling. Pt states he had a bit of chest pain when his anxiety was highest today, which has happened before. It has since resolved. He was having night sweats, which he has had in the past with hypoNa. Pt states that he is feeling better already because he came for care before his Na became low enough to cause a seizure. 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: No Beliefs That Will Affect Care: Adventism (The patient says that he was raised [employer]ian and although he does not currently attend episcopal he would like to.) marital status: Single Current Living Situation: Family current occupational status: unemployed Feels Safe at Home: Yes Smoking Status: Never smoker Second Hand Exposure: No ; Hx Alcohol Use: No Hx Substance Use: No Review of Systems Review of Systems: Pertinent positives and negatives reviewed in HPI--all others negative Physical Exam Constitutional: WD/WN, vitals as above Eyes: normal visual tavarez by confrontation and + anicteric sclerae Neck: normal visual inspection and trachea midline Respiratory: normal respiratory effort, lungs clear to auscultation Cardiovascular: Rate/Rhythm: regular rate and regular rhythm Gastrointestinal (Abdomen): Inspection/Auscultation: abdomen not distended Percussion/Palpation: abdomen soft; abdomen nontender Musculoskeletal: Head/Neck/Chest: normocephalic and head atraumatic negative for edema, peripheral pulses intact Skin: no rashes, warm and dry Neurologic: awake; not confused Speech / Cognition: normal speech Psychiatric: Orientation: oriented x 3 and cooperative Apperance: appropriately groomed Affect: + anxious affect Results & Data Vital Signs (Past 12 Hours) Vital Signs Temp Pulse Pulse Resp BP BP Pulse Ox 07/30/19 19:37 87 20 140/81 99 07/30/19 17:31 36.4 C L 100 H 18 150/74 H 97 Code Status & VTE Plan Code Status Full code "Of course if there is an emergency I would want to live" VTE Prophylaxis Plan VTE Prophylaxis will be ordered: Yes PG Care Time/CCT Total # of Minutes Spent Total Time Spent with Patient: Total time spent is greater than 50% in coordination of care (as documented) at patient's floor/unit and/or counseling patient: (1) Depression Depression Type: unspecified Qualified Code(s): F32.9 - Major depressive disorder, single episode, unspecified
[2019-07-30] MEDS ORDERED: ACETAMINOPHEN 325 MG TAB PO PRN (20:28)
[2019-07-30] MEDS ORDERED: ONDANSETRON INJ 2 MG/ML 2 ML VIAL IV PRN (20:28)
[2019-07-30] MEDS ORDERED: MAGNESIUM HYDROXIDE SUSP 30 ML UDC PO PRN (20:28)
--- NOTE | 2019-07-30 21:06 | Emergency Department Note ---
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 The patient states that he is overwhelmed at his care facility at [facility]. He notes that he gets frequent panic attacks and is diaphoretic at night. The patient reports that the night staff there is not helpful and do not explain tasks to him well. He states that he has been drinking more water than normal because it calms him down. He denies any suicidal or homicidal ideation. He states that he does not feel guilty. He denies any changes in his energy level or appetite. He states that he has difficulty concentrating. 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 going to [facility] eventually, wants admitted to mental health unit current occupational status: unemployed Feels Safe at Home: No Is there a partner from a previous relationship who is making you feel unsafe now?: No Smoking Status: Never smoker Second Hand Exposure: No ; Hx Alcohol Use: No Hx Substance Use: No Review of Systems See HPI for pertinent positives & negatives. and A total of 10 systems reviewed and were otherwise negative Physical Exam Vital Signs Vital Signs - 24 hr 07/30/19 17:31 07/30/19 19:37 Temperature 36.4 C L Temperature Source Oral Sepsis Recent Fever Within 48 Hours No Sepsis New/Unexplained Change in Mental Status No Sepsis Action Taken by Nursing No Action Required Pulse Rate 100 H Pulse Rate [Finger] 87 Respiratory Rate 18 20 Respiratory Effort / Characteristics Non-Labored Spontaneous Respiratory Depth Normal Blood Pressure 150/74 H Blood Pressure [Left Arm] 140/81 Blood Pressure Mean 99 Blood Pressure Mean [Left Arm] 100 Pulse Oximetry 97 99 Oxygen Delivery Method Room Air Room Air Physical Exam GENERAL: He is oriented to person, place, and time. He appears well-developed and well-nourished. He does not appear distressed. ____ HENT: Exam performed. - Head: Normocephalic and atraumatic. - Right Ear: External ear normal. No mastoid tenderness. - Left Ear: External ear normal. No mastoid tenderness. - Mouth/Throat: The oropharynx is clear and moist. No trismus in the jaw. No dental abscesses or uvula swelling. No oropharyngeal exudate or tonsillar abscesses. ____ EYES: Conjunctivae and EOM are normal. Pupils are equal, round, and reactive to light. Right eye exhibits no discharge. Left eye exhibits no discharge. No scleral icterus. ____ NECK: Normal range of motion. Neck supple. No JVD present. No spinous process tenderness present. No carotid bruit present. No rigidity. No tracheal deviation and normal range of motion present. No Brudzinski's sign and no Kernig's sign noted. ____ CV: Normal rate, regular rhythm, normal heart sounds and intact distal pulses. There is no peripheral edema. Palpable radial pulses bue. ____ PULM/CHEST: Effort normal and breath sounds normal. No respiratory distress. No stridor. He has no wheezes. He has no rales. - Chest Wall: He exhibits no tenderness. ____ ABD: The abdomen is soft. Bowel sounds are normal. He has no distension. No mass is present. There is no tenderness. There is no rebound, no guarding, no Galdamez's sign and no tenderness at McBurney's point. Rovsig negative MUSC/SKEL: Normal range of motion. There is no peripheral edema, tenderness or deformity. LYMPH: No cervical adenopathy. ____ NEURO: He is alert and oriented to person, place, and time. He has normal strength. No cranial nerve deficit or sensory deficit. Coordination and gait normal. GCS eye subscore is 4. GCS verbal subscore is 5. GCS motor subscore is 6. cerbellar tests wnl. ____ SKIN: Skin is warm and dry. He is not diaphoretic. ____ PSYCH: He has a normal mood. Bizarre affect. His behavior is normal. Judgment and thought content normal. ____ Course 175: The patient was evaluated in room A7, and a complete history and physical examination were performed. EMR reviewed. Patient has a history of OCD and psy chogenic polydipsia. 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 1900: Vital sign stable. Sodium level is 123. Labs are within normal limits. The patient will be admitted for hyponatremia and psychogenic polydipsia. Discussed the case with Dr. Decker about any physician group who accepted the admission. Patient be started on 1 L normal saline IV to replace his sodium. No need for hypertonic saline at this time as patient is not having any seizures or acute neurological deficits. Administered Medications Sodium Chloride (Nss 1000ml) 1,000 mls @ 125 mls/hr IV .Q8H MICHAEL Stop: 08/29/19 18:59 Last Admin: 07/30/19 19:38 Dose: 125 mls/hr Documented by: [id number] Medical Decision Making Medical Records Attestation: I reviewed the patient's medical records. Home Medications Current Medication List: was personally reviewed by me Laboratory Data Attestation: I reviewed the patient's lab results. Result diagrams: 07/30/19 18:17 07/30/19 18:17 Lab Results 07/30/19 07/30/19 07/30/19 Range/Units 17:40 17:40 18:17 WBC 8.68 (4.8-10.8) K/uL RBC 3.75 L (4.7-6.1) M/uL Hgb 12.2 L (14.0-18.0) g/dL Hct 33.7 L (42-52) % MCV 89.9 (80-100) fL MCH 32.5 (25-34) pg MCHC 36.2 H (32-36) g/dL RDW Std Deviation 39.1 (36.4-46.3) fL RDW Coeff of Fito 12.0 (11.5-14.5) % Plt Count 270 (130-400) K/uL MPV 10.0 (7.4-10.4) fL Immature Gran % (Auto) 0.1 % Neut % (Auto) 78.0 % Lymph % (Auto) 16.1 % Lasalle % (Auto) 5.5 % Eos % (Auto) 0.1 % Baso % (Auto) 0.2 % Immature Gran # (Auto) 0.01 (0.00-0.02) K/uL Neut # (Auto) 6.76 H (1.4-6.5) K/uL Lymph # (Auto) 1.40 (1.2-3.4) K/uL Lasalle # (Auto) 0.48 (0.11-0.59) K/uL Eos # (Auto) 0.01 (0-0.5) K/uL Baso # (Auto) 0.02 (0-0.2) K/uL Sodium (136-145) mmol/L Potassium (3.5-5.1) mmol/L Chloride (98-107) mmol/L Carbon Dioxide (21-32) mmol/L Anion Gap (3-11) BUN (7-18) mg/dl Creatinine (0.6-1.4) mg/dl Est Cr Clr Drug Dosing ml/min Est GFR ( Amer) Est GFR (Non-Af Amer) BUN/Creatinine Ratio (10-20) Glucose (70-99) mg/dl Calcium (8.5-10.1) mg/dl Total Bilirubin (0.2-1) mg/dl AST (15-37) U/L ALT (12-78) U/L Alkaline Phosphatase (45-117) U/L Total Protein (6.4-8.2) gm/dl Albumin (3.4-5.0) gm/dl Globulin (2.5-4.0) gm/dl Albumin/Globulin Ratio (0.9-2) TSH (0.300-4.500) uIu/ml Urine Color Yellow Urine Appearance Clear (Clear) Urine pH 7.0 (4.5-7.5) Ur Specific Hampton 1.008 (1.000-1.030) Urine Protein Negative (Negative) Urine Glucose (UA) Negative (Negative) Urine Ketones Negative (Negative) Urine Blood Negative (Negative) Urine Nitrite Negative (Negative) Urine Bilirubin Negative (Negative) Urine Urobilinogen Negative (Negative) Ur Leukocyte Esterase Negative (Negative) Salicylates (2.8-20) mg/dl Urine Opiates Screen Neg (Neg) Ur Methadone, Qual Neg (Neg) Acetaminophen (10-30) ug/ml Urine Barbiturates Neg (Neg) Ur Phencyclidine (PCP) Neg (Neg) U Amphetamin/Meth Scrn Neg (Neg) MDMA (Ecstasy) Screen Neg (Neg) U Benzodiazepines Scrn Neg (Neg) Ur Cocaine Metabolite Neg (Neg) U Marijuana (THC) Screen Neg (Neg) Ethyl Alcohol mg/dL (0-3) mg/dl 07/30/19 07/30/19 07/30/19 Range/Units 18:17 18:17 18:17 WBC (4.8-10.8) K/uL RBC (4.7-6.1) M/uL Hgb (14.0-18.0) g/dL Hct (42-52) % MCV (80-100) fL MCH (25-34) pg MCHC (32-36) g/dL RDW Std Deviation (36.4-46.3) fL RDW Coeff of Fito (11.5-14.5) % Plt Count (130-400) K/uL MPV (7.4-10.4) fL Immature Gran % (Auto) % Neut % (Auto) % Lymph % (Auto) % Lasalle % (Auto) % Eos % (Auto) % Baso % (Auto) % Immature Gran # (Auto) (0.00-0.02) K/uL Neut # (Auto) (1.4-6.5) K/uL Lymph # (Auto) (1.2-3.4) K/uL Lasalle # (Auto) (0.11-0.59) K/uL Eos # (Auto) (0-0.5) K/uL Baso # (Auto) (0-0.2) K/uL Sodium 123 L (136-145) mmol/L Potassium 3.8 (3.5-5.1) mmol/L Chloride 89 L (98-107) mmol/L Carbon Dioxide 27 (21-32) mmol/L Anion Gap 7.0 (3-11) BUN 3 L (7-18) mg/dl Creatinine 0.77 (0.6-1.4) mg/dl Est Cr Clr Drug Dosing 144.8 ml/min Est GFR ( Amer) 141.1 Est GFR (Non-Af Amer) 121.8 BUN/Creatinine Ratio 4.5 L (10-20) Glucose 95 (70-99) mg/dl Calcium 8.9 (8.5-10.1) mg/dl Total Bilirubin 0.8 (0.2-1) mg/dl AST 8 L (15-37) U/L ALT 17 (12-78) U/L Alkaline Phosphatase 59 (45-117) U/L Total Protein 6.8 (6.4-8.2) gm/dl Albumin 3.9 (3.4-5.0) gm/dl Globulin 2.9 (2.5-4.0) gm/dl Albumin/Globulin Ratio 1.3 (0.9-2) TSH 1.020 (0.300-4.500) uIu/ml Urine Color Urine Appearance (Clear) Urine pH (4.5-7.5) Ur Specific Hampton (1.000-1.030) Urine Protein (Negative) Urine Glucose (UA) (Negative) Urine Ketones (Negative) Urine Blood (Negative) Urine Nitrite (Negative) Urine Bilirubin (Negative) Urine Urobilinogen (Negative) Ur Leukocyte Esterase (Negative) Salicylates < 1.7 L (2.8-20) mg/dl Urine Opiates Screen (Neg) Ur Methadone, Qual (Neg) Acetaminophen < 2 L (10-30) ug/ml Urine Barbiturates (Neg) Ur Phencyclidine (PCP) (Neg) U Amphetamin/Meth Scrn (Neg) MDMA (Ecstasy) Screen (Neg) U Benzodiazepines Scrn (Neg) Ur Cocaine Metabolite (Neg) U Marijuana (THC) Screen (Neg) Ethyl Alcohol mg/dL < 3.0 (0-3) mg/dl Blood Pressure Blood Pressure Findings: Elevated blood pressure Blood Pressure Disposition: further management by hospitalist YADIRA Narrative [id number]: The patient was evaluated in room A7, and a complete history and physical examination were performed. EMR reviewed. Patient has a history of OCD and psychogenic polydipsia. 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 1900: Vital sign stable. Sodium level is 123. Labs are within normal limits. The patient will be admitted for hyponatremia and psychogenic polydipsia. Discussed the case with Dr. Decker about any physician group who accepted the admission. Patient be started on 1 L normal saline IV to replace his sodium. No need for hypertonic saline at this time as patient is not having any seizures or acute neurological deficits. Impression & Plan Hyponatremia, Psychogenic polydipsia Discharge Plan Visit Data *Final* Discharge Date/Time: 07/30/19 20:19 Chief Complaint: Mental Health Evaluation Stated Complaint: MENTAL HEALTH DECLINING BECAUSE OF PLACE ED Provider: Tanmay Jaimes Discharge Problem: Hyponatremia, Psychogenic polydipsia Patient Disposition: Admitted As Inpatient Discharge Instructions Interventions: ED Discharge Assessment Last Done: 07/30/19 20:19 The scribe's documentation has been prepared under my direction and personally reviewed by me in its entirety. I confirm that the note above accurately reflects all work, treatment, procedures, and medical decision making performed by me.
[2019-07-30 21:47] LABS: BUN Creatinine Ratio 5.4 (10-20); Calcium 9.6 mg/dl (8.5-10.1); Creatinine Clr Calc Pharmacy 157.1 ml/min; Est GFR (African American) 145.9; Est GFR (Non-African American) 125.9; Potassium 3.9 mmol/L (3.5-5.1)
[2019-07-31] MEDS: SODIUM CHLORIDE 0.9% 1000ML 1,000 ML IV SCH ×2 (02:34→10:31)
[2019-07-31] MEDS: FLUOXETINE HCL 10 MG CAP PO SCH (09:10)
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
[2019-07-31 15:29] LABS: Calcium 9.4 mg/dl (8.5-10.1); Creatinine Clr Calc Pharmacy 118.6 ml/min; Est GFR (African American) 125.6; Est GFR (Non-African American) 108.4; Potassium 4.1 mmol/L (3.5-5.1)
--- NOTE | 2019-07-31 16:28 | Hospitalist Progress Note ---
Date of Service July 31, 2019 Assessment & Plan (1) Hyponatremia: This seems to be resolved from lab work, will recheck in the morning. Patient is now off IV fluids. Will liberalize p.o. intake of p.o. fluids to 2 L daily. (2) Psychogenic polydipsia: Patient has a long-standing psychiatric history. He was [facility] but not did not do well there and is now back in the hospital. I did discuss with the psychiatry coordinator, arrangements were made for some sort of rehab placement on discharge. Until then, patient is not stable from a psychiatric perspective for discharge home as he has a significant chance of relapse. (3) Anxiety: continue home meds Subjective Patient is awake and alert. He is in no distress. He does appear to be anxious but denies any other complaint. Review of Systems Review of Systems: All systems reviewed & are unremarkable except as noted in HPI & below Physical Exam Physical Exam: GENERAL: Non-toxic in appearance. INTEGUMENTARY: Warm, dry, and [place]. HEAD: Normocephalic. EYES: without scleral icterus or trauma. ENT/OROPHARYNX: clear and moist. LYMPHADENOPATHY/NECK: Is supple without lymphadenopathy or meningismus. RESPIRATORY: Lungs clear and equal. CARDIOVASCULAR: Regular rate and rhythm. GI/ABDOMEN: Soft and nontender. No organomegaly or pulsatile mass. No rebound or guarding. Normal bowel sounds. EXTREMITIES: Warm and well perfused. BACK: No CVA tenderness. NEUROLOGICAL: Intact without focal deficits. PSYCHIATRIC: normal affect. MUSCULOSKELETAL: Normally developed with good muscle tone. Results & Data Vital Signs (Past 12 Hours) Vital Signs Temp Pulse Pulse Resp BP Pulse Ox 07/31/19 15:57 36.9 C 71 18 114/69 98 07/31/19 12:31 36.8 C 96 H 20 151/84 H 98 07/31/19 08:08 36.8 C 75 20 113/68 100 07/31/19 07:29 64 PG Care Time/CCT Total # of Minutes Spent Total Time Spent with Patient: Total time spent is greater than 50% in coordination of care (as documented) at patient's floor/unit and/or counseling patient:
[2019-08-01 04:30] VITALS: BP 129/78; PULSE 76; TEMP 97.7; O2SAT 99
[2019-08-01 07:43] LABS: BUN Creatinine Ratio 4.4 (10-20); Calcium 9.6 mg/dl (8.5-10.1); Creatinine Clr Calc Pharmacy 132.8 ml/min; Est GFR (African American) 136.2; Est GFR (Non-African American) 117.5; Potassium 4.4 mmol/L (3.5-5.1)
[2019-08-01] MEDS: FLUOXETINE HCL 10 MG CAP PO SCH (07:55)
--- NOTE | 2019-08-01 09:45 | Discharge Summary ---
Date of Service August 01, 2019 Admission HPI Per Admitting Provider 29-year-old male admitted medically on 07/30/2019 for hyponatremia as a result of chronic episodes of psychogenic polydipsia. Patient reportedly presented at the doors of the behavioral health unit at [facility] with all of his belongings packed, expecting immediate admission. Patient was escorted to the emergency department where a mental health evaluation was completed. Patient was found to be hyponatremic with a sodium level of 123. Patient was admitted medically for correction. Psychiatric consultation is requested to evaluate patient for "anxiety induced polydipsia." He is well-known to our service from prior psychiatric consultations and inpatient admissions - the most recent was on our unit from 07/11/19 - 07/22/19. Patient was discharged from our unit to [facility] ([facility]), as recommended disposition of a supervised CRR setting was not possible due to reportedly no bed availability. Patient remained at the facility for about 9 days, before he presented to the hospital. Patient states he has been compliant with his psychiatric medications and has been meeting with his corrections caseworker as scheduled. Patient's case was reviewed and discussed with psychiatrist and psychiatric nurse liaison. Patient was cooperative with psychiatric evaluation today. He is observed to be laying in bed, alert and somewhat anxious. Patient shares with this provider that he is "a little tired today" and admits he has not been sleeping well during his time at [facility]. Patient shares with this provider that "things at [facility] did not work out the way I had planned." In addition to "night sweats" and inability to sleep, the patient states he was not able to keep up with the expectations of the facility. She shares with this provider that they are assigned "night chores", which the patient feels were not effectively explained in a way that allowed him to be successful with their completion. Patient states these tasks include mopping the floor, taking out the trash, sweeping floors, and doing dishes. Patient feels that he would have been more successful at these tasks if they had been adequately explained to him. Patient states "no one understood that these are things I had never done before."Patient states "the routine was brand-new to me, they were acting like I had the structure my whole life." Patient still believes that he had made the right decision in stepping out and living independently; however, reports numerous times that he felt he was not adequately supported by staff. Patient does admit to panic attacks, poor sleep, and "night sweats" while staying at the facility. His anxiety, admittedly, did lead to increased consumption of waterwhich is not an unusual coping strategy for him. Patient states "I am glad that I came here for treatment, it was probably smart. Otherwise I might of had a seizure." Patient maintains that his goal is to be transferred to the psychiatric unit. He is agreeable with us communicating with his corrections caseworker and other County representatives, in order to determine the status of a CRR bed. Patient is understanding that this has been a recommendation for a more supportive living environment. It was explained to patient that if these things could be pulled together in a timely manner, patient may not require an inpatient psychiatric admission. Patient was agreeable with this option should the correct steps fall into place. Patient does not feel that he is at immediate harm to himself or others, and remains agreeable with eventual plan to have him placed in a CRR. Patient does state that he was scheduled to have a tour of 1 of the CRR's tomorrow. He also admits to a psychiatric follow-up appointment scheduled for tomorrow. Patient admits that he has been compliant with all outpatient follow- up and is continued to take his psychiatric medication, fluoxetine 30 mg daily. Pt denies SI, HI, SIB, A/V hallucinations, paranoia, dinora/hypomania, other symptoms more suggestive of a bipolar presentation, PTSD, eating disorder, and other specific psychiatric symptoms. Admission Exam Per Admitting Provider Constitutional: WD/WN, vitals as above Eyes: normal visual tavarez by confrontation and + anicteric sclerae Neck: normal visual inspection and trachea midline Respiratory: normal respiratory effort, lungs clear to auscultation Cardiovascular: Rate/Rhythm: regular rate and regular rhythm Gastrointestinal (Abdomen): Inspection/Auscultation: abdomen not distended Percussion/Palpation: abdomen soft; abdomen nontender Musculoskeletal: Head/Neck/Chest: normocephalic and head atraumatic negative for edema, peripheral pulses intact Skin: no rashes, warm and dry Neurologic: awake; not confused Speech / Cognition: normal speech Psychiatric: Orientation: oriented x 3 and cooperative Apperance: appropriately groomed Affect: + anxious affect Principal Diagnosis 1. Hyponatremia 2. Psychogenic polydipsia 3. Chronic anxiety disorder Discharge Exam GENERAL: Non-toxic in appearance. INTEGUMENTARY: Warm, dry, and [place]. HEAD: Normocephalic. EYES: without scleral icterus or trauma. ENT/OROPHARYNX: clear and moist. LYMPHADENOPATHY/NECK: Is supple without lymphadenopathy or meningismus. RESPIRATORY: Lungs clear and equal. CARDIOVASCULAR: Regular rate and rhythm. GI/ABDOMEN: Soft and nontender. No organomegaly or pulsatile mass. No rebound or guarding. Normal bowel sounds. EXTREMITIES: Warm and well perfused. BACK: No CVA tenderness. NEUROLOGICAL: Intact without focal deficits. PSYCHIATRIC: normal affect. MUSCULOSKELETAL: Normally developed with good muscle tone. Discharge Data Allergies Allergy/AdvReac Type Severity Reaction Status Date / Time No Known Allergies Allergy Verified 07/30/19 19:25 Consultations 07/30/19 18:59 ED Decision to Admit Stat 07/30/19 20:28 Consult Case Management - Discharge Planning Routine Consult Psychiatry Routine Hospital Course (1) Hyponatremia: Patient was initially started on IV normal saline and a 1 L fluid restriction was put in place. Patient's sodium did correct fairly readily. The IV fluids were stopped the patient's fluid restriction was liberalized to 2 L. Patient's last sodium was 141. (2) Psychogenic polydipsia: Patient has a long-standing psychiatric history. He [facility] but not did not do well there and is now back in the hospital. I discussed with psychiatry today, the plan is to admit the patient to behavioral health unit today my rounds ensure appropriate outpatient accommodations. Patient will require outpatient psychiatric follow-up as well as a PCP. (3) Anxiety: Patient is on fluoxetine which be continued. Total Time Total Time Spent Total Time Spent (In Minutes): Discharge the patient was in excess of 30 minutes. Discharge Plan Discharge Items Patient Disposition: Transfer Behavioral Health Fac Reason For Visit: HYPONATREMIA Discharge Diagnosis: 1. Hyponatremia 2 psychogenic polydipsia 3. Chronic anxiety disorder Activity: Resume your previous activity Bathing: No limitations Non-emergency contact: Primary Care Provider and Psychiatrist Call non-emergency contact if: you have any medication questions Follow-up/Referrals: PCP,NO [Primary Care Provider] - Diet: Regular Fluids: 2000ml (8 cups) Addtl Attending Provider Instructions: Patient will need to be referred to a PCP prior to discharge. Pending Studies at Discharge: No Stand-Alone Forms: [facility], Suicide Prevention Resources Skilled Items DNR: No Lines: None Medications and DC Order Prescriptions: Continued fluoxetine 10 mg Capsule 30 mg PO QAM Qty: 90 RF: 0 Discharge Orders: Discharge Order (Routine); Ordered 08/01/19 Ordered By: Tarik Medel Admission Data Admit Date/Time: 07/30/19 19:51 Attending Provider: Tarik Medel Admit Provider: Kendra Decker Primary Care Provider: PCP,NO Other Providers: Kendra Decker ; Brigette Rg
== END 2019-08-01 10:42 | DRG 641 ==
LOC: ED 17:20 → 2N 19:51 → SUATTDRO 19:51 → 2N 20:19

== ENCOUNTER 2019-08-01 10:40 | Inpatient (IN) ==
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
[2019-08-01] MEDS ORDERED: ACETAMINOPHEN 325 MG TAB PO PRN (11:31)
[2019-08-01] MEDS ORDERED: SODIUM CHLORIDE 0.65% NA SOLN 45 ML (OCEAN) PRN (11:31)
[2019-08-01] MEDS ORDERED: BISMUTH SUBSALICYLATE PER ML OMNICELL CHARGE PO PRN (11:31)
[2019-08-01] MEDS ORDERED: MAGNESIUM HYDROXIDE SUSP 30 ML UDC PO PRN (11:31)
[2019-08-01] MEDS ORDERED: ALUMINUM/MAGNESIUM SUSP 30 ML UDC PO PRN (11:31)
[2019-08-01 11:50] VITALS: O2SAT 99
[2019-08-02] MEDS: FLUOXETINE HCL 10 MG CAP PO SCH (09:07)
--- NOTE | 2019-08-02 10:52 | Psychiatric Progress Note ---
Date of Service August 02, 2019 Impression / Recommendations Abdirahman Wells has a long history of mental health treatment for a variety of diagnoses, often with nonadherence to medications and outpatient treatment. He has had a series of recent hospitalizations (this is his 3rd in the past 2 months), and has stated a willingness to engage more fully with treatment and outpatient services, with a desire to increase his independence and eventually be able to work and function in society. He agreed to go back on fluoxetine during his hospitalization here earlier this month, and aftercare was arranged at [facility]. He also agreed to a referral to the CRR, but unfortunately they stated a bed was not yet available at the time of discharge, so he instead went to [facility], a local half-way, which not surprisingly was very stressful for him. He had never lived outside his mother's home or worked, and was quite isolated. The transition caused an exacerbation of his anxiety and OCD, which resulted in excessive free water ingestion and hyponatremia. He has had seizures in the past due to hyponatremia, and although he presented to the hospital requesting inpatient psychiatric treatment for stabilization, he had to be admitted medically for several days first to correct his sodium. Team is planning to work with patient to begin setting limits, as it is likely the patient's compulsions may contribute to difficulty transitioning to a CRR. Ideally, beginning this process here will allow additional success when patient is transitioned from the inpatient hospital setting. Inpatient treatment is medically necessary due to the severity of his symptoms and risk for , disability, or serious injury as a result of psychogenic polydipsia/severe anxiety. (1) Anxiety: 08/01 -continue fluoxetine 30 mg daily and consider further dose titration, but concerns due to risk of worsening hyponatremia. For now, we will focus on behavioral techniques to manage anxiety and healthy ways to cope (in place of drinking excess free water). -Filed for 306 conversion hearing, as patient is on a 304 IOC and signed in voluntarily, so will transition to involuntary commitment to maintain his IOC. -Involve [facility] and long term staff to coordinate transition to [facility]. -Involve family if they are willing. -Encourage participation in groups and therapy, work on healthy coping skills and discharge safety plan. 08/02 - Continue fluoxetine 30mg, continue to encourage titration - Continue to encourage behavioral techniques to improve anxiety - Pt may also benefit from setting of limits on this unit regarding his lengthy morning routine and very rigid schedules - as it is not likely he will be permitted to keep up with this behavior at a supportive living facility. - Continue to coordinate with CRRs for likely transition (2) OCD (obsessive compulsive disorder): As above. (3) Autism spectrum disorder: Outpatient neuropsychological testing to help clarify diagnoses has been recommended, unclear if it was scheduled by his piano case maker. 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 Inventory Assets Strengths: Willing for treatment, wants to make changes in his life Needs: Supportive living environment, increase supports Risk Factors Assessment Male: Yes : Yes Do You Have Access To A Gun?: No Health Problems: No Mental Health Diagnoses: Yes Substance Use Disorders: No Previous Attempt: No Family History of Suicide: No Previous Psychiatric Hospitalization: Yes Hopelessness: No Smoker: No Protective Factors Assessment : No Responsible for Young Children: No Employed: No Stable Relationships: No Supportive Family: No Good Rapport with Provider: No Interval History Identifying Information TASHA MAC is a 29-year-old M with a history of OCD, body dysmorphic disorder, social anxiety, psychogenic polydipsia, and dependent personality traits who was admitted on 08/01/19 10:40 on a 201 voluntary commitment for severe anxiety with psychogenic polydipsia resulting in hyponatremia, which required medical hospitalization for stabilization from 07/30/19 through 08/01/19. He was on an involuntary outpatient commitment at the time of his last discharge 07/22/19. Chief Complaint "Um, I can't really talk right now. Can you get the nurses, I need to have something from my locker. Something I use." Review of Systems Notes Constitutional: denied Cardiovascular: denied Respiratory: denied Gastrointestinal: denied Neurological: denied Psychiatric: denies symptoms other than stated above Total of at least 10 systems reviewed, pertinent positives as above and in HPI. Sleep Information Total Hours of Sleep: 6.75 Meal Information Percent Meal Consumed - Breakfast: 100 Percent Meal Consumed - Lunch: 100 Percent Meal Consumed - Dinner: 100 Subjective Subjective Patient was seen & assessed and interval progress reviewed with treatment team. Staff report the patient rated his mood a 10/10 and hopeful yesterday despite being admitted with inability to care for self outside of the hospital. This provider attempted several times to meet with the patient during his morning routine. He was avoiding conversation and appeared uncomfortable. He had a towel covering his head and face for our initial conversations. Refusing to speak until he "got something out of my locker." Pt became irritable with staff as they attempted to set limits, requesting to pour his moisturizer into a paper cup rather than sitting with him for his lengthy application. Pt refused this option and actually walked away with the container. Pt returned to this provider's office irritable, anxious, and tearful. We discussed that would team would like to assist with preparing him for the transition to a supportive living facility, in which it is likely that restrictions will be set with regard to this routine. He was informed that staff would be meeting with him this afternoon to discuss how we can be supportive in this process. Pt denies SI/HI today. He denies other acute needs or concerns at this time. Physical Exam Psychiatric Orientation: alert, oriented x 3 and + guarded; + uncooperative Apperance: appropriately dressed (but wearing a towel covering his head and face) and appeared stated age Eye Contact: + poor eye contact (avoiding eye contact, face covered with towel) Motor Behavior: steady gait and station and no abnormal motor movements Speech: normal rate/rhythm/volume of speech (timid, brief responses to questions) Affect: + anxious affect (highly anxious ) and + irritable affect Mood: + anxious mood ("It just so much contributed to my anxiety") Thought Process: + perseveration (on getting moisturizer from locker) Thought Content: + preoccupation and + obsessions Suicidal Thoughts: denies suicidal thoughts Homicidal Thoughts: denies homicidal thoughts Hallucinations: no auditory hallucinations and no visual hallucinations Cognition: language grossly intact Insight: + impaired insight Judgement: + impaired judgement Vital Signs (Past 24 Hours) Last Vital Signs Temp 36.9 C 08/02/19 06:00 Pulse 92 H 08/02/19 06:00 Resp 16 08/02/19 06:00 BP 115/70 08/02/19 06:00 Pulse Ox 99 08/01/19 10:54 Results & Data Current Inpatient Medications Current Inpatient Medications: Current Inpatient Medications Acetaminophen (Tylenol) 650 mg PO Q4H PRN PRN Reason: Headache or Minor Fever Stop: 08/31/19 11:30 Al Hydrox/Mg Hydrox/Simethicone (Maalox) 30 ml PO Q4H PRN PRN Reason: GI Upset Stop: 08/31/19 11:30 Bismuth Subsalicylate (Kaopectate) 15 ml PO PRN PRN PRN Reason: Loose Stool Stop: 08/31/19 11:30 Fluoxetine HCl (Prozac) 30 mg PO QAM MICHAEL Stop: 09/01/19 08:59 Last Admin: 08/02/19 09:07 Dose: 30 mg Documented by: Hydroxyzine HCl (Vistaril) 25 mg PO Q4H PRN PRN Reason: Anxiety Stop: 08/31/19 11:30 Hydroxyzine HCl (Vistaril) 50 mg PO HSZ PRN PRN Reason: Insomnia Stop: 08/31/19 11:30 Magnesium Hydroxide (Milk Of Magnesia) 30 ml PO DAILY PRN PRN Reason: Constipation Stop: 08/31/19 11:30 Sodium Chloride ([place] Base Nasal) 1 - 2 sprays NA PRN PRN PRN Reason: Nasal Dryness/Congestion Stop: 08/31/19 11:30 Mental Health & Subst Abuse Tx Therapist Name of Therapist: [facility] [employer] Name of Intermodal Truck Driver: BHUPINDER Diaz Post Discharge Appointments Primary Care Physician Name Of Family Doctor: Shorty Perkins
[2019-08-03] MEDS: FLUOXETINE HCL 10 MG CAP PO SCH (08:53)
--- NOTE | 2019-08-03 16:31 | Psychiatric Progress Note ---
Date of Service August 03, 2019 Impression / Recommendations Abdirahman Wells has a long history of mental health treatment for a variety of diagnoses, often with nonadherence to medications and outpatient treatment. He has had a series of recent hospitalizations (this is his 3rd in the past 2 months), and has stated a willingness to engage more fully with treatment and outpatient services, with a desire to increase his independence and eventually be able to work and function in society. He agreed to go back on fluoxetine during his hospitalization here earlier this month, and aftercare was arranged at [facility]. He also agreed to a referral to the [facility], but unfortunately they stated a bed was not yet available at the time of discharge, so he instead went to [facility], a local snf, which not surprisingly was very stressful for him. He had never lived outside his mother's home or worked, and was quite isolated. The transition caused an exacerbation of his anxiety and OCD, which resulted in excessive free water ingestion and hyponatremia. He has had seizures in the past due to hyponatremia, and although he presented to the hospital requesting inpatient psychiatric treatment for stabilization, he had to be admitted medically for several days first to correct his sodium. Team is planning to work with patient to begin setting limits, as it is likely the patient's compulsions may contribute to difficulty transitioning to a CRR. Ideally, beginning this process here will allow additional success when patient is transitioned from the inpatient hospital setting. Inpatient treatment is medically necessary due to the severity of his symptoms and risk for , disability, or serious injury as a result of psychogenic polydipsia/severe anxiety. (1) Anxiety: 08/01 -continue fluoxetine 30 mg daily and consider further dose titration, but concerns due to risk of worsening hyponatremia. For now, we will focus on behavioral techniques to manage anxiety and healthy ways to cope (in place of drinking excess free water). -Filed for 306 conversion hearing, as patient is on a 304 IOC and signed in voluntarily, so will transition to involuntary commitment to maintain his IOC. -Involve [facility] and [facility] staff to coordinate transition to [facility]. -Involve family if they are willing. -Encourage participation in groups and therapy, work on healthy coping skills and discharge safety plan. 08/02 - Continue fluoxetine 30mg, continue to encourage titration - Continue to encourage behavioral techniques to improve anxiety - Pt may also benefit from setting of limits on this unit regarding his lengthy morning routine and very rigid schedules - as it is not likely he will be permitted to keep up with this behavior at a supportive living facility. - Continue to coordinate with CRRs for likely transition - titration of prozac to 40mg recommended but declined by patient - pt expected to be out of room and attending activities on unit with efforts to minimize time spent in grooming behaviors - repeat bmp for sodium monitoring in AM (2) OCD (obsessive compulsive disorder): As above. (3) Autism spectrum disorder: Outpatient neuropsychological testing to help clarify diagnoses has been recommended, unclear if it was scheduled by his senior case manager. 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 08/03 - bmp in AM Inventory Assets Strengths: Willing for treatment, wants to make changes in his life Needs: Supportive living environment, increase supports Risk Factors Assessment Male: Yes : Yes Do You Have Access To A Gun?: No Health Problems: No Mental Health Diagnoses: Yes Substance Use Disorders: No Previous Attempt: No Family History of Suicide: No Previous Psychiatric Hospitalization: Yes Hopelessness: No Smoker: No Protective Factors Assessment : No Responsible for Young Children: No Employed: No Stable Relationships: No Supportive Family: No Good Rapport with Provider: No Interval History Identifying Information TASHA MAC is a 29-year-old M with a history of OCD, body dysmorphic disorder, social anxiety, psychogenic polydipsia, and dependent personality traits who was admitted on 08/01/19 10:40 on a 201 voluntary commitment for severe anxiety with psychogenic polydipsia resulting in hyponatremia, which required medical hospitalization for stabilization from 07/30/19 through 08/01/19. He was on an involuntary outpatient commitment at the time of his last discharge 07/22/19. Chief Complaint "I'm not going to ever fall back into what I was doing". Review of Systems Notes sweats when anxious Sleep Information Total Hours of Sleep: 6 Meal Information Percent Meal Consumed - Breakfast: 100 Percent Meal Consumed - Lunch: 100 Percent Meal Consumed - Dinner: 100 Subjective Subjective Patient was seen & assessed and interval progress reviewed with treatment team. Reviewed recent failed discharge and representation. Per staff pt rated mood as 6/10 last pm but appeared angry this AM externalizing responsibility for his failures to staff whom he felt didn't prepare him adequately for life outside of hospital. This morning he describes feeling overwhelmed by chores at the home. Complains they shouldn't be expected of him at night when he is tired and wants to go to bed. Denies that chores were interfering with rituals and he minimizes importance of grooming rituals today. Denies anxiety associated with fear of failure. He seems to perceive he has made great progress and comments he will never revert to former patterns of behavior such as excessive water drinking (however he was again hyponatremic on representation.) He refuses to consider further titration on ssri and expresses concern that the medication makes his body "not function right" but unable to identify a specific SE of concern. Physical Exam Psychiatric Orientation: alert, oriented x 3 and cooperative Apperance: + inappropriately groomed (wearing heavy concealer on face) Eye Contact: + poor eye contact averted gaze Motor Behavior: steady gait and station rubs face repeatedly overproductive, mild dysfluency Affect: + anxious affect Mood: + anxious mood feels under pressure Thought Process: + perseveration Thought Content: + compulsions Suicidal Thoughts: denies suicidal thoughts Homicidal Thoughts: denies homicidal thoughts Hallucinations: no auditory hallucinations Insight: + limited insight Judgement: + limited judgement Vital Signs (Past 24 Hours) Last Vital Signs Temp 36.6 C 08/03/19 06:57 Pulse 77 08/03/19 06:58 Resp 18 08/03/19 06:57 BP 132/78 08/03/19 06:58 Pulse Ox 99 08/01/19 10:54 Results & Data Current Inpatient Medications Current Inpatient Medications: Current Inpatient Medications Acetaminophen (Tylenol) 650 mg PO Q4H PRN PRN Reason: Headache or Minor Fever Stop: 08/31/19 11:30 Al Hydrox/Mg Hydrox/Simethicone (Maalox) 30 ml PO Q4H PRN PRN Reason: GI Upset Stop: 08/31/19 11:30 Bismuth Subsalicylate (Kaopectate) 15 ml PO PRN PRN PRN Reason: Loose Stool Stop: 08/31/19 11:30 Fluoxetine HCl (Prozac) 30 mg PO QAM MICHAEL Stop: 09/01/19 08:59 Last Admin: 08/03/19 08:53 Dose: 30 mg Documented by: Hydroxyzine HCl (Vistaril) 25 mg PO Q4H PRN PRN Reason: Anxiety Stop: 08/31/19 11:30 Hydroxyzine HCl (Vistaril) 50 mg PO HSZ PRN PRN Reason: Insomnia Stop: 08/31/19 11:30 Magnesium Hydroxide (Milk Of Magnesia) 30 ml PO DAILY PRN PRN Reason: Constipation Stop: 08/31/19 11:30 Sodium Chloride ([place] Nasal) 1 - 2 sprays NA PRN PRN PRN Reason: Nasal Dryness/Congestion Stop: 08/31/19 11:30 Mental Health & Subst Abuse Tx Therapist Name of Therapist: [facility] Name of Able Seaman: BHUPINDER Diaz Post Discharge Appointments Primary Care Physician Name Of Family Doctor: Shorty Perkins
[2019-08-04 06:56] LABS: BUN Creatinine Ratio 4.9 (10-20); Creatinine Clr Calc Pharmacy 131.8 ml/min; Est GFR (African American) 138.2; Est GFR (Non-African American) 119.3; Potassium 4.4 mmol/L (3.5-5.1)
[2019-08-04] MEDS: FLUOXETINE HCL 10 MG CAP PO SCH (09:27)
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
[2019-08-05] MEDS: FLUOXETINE HCL 10 MG CAP PO SCH (08:59)
--- NOTE | 2019-08-05 09:58 | Psychiatric Progress Note ---
Date of Service August 05, 2019 Impression / Recommendations Abdiarhman Wells has a long history of mental health treatment for a variety of diagnoses, often with nonadherence to medications and outpatient treatment. He has had a series of recent hospitalizations (this is his 3rd in the past 2 months), and has stated a willingness to engage more fully with treatment and outpatient services, with a desire to increase his independence and eventually be able to work and function in society. He agreed to go back on fluoxetine during his hospitalization here earlier this month, and aftercare was arranged at [facility]. He also agreed to a referral to the CRR, but unfortunately they stated a bed was not yet available at the time of discharge, so he instead went to [facility], a local custodial, which not surprisingly was very stressful for him. He had never lived outside his mother's home or worked, and was quite isolated. The transition caused an exacerbation of his anxiety and OCD, which resulted in excessive free water ingestion and hyponatremia. He has had seizures in the past due to hyponatremia, and although he presented to the hospital requesting inpatient psychiatric treatment for stabilization, he had to be admitted medically for several days first to correct his sodium. Team is planning to work with patient to begin setting limits, as it is likely the patient's compulsions may contribute to difficulty transitioning to a CRR. Ideally, beginning this process here will allow additional success when patient is transitioned from the inpatient hospital setting. Based on the patient's history, it is highly likely that a complicated discharge plan with multiple transitions will usually destabilize the patient, with high likelihood of rapid inpatient medical or psychiatric readmissions or even seizure/. We will continue to invest time in the practice of behavioral modifications to support increased independence, and continue attempts to coordinate an appropriate discharge plan that we will reduce destabilization of condition at discharge. Inpatient treatment is medically necessary due to the severity of his symptoms and risk for , disability, or serious injury as a result of psychogenic polydipsia/severe anxiety. (1) Anxiety: 08/01 -continue fluoxetine 30 mg daily and consider further dose titration, but concerns due to risk of worsening hyponatremia. For now, we will focus on behavioral techniques to manage anxiety and healthy ways to cope (in place of drinking excess free water). -Filed for 306 conversion hearing, as patient is on a 304 IOC and signed in voluntarily, so will transition to involuntary commitment to maintain his IOC. -Involve BCM and intermediate staff to coordinate transition to [facility]. -Involve family if they are willing. -Encourage participation in groups and therapy, work on healthy coping skills and discharge safety plan. 08/02 - Continue fluoxetine 30mg, continue to encourage titration - Continue to encourage behavioral techniques to improve anxiety - Pt may also benefit from setting of limits on this unit regarding his lengthy morning routine and very rigid schedules - as it is not likely he will be permitted to keep up with this behavior at a supportive living facility. - Continue to coordinate with CRRs for likely transition 08/03 - titration of prozac to 40mg recommended but declined by patient - pt expected to be out of room and attending activities on unit with efforts to minimize time spent in grooming behaviors - repeat bmp for sodium monitoring in AM 08/04 - 08/05 -Doing well with behavioral modification efforts on the unit - Disposition uncertain (2) OCD (obsessive compulsive disorder): As above. (3) Autism spectrum disorder: Outpatient neuropsychological testing to help clarify diagnoses has been recommended, unclear if it was scheduled by his assistant case manager. 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 08/03 - bmp in AM 08/04/2019 -Sodium remains normal on repeat BMP Inventory Assets Strengths: Willing for treatment, wants to make changes in his life Needs: Supportive living environment, increase supports Risk Factors Assessment Male: Yes : Yes Do You Have Access To A Gun?: No Health Problems: No Mental Health Diagnoses: Yes Substance Use Disorders: No Previous Attempt: No Family History of Suicide: No Previous Psychiatric Hospitalization: Yes Hopelessness: No Smoker: No Protective Factors Assessment : No Responsible for Young Children: No Employed: No Stable Relationships: No Supportive Family: No Good Rapport with Provider: No Interval History Identifying Information TASHA MAC is a 29-year-old M with a history of OCD, body dysmorphic disorder, social anxiety, psychogenic polydipsia, and dependent personality traits who was admitted on 08/01/19 10:40 on a 201 voluntary commitment for severe anxiety with psychogenic polydipsia resulting in hyponatremia, which required medical hospitalization for stabilization from 07/30/19 through 08/01/19. He was on an involuntary outpatient commitment at the time of his last discharge 07/22/19. Chief Complaint "Um, okay. Going to groups is keeping me busy." Review of Systems Notes Constitutional: denied Cardiovascular: denied Respiratory: denied Gastrointestinal: denied Neurological: denied Psychiatric: denies symptoms other than stated above Total of at least 10 systems reviewed, pertinent positives as above and in HPI. Sleep Information Total Hours of Sleep: 7 Sleep Comments: pt on q-15 minute checks Meal Information Percent Meal Consumed - Breakfast: 100 Percent Meal Consumed - Lunch: 100 Percent Meal Consumed - Dinner: 100 Subjective Subjective Patient was seen & assessed and interval progress reviewed with treatment team. Staff reports the patient has been cooperative with behavioral modification techniques with regard to his rigid morning routine interfering with participation in group programming. At this time, there is limited outpatient supports that would mimic the structure of the inpatient setting, the only setting in which patient has reliably shown stability of his mood and compulsive behaviors. We continue to coordinate with patient's assistant case manager, [facility], and CRR to determine appropriate discharge planning. Patient was seen today to assess progress since admission. He states he stays busy over the weekend by attending groups. Patient is able to comment on ways in which his anxiety has improved during this admission. He does admit, however, that at this time he does not feel there has been a significant change to allow him to function appropriately if he were to be discharged back to [facility]. Patient was asked about coping strategies and behavioral techniques that would allow him to function in that setting, which she is unable to provide at this time. It is clear that the patient's condition is improving; however, he himself admits that the supports at [facility] were not appropriate for his level of functioning. Patient does state he is concerned about his safety should he return there, and recognizes that transitional periods are difficult for him. Patient does state that he spoke with his mother and sister over the phone yesterday, and wonders if his mom could provide input to staff at [facility] that would tailor support more appropriately. Patient denies any significant mood concerns, as well as suicidal ideation. We discussed possible discharge options, and patient continues to feel he would be best supported in a CRR. Patient denies other needs or concerns at this time. Physical Exam Psychiatric Orientation: alert, oriented x 3 and cooperative Apperance: appropriately dressed, appropriately groomed (Wearing thick layer of foundation, unchanged from typical presentation) and appeared stated age Eye Contact: good eye contact Motor Behavior: steady gait and station and no abnormal motor movements (Scratching danielle when more anxious) Speech: normal rate/rhythm/volume of speech (Soft speech, monotone) Affect: + anxious affect and mood congruent with affect Mood: + anxious mood ("Still a little nervous about what happens next") Thought Process: goal directed thought process, clear/coherent thought process and + concrete thought process Thought Content: reality based without delusions; no hopelessness Suicidal Thoughts: denies suicidal thoughts and denies suicidal intent Homicidal Thoughts: denies homicidal thoughts Hallucinations: no auditory hallucinations and no visual hallucinations Cognition: attention grossly intact and language grossly intact Insight: + fair insight (While in the inpatient hospital setting) Judgement: + fair judgement (While in the inpatient hospital setting) Vital Signs (Past 24 Hours) Last Vital Signs Temp 36.8 C 08/05/19 06:50 Pulse 91 H 08/05/19 06:51 Resp 18 08/05/19 06:50 BP 120/71 08/05/19 06:51 Pulse Ox 99 08/01/19 10:54 Results & Data Current Inpatient Medications Current Inpatient Medications: Current Inpatient Medications Acetaminophen (Tylenol) 650 mg PO Q4H PRN PRN Reason: Headache or Minor Fever Stop: 08/31/19 11:30 Al Hydrox/Mg Hydrox/Simethicone (Maalox) 30 ml PO Q4H PRN PRN Reason: GI Upset Stop: 08/31/19 11:30 Bismuth Subsalicylate (Kaopectate) 15 ml PO PRN PRN PRN Reason: Loose Stool Stop: 08/31/19 11:30 Fluoxetine HCl (Prozac) 30 mg PO QAM MICHAEL Stop: 09/01/19 08:59 Last Admin: 08/05/19 08:59 Dose: 30 mg Documented by: Hydroxyzine HCl (Vistaril) 25 mg PO Q4H PRN PRN Reason: Anxiety Stop: 08/31/19 11:30 Hydroxyzine HCl (Vistaril) 50 mg PO HSZ PRN PRN Reason: Insomnia Stop: 08/31/19 11:30 Magnesium Hydroxide (Milk Of Magnesia) 30 ml PO DAILY PRN PRN Reason: Constipation Stop: 08/31/19 11:30 Sodium Chloride ([place] Nasal) 1 - 2 sprays NA PRN PRN PRN Reason: Nasal Dryness/Congestion Stop: 08/31/19 11:30 Mental Health & Subst Abuse Tx Psychiatrist Name of Psychiatrist: Yasmani Roberson Psychiatrist's Time of Appointment with Psychiatrist: Will see after established with therapist Psychiatric Appointment Comment: [address] [facility] [address], [place] [address], [place] Therapist Name of Therapist: Yasmani Mcghee Therapist's Therapy Appointment Comment: [address] [facility], [place] [address], [place] Rn Chemical Dependency Name of Rn Chemical Dependency: BHUPINDER Diaz Phone Number for Rn Chemical Dependency: [phone] Post Discharge Appointments Primary Care Physician Name Of Family Doctor: Shorty Perkins Primary Care Provider Appointment Comment: Yvon Acevedo, [place] [address] Other #1: Name of Aftercare Appointment: Shorty Rn Chemical Dependency - Krissy Kimbrough Contact Information Discharge
[2019-08-05] MEDS ORDERED: TUBERCULIN SKIN TEST 5 TU in SYRINGE 0 ML ID ONE (18:00)
[2019-08-06] MEDS: FLUOXETINE HCL 10 MG CAP PO SCH (08:10)
--- NOTE | 2019-08-06 13:32 | Psychiatric Progress Note ---
Date of Service August 06, 2019 Impression / Recommendations Abdirahman Wells has a long history of mental health treatment for a variety of diagnoses, often with nonadherence to medications and outpatient treatment. He has had a series of recent hospitalizations (this is his 3rd in the past 2 months), and has stated a willingness to engage more fully with treatment and outpatient services, with a desire to increase his independence and eventually be able to work and function in society. He agreed to go back on fluoxetine during his hospitalization here earlier this month, and aftercare was arranged at [facility]. He also agreed to a referral to the CRR, but unfortunately they stated a bed was not yet available at the time of discharge, so he instead went to [facility], a local retirement, which not surprisingly was very stressful for him. He had never lived outside his mother's home or worked, and was quite isolated. The transition caused an exacerbation of his anxiety and OCD, which resulted in excessive free water ingestion and hyponatremia. He has had seizures in the past due to hyponatremia, and although he presented to the hospital requesting inpatient psychiatric treatment for stabilization, he had to be admitted medically for several days first to correct his sodium. Team is planning to work with patient to begin setting limits, as it is likely the patient's compulsions may contribute to difficulty transitioning to a CRR. Ideally, beginning this process here will allow additional success when patient is transitioned from the inpatient hospital setting. Based on the patient's history, it is highly likely that a complicated discharge plan with multiple transitions will usually destabilize the patient, with high likelihood of rapid inpatient medical or psychiatric readmissions or even seizure/. We will continue to invest time in the practice of behavioral modifications to support increased independence, and continue attempts to coordinate an appropriate discharge plan that we will reduce destabilization of condition at discharge. Inpatient treatment is medically necessary due to the severity of his symptoms and risk for , disability, or serious injury as a result of psychogenic polydipsia/severe anxiety. (1) Anxiety: 08/01 -continue fluoxetine 30 mg daily and consider further dose titration, but concerns due to risk of worsening hyponatremia. For now, we will focus on behavioral techniques to manage anxiety and healthy ways to cope (in place of drinking excess free water). -Filed for 306 conversion hearing, as patient is on a 304 IOC and signed in voluntarily, so will transition to involuntary commitment to maintain his IOC. -Involve BCM and [facility] staff to coordinate transition to [facility]. -Involve family if they are willing. -Encourage participation in groups and therapy, work on healthy coping skills and discharge safety plan. 08/02 - Continue fluoxetine 30mg, continue to encourage titration - Continue to encourage behavioral techniques to improve anxiety - Pt may also benefit from setting of limits on this unit regarding his lengthy morning routine and very rigid schedules - as it is not likely he will be permitted to keep up with this behavior at a supportive living facility. - Continue to coordinate with CRRs for likely transition 08/03 - titration of prozac to 40mg recommended but declined by patient - pt expected to be out of room and attending activities on unit with efforts to minimize time spent in grooming behaviors - repeat bmp for sodium monitoring in AM 08/04 - 08/05 -Doing well with behavioral modification efforts on the unit - Disposition uncertain 08/06 - Pt denying significant anxiety; revisited option to titrate fluoxetine which he is declining - Continue to encourage timely participation in group and recreational programming - Continue to sent appropriate behavioral limits to prepare patient for expectations of CRR/usp living (2) OCD (obsessive compulsive disorder): As above. (3) Autism spectrum disorder: Outpatient neuropsychological testing to help clarify diagnoses has been recommended, unclear if it was scheduled by his vocational case manager. 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 08/03 - bmp in AM 08/04/2019 -Sodium remains normal on repeat BMP Inventory Assets Strengths: Willing for treatment, wants to make changes in his life Needs: Supportive living environment, increase supports Risk Factors Assessment Male: Yes : Yes Do You Have Access To A Gun?: No Health Problems: No Mental Health Diagnoses: Yes Substance Use Disorders: No Previous Attempt: No Family History of Suicide: No Previous Psychiatric Hospitalization: Yes Hopelessness: No Smoker: No Protective Factors Assessment : No Responsible for Young Children: No Employed: No Stable Relationships: No Supportive Family: No Good Rapport with Provider: No Interval History Identifying Information TASHA MAC is a 29-year-old M with a history of OCD, body dysmorphic disorder, social anxiety, psychogenic polydipsia, and dependent personality traits who was admitted on 08/01/19 10:40 on a 201 voluntary commitment for severe anxiety with psychogenic polydipsia resulting in hyponatremia, which required medical hospitalization for stabilization from 07/30/19 through 08/01/19. He was on an involuntary outpatient commitment at the time of his last discharge 07/22/19. Chief Complaint "We had to draw something that inspired us during groups, so I richard that man." Review of Systems Notes Constitutional: denied Cardiovascular: denied Respiratory: denied Gastrointestinal: denied Neurological: denied Psychiatric: denies symptoms other than stated above Total of at least 10 systems reviewed, pertinent positives as above and in HPI. Sleep Information Total Hours of Sleep: 6.75 Sleep Comments: pt on q-15 minute check Meal Information Percent Meal Consumed - Breakfast: 100 Percent Meal Consumed - Lunch: 100 Percent Meal Consumed - Dinner: 100 Subjective Subjective Patient was seen & assessed and interval progress reviewed with nursing and social work. Staff reports the patient has been participating in groups, but requires several prompts in order to attend them in a timely manner. He continues to spend excessive amounts of time consuming meals and perfecting his morning routine. Staff has observed an increase in his water intake, which is being loosely monitored and attempts to have patient take on more autonomy and managing his drinking habits. There is a meeting scheduled for tomorrow afternoon involving [facility] representatives, staff from his R, and other individuals in order to discuss discharge planning. Patient was seen today to assess progress since admission. He states that he is doing well, and keeping busy by attending groups. He states that they have been doing a lot of craft activities today, and they were requested to draw something that inspires them. Patient did show this provider the picture he richard of Arnold. Patient states that he has not experiencing any anxiety today. Rating his anxiety is 0/10. "I continue to shock myself, I have actually been doing really well. I mean, I went to the [employer] game and was around a bunch of people and did not have any panic attacks, I felt relaxed. I even bought something." Patient was encouraged in his progress, and this provider continued to express the teens objectives at this time to encourage appropriate safety and support as part of his discharge plan. Patient continues to verbalize that "things will be different, I do not think I will get back to such a bad place" when he is discharged; however, patient was reminded that when he is anxious and overwhelmed his water intake increases which increases his risk of seizures. Patient reports ongoing awareness of this fact. Patient states that his future goals include "getting a job, living in my own place. I want to learn how to pay bills and know how an income actually works." We revisited the topic of titrating fluoxetine, which patient is declining at this time as he does not feel it is necessary. He does tolerate a discussion about warning signs that may direct him to have this conversation with his outpatient prescriber. Patient is able to identify warning signs of: increased anxiety, anticipating life transitions, symptoms of depression, and if coping strategies are not as effective. Patient denies suicidal ideation or other safety concerns at this time. He denies any other needs or concerns. Physical Exam Psychiatric Orientation: alert, oriented x 3 and cooperative Apperance: appropriately dressed (Casually, wearing sweater and sweatpants), appropriately groomed (Wearing thick layer of foundation, unchanged from baseline appearance) and appeared stated age Eye Contact: good eye contact Motor Behavior: steady gait and station and no abnormal motor movements Speech: normal rate/rhythm/volume of speech Affect: + anxious affect (Appearing more calm today) Mood: no anxious mood ("Actually no anxiety") Thought Process: goal directed thought process and clear/coherent thought process Thought Content: reality based without delusions; no hopelessness and no worthlessness Suicidal Thoughts: denies suicidal thoughts and denies suicidal intent Homicidal Thoughts: denies homicidal thoughts Hallucinations: no auditory hallucinations and no visual hallucinations Cognition: attention grossly intact and language grossly intact Insight: + fair insight (With regard to treatment expectations and decision making) Judgement: + fair judgement (With regard to treatment expectations and decision making) Vital Signs (Past 24 Hours) Last Vital Signs Temp 36.5 C 08/06/19 06:54 Pulse 76 08/06/19 06:55 Resp 18 08/06/19 06:54 BP 111/72 08/06/19 06:55 Pulse Ox 99 08/01/19 10:54 Results & Data Current Inpatient Medications Current Inpatient Medications: Current Inpatient Medications Acetaminophen (Tylenol) 650 mg PO Q4H PRN PRN Reason: Headache or Minor Fever Stop: 08/31/19 11:30 Al Hydrox/Mg Hydrox/Simethicone (Maalox) 30 ml PO Q4H PRN PRN Reason: GI Upset Stop: 08/31/19 11:30 Bismuth Subsalicylate (Kaopectate) 15 ml PO PRN PRN PRN Reason: Loose Stool Stop: 08/31/19 11:30 Fluoxetine HCl (Prozac) 30 mg PO QAM MICHAEL Stop: 09/01/19 08:59 Last Admin: 08/06/19 08:10 Dose: 30 mg Documented by: Hydroxyzine HCl (Vistaril) 25 mg PO Q4H PRN PRN Reason: Anxiety Stop: 08/31/19 11:30 Hydroxyzine HCl (Vistaril) 50 mg PO HSZ PRN PRN Reason: Insomnia Stop: 08/31/19 11:30 Magnesium Hydroxide (Milk Of Magnesia) 30 ml PO DAILY PRN PRN Reason: Constipation Stop: 08/31/19 11:30 Miscellaneous (Ppd Check) 1 ea N/A Q48H ONE Stop: 08/07/19 16:01 Sodium Chloride ([place] Nasal) 1 - 2 sprays NA PRN PRN PRN Reason: Nasal Dryness/Congestion Stop: 08/31/19 11:30 Mental Health & Subst Abuse Tx Psychiatrist Name of Psychiatrist: Yasmani Roberson Psychiatrist's Time of Appointment with Psychiatrist: Will see after established with therapist Psychiatric Appointment Comment: [address] [facility], [place] [address], [place] Therapist Name of Therapist: Yasmani Mcghee Therapist's Therapy Appointment Comment: [address] [facility], [place] [address], [place] Candy Puller Name of Candy Puller: BHUPINDER Diaz Phone Number for Candy Puller: [phone] Post Discharge Appointments Primary Care Physician Name Of Family Doctor: Shorty Perkins Primary Care Provider Appointment Comment: Yvon Acevedo, [place] [address] Other #1: Name of Aftercare Appointment: Shorty Candy Puller - Krissy Kimbrough Contact Information Discharge
[2019-08-07] MEDS: FLUOXETINE HCL 10 MG CAP PO SCH (08:53)
--- NOTE | 2019-08-07 11:32 | Psychiatric Progress Note ---
Date of Service August 07, 2019 Impression / Recommendations Abdirahman Wells has a long history of mental health treatment for a variety of diagnoses, often with nonadherence to medications and outpatient treatment. He has had a series of recent hospitalizations (this is his 3rd in the past 2 months), and has stated a willingness to engage more fully with treatment and outpatient services, with a desire to increase his independence and eventually be able to work and function in society. He agreed to go back on fluoxetine during his hospitalization here earlier this month, and aftercare was arranged at [facility]. He also agreed to a referral to the [facility], but unfortunately they stated a bed was not yet available at the time of discharge, so he instead went to [facility], a local alf, which not surprisingly was very stressful for him. He had never lived outside his mother's home or worked, and was quite isolated. The transition caused an exacerbation of his anxiety and OCD, which resulted in excessive free water ingestion and hyponatremia. He has had seizures in the past due to hyponatremia, and although he presented to the hospital requesting inpatient psychiatric treatment for stabilization, he had to be admitted medically for several days first to correct his sodium. Team is planning to work with patient to begin setting limits, as it is likely the patient's compulsions may contribute to difficulty transitioning to a CRR. Ideally, beginning this process here will allow additional success when patient is transitioned from the inpatient hospital setting. Based on the patient's history, it is highly likely that a complicated discharge plan with multiple transitions will usually destabilize the patient, with high likelihood of rapid inpatient medical or psychiatric readmissions or even seizure/. We will continue to invest time in the practice of behavioral modifications to support increased independence, and continue attempts to coordinate an appropriate discharge plan that we will reduce destabilization of condition at discharge. Inpatient treatment is medically necessary due to the severity of his symptoms and risk for , disability, or serious injury as a result of psychogenic polydipsia/severe anxiety. (1) Anxiety: 08/01 -continue fluoxetine 30 mg daily and consider further dose titration, but concerns due to risk of worsening hyponatremia. For now, we will focus on behavioral techniques to manage anxiety and healthy ways to cope (in place of drinking excess free water). -Filed for 306 conversion hearing, as patient is on a 304 IOC and signed in voluntarily, so will transition to involuntary commitment to maintain his IOC. -Involve [facility] and jail staff to coordinate transition to [facility]. -Involve family if they are willing. -Encourage participation in groups and therapy, work on healthy coping skills and discharge safety plan. 08/02 - Continue fluoxetine 30mg, continue to encourage titration - Continue to encourage behavioral techniques to improve anxiety - Pt may also benefit from setting of limits on this unit regarding his lengthy morning routine and very rigid schedules - as it is not likely he will be permitted to keep up with this behavior at a supportive living facility. - Continue to coordinate with CRRs for likely transition 08/03 - titration of prozac to 40mg recommended but declined by patient - pt expected to be out of room and attending activities on unit with efforts to minimize time spent in grooming behaviors - repeat bmp for sodium monitoring in AM 08/04 - 08/05 -Doing well with behavioral modification efforts on the unit - Disposition uncertain 08/06 - Pt denying significant anxiety; revisited option to titrate fluoxetine which he is declining - Continue to encourage timely participation in group and recreational programming - Continue to sent appropriate behavioral limits to prepare patient for expectations of CRR/jail living (2) OCD (obsessive compulsive disorder): As above. (3) Autism spectrum disorder: Outpatient neuropsychological testing to help clarify diagnoses has been recommended, unclear if it was scheduled by his welfare case worker. 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 08/03 - bmp in AM 08/04/2019 -Sodium remains normal on repeat BMP Inventory Assets Strengths: Willing for treatment, wants to make changes in his life Needs: Supportive living environment, increase supports Risk Factors Assessment Male: Yes : Yes Do You Have Access To A Gun?: No Health Problems: No Mental Health Diagnoses: Yes Substance Use Disorders: No Previous Attempt: No Family History of Suicide: No Previous Psychiatric Hospitalization: Yes Hopelessness: No Smoker: No Protective Factors Assessment : No Responsible for Young Children: No Employed: No Stable Relationships: No Supportive Family: No Good Rapport with Provider: No Interval History Identifying Information TASHA MAC is a 29-year-old M with a history of OCD, body dysmorphic disorder, social anxiety, psychogenic polydipsia, and dependent personality traits who was admitted on 08/01/19 10:40 on a 201 voluntary commitment for severe anxiety with psychogenic polydipsia resulting in hyponatremia, which required medical hospitalization for stabilization from 07/30/19 through 08/01/19. He was on an involuntary outpatient commitment at the time of his last discharge 07/22/19. Chief Complaint "Good, I'm going to groups, saw Naomi the other day about the CRR". Review of Systems Sleep Information Total Hours of Sleep: 7.25 Sleep Comments: pt on q-15 minute checks Meal Information Percent Meal Consumed - Breakfast: 100 Percent Meal Consumed - Lunch: 100 Percent Meal Consumed - Dinner: 100 Subjective Subjective Patient was seen & assessed and interval progress reviewed with treatment team. On my assessment, he reports he feels positive and that he is making progress, is going to groups and participating, and working on his anxiety and OCD. He continues to struggle with excessive water intake at times, exacerbated by periods of high anxiety. He states he is coming to terms with the fact that he may have to go back to [facility] for a while, and feels optimistic that he will be successful with increased outpatient support. He is worried about his mother as she has been sick with an ear infection, and feels "out of the loop" as he doesn't live at home anymore. He recognizes the necessity of working on his OCD so that he can complete tasks in a reasonable amount of time, with a fci goal of getting a job. 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 He also hopes to eventually move to a city, maybe [place] and then later [place]. Physical Exam Psychiatric Orientation: alert, oriented x 3 and cooperative Apperance: appropriately dressed and appropriately groomed (wearing foundation on face) Eye Contact: good eye contact Motor Behavior: steady gait and station and no abnormal motor movements Speech: normal rate/rhythm/volume of speech Affect: + blunted affect "okay" Thought Process: goal directed thought process and linear/logical thought process Thought Content: reality based without delusions and + compulsions Suicidal Thoughts: denies suicidal thoughts Homicidal Thoughts: denies homicidal thoughts Hallucinations: no auditory hallucinations Insight: good insight Judgement: good judgement Vital Signs (Past 24 Hours) Last Vital Signs Temp 36.9 C 08/07/19 07:00 Pulse 90 08/07/19 07:00 Resp 18 08/07/19 07:00 BP 122/74 08/07/19 07:00 Pulse Ox 99 08/01/19 10:54 Results & Data Current Inpatient Medications Current Inpatient Medications: Current Inpatient Medications Acetaminophen (Tylenol) 650 mg PO Q4H PRN PRN Reason: Headache or Minor Fever Stop: 08/31/19 11:30 Al Hydrox/Mg Hydrox/Simethicone (Maalox) 30 ml PO Q4H PRN PRN Reason: GI Upset Stop: 08/31/19 11:30 Bismuth Subsalicylate (Kaopectate) 15 ml PO PRN PRN PRN Reason: Loose Stool Stop: 08/31/19 11:30 Fluoxetine HCl (Prozac) 30 mg PO QAM MICHAEL Stop: 09/01/19 08:59 Last Admin: 08/07/19 08:53 Dose: 30 mg Documented by: Hydroxyzine HCl (Vistaril) 25 mg PO Q4H PRN PRN Reason: Anxiety Stop: 08/31/19 11:30 Hydroxyzine HCl (Vistaril) 50 mg PO HSZ PRN PRN Reason: Insomnia Stop: 08/31/19 11:30 Magnesium Hydroxide (Milk Of Magnesia) 30 ml PO DAILY PRN PRN Reason: Constipation Stop: 08/31/19 11:30 Miscellaneous (Ppd Check) 1 ea N/A Q48H ONE Stop: 08/07/19 16:01 Sodium Chloride ([place] Nasal) 1 - 2 sprays NA PRN PRN PRN Reason: Nasal Dryness/Congestion Stop: 08/31/19 11:30 Mental Health & Subst Abuse Tx Psychiatrist Name of Psychiatrist: Yasmani Roberson Psychiatrist's Time of Appointment with Psychiatrist: Will see after established with therapist Psychiatric Appointment Comment: [address] [facility], [place] [address], [place] Therapist Name of Therapist: Yasmani Mcghee Therapist's Therapy Appointment Comment: [address] [facility], [place] [address], [place] Housekeeping Director Name of Housekeeping Director: BHUPINDER Diaz Phone Number for Housekeeping Director: [phone] Post Discharge Appointments Primary Care Physician Name Of Family Doctor: Shorty Perkins Primary Care Provider Appointment Comment: [address], [place] [id number] Contact Information Discharge
[2019-08-07] MEDS ORDERED: PPD CHECK ONE (16:00)
[2019-08-08 06:50] VITALS: BP 115/70; PULSE 82; TEMP 98.2
[2019-08-08] MEDS: FLUOXETINE HCL 10 MG CAP PO SCH (09:05)
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
== END 2019-08-08 11:15 | disposition home or self-care (01) | DRG 880 ==
LOC: 3S 10:40

== ENCOUNTER 2019-11-26 21:49 | Inpatient (IN) ==
[2019-11-26] MEDS ORDERED: SODIUM CHLORIDE 0.9% 1000ML 1,000 ML IV ONE (21:57)
[2019-11-26 22:27] LABS: INR 1.1 (0.9-1.1); Partial Thromboplastin Ratio 1.2; Partial Thromboplastin Time 32.1 Seconds (21.0-31.0); Prothrombin Time 11.4 Seconds (9.0-12.0)
[2019-11-26] MEDS ORDERED: LORazepam 0.5 MG/1 ML VIAL IV STA (22:45)
[2019-11-26 22:48] LABS: Alanine Aminotransferase 16 U/L (12-78); Albumin Globulin Ratio 1.5 (0.9-2); Albumin Level 4.5 gm/dl (3.4-5.0); Alkaline Phosphatase 70 U/L (45-117); Aspartate Aminotransferase 20 U/L (15-37); BUN Creatinine Ratio 3.3 (10-20); Bilirubin,Total 2.1 mg/dl (0.2-1); Blood Urea Nitrogen 3 mg/dl (7-18); Carbon Dioxide 11 mmol/L (21-32); Chloride 61 mmol/L (98-107); Creatinine Clr Calc Pharmacy 120.8 ml/min; Est GFR (African American) 119.4; Glucose 156 mg/dl (70-99); Magnesium 1.5 mg/dl (1.8-2.4); Potassium 2.5 mmol/L (3.5-5.1); Sodium 97 mmol/L (136-145); Total Protein 7.5 gm/dl (6.4-8.2); Troponin I < 0.015 ng/ml (0-0.045)
[2019-11-26] MEDS ORDERED: IOVERSOL 100ml IV PRN (22:49)
--- NOTE | 2019-11-26 22:52 | Emergency Department Note ---
Entered by Coby Mathis acting as a scribe for History of Present Illness General Chief complaint: Altered Mental Status Stated complaint: AMS, SEMI RESPONESIVE, PROLASPED RECTUM Time Seen by Provider: 11/26/19 21:57 Source: EMS Mode of arrival: ambulatory History of Present Illness Provider complaint: syncope Onset (ago): minute(s) (prior to arrival) Location: left and right Quality: + other (syncope) Associated symptoms: + cough, + nausea/vomiting and + other (Positive seizure; Positive blood in mouth;) Treatments prior to arrival: other (2 mg of Ativan;) The patient, who is a 29 year old male with a medical history of hyponatremia, body dysmorphic disorder and autism spectrum disorder, presents to the Emergency Room with complaints of syncope episode that was observed prior to arrival. EMS reports that the patient's brother found him unresponsive with something in his rectum and blood in his mouth. EMS states that the patient has been sick for the past three days. EMS informs that the patient was walking around his house coughing and stating felt like he was becoming diabetic. EMS notes that the patient vomited prior to their arrival. EMS reports that during transport the patient glucose was 234, lungs were clear, blood pressure was normal and he was altered. EMS informs that the patient had a seizure episode during transport and was given 2 mg of Ativan. EMS reports that the patient lives with family. HPI and ROS limited secondary to altered mental status. Home Medications Home Medications Medication Instructions Recorded Confirmed Type fluoxetine 30 mg PO QAM #90 cap 07/22/19 07/30/19 Rx Allergies Allergy/AdvReac Type Severity Reaction Status Date / Time No Known Allergies Allergy Verified 07/30/19 19:25 Past Med/Surg History Medical History Anxiety (Acute) Autism spectrum disorder Body dysmorphic disorder Delusional disorder (Chronic 04/30/13) Depression (Acute) DVT prophylaxis Hyponatremia (Acute) Hyponatremia (Acute) OCD (obsessive compulsive disorder) Psychogenic polydipsia (Acute) Family History Other No significant family history Denies family history of Myocardial infarction Stroke Social History Preferred Language: Ecuadorean Communication Ability: Effective 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 going to [facility] eventually, wants admitted to mental health unit current occupational status: unemployed Other Information That Helps Us Care for You: No Feels Safe at Home: Yes Safety Concerns: Feels Safe At This Time Smoking Status: Never smoker Second Hand Exposure: No ; Hx Alcohol Use: No Hx Substance Use: No Review of Systems See HPI for pertinent positives & negatives. and A total of 10 systems reviewed and were otherwise negative Physical Exam Vital Signs Vital Signs - 24 hr 11/26/19 21:44 11/26/19 21:57 11/26/19 22:00 Temperature 36.5 C Temperature Source Oral Pulse Rate 80 79 76 Pulse Rate [Right Finger] Pulse Rate from SpO2 Sensor 76 Pulse Rhythm Regular Regular Pulse Strength Normal Respiratory Rate 22 26 H 17 Respiratory Effort / Characteristics Spontaneous Respiratory Depth Normal Respiratory Pattern Irregular Blood Pressure 135/72 124/71 Blood Pressure Mean 93 98 Blood Pressure Position Lying Pulse Oximetry 98 100 100 Oxygen Delivery Method Non-rebreather Non-rebreather Oxygen Flow Rate 15 15 Sepsis New/Unexplained Change in Mental Status Yes Sepsis Action Taken by Nursing No Action Required 11/26/19 22:02 11/26/19 22:05 11/26/19 22:10 Temperature Temperature Source Pulse Rate 78 73 79 Pulse Rate [Right Finger] Pulse Rate from SpO2 Sensor 71 73 72 Pulse Rhythm Pulse Strength Respiratory Rate 14 18 14 Respiratory Effort / Characteristics Respiratory Depth Respiratory Pattern Blood Pressure 134/76 140/73 Blood Pressure Mean 89 83 Blood Pressure Position Pulse Oximetry 100 100 100 Oxygen Delivery Method Oxygen Flow Rate Sepsis New/Unexplained Change in Mental Status Sepsis Action Taken by Nursing 11/26/19 22:15 11/26/19 22:20 11/26/19 22:26 Temperature Temperature Source Pulse Rate 81 76 84 Pulse Rate [Right Finger] Pulse Rate from SpO2 Sensor 74 74 76 Pulse Rhythm Pulse Strength Respiratory Rate 21 23 16 Respiratory Effort / Characteristics Respiratory Depth Respiratory Pattern Blood Pressure 134/83 127/67 136/73 Blood Pressure Mean 96 85 85 Blood Pressure Position Pulse Oximetry 100 100 100 Oxygen Delivery Method Oxygen Flow Rate Sepsis New/Unexplained Change in Mental Status Sepsis Action Taken by Nursing 11/26/19 22:27 11/26/19 22:30 11/26/19 22:33 Temperature Temperature Source Pulse Rate 78 79 Pulse Rate [Right Finger] 76 Pulse Rate from SpO2 Sensor 82 76 Pulse Rhythm Pulse Strength Respiratory Rate 24 21 20 Respiratory Effort / Characteristics Spontaneous Respiratory Depth Respiratory Pattern Blood Pressure 134/70 Blood Pressure Mean 92 Blood Pressure Position Pulse Oximetry 84 L 100 100 Oxygen Delivery Method Non-rebreather Oxygen Flow Rate 15 Sepsis New/Unexplained Change in Mental Status Sepsis Action Taken by Nursing 11/26/19 22:56 11/26/19 23:00 11/26/19 23:01 Temperature Temperature Source Pulse Rate 92 H 89 93 H Pulse Rate [Right Finger] Pulse Rate from SpO2 Sensor 92 H 90 94 H Pulse Rhythm Pulse Strength Respiratory Rate 22 19 17 Respiratory Effort / Characteristics Respiratory Depth Respiratory Pattern Blood Pressure 129/84 Blood Pressure Mean 96 Blood Pressure Position Pulse Oximetry 100 100 100 Oxygen Delivery Method Oxygen Flow Rate Sepsis New/Unexplained Change in Mental Status Sepsis Action Taken by Nursing 11/26/19 23:15 11/26/19 23:30 11/26/19 23:45 Temperature Temperature Source Pulse Rate 85 93 H 88 Pulse Rate [Right Finger] Pulse Rate from SpO2 Sensor 85 95 H 87 Pulse Rhythm Pulse Strength Respiratory Rate 23 25 H 25 H Respiratory Effort / Characteristics Respiratory Depth Respiratory Pattern Blood Pressure 117/81 135/78 131/77 Blood Pressure Mean 86 98 100 Blood Pressure Position Pulse Oximetry 100 100 100 Oxygen Delivery Method Oxygen Flow Rate Sepsis New/Unexplained Change in Mental Status Sepsis Action Taken by Nursing 11/27/19 00:00 11/27/19 00:15 Temperature Temperature Source Pulse Rate 88 89 Pulse Rate [Right Finger] Pulse Rate from SpO2 Sensor 87 90 Pulse Rhythm Pulse Strength Respiratory Rate 21 19 Respiratory Effort / Characteristics Respiratory Depth Respiratory Pattern Blood Pressure 130/77 133/78 Blood Pressure Mean 91 91 Blood Pressure Position Pulse Oximetry 100 100 Oxygen Delivery Method Non-rebreather Room Air Oxygen Flow Rate 15 Sepsis New/Unexplained Change in Mental Status Sepsis Action Taken by Nursing GENERAL: somnolent, pale appearing, well nourished, diaphoretic, no distress, non-toxic. Appearance of makeup noted to be on face EYE EXAM: normal conjunctiva, PERRL and EOM's grossly intact OROPHARYNX: no exudate, no erythema, lips, buccal mucosa, and tongue normal and mucous membranes are dry NECK: supple, no nuchal rigidity, no adenopathy, non-tender LUNGS: Clear to auscultation. Normal chest wall mechanics, no w/r/r HEART: no murmurs, S1 normal and S2 normal ABDOMEN: abdomen soft, non-tender, normo-active bowel sounds, no masses, no rebound or guarding. BACK: Back is symmetrical on inspection and there is no deformity, no midline tenderness, no CVA tenderness. : Circumcised, no penile discharge, bilaterally distended testicles. RECTAL: Large rectal prolapse noted, no evidence of foreign body. SKIN: no rashes and no bruising, no petechiae UPPER EXTREMITIES: upper extremities are grossly normal, no evidence of trauma, normal distal pulses bilaterally. LOWER EXTREMITIES: No pitting edema, no evidence of trauma, normal distal pulses bilaterally. NEURO EXAM: Withdraws to pain, unable to cooperate for additional neurological testing. Course Course 215: Past medical records reviewed. The patient was evaluated in room B1. A complete history and physical exam was performed. 2235: I reassessed the patient who is slowly waking up. The patient is opening his eyes to voices and moving all extremities spontaneously. 2255: I discussed the patient's current state and history with the patient's mother. 2314: I informed the patient's mother that the patient will need to be admitted medically. 2328: I reviewed the patient's case with Dr. Allen, [facility] Hospitalist. HE will evaluate the patient for further management. 0010: I reassessed the patient who's vitals are stable, open eyes to voice, now knows his name, no other changes. VS stable. 0056: I reassessed the patient who is more awake and confused. Sugar was applied to the prolapsed rectum. Consultations Consultation #1: I reviewed the patient's case with Dr. Allen, [facility] Hospitalist. HE will evaluate the patient for further management. Time: 23:28 Administered Medications Heparin Sodium (Porcine) (Heparin Sodium (Porcine)) 5,000 units SQ Q12 MICHAEL Stop: 12/27/19 08:59 Last Admin: 11/28/19 20:50 Dose: 5,000 units Documented by: [id number] Cosigned by: [id number] Admin: 11/28/19 08:42 Dose: 5,000 units Documented by: [id number] Cosigned by: [id number] Admin: 11/27/19 20:49 Dose: 5,000 units Documented by: [id number] Cosigned by: [id number] Admin: 11/27/19 07:56 Dose: 5,000 units Documented by: [id number] Cosigned by: [id number] Ioversol (Optiray 320 100ml) 90 ml IV ONCE PRN PRN Reason: Interaction Checking Stop: 11/30/19 22:48 Last Admin: 11/26/19 22:49 Dose: 90 ml Documented by: [id number] Discontinued Medications Desmopressin Acetate (Ddavp) 0.1 mg PO Q4H MICHAEL Stop: 12/27/19 00:14 Last Admin: 11/27/19 08:13 Dose: Not Given Documented by: [id number] Sodium Chloride (Nss 1000ml) 1,000 mls @ 999 mls/hr IV .Q1H1M ONE Stop: 11/26/19 22:57 Last Infusion: 11/27/19 11:09 Dose: 0 mls/hr Documented by: [id number] Infusion: 11/26/19 23:25 Dose: 0 mls/hr Documented by: [id number] Admin: 11/26/19 23:02 Dose: 999 mls/hr Documented by: [id number] Lorazepam (Ativan) 0.5 mg in 1 mls @ 1 mls/min IV NOW STA Stop: 11/26/19 22:46 Last Admin: 11/27/19 00:44 Dose: Not Given Documented by: [id number] Desmopressin Acetate 1 mcg/ (Sodium Chloride) 50.25 mls @ 100 mls/hr IV Q6H MICHAEL Stop: 12/27/19 00:59 Last Infusion: 11/27/19 08:26 Dose: 0 mls/hr Documented by: [id number] Admin: 11/27/19 07:55 Dose: 100 mls/hr Documented by: [id number] Infusion: 11/27/19 02:26 Dose: 0 mls/hr Documented by: [id number] Admin: 11/27/19 01:55 Dose: 100 mls/hr Documented by: [id number] Potassium Chloride (K Lee / Wtr) 10 meq in 100 mls @ 100 mls/hr IV Q1H MICHAEL Stop: 11/27/19 06:56 Last Infusion: 11/27/19 08:00 Dose: 0 mls/hr Documented by: [id number] Admin: 11/27/19 06:40 Dose: 75 mls/hr Documented by: [id number] Infusion: 11/27/19 06:40 Dose: 75 mls/hr Documented by: [id number] Admin: 11/27/19 05:39 Dose: 75 mls/hr Documented by: [id number] Potassium Chloride (K Lee / Wtr) 10 meq in 100 mls @ 100 mls/hr IV Q1H MICHAEL Stop: 11/27/19 12:59 Last Infusion: 11/27/19 17:05 Dose: 0 mls/hr Documented by: [id number] Admin: 11/27/19 15:44 Dose: 75 mls/hr Documented by: [id number] Infusion: 11/27/19 15:37 Dose: 75 mls/hr Documented by: [id number] Admin: 11/27/19 14:17 Dose: 75 mls/hr Documented by: [id number] Infusion: 11/27/19 12:26 Dose: 75 mls/hr Documented by: [id number] Admin: 11/27/19 11:06 Dose: 75 mls/hr Documented by: [id number] Infusion: 11/27/19 10:56 Dose: 75 mls/hr Documented by: [id number] Admin: 11/27/19 09:36 Dose: 75 mls/hr Documented by: [id number] Desmopressin Acetate 1 mcg/ (Sodium Chloride) 50.25 mls @ 100 mls/hr IV 2200 ONE Stop: 11/27/19 22:30 Last Infusion: 11/27/19 22:23 Dose: 0 mls/hr Documented by: [id number] Admin: 11/27/19 21:52 Dose: 100 mls/hr Documented by: [id number] Potassium Chloride (K Lee / Wtr) 10 meq in 100 mls @ 100 mls/hr IV Q1H MICHAEL Stop: 11/28/19 00:30 Last Infusion: 11/28/19 00:57 Dose: 0 mls/hr Documented by: [id number] Admin: 11/27/19 23:57 Dose: 100 mls/hr Documented by: [id number] Infusion: 11/27/19 23:54 Dose: 0 mls/hr Documented by: [id number] Admin: 11/27/19 22:59 Dose: 100 mls/hr Documented by: [id number] Dextrose ([email or web address]) 250 mls @ 999 mls/hr IV .Q16M STA Stop: 11/28/19 01:05 Last Infusion: 11/28/19 01:22 Dose: 0 mls/hr Documented by: [id number] Admin: 11/28/19 01:02 Dose: 999 mls/hr Documented by: [id number] Dextrose (D5w) 250 mls @ 999 mls/hr IV .Q16M STA Stop: 11/28/19 02:37 Last Infusion: 11/28/19 02:46 Dose: 0 mls/hr Documented by: [id number] Admin: 11/28/19 02:27 Dose: 999 mls/hr Documented by: [id number] Potassium Chloride (K Lee / Wtr) 10 meq in 100 mls @ 100 mls/hr IV Q1H MICHAEL Stop: 11/28/19 08:44 Last Infusion: 11/28/19 12:24 Dose: 0 mls/hr Documented by: [id number] Admin: 11/28/19 11:07 Dose: 100 mls/hr Documented by: [id number] Infusion: 11/28/19 09:41 Dose: 100 mls/hr Documented by: [id number] Admin: 11/28/19 08:41 Dose: 100 mls/hr Documented by: [id number] Dextrose ([email or web address]) 500 mls @ 250 mls/hr IV .Q2H ONE Stop: 11/28/19 16:59 Last Infusion: 11/28/19 18:35 Dose: 0 mls/hr Documented by: [id number] Admin: 11/28/19 15:45 Dose: 250 mls/hr Documented by: [id number] Desmopressin Acetate 2 mcg/ (Syringe) 10 mls @ 300 mls/hr IV ONE ONE Stop: 11/28/19 15:16 Last Infusion: 11/28/19 15:46 Dose: 0 mls/hr Documented by: [id number] Admin: 11/28/19 15:44 Dose: 300 mls/hr Documented by: [id number] Critical Care Time Critical Care Time: Yes Total Critical Care Time: 50 I have personally spent 50 minutes of critical care time in the direct management of this patient. This includes bedside care, interpretation of diagnostic studies, and testing, discussion with consultants, patient, and family members, and other required patient management activities. This 50 minutes is in excess of all separately billable procedures. Medical Decision Making Differential Diagnosis Differential diagnosis includes: metabolic, infection, hypoglycemia, electrolyte abnormalities, cardiac sources, intracerebral event, toxicologic, neurologic, as well as others were entertained. Medical Records Attestation: I reviewed the patient's medical records. Home Medications Current Medication List: was personally reviewed by me Laboratory Data Attestation: I reviewed the patient's lab results. Result diagrams: 11/27/19 04:13 11/28/19 19:53 Lab Results 11/26/19 11/26/19 11/26/19 Range/Units 21:59 21:59 21:59 WBC 10.84 H (4.8-10.8) K/uL RBC 4.02 L (4.7-6.1) M/uL Hgb 12.5 L (14.0-18.0) g/dL POC Hgb Hct 33.0 L (42-52) % POC Hct MCV 82.1 (80-100) fL MCH 31.1 (25-34) pg MCHC 37.9 H (32-36) g/dL RDW Std Deviation 36.4 (36.4-46.3) fL RDW Coeff of Fito 12.1 (11.5-14.5) % Plt Count 223 (130-400) K/uL MPV 10.5 H (7.4-10.4) fL Immature Gran % (Auto) 0.2 % Neut % (Auto) 81.8 % Lymph % (Auto) 8.1 % Glynn % (Auto) 9.9 % Eos % (Auto) 0.0 % Baso % (Auto) 0.0 % Immature Gran # (Auto) 0.02 (0.00-0.02) K/uL Neut # (Auto) 8.78 H (1.4-6.5) K/uL Lymph # (Auto) 0.87 L (1.2-3.4) K/uL Glynn # (Auto) 1.06 H (0.11-0.59) K/uL Eos # (Auto) 0.00 (0-0.5) K/uL Baso # (Auto) 0.00 (0-0.2) K/uL Echinocytes 3+ PT 11.4 (9.0-12.0) Seconds INR 1.1 (0.9-1.1) APTT 32.1 H (21.0-31.0) Seconds PTT Ratio 1.2 Specimen Type POC pH (7.35-7.45) POC pCO2 (35-46) mmHg POC pO2 (80-95) mmHg POC HCO3 (19-24) laverne/L POC Total CO2 (24-31) mmol/L POC Base Excess (-9-1.8) laverne/L POC O2 Saturation POC Sodium Sodium (136-145) mmol/L POC Potassium Potassium (3.5-5.1) mmol/L Chloride (98-107) mmol/L Carbon Dioxide (21-32) mmol/L Anion Gap (3-11) BUN (7-18) mg/dl Creatinine (0.6-1.4) mg/dl POC Creatinine (0.6-1.3) mg/dl Est Cr Clr Drug Dosing ml/min Est GFR ( Amer) Est GFR (Non-Af Amer) BUN/Creatinine Ratio (10-20) Glucose (70-99) mg/dl POC Glucose (70-99) mg/dl Osmolality (280-300) mOsm/kg Lactate (0.4-2.0) mmol/L Calcium (8.5-10.1) mg/dl Phosphorus (2.5-4.9) mg/dl Magnesium (1.8-2.4) mg/dl Total Bilirubin (0.2-1) mg/dl AST (15-37) U/L ALT (12-78) U/L Alkaline Phosphatase (45-117) U/L Troponin I (0-0.045) ng/ml Total Protein (6.4-8.2) gm/dl Albumin (3.4-5.0) gm/dl Globulin (2.5-4.0) gm/dl Albumin/Globulin Ratio (0.9-2) Procalcitonin (0-0.5) ng/ml Urine Color Urine Appearance (Clear) Urine pH (4.5-7.5) Ur Specific Stanton (1.000-1.030) Urine Protein (Negative) Urine Glucose (UA) (Negative) Urine Ketones (Negative) Urine Blood (Negative) Urine Nitrite (Negative) Urine Bilirubin (Negative) Urine Urobilinogen (Negative) Ur Leukocyte Esterase (Negative) Urine Opiates Screen (Neg) Ur Methadone, Qual (Neg) Urine Barbiturates (Neg) Ur Phencyclidine (PCP) (Neg) U Amphetamin/Meth Scrn (Neg) MDMA (Ecstasy) Screen (Neg) U Benzodiazepines Scrn (Neg) Ur Cocaine Metabolite (Neg) U Marijuana (THC) Screen (Neg) Ethyl Alcohol mg/dL (0-3) mg/dl Influenza Type A (PCR) (Neg) Influenza Type B (PCR) (Neg) Blood Type A Positive Antibody Screen NEGATIVE 11/26/19 11/26/19 11/26/19 Range/Units 21:59 21:59 21:59 WBC (4.8-10.8) K/uL RBC (4.7-6.1) M/uL Hgb (14.0-18.0) g/dL POC Hgb Hct (42-52) % POC Hct MCV (80-100) fL MCH (25-34) pg MCHC (32-36) g/dL RDW Std Deviation (36.4-46.3) fL RDW Coeff of Fito (11.5-14.5) % Plt Count (130-400) K/uL MPV (7.4-10.4) fL Immature Gran % (Auto) % Neut % (Auto) % Lymph % (Auto) % Glynn % (Auto) % Eos % (Auto) % Baso % (Auto) % Immature Gran # (Auto) (0.00-0.02) K/uL Neut # (Auto) (1.4-6.5) K/uL Lymph # (Auto) (1.2-3.4) K/uL Glynn # (Auto) (0.11-0.59) K/uL Eos # (Auto) (0-0.5) K/uL Baso # (Auto) (0-0.2) K/uL Echinocytes PT (9.0-12.0) Seconds INR (0.9-1.1) APTT (21.0-31.0) Seconds PTT Ratio Specimen Type POC pH (7.35-7.45) POC pCO2 (35-46) mmHg POC pO2 (80-95) mmHg POC HCO3 (19-24) laverne/L POC Total CO2 (24-31) mmol/L POC Base Excess (-9-1.8) laverne/L POC O2 Saturation POC Sodium Sodium 97 L* (136-145) mmol/L POC Potassium Potassium 2.5 L* (3.5-5.1) mmol/L Chloride 61 L (98-107) mmol/L Carbon Dioxide 11 L (21-32) mmol/L Anion Gap 25.0 H (3-11) BUN 3 L (7-18) mg/dl Creatinine 0.98 (0.6-1.4) mg/dl POC Creatinine (0.6-1.3) mg/dl Est Cr Clr Drug Dosing 120.8 ml/min Est GFR ( Amer) 119.4 Est GFR (Non-Af Amer) 103.0 BUN/Creatinine Ratio 3.3 L (10-20) Glucose 156 H (70-99) mg/dl POC Glucose (70-99) mg/dl Osmolality (280-300) mOsm/kg Lactate 13.0 H* (0.4-2.0) mmol/L Calcium 8.0 L (8.5-10.1) mg/dl Phosphorus 1.9 L (2.5-4.9) mg/dl Magnesium 1.5 L (1.8-2.4) mg/dl Total Bilirubin 2.1 H (0.2-1) mg/dl AST 20 (15-37) U/L ALT 16 (12-78) U/L Alkaline Phosphatase 70 (45-117) U/L Troponin I < 0.015 (0-0.045) ng/ml Total Protein 7.5 (6.4-8.2) gm/dl Albumin 4.5 (3.4-5.0) gm/dl Globulin 3.0 (2.5-4.0) gm/dl Albumin/Globulin Ratio 1.5 (0.9-2) Procalcitonin (0-0.5) ng/ml Urine Color Urine Appearance (Clear) Urine pH (4.5-7.5) Ur Specific Stanton (1.000-1.030) Urine Protein (Negative) Urine Glucose (UA) (Negative) Urine Ketones (Negative) Urine Blood (Negative) Urine Nitrite (Negative) Urine Bilirubin (Negative) Urine Urobilinogen (Negative) Ur Leukocyte Esterase (Negative) Urine Opiates Screen (Neg) Ur Methadone, Qual (Neg) Urine Barbiturates (Neg) Ur Phencyclidine (PCP) (Neg) U Amphetamin/Meth Scrn (Neg) MDMA (Ecstasy) Screen (Neg) U Benzodiazepines Scrn (Neg) Ur Cocaine Metabolite (Neg) U Marijuana (THC) Screen (Neg) Ethyl Alcohol mg/dL < 3.0 (0-3) mg/dl Influenza Type A (PCR) (Neg) Influenza Type B (PCR) (Neg) Blood Type Antibody Screen 11/26/19 11/26/19 11/26/19 Range/Units 21:59 21:59 22:00 WBC (4.8-10.8) K/uL RBC (4.7-6.1) M/uL Hgb (14.0-18.0) g/dL POC Hgb Hct (42-52) % POC Hct MCV (80-100) fL MCH (25-34) pg MCHC (32-36) g/dL RDW Std Deviation (36.4-46.3) fL RDW Coeff of Fito (11.5-14.5) % Plt Count (130-400) K/uL MPV (7.4-10.4) fL Immature Gran % (Auto) % Neut % (Auto) % Lymph % (Auto) % Glynn % (Auto) % Eos % (Auto) % Baso % (Auto) % Immature Gran # (Auto) (0.00-0.02) K/uL Neut # (Auto) (1.4-6.5) K/uL Lymph # (Auto) (1.2-3.4) K/uL Glynn # (Auto) (0.11-0.59) K/uL Eos # (Auto) (0-0.5) K/uL Baso # (Auto) (0-0.2) K/uL Echinocytes PT (9.0-12.0) Seconds INR (0.9-1.1) APTT (21.0-31.0) Seconds PTT Ratio Specimen Type POC pH (7.35-7.45) POC pCO2 (35-46) mmHg POC pO2 (80-95) mmHg POC HCO3 (19-24) laverne/L POC Total CO2 (24-31) mmol/L POC Base Excess (-9-1.8) laverne/L POC O2 Saturation POC Sodium Sodium (136-145) mmol/L POC Potassium Potassium (3.5-5.1) mmol/L Chloride (98-107) mmol/L Carbon Dioxide (21-32) mmol/L Anion Gap (3-11) BUN (7-18) mg/dl Creatinine (0.6-1.4) mg/dl POC Creatinine (0.6-1.3) mg/dl Est Cr Clr Drug Dosing ml/min Est GFR ( Amer) Est GFR (Non-Af Amer) BUN/Creatinine Ratio (10-20) Glucose (70-99) mg/dl POC Glucose 184 H (70-99) mg/dl Osmolality 206 L* (280-300) mOsm/kg Lactate (0.4-2.0) mmol/L Calcium (8.5-10.1) mg/dl Phosphorus (2.5-4.9) mg/dl Magnesium (1.8-2.4) mg/dl Total Bilirubin (0.2-1) mg/dl AST (15-37) U/L ALT (12-78) U/L Alkaline Phosphatase (45-117) U/L Troponin I (0-0.045) ng/ml Total Protein (6.4-8.2) gm/dl Albumin (3.4-5.0) gm/dl Globulin (2.5-4.0) gm/dl Albumin/Globulin Ratio (0.9-2) Procalcitonin < 0.05 (0-0.5) ng/ml Urine Color Urine Appearance (Clear) Urine pH (4.5-7.5) Ur Specific Stanton (1.000-1.030) Urine Protein (Negative) Urine Glucose (UA) (Negative) Urine Ketones (Negative) Urine Blood (Negative) Urine Nitrite (Negative) Urine Bilirubin (Negative) Urine Urobilinogen (Negative) Ur Leukocyte Esterase (Negative) Urine Opiates Screen (Neg) Ur Methadone, Qual (Neg) Urine Barbiturates (Neg) Ur Phencyclidine (PCP) (Neg) U Amphetamin/Meth Scrn (Neg) MDMA (Ecstasy) Screen (Neg) U Benzodiazepines Scrn (Neg) Ur Cocaine Metabolite (Neg) U Marijuana (THC) Screen (Neg) Ethyl Alcohol mg/dL (0-3) mg/dl Influenza Type A (PCR) (Neg) Influenza Type B (PCR) (Neg) Blood Type Antibody Screen 02/18/20 02/18/20 02/18/20 Range/Units 22:08 22:19 23:40 WBC (4.8-10.8) K/uL RBC (4.7-6.1) M/uL Hgb (14.0-18.0) g/dL POC Hgb Not Reportable Hct (42-52) % POC Hct Not Reportable MCV (80-100) fL MCH (25-34) pg MCHC (32-36) g/dL RDW Std Deviation (36.4-46.3) fL RDW Coeff of Fito (11.5-14.5) % Plt Count (130-400) K/uL MPV (7.4-10.4) fL Immature Gran % (Auto) % Neut % (Auto) % Lymph % (Auto) % Glynn % (Auto) % Eos % (Auto) % Baso % (Auto) % Immature Gran # (Auto) (0.00-0.02) K/uL Neut # (Auto) (1.4-6.5) K/uL Lymph # (Auto) (1.2-3.4) K/uL Glynn # (Auto) (0.11-0.59) K/uL Eos # (Auto) (0-0.5) K/uL Baso # (Auto) (0-0.2) K/uL Echinocytes PT (9.0-12.0) Seconds INR (0.9-1.1) APTT (21.0-31.0) Seconds PTT Ratio Specimen Type Arterial POC pH 7.27 L (7.35-7.45) POC pCO2 24 L (35-46) mmHg POC pO2 307 H (80-95) mmHg POC HCO3 11 L (19-24) laverne/L POC Total CO2 12 L (24-31) mmol/L POC Base Excess -16.0 L (-9-1.8) laverne/L POC O2 Saturation 100 POC Sodium Not Reportable Sodium (136-145) mmol/L POC Potassium Not Reportable Potassium (3.5-5.1) mmol/L Chloride (98-107) mmol/L Carbon Dioxide (21-32) mmol/L Anion Gap (3-11) BUN (7-18) mg/dl Creatinine (0.6-1.4) mg/dl POC Creatinine 0.4 L (0.6-1.3) mg/dl Est Cr Clr Drug Dosing ml/min Est GFR ( Amer) Est GFR (Non-Af Amer) BUN/Creatinine Ratio (10-20) Glucose (70-99) mg/dl POC Glucose (70-99) mg/dl Osmolality (280-300) mOsm/kg Lactate (0.4-2.0) mmol/L Calcium (8.5-10.1) mg/dl Phosphorus (2.5-4.9) mg/dl Magnesium (1.8-2.4) mg/dl Total Bilirubin (0.2-1) mg/dl AST (15-37) U/L ALT (12-78) U/L Alkaline Phosphatase (45-117) U/L Troponin I (0-0.045) ng/ml Total Protein (6.4-8.2) gm/dl Albumin (3.4-5.0) gm/dl Globulin (2.5-4.0) gm/dl Albumin/Globulin Ratio (0.9-2) Procalcitonin (0-0.5) ng/ml Urine Color Urine Appearance (Clear) Urine pH (4.5-7.5) Ur Specific Stanton (1.000-1.030) Urine Protein (Negative) Urine Glucose (UA) (Negative) Urine Ketones (Negative) Urine Blood (Negative) Urine Nitrite (Negative) Urine Bilirubin (Negative) Urine Urobilinogen (Negative) Ur Leukocyte Esterase (Negative) Urine Opiates Screen Neg (Neg) Ur Methadone, Qual Neg (Neg) Urine Barbiturates Neg (Neg) Ur Phencyclidine (PCP) Neg (Neg) U Amphetamin/Meth Scrn Neg (Neg) MDMA (Ecstasy) Screen Neg (Neg) U Benzodiazepines Scrn Neg (Neg) Ur Cocaine Metabolite Neg (Neg) U Marijuana (THC) Screen Neg (Neg) Ethyl Alcohol mg/dL (0-3) mg/dl Influenza Type A (PCR) (Neg) Influenza Type B (PCR) (Neg) Blood Type Antibody Screen 11/26/19 11/26/19 11/27/19 Range/Units 23:40 23:59 00:03 WBC (4.8-10.8) K/uL RBC (4.7-6.1) M/uL Hgb (14.0-18.0) g/dL POC Hgb Hct (42-52) % POC Hct MCV (80-100) fL MCH (25-34) pg MCHC (32-36) g/dL RDW Std Deviation (36.4-46.3) fL RDW Coeff of Fito (11.5-14.5) % Plt Count (130-400) K/uL MPV (7.4-10.4) fL Immature Gran % (Auto) % Neut % (Auto) % Lymph % (Auto) % Glynn % (Auto) % Eos % (Auto) % Baso % (Auto) % Immature Gran # (Auto) (0.00-0.02) K/uL Neut # (Auto) (1.4-6.5) K/uL Lymph # (Auto) (1.2-3.4) K/uL Glynn # (Auto) (0.11-0.59) K/uL Eos # (Auto) (0-0.5) K/uL Baso # (Auto) (0-0.2) K/uL Echinocytes PT (9.0-12.0) Seconds INR (0.9-1.1) APTT (21.0-31.0) Seconds PTT Ratio Specimen Type POC pH (7.35-7.45) POC pCO2 (35-46) mmHg POC pO2 (80-95) mmHg POC HCO3 (19-24) laverne/L POC Total CO2 (24-31) mmol/L POC Base Excess (-9-1.8) laverne/L POC O2 Saturation POC Sodium Sodium 100 L* (136-145) mmol/L POC Potassium Potassium 2.7 L (3.5-5.1) mmol/L Chloride 64 L (98-107) mmol/L Carbon Dioxide 19 L (21-32) mmol/L Anion Gap 16.0 H (3-11) BUN 2 L (7-18) mg/dl Creatinine 0.56 L D (0.6-1.4) mg/dl POC Creatinine (0.6-1.3) mg/dl Est Cr Clr Drug Dosing 211.4 ml/min Est GFR ( Amer) > 150.0 Est GFR (Non-Af Amer) 138.8 BUN/Creatinine Ratio 3.8 L (10-20) Glucose 121 H (70-99) mg/dl POC Glucose (70-99) mg/dl Osmolality (280-300) mOsm/kg Lactate (0.4-2.0) mmol/L Calcium 8.0 L (8.5-10.1) mg/dl Phosphorus (2.5-4.9) mg/dl Magnesium (1.8-2.4) mg/dl Total Bilirubin (0.2-1) mg/dl AST (15-37) U/L ALT (12-78) U/L Alkaline Phosphatase (45-117) U/L Troponin I (0-0.045) ng/ml Total Protein (6.4-8.2) gm/dl Albumin (3.4-5.0) gm/dl Globulin (2.5-4.0) gm/dl Albumin/Globulin Ratio (0.9-2) Procalcitonin (0-0.5) ng/ml Urine Color Yellow Urine Appearance Clear (Clear) Urine pH 5.0 (4.5-7.5) Ur Specific Stanton 1.012 (1.000-1.030) Urine Protein Negative (Negative) Urine Glucose (UA) 1+ H (Negative) Urine Ketones 1+ H (Negative) Urine Blood Negative (Negative) Urine Nitrite Negative (Negative) Urine Bilirubin Negative (Negative) Urine Urobilinogen Negative (Negative) Ur Leukocyte Esterase Negative (Negative) Urine Opiates Screen (Neg) Ur Methadone, Qual (Neg) Urine Barbiturates (Neg) Ur Phencyclidine (PCP) (Neg) U Amphetamin/Meth Scrn (Neg) MDMA (Ecstasy) Screen (Neg) U Benzodiazepines Scrn (Neg) Ur Cocaine Metabolite (Neg) U Marijuana (THC) Screen (Neg) Ethyl Alcohol mg/dL (0-3) mg/dl Influenza Type A (PCR) Neg for Influ A (Neg) Influenza Type B (PCR) Neg for Influ B (Neg) Blood Type Antibody Screen 11/27/19 Range/Units 00:07 WBC (4.8-10.8) K/uL RBC (4.7-6.1) M/uL Hgb (14.0-18.0) g/dL POC Hgb Hct (42-52) % POC Hct MCV (80-100) fL MCH (25-34) pg MCHC (32-36) g/dL RDW Std Deviation (36.4-46.3) fL RDW Coeff of Fito (11.5-14.5) % Plt Count (130-400) K/uL MPV (7.4-10.4) fL Immature Gran % (Auto) % Neut % (Auto) % Lymph % (Auto) % Glynn % (Auto) % Eos % (Auto) % Baso % (Auto) % Immature Gran # (Auto) (0.00-0.02) K/uL Neut # (Auto) (1.4-6.5) K/uL Lymph # (Auto) (1.2-3.4) K/uL Glynn # (Auto) (0.11-0.59) K/uL Eos # (Auto) (0-0.5) K/uL Baso # (Auto) (0-0.2) K/uL Echinocytes PT (9.0-12.0) Seconds INR (0.9-1.1) APTT (21.0-31.0) Seconds PTT Ratio Specimen Type POC pH (7.35-7.45) POC pCO2 (35-46) mmHg POC pO2 (80-95) mmHg POC HCO3 (19-24) laverne/L POC Total CO2 (24-31) mmol/L POC Base Excess (-9-1.8) laverne/L POC O2 Saturation POC Sodium Sodium (136-145) mmol/L POC Potassium Potassium (3.5-5.1) mmol/L Chloride (98-107) mmol/L Carbon Dioxide (21-32) mmol/L Anion Gap (3-11) BUN (7-18) mg/dl Creatinine (0.6-1.4) mg/dl POC Creatinine (0.6-1.3) mg/dl Est Cr Clr Drug Dosing ml/min Est GFR ( Amer) Est GFR (Non-Af Amer) BUN/Creatinine Ratio (10-20) Glucose (70-99) mg/dl POC Glucose (70-99) mg/dl Osmolality (280-300) mOsm/kg Lactate 3.1 H* (0.4-2.0) mmol/L Calcium (8.5-10.1) mg/dl Phosphorus (2.5-4.9) mg/dl Magnesium (1.8-2.4) mg/dl Total Bilirubin (0.2-1) mg/dl AST (15-37) U/L ALT (12-78) U/L Alkaline Phosphatase (45-117) U/L Troponin I (0-0.045) ng/ml Total Protein (6.4-8.2) gm/dl Albumin (3.4-5.0) gm/dl Globulin (2.5-4.0) gm/dl Albumin/Globulin Ratio (0.9-2) Procalcitonin (0-0.5) ng/ml Urine Color Urine Appearance (Clear) Urine pH (4.5-7.5) Ur Specific Stanton (1.000-1.030) Urine Protein (Negative) Urine Glucose (UA) (Negative) Urine Ketones (Negative) Urine Blood (Negative) Urine Nitrite (Negative) Urine Bilirubin (Negative) Urine Urobilinogen (Negative) Ur Leukocyte Esterase (Negative) Urine Opiates Screen (Neg) Ur Methadone, Qual (Neg) Urine Barbiturates (Neg) Ur Phencyclidine (PCP) (Neg) U Amphetamin/Meth Scrn (Neg) MDMA (Ecstasy) Screen (Neg) U Benzodiazepines Scrn (Neg) Ur Cocaine Metabolite (Neg) U Marijuana (THC) Screen (Neg) Ethyl Alcohol mg/dL (0-3) mg/dl Influenza Type A (PCR) (Neg) Influenza Type B (PCR) (Neg) Blood Type Antibody Screen Imaging Data Attestation: I personally reviewed and interpreted this imaging study as follows: My Impression: Single View CHEST XRAY No cardiomegaly No effusions No wide mediastinum No focal consolidation No acute pulmonary edema Gastric distention noted. Radiologist's Impression: Radiology results as stated below per my review and the radiologist's interpretation: CT abd pelvis IV con only CLINICAL HISTORY: unresponsive, rectal prolapse COMPARISON STUDY: None. TECHNIQUE: The patient was scanned in a dynamic helical fashion during intravenous administration of 90 cc of Optiray 320 A dose lowering technique was utilized adhering to the principles of ALARA. CT DOSE: 907.06 mGy.cm FINDINGS: Lower chest: There are minor dependent atelectatic changes present. Liver: There is a 22 mm hypodense lesion within the right hepatic lobe. There is a 10 mm hypodense lesion within the right hepatic lobe. There is a 1 cm hypodense lesion within the left hepatic lobe. The 22 mm lesion demonstrates equivocal focus of peripheral nodular enhancement. This potentially could represent a hemangioma. An MRI might be considered for further characterization of these lesions. Gallbladder: Unremarkable. Spleen: Normal in size and attenuation. Pancreas: Unremarkable. Adrenal glands: Unremarkable. Kidneys: There is mild bilateral hydronephrosis, likely secondary to a distended urinary bladder Bowel: There is pronounced gastric distention. There is no evidence for colonic or small bowel obstruction. There is rectal prolapse. There is no acute diverticulitis. The appendix is not visualized. Bowel evaluation is limited given the lack of orally administered contrast and the paucity of intra- abdominal fat. Peritoneum: There is no intraperitoneal free air or abdominal ascites. Vasculature: The abdominal aorta is normal in course and caliber. Adenopathy: None. Pelvic viscera: The bladder is distended measuring 20 cm in craniocaudad dimension Skeletal structures: No destructive osseous lesions are seen. IMPRESSION: 1. Pronounced gastric distention 2. No evidence of small bowel or colonic obstruction 3. Distended bladder measuring 20 cm with secondary mild dilatation of the renal collecting systems 4. Rectal prolapse 5. Indeterminate hepatic hypodense lesions. If further characterization is desired, an MRI would be considered the test of choice ACT 112: Negative or not required by law. Electronically signed by: Ken Ochoa M.D. 11/26/2019 11:[address] head/brain wo con CLINICAL HISTORY: Acute change in mental status COMPARISON STUDY: September 2012 TECHNIQUE: Axial CT of the brain is performed from the vertex to the skull base. IV contrast was not administered for this examination. A dose lowering technique was utilized adhering to the principles of ALARA. CT DOSE: 1228.53 mGy.cm FINDINGS: No intra or extra-axial mass lesions are visualized. There is no CT evidence of acute cortical infarction. There is no evidence of midline shift. There is no acute hemorrhage. No calvarial fractures are visualized. The study was degraded by motion artifact, and repeated. There is no evidence of pathologic ventricular dilatation. There is no evidence of acute sinusitis IMPRESSION: No acute intracranial findings ACT 112: Negative or not required by law. Electronically signed by: Ken Ochoa M.D. 11/26/2019 10:51 PM ECG Data Attestation: I personally reviewed and interpreted this ECG as follows: Indication: + altered mental status Rate (beats per minute): 76 Rhythm: + sinus rhythm ECG Intervals/blocks: + First degree AV block and + Normal QRS ECG Yarnell: + Normal ECG Findings: + Other (Prolonged QTC; No acute ischemic changes; ) Blood Pressure Blood Pressure Findings: Normal blood pressure MDM Narrative Patient brought in by EMS for altered mental status and seizure. Pt given ativan prior to arrival for seizure which likely contributed to somnolence and altered mentation. VS stable. IV's established and labs sent. CXR performed. POC CR performed and pt sent to CT. After arrival of mother, discussed pt's past medical and psychiatric history. Pt's mentation continued to slowly improve. No evidence of trauma. As labs began to return, pt found to have severe hyponatremia. Prior records show psychogenic polydipsia contributing to hyponatremia as low as 121, however no record of this severe low. Other electrolytes low also. Elevated lactic acid and pH 7.2. Cultures sent as a precaution, however I do not suspect infectious etiology at this time. Pt at risk for complications of hyponatremia and did have a seizure en route. No other seizure like activity while in the ER. Hospitalist contacted and we disc ussed hypertonic saline and desmopressin. He would like repeat BMP prior to starting. NSS originally started on arrival, this was stopped until correct calculations about sodium repletion could be performed. Additional labs added after abnormalities noted. No evidence of perf, FB, ischemia, volvulus, on CT given large rectal prolapse. Pt seen by hospitalist team who also contacted ICU [facility]. I continued to check on the patient and update family. Pt remained stable in the ER and mentation was slowly improving. Impression & Plan Altered mental status, Hyponatremia, Hypokalemia, Hypochloremia, Hypomagnesemia, Rectal prolapse Discharge Plan Visit Data *Final* Discharge Date/Time: 11/27/19 00:45 Chief Complaint: Altered Mental Status Stated Complaint: AMS, SEMI RESPONESIVE, PROLASPED RECTUM ED Provider: Danita Felix Discharge Problem: Altered mental status, Hyponatremia, Hypokalemia, Hypochloremia, Hypomagnesemia, Rectal prolapse Patient Disposition: Admitted As Inpatient Discharge Instructions Interventions: ED Discharge Assessment Last Done: 11/27/19 00:45 Discharge Problem: Altered mental status Qualifiers: Altered mental status type: somnolence Qualified Code(s): R40.0 - Somnolence The scribe's documentation has been prepared under my direction and personally reviewed by me in its entirety. I confirm that the note above accurately reflects all work, treatment, procedures, and medical decision making performed by me.
--- NOTE | 2019-11-26 23:02 | CT Scan Report ---
CT abd pelvis IV con only CLINICAL HISTORY: unresponsive, rectal prolapse COMPARISON STUDY: None. TECHNIQUE: The patient was scanned in a dynamic helical fashion during intravenous administration of 90 cc of Optiray 320 A dose lowering technique was utilized adhering to the principles of ALARA. CT DOSE: 907.06 mGy.cm FINDINGS: Lower chest: There are minor dependent atelectatic changes present. Liver: There is a 22 mm hypodense lesion within the right hepatic lobe. There is a 10 mm hypodense le heladio within the right hepatic lobe. There is a 1 cm hypodense lesion within the left hepatic lobe. Th e 22 mm lesion demonstrates equivocal focus of peripheral nodular enhancement. This potentially could represent a hemangioma. An MRI might be considered for further characterization of these lesions. Gallbladder: Unremarkable. Spleen: Normal in size and attenuation. Pancreas: Unremarkable. Adrenal glands: Unremarkable. Kidneys: There is mild bilateral hydronephrosis, likely secondary to a distended urinary bladder Bowel: There is pronounced gastric distention. There is no evidence for colonic or small bowel obstru ction. There is rectal prolapse. There is no acute diverticulitis. The appendix is not visualized. Olvin wel evaluation is limited given the lack of orally administered contrast and the paucity of intra-abd ominal fat. Peritoneum: There is no intraperitoneal free air or abdominal ascites. Vasculature: The abdominal aorta is normal in course and caliber. Adenopathy: None. Pelvic viscera: The bladder is distended measuring 20 cm in craniocaudad dimension Skeletal structures: No destructive osseous lesions are seen. IMPRESSION: 1. Pronounced gastric distention 2. No evidence of small bowel or colonic obstruction 3. Distended bladder measuring 20 cm with secondary mild dilatation of the renal collecting systems 4. Rectal prolapse 5. Indeterminate hepatic hypodense lesions. If further characterization is desired, an MRI would be c onsidered the test of choice ACT 112: Negative or not required by law. Electronically signed by: Ken Ochoa M.D. 11/26/2019 11:00 PM
[2019-11-26 23:13] LABS: Hemoglobin 12.5 g/dL (14.0-18.0); Mean Corpuscular Hemoglobin 31.1 pg (25-34); Mean Corpuscular Hgb Conc 37.9 g/dL (32-36); Mean Corpuscular Volume 82.1 fL (80-100); Mean Platelet Volume 10.5 fL (7.4-10.4); Platelet Count 223 K/uL (130-400); RDW Coefficient of Variation 12.1 % (11.5-14.5); RDW Standard Deviation 36.4 fL (36.4-46.3); Red Blood Count 4.02 M/uL (4.7-6.1); White Blood Count 10.84 K/uL (4.8-10.8)
[2019-11-26 23:25] LABS: Phosphorus 1.9 mg/dl (2.5-4.9)
[2019-11-26 23:56] LABS: Appearance Urine Clear (Clear); Bilirubin Urine Negative (Negative); Blood Urine Negative (Negative); Color Urine Yellow; Glucose Urine UA 1+ (Negative); Ketones Urine 1+ (Negative); Leukocyte Esterase Urine Negative (Negative); Nitrite Urine Negative (Negative); Protein Urine Negative (Negative); Specific Gravity Urine 1.012 (1.000-1.030); Urobilinogen Urine Negative (Negative)
[2019-11-26 23:57] LABS: Echinocytes 3+; Immature Granulocytes # (auto) 0.02 K/uL (0.00-0.02); Immature Granulocytes % (auto) 0.2 %; Lymphocytes # (auto) 0.87 K/uL (1.2-3.4); Lymphocytes % (auto) 8.1 %; Monocytes # (auto) 1.06 K/uL (0.11-0.59); Monocytes % (auto) 9.9 %; Neutrophils # (auto) 8.78 K/uL (1.4-6.5); Neutrophils % (auto) 81.8 %
[2019-11-27 00:15] LABS: Amphetamines+Metham, Urine Neg (Neg); Barbiturates, Urine Neg (Neg); Benzodiazepine, Urine Neg (Neg); Cocaine, Urine Neg (Neg); MDMA (Ecstacy), Urine Neg (Neg); Methadone, Urine Neg (Neg); Opiate, Urine Neg (Neg); Phencyclidine, Urine Neg (Neg)
[2019-11-27] MEDS ORDERED: DESMOPRESSIN ACETATE 0.1 MG TAB PO SCH (00:15)
--- NOTE | 2019-11-27 00:23 | History & Physical Report ---
Date of Service November 27, 2019 Assessment & Plan (1) Hyponatremia: Russell Whalen is a 29-year-old male with a past medical history of OCD with body dysmorphic disorder and psychogenic polydipsia, autism spectrum disorder, hypernatremia with hospitalization, depression, and anxiety who was found unresponsive by his brother. Per EMS patient had an episode of emesis prior to admission and had a seizure episode during transport and was given 2 mg of Ativan. On arrival to the emergency department he was found to be profoundly hyponatremic to a serum sodium of 97, unclear duration. Severe symptomatic hyponatremia2/2 hx psychogenic polydipsia. Treat as chronic CThead with no acute intracranial findings - CT-Ab: Pronounced gastric distention, No evidence of small bowel or colonic obstruction, Distended bladder measuring 20 cm with secondary mild dilatation of the renal collecting systems, Rectal prolapse, Indeterminate hepatic hypodense lesions. - Sodium 97 on admit, weight 97.7kg (TBW ~52.6) - Serum osm 206, urine osm 50. Low suspicion for desalination - Seizure x1 prior to admit treated with lorazepam in route to emergency department - Pt ~500cc NSS in ED and rapidly diurested 3L. Estimate 1.9 mmol Na per 1L output for ~6-7Na change. hold hypertonic saline tx for stat repeat BMP, 2 or 3%NSS to bring up to 8meq change (overnight target sodium 103M EQ) then hold for ODS. - Desmopressin clamp 1 mcg IV every 6 hours Penny to prevent precipitous increase in Na. Patient is at high risk for osmotic demyelination syndrome given presenting sodium less than 100, hypokalemia, and concern for body dysmorphia/eating disorder. If seizures, worsening mental status, vomiting, or other signs of ICP worsen give 100 mL bolus of 3% saline over 10 minutes Target sodium change less than equal to 810 mEQ 24-hour, BMP every 4 hour and adjust hypertonic saline 3% as needed NGT decompression of stomach emptied on arrival to ICU, patient vomited approximately 2 L of water - Transfer to ICU for further care History of intellectual disability with OCD/anxiety/body dysmorphic disorder Patient on no medications in the last year. Previously on fluoxetine 20 mg nightly, Abilify, and Lorazepam 0.5 mg every morning. Was previously seen Dr. oliver with psychiatry, has had inpatient missions for psychiatry in the past Has been undergoing therapy for extreme anxiety, dysmorphic disorder, and difficulty leaving the home -Recommend psychiatric evaluation follow-up once clinically stable On previous admissions patient was not able to capably show understanding of his ongoing medical issues Rectal Prolapse - Edematous, reduced in ED Medical management at this time. Patient is medically stable and able to engage in conversation, may consider medical management options (fluid, fiber, etc.) versus surgical referral for rectal procidentia if indicated. Follow clinically at this time DVT prophylaxis: Heparin 5000 twice daily Diet: N.p.o. CODE STATUS: Full code Disposition: ICU (2) Psychogenic polydipsia: (3) Autism spectrum disorder: (4) OCD (obsessive compulsive disorder): (5) Body dysmorphic disorder: (6) Anxiety: (7) Depression: (8) DVT prophylaxis: History of Present Illness Chief Complaint: Altered mental status, severe hyponatremia Primary Care Provider: NO PCP Russell is a 29-year-old male with a past medical history of body dysmorphic disorder, OCD, and psychogenic polydipsia with hospital admissions for hyponatremia who was found unconscious by his brother and who had a seizure in route to the emergency department. On admission he was found to be profoundly hyponatremic to 97. He is unable to give history at time of admission. Collaterals collected from his mother who was present at bedside. She reports that Russell is a history of psychiatric illness, with extreme anxiety and dysmorphic body image. She reports that he had multiple hospitalizations for psychogenic polydipsia in the past resulting in hyponatremia, he recently has been living in a temporary house for the past 1 to 2 months and she is unsure how much water he may have been drinking recently. She notices last known normal was about 4 PM, she does not know if he has been drinking large amounts of water before today. She reports he has not been on any medications in the last month, but had been on fluoxetine, Abilify, and lorazepam more than a year ago. Reports that he does not smoke alcohol, use tobacco products, or take recreational drugs. She notes that if he were to take anything with water he would probably be vitamins because he perseverates on things he perceives as healthy. Medical/surgical/allergy history reviewed in EMR, unable to be collected from patient due to mental status CODE STATUS: Full code per patient's mother Allergies Allergy/AdvReac Type Severity Reaction Status Date / Time No Known Allergies Allergy Verified 07/30/19 19:25 Home Medications Home Medications Medication Instructions Recorded Confirmed Type fluoxetine 30 mg PO QAM #90 cap 07/22/19 07/30/19 Rx Past Med/Surg History Medical History Anxiety (Acute) Autism spectrum disorder Body dysmorphic disorder Delusional disorder (Chronic 04/30/13) Depression (Acute) DVT prophylaxis Hyponatremia (Acute) Hyponatremia (Acute) OCD (obsessive compulsive disorder) Psychogenic polydipsia (Acute) Family History Other No significant family history Denies family history of Myocardial infarction Stroke Social History Preferred Language: Khmer Communication Ability: Effective Biomedical Analytical Scientist Required: No Beliefs That Will Affect Care: None marital status: Single Current Living Situation: Parent Current Living Situation Comment: [facility]. going to [facility] eventually, wants admitted to mental health unit current occupational status: unemployed Other Information That Helps Us Care for You: No Feels Safe at Home: Yes Safety Concerns: Feels Safe At This Time Smoking Status: Never smoker Second Hand Exposure: No ; Hx Alcohol Use: No Hx Substance Use: No Review of Systems Review of Systems: Unobtainable due to reduced consciousness Physical Exam Physical Exam: General: Lethargic, arouses transiently to voice and appears postictal. Does not answer questions. Follows simple commands "squeeze my hand " HEENT: Atraumatic, normocephalic. Pupils equal and reactive to light and accommodation. Pulm: CTAB A&P. -wheezes, -rales, -rhonchi. Symmetrical chest rise. No increase work of breathing. No respiratory distress. Cardiac: RRR, -mrg. Radial pulses intact and symmetrical. Abdominal: Soft, nonrigid, patient does not moan to palpation. Epigastric distention present. Bowel sounds intact /GI: Large rectal prolapse present, reduced by emergency department. Remaining 2-3 cm prolapse, edematous, reducible. No oseas bleeding. Line extremities: PT and radial pulses intact and symmetrical bilaterally. No pitting edema. Skin warm, moist Results & Data Vital Signs (Past 12 Hours) Vital Signs Temp Pulse Pulse Resp BP Pulse Ox 11/26/19 23:45 88 25 H 131/77 100 11/26/19 23:30 93 H 25 H 135/78 100 11/26/19 23:15 85 23 117/81 100 11/26/19 23:01 93 H 17 129/84 100 11/26/19 23:00 89 19 100 11/26/19 22:56 92 H 22 100 11/26/19 22:33 76 20 100 11/26/19 22:30 79 21 134/70 100 11/26/19 22:27 78 24 84 L 11/26/19 22:26 84 16 136/73 100 11/26/19 22:20 76 23 127/67 100 11/26/19 22:15 81 21 134/83 100 11/26/19 22:10 79 14 140/73 100 11/26/19 22:05 73 18 134/76 100 11/26/19 22:02 78 14 100 11/26/19 22:00 76 17 124/71 100 11/26/19 21:57 79 26 H 100 11/26/19 21:44 36.5 C 80 22 135/72 98 Critical Care Time Critical Care Time: Yes Total Critical Care Time: 45 Total critical care time was 45 minutes Supervising Physician Co-Signing Physician Notes Attending addendum: I have physically seen this patient, have supervised the medical residents activities, and agree with the H&P unless as otherwise noted. Assessment and Plan: Hyponatremia/psychogenic polydipsia- Patient will be admitted to the ICU for close treatment and observation. Sodium 97, potassium 2.5, serum osmolality 206 and urine osmolality 50, upon admission. Treatment as per protocol. Follow serial BMP and magnesium levels. Desmopressin IV as noted. Complications: Severe rectal prolapse, treated in the ED with sugar pack. Significant urinary retention, with urinary bladder diameter 20 cc. Jo catheter placed and will be serially clamped and allowed to drain Psychiatry to be consulted. Remaining orders and notations as noted. Resident Activity Tracking Resident Involvement: Resident Care Provided Care Provided: Adult Hospital Medicine (1) Depression Depression Type: unspecified Qualified Code(s): F32.9 - Major depressive disorder, single episode, unspecified
[2019-11-27 00:41] LABS: BUN Creatinine Ratio 3.8 (10-20); Blood Urea Nitrogen 2 mg/dl (7-18); Carbon Dioxide 19 mmol/L (21-32); Chloride 64 mmol/L (98-107); Creatinine Clr Calc Pharmacy 211.4 ml/min; Est GFR (African American) > 150.0; Est GFR (Non-African American) 138.8; Glucose 121 mg/dl (70-99); Potassium 2.7 mmol/L (3.5-5.1); Sodium 100 mmol/L (136-145)
[2019-11-27 01:03] LABS: Influenza A virus by PCR Neg for Influ A (Neg); Influenza B virus by PCR Neg for Influ B (Neg)
[2019-11-27] MEDS ORDERED: ICU PROTOCOL FOR HYPERGLYCEMIA PRN (01:49)
[2019-11-27] MEDS: DESMOPRESSIN ACETATE 1 MCG in SODIUM CHLORIDE 0.9% 50 ML IV SCH ×3 (01:55→07:55)
--- NOTE | 2019-11-27 02:02 | Critical Care Consultation ---
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 presented with severe hyponatremia with associated seizure Neuro - Autism spectrum disorder/multiple psychiatric disorderswe will restart home med fluoxetine when appropriate -Patient with a recent psych admission multiple admissions for hyponatremia secondary to psychogenic polydipsia -We will consult psych once patient stable Seizuregiven 2 mg Ativan and route to the ER, management per hyponatremia Cardiac - Currently normal sinus rhythm, no history of heart disease, continue to monitor on telemetry Respiratory - Maintaining sats on room air, monitor on continuous pulse ox GI - Prolapsed rectumpatient's brother found him stated that patient had foreign object inserted into his rectum -No abdominal extractions on CT abdomen, did show pronounced gastric distention and patient did vomit what appeared to be water-like emesis on arrival to the ICU -Currently applying dextrose covered gauze, pink/red in color, no cyanosis -GI consulted, follow-up recs RENAL/LYTES - Hyponatremiapatient with known psychogenic polydipsia multiple previous admission -Patient began to auto diuresis and had to be given DDAVP after urinating 5 L -Sodium 103 corrected within range, monitoring every 2 hours BMPs and continue DDAVP -Nephrology consulted will follow up recs -N.p.o. for now Electrolyte abnormalitiesdilutional from excessive water intake -Beginning to correct, given potassium for 2.5, continue to monitor routine BMPs - Foleystrict I's and O's every hour ENDO - No history of diabetes, ICU hyperglycemic protocol HEME - H&H stable, monitor routine CBCs ID - No indication for infectious process LINES/IV ACCESS - Peripheral IVs DVT PROPHYLAXIS - SCDs, heparin I have personally spent 60 minutes of critical care time in the direct management of this patient. This is a life/limb threatening event. This includes time spent evaluating patient, direct bedside care, chart review, placing orders, interpretation of diagnostic studies, discussion with consultants, patient, and family members, as well as other required patient management activities. This time is exclusive of all separately billable procedures, and teaching time and separate from and in addition to any other critical care service time. Thank you for allowing us to participate in the care of this patient. Please refer to my attending physician's documentation for any further recommendations. (2) Altered mental status: (3) Hypokalemia: (4) Hypochloremia: (5) Hypomagnesemia: (6) Rectal prolapse: (7) Depression: (8) Anxiety: (9) Body dysmorphic disorder: (10) Hyponatremia: (11) OCD (obsessive compulsive disorder): (12) Autism spectrum disorder: (13) Psychogenic polydipsia: (14) Hyponatremia: (15) DVT prophylaxis: (16) Seizure: Supervising Physician Co-Signing Physician Notes Patient seen and examined. Discussed with critical care BG overnight and on multidisciplinary rounds. Agree with assessment and plan as noted. 29-year-old male with history of psychogenic polydipsia and multiple prior admissions for symptomatic hyponatremia presented with same. He apparently suffered a seizure. He received a few doses of DDAVP and was monitored with serial sodium levels. He is not had any additional seizure activity noted. His mental status is returned back to normal. The patient did present with a prolapse of the rectum which spontaneously resolved. Plan: 1. Symptomatic hyponatremia: Appreciate nephrology consult. Continue to m onitor and fluid restrict. Continue serial BMPs. DDAVP in the event the patient should correct to rapidly. 2. Psychogenic polydipsia: Fluid restriction. 3. Pleural upset rectum: Spontaneously resolved. Will need to follow-up colorectal surgery to see if intervention is required. 4. Massively dilated stomach. Suspect this is related to massive water intake. Continue to follow for now. Exam is benign. 5. Baseline psych issues: The patient has had multiple interventions performed previously. 6. Leukocytosis. Suspect stress reaction especially in the setting of seizure but will follow. No indication for antibiotics currently. 7. Lactic acidosis: Related to seizure. Clearing. Continue to follow clinically. We will continue to follow in the ICU until sodium stabilizes and labs are required less frequently. 65 minutes critical care time evaluating managing and stabilizing patient including life-threatening illness. History of Present Illness Attending Physician: Fer Acuna MD History of Present Illness Mr. Whalen is a 29-year-old male with autism spectrum disorder, multiple psychological disorders, psychogenic polydipsia with prior episodes of associated hyponatremia including seizures who presented to the emergency department via EMS for altered mental status and had a seizure in route and received 2 mg Ativan. Patient was reportedly found down by his brother with foreign object in his rectum. On arrival to the emergency department patient was found to be severely hyponatremic with sodium of 96. He also had a prolapsed rectum which sugar was applied to. CT of abdomen showed bowel distention without obstruction. Patient was given 500 mL normal saline and soon began to auto diuresis and produced a total of 5 L urine output before receiving IV DDAVP. Repeat sodium is within range. On arrival to the ICU the patient remains confused but was able to tell me that he was at [facility] and the month was November was unsure of the year. Unsure of patient's cognitive baseline given diagnosis. Patient vomited large amounts of water-like emesis shortly after arrival while attempting to place an NG tube which he did not tolerate. Patient did not desaturate and no evidence of aspiration. He currently denies headache, dizziness, shortness of breath, chest pain, palpitations, abdominal pain. He reports pain at rectum is very mild. Patient remain in ICU for further management of severe symptomatic hypona tremia. Allergies Allergy/AdvReac Type Severity Reaction Status Date / Time No Known Allergies Allergy Verified 07/30/19 19:25 Home Medications Home Medications Medication Instructions Recorded Confirmed Type fluoxetine 30 mg PO QAM #90 cap 07/22/19 07/30/19 Rx Patient History Medical History Anxiety (Acute) Autism spectrum disorder Body dysmorphic disorder Delusional disorder (Chronic 04/30/13) Depression (Acute) DVT prophylaxis Hyponatremia (Acute) Hyponatremia (Acute) OCD (obsessive compulsive disorder) Psychogenic polydipsia (Acute) Family History Other No significant family history Denies family history of Myocardial infarction Stroke Social History Preferred Language: Somali Communication Ability: Effective 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 going to [facility] eventually, wants admitted to mental health unit current occupational status: unemployed Other Information That Helps Us Care for You: No Feels Safe at Home: Yes Safety Concerns: Feels Safe At This Time Smoking Status: Never smoker Second Hand Exposure: No ; Hx Alcohol Use: No Hx Substance Use: No Review of Systems Review of Systems: All systems reviewed & are unremarkable except as noted in HPI & below Physical Exam Eyes: PERRL, conjunctivae normal, anicteric sclerae ENMT: external ear and nose normal, oropharynx normal Neck: trachea midline, no thyromegaly Respiratory: normal respiratory effort, lungs clear to auscultation Cardiovascular: RRR, no murmur, no edema Heart Sounds: normal S1 and normal S2 Extremities: normal capillary refill; no pedal edema Gastrointestinal (Abdomen): normal bowel sounds, soft, nontender, no hepatosplenomegaly Prolapsed rectum, red in color without cyanosis Skin: no rashes, warm and dry Neurologic: PERRL, EOMI, accommodation nl, no face palsy, no dysarthria Psychiatric: Orientation: oriented to place and cooperative Eye Contact: + poor eye contact Speech: + pressured speech Affect: + flat affect Genitourinary: Indwelling Jo present Results & Data ([facility]) Vital Signs (Past 12 Hours) Vital Signs Temp Pulse Pulse Resp BP BP Pulse Ox 11/27/19 01:15 36.3 C L 90 28 H 134/78 98 11/27/19 00:45 89 19 126/72 100 11/27/19 00:30 36.5 C 93 H 21 138/76 99 11/27/19 00:15 89 19 133/78 100 11/27/19 00:00 88 21 130/77 100 11/26/19 23:45 88 25 H 131/77 100 11/26/19 23:30 93 H 25 H 135/78 100 11/26/19 23:15 85 23 117/81 100 11/26/19 23:01 93 H 17 129/84 100 11/26/19 23:00 89 19 100 11/26/19 22:56 92 H 22 100 11/26/19 22:33 76 20 100 11/26/19 22:30 79 21 134/70 100 11/26/19 22:27 78 24 84 L 11/26/19 22:26 84 16 136/73 100 11/26/19 22:20 76 23 127/67 100 11/26/19 22:15 81 21 134/83 100 11/26/19 22:10 79 14 140/73 100 11/26/19 22:05 73 18 134/76 100 11/26/19 22:02 78 14 100 11/26/19 22:00 76 17 124/71 100 11/26/19 21:57 79 26 H 100 11/26/19 21:44 36.5 C 80 22 135/72 98 Coding Level of Care Code Critical Care 1st 30-74 mins Diagnoses Hyponatremia E87.1 Altered mental status R40.0 Altered mental status type: somnolence Hypokalemia E87.6 Hypochloremia E87.8 Hypomagnesemia E83.42 Rectal prolapse K62.3 Depression F32.9 Depression Type: unspecified Anxiety F41.9 Body dysmorphic disorder F45.22 Hyponatremia E87.1 OCD (obsessive compulsive disorder) F42.9 Autism spectrum disorder F84.0 Psychogenic polydipsia R63.1; F54 Hyponatremia E87.1 DVT prophylaxis Z29.9 Seizure R56.9 Time Spent (min) 65 (1) Depression Depression Type: unspecified Qualified Code(s): F32.9 - Major depressive disorder, single episode, unspecified (2) Altered mental status Altered mental status type: somnolence Qualified Code(s): R40.0 - Somnolence
[2019-11-27 03:08] LABS: BUN Creatinine Ratio 4.6 (10-20); Blood Urea Nitrogen 2 mg/dl (7-18); Calcium 7.9 mg/dl (8.5-10.1); Carbon Dioxide 19 mmol/L (21-32); Chloride 67 mmol/L (98-107); Creatinine Clr Calc Pharmacy 242.5 ml/min; Est GFR (African American) > 150.0; Est GFR (Non-African American) > 150.0; Glucose 120 mg/dl (70-99); Potassium 2.6 mmol/L (3.5-5.1); Sodium 102 mmol/L (136-145)
[2019-11-27 03:43] LABS: Hematocrit (blood only) 31.5 % (42-52); Hemoglobin 12.4 g/dL (14.0-18.0); Mean Corpuscular Hemoglobin 31.2 pg (25-34); Mean Corpuscular Hgb Conc 39.4 g/dL (32-36); Mean Corpuscular Volume 79.1 fL (80-100); Platelet Count 194 K/uL (130-400); Red Blood Count 3.98 M/uL (4.7-6.1); White Blood Count 13.71 K/uL (4.8-10.8)
[2019-11-27 03:45] LABS: Mean Platelet Volume 10.5 fL (7.4-10.4); RDW Coefficient of Variation 12.2 % (11.5-14.5); RDW Standard Deviation 35.5 fL (36.4-46.3)
[2019-11-27 03:46] LABS: Echinocytes 2+; Immature Granulocytes # (auto) 0.02 K/uL (0.00-0.02); Immature Granulocytes % (auto) 0.1 %; Lymphocytes # (auto) 1.03 K/uL (1.2-3.4); Lymphocytes % (auto) 7.5 %; Monocytes # (auto) 0.63 K/uL (0.11-0.59); Monocytes % (auto) 4.6 %; Neutrophils # (auto) 12.03 K/uL (1.4-6.5); Neutrophils % (auto) 87.8 %
[2019-11-27 04:34] LABS: Base Excess VBG -2.5 mEq/L; Oxygen Saturation VBG 85.1 %; pH VBG 7.48 (7.36-7.41)
[2019-11-27 04:37] LABS: Hematocrit (blood only) 30.9 % (42-52); Hemoglobin 12.2 g/dL (14.0-18.0); Mean Corpuscular Hemoglobin 31.4 pg (25-34); Mean Corpuscular Hgb Conc 39.5 g/dL (32-36); Mean Corpuscular Volume 79.6 fL (80-100); Mean Platelet Volume 10.6 fL (7.4-10.4); Platelet Count 186 K/uL (130-400); RDW Coefficient of Variation 12.2 % (11.5-14.5); RDW Standard Deviation 35.2 fL (36.4-46.3); Red Blood Count 3.88 M/uL (4.7-6.1); White Blood Count 11.38 K/uL (4.8-10.8)
[2019-11-27 04:52] LABS: Echinocytes 3+; Immature Granulocytes # (auto) 0.03 K/uL (0.00-0.02); Immature Granulocytes % (auto) 0.3 %; Lymphocytes # (auto) 0.68 K/uL (1.2-3.4); Monocytes # (auto) 1.06 K/uL (0.11-0.59); Monocytes % (auto) 9.3 %; Neutrophils # (auto) 9.61 K/uL (1.4-6.5); Neutrophils % (auto) 84.4 %; Toxic Vacuolation Occasional
[2019-11-27 04:54] LABS: BUN Creatinine Ratio 3.6 (10-20); Blood Urea Nitrogen 2 mg/dl (7-18); Calcium 8.2 mg/dl (8.5-10.1); Carbon Dioxide 19 mmol/L (21-32); Chloride 67 mmol/L (98-107); Creatinine Clr Calc Pharmacy 232.3 ml/min; Est GFR (African American) > 150.0; Est GFR (Non-African American) 147.9; Glucose 108 mg/dl (70-99); Magnesium 1.9 mg/dl (1.8-2.4); Phosphorus 2.6 mg/dl (2.5-4.9); Potassium 2.5 mmol/L (3.5-5.1); Sodium 103 mmol/L (136-145)
[2019-11-27] MEDS: POTASSIUM CHLORIDE / WTR 10 MEQ/100 ML PLCT IV SCH ×8 (05:39→23:57)
--- NOTE | 2019-11-27 07:13 | XRay Report ---
XR chest 1V portable HISTORY: SEPSIS COMPARISON: Chest 05/06/2013. FINDINGS: There are low lung volumes. Prominence of interstitial markings may be due to the poor insp iratory effort. No focal lung consolidations to suggest pneumonia. No evidence for pulmonary edema. T he heart is normal in size. Slightly rotated study. Moderate gaseous distention of the stomach. IMPRESSION: 1. No acute process within the chest. 2. Moderate gaseous distention of the stomach. ACT 112: Negative or not required by law. Electronically signed by: Edwin Sanders M.D. 11/27/2019 7:12 AM
[2019-11-27 07:55] LABS: BUN Creatinine Ratio 3.6 (10-20); Blood Urea Nitrogen 2 mg/dl (7-18); Calcium 8.6 mg/dl (8.5-10.1); Carbon Dioxide 19 mmol/L (21-32); Chloride 69 mmol/L (98-107); Creatinine Clr Calc Pharmacy 237.3 ml/min; Est GFR (African American) > 150.0; Est GFR (Non-African American) 149.2; Glucose 85 mg/dl (70-99); Potassium 2.8 mmol/L (3.5-5.1); Sodium 105 mmol/L (136-145)
[2019-11-27] MEDS: HEPARIN SOD 5,000 UNIT/0.5 ML VIAL SQ SCH ×2 (07:56→20:49)
--- NOTE | 2019-11-27 08:50 | Hospitalist Progress Note ---
Date of Service November 27, 2019 Assessment & Plan (1) Hyponatremia: Russell Whalen is a 29-year-old male with a past medical history of OCD with body dysmorphic disorder and psychogenic polydipsia, autism spectrum disorder, hypernatremia with hospitalization, depression, and anxiety who was found unresponsive by his brother. Per EMS patient had an episode of emesis prior to admission and had a seizure episode during transport and was given 2 mg of Ativan. On arrival to the emergency department he was found to be profoundly hyponatremic to a serum sodium of 97, unclear duration. Severe symptomatic hyponatremia2/2 hx psychogenic polydipsia. Treat as chronic CThead with no acute intracranial findings - CT-Ab: Pronounced gastric distention, No evidence of small bowel or colonic obstruction, Distended bladder measuring 20 cm with secondary mild dilatation of the renal collecting systems, Rectal prolapse, Indeterminate hepatic hypodense lesions. - Sodium 97 on admit, weight 97.7kg (TBW ~52.6) - Serum osm 206, urine osm 50. Low suspicion for desalination - Seizure x1 prior to admit treated with lorazepam in route to emergency department - Pt ~500cc NSS in ED and rapidly diurested 3L. Estimate 1.9 mmol Na per 1L output for ~6-7Na change. hold hypertonic saline tx for stat repeat BMP, 2 or 3%NSS to bring up to 8meq change (overnight target sodium 103M EQ) then hold for ODS. - Desmopressin clamp 1 mcg IV every 6 hours Penny to prevent precipitous increase in Na. Patient is at high risk for osmotic demyelination syndrome given presenting sodium less than 100, hypokalemia, and concern for body dysmorphia/eating disorder. If seizures, worsening mental status, vomiting, or other signs of ICP worsen give 100 mL bolus of 3% saline over 10 minutes Target sodium change less than equal to 810 mEQ 24-hour, BMP every 4 hour and adjust hypertonic saline 3% as needed NGT decompression of stomach emptied on arrival to ICU, patient vomited approximately 2 L of water - Transfer to ICU for further care History of intellectual disability with OCD/anxiety/body dysmorphic disorder Patient on no medications in the last year. Previously on fluoxetine 20 mg nightly, Abilify, and Lorazepam 0.5 mg every morning. Was previously seen Dr. oliver with psychiatry, has had inpatient missions for psychiatry in the past Has been undergoing therapy for extreme anxiety, dysmorphic disorder, and difficulty leaving the home -Recommend psychiatric evaluation follow-up once clinically stable On previous admissions patient was not able to capably show understanding of his ongoing medical issues Rectal Prolapse - Edematous, reduced in ED Medical management at this time. Patient is medically stable and able to engage in conversation, may consider medical management options (fluid, fiber, etc.) versus surgical referral for rectal procidentia if indicated. Follow clinically at this time DVT prophylaxis: Heparin 5000 twice daily Diet: N.p.o. CODE STATUS: Full code Disposition: ICU (2) Psychogenic polydipsia: (3) Autism spectrum disorder: (4) OCD (obsessive compulsive disorder): (5) Body dysmorphic disorder: (6) Anxiety: (7) Depression: Admission and Anticipated Discharge Date Admission Date: November 27, 2019 Review of Systems Review of Systems: Unobtainable due to reduced consciousness Physical Exam Constitutional: WD/WN, vitals as above Eyes: + anicteric sclerae, PERRL and EOM intact bilaterally; no eyelid abnormality and no conjunctival abnormality Respiratory: normal respiratory effort, lungs clear to auscultation Cardiovascular: Rate/Rhythm: regular rate and regular rhythm Heart Sounds: normal S1 and normal S2; no gallop, no murmur and no cardiac rub Vessels: no JVD Gastrointestinal (Abdomen): normal bowel sounds, soft, nontender, no hepatosplenomegaly Rectal Exam: + abnormal visual inspection of rectum (rectal prolapse) Musculoskeletal: Extremities: extremities normal to inspection and + abnormal strength (3/5 throughout) Neurologic: CN's II-XI intact bilaterally, normal sensation to monofilament, awake and + confused Motor/Sensory: no tremor Psychiatric: Orientation: alert, oriented to person and oriented to place; + not oriented to time Apperance: + disheveled Eye Contact: good eye contact Motor Behavior: no abnormal motor movements Affect: + depressed affect Lymphatic: no cervical or axillary lymphadenopathy Results & Data ([facility]) Vital Signs (Past 12 Hours) Vital Signs Temp Pulse Pulse Resp BP BP Pulse Ox 11/27/19 07:00 85 16 114/60 97 11/27/19 06:00 84 26 H 123/60 100 11/27/19 05:00 73 20 113/55 L 100 11/27/19 04:10 36.6 C 75 18 100/50 L 100 11/27/19 03:00 72 12 112/54 L 99 11/27/19 02:10 91 H 24 134/75 99 11/27/19 01:49 90 11/27/19 01:15 36.3 C L 90 28 H 134/78 98 11/27/19 01:10 36.3 C L 90 28 H 98 11/27/19 00:45 89 19 126/72 100 11/27/19 00:30 36.5 C 93 H 21 138/76 99 11/27/19 00:15 89 19 133/78 100 11/27/19 00:00 88 21 130/77 100 11/26/19 23:45 88 25 H 131/77 100 11/26/19 23:30 93 H 25 H 135/78 100 11/26/19 23:15 85 23 117/81 100 11/26/19 23:01 93 H 17 129/84 100 11/26/19 23:00 89 19 100 11/26/19 22:56 92 H 22 100 11/26/19 22:33 76 20 100 11/26/19 22:30 79 21 134/70 100 11/26/19 22:27 78 24 84 L 11/26/19 22:26 84 16 136/73 100 11/26/19 22:20 76 23 127/67 100 11/26/19 22:15 81 21 134/83 100 11/26/19 22:10 79 14 140/73 100 11/26/19 22:05 73 18 134/76 100 11/26/19 22:02 78 14 100 11/26/19 22:00 76 17 124/71 100 11/26/19 21:57 79 26 H 100 11/26/19 21:44 36.5 C 80 22 135/72 98 (1) Depression Depression Type: unspecified Qualified Code(s): F32.9 - Major depressive disorder, single episode, unspecified
[2019-11-27] MEDS ORDERED: HEPARIN SOD 5,000 UNIT/0.5 ML VIAL SQ SCH (09:00)
--- NOTE | 2019-11-27 09:01 | Gastrointestinal Consultation ---
Date of Consultation November 27, 2019 Assessment & Plan (1) Rectal prolapse: Critically ill male admitted to the ICU w/ psychogenic polydipsia, severe hyponatremia with associated seizure w/ past history of body dysmorphia, OCD, autism spectrum disorder reportedly found at home with foreign body in rectum, noted to have rectal prolapse in the ED. Given the severity of prolapse, inability to be successfully reduced in the ED, Russell will need to be evaluated by general surgery or perhaps a colorectal surgeon at a tertiary care center. This was discussed w/ ICU staff at time of consultation. Agree w/ NG to LIS if pt is agreeable. He will also need non- urgent contrast enhanced imaging of his liver given concern for hepatic lesion. Will sign off. Thank you for allowing us to participate in the care of this patient. Please call with any acute changes, questions or concerns. Please see addendum below with additional recommendation from my supervising physician. Present on Admission?: Yes Supervising Physician Co-Signing Physician Notes I saw and evaluated the patient. We were consulted with regard to rectal prolapse which was noted during the patient's admission yesterday. It appears that attempts to reduce it were not successful. Patient is a very poor historian and we were able to review his patient medical record to obtain details. Of note the patient did have a noncontrast CT performed which showed a 6 question of some sort of lesion within the liver. Physical examination Disheveled appearing, will answer basic questions Rectal: Bagel sized prolapse of rectum noted with purple discoloration Impression: Patient with what appears to be a significant rectal prolapse and discoloration. This is generally a problem that is not typically handled by gastroenterology, therefore my experience with this type of problem is very limited. Perhaps you should consider referral to general surgery or to a center with colorectal surgery given the severity of the prolapse. For the abnormal CT scan I would recommend a contrast-enhanced CT of the liver once the patient is stabilized and can tolerate a contrast-enhanced study. Recommendations Consider a general surgery or colorectal surgery evaluation Consider repeat CT scan once patient stable for contrast-enhanced study Please call with any questions or concerns GI to sign off History of Present Illness Reason for Consultation: rectal prolapse Requesting Physician: Aristides Attending Physician: Dimitri Irving History of Present Illness 29 year old critically ill male admitted to the ICU w/ psychogenic polydipsia, severe hyponatremia with associated seizure w/ past history of body dysmorphia, OCD, autism spectrum disorder and others below - GI asked to evaluate for rectal prolapse. Pt was seen and evaluated, chart reviewed. He is unable to provide any pertitent past history. No family at bedside. Per chart review, pt was found down w/ foreign body in rectum. CTAP: Pronounced gastric distention No evidence of small bowel or colonic obstructionDistended bladder measuring 20 cm with secondary mild dilatation of the renal collecting systems Rectal prolapse Indeterminate hepatic hypodense lesions. If further characterization is desired, an MRI would be considered the test of choice Allergies Allergy/AdvReac Type Severity Reaction Status Date / Time No Known Allergies Allergy Verified 07/30/19 19:25 Home Medications Home Medications Medication Instructions Recorded Confirmed Type fluoxetine 30 mg PO QAM #90 cap 07/22/19 07/30/19 Rx Patient History Medical History Anxiety (Acute) Autism spectrum disorder Body dysmorphic disorder Delusional disorder (Chronic 04/30/13) Depression (Acute) DVT prophylaxis Hyponatremia (Acute) Hyponatremia (Acute) OCD (obsessive compulsive disorder) Psychogenic polydipsia (Acute) Family History Other No significant family history Denies family history of Myocardial infarction Stroke Social History Preferred Language: Arabic Communication Ability: Effective 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 going to [facility] eventually, wants admitted to mental health unit current occupational status: unemployed Other Information That Helps Us Care for You: No Feels Safe at Home: Yes Safety Concerns: Feels Safe At This Time Smoking Status: Never smoker Second Hand Exposure: No ; Hx Alcohol Use: No Hx Substance Use: No Review of Systems Constitutional: no fever and no chills Respiratory: no cough and no dyspnea Cardiovascular: no chest pain Gastrointestinal: no abdominal pain, no coffee ground emesis, no hematemesis, no blood in stools and no melena Physical Exam Constitutional: average body habitus; no acute distress Respiratory: normal respiratory effort Cardiovascular: Rate/Rhythm: regular rate and regular rhythm Gastrointestinal (Abdomen): normal bowel sounds, soft, nontender, no hepatosplenomegaly Rectal examination performed by Dr. José Miguel Kennedy. Monitored by ANNALEE Villegas. External examination revealed rectal prolapse. Internal examination, manipulation or reduction was deferred due to the severity of prolapse. It was discussed at time of consultation pt would need to be evaluated by general surgery or colorectal surgery. Skin: no rashes, warm and dry Results & Data ([facility]) Vital Signs (Past 12 Hours) Vital Signs Temp Pulse Pulse Resp BP BP Pulse Ox 11/27/19 07:00 85 16 114/60 97 11/27/19 06:00 84 26 H 123/60 100 11/27/19 05:00 73 20 113/55 L 100 11/27/19 04:10 36.6 C 75 18 100/50 L 100 11/27/19 03:00 72 12 112/54 L 99 11/27/19 02:10 91 H 24 134/75 99 11/27/19 01:49 90 11/27/19 01:15 36.3 C L 90 28 H 134/78 98 11/27/19 01:10 36.3 C L 90 28 H 98 11/27/19 00:45 89 19 126/72 100 11/27/19 00:30 36.5 C 93 H 21 138/76 99 11/27/19 00:15 89 19 133/78 100 11/27/19 00:00 88 21 130/77 100 11/26/19 23:45 88 25 H 131/77 100 11/26/19 23:30 93 H 25 H 135/78 100 11/26/19 23:15 85 23 117/81 100 11/26/19 23:01 93 H 17 129/84 100 11/26/19 23:00 89 19 100 11/26/19 22:56 92 H 22 100 11/26/19 22:33 76 20 100 11/26/19 22:30 79 21 134/70 100 11/26/19 22:27 78 24 84 L 11/26/19 22:26 84 16 136/73 100 11/26/19 22:20 76 23 127/67 100 11/26/19 22:15 81 21 134/83 100 11/26/19 22:10 79 14 140/73 100 11/26/19 22:05 73 18 134/76 100 11/26/19 22:02 78 14 100 11/26/19 22:00 76 17 124/71 100 11/26/19 21:57 79 26 H 100 11/26/19 21:44 36.5 C 80 22 135/72 98 Laboratory Results 11/27/19 11/27/19 11/27/19 Range/Units 07:01 04:13 04:13 WBC (4.8-10.8) K/uL RBC (4.7-6.1) M/uL Hgb (14.0-18.0) g/dL Hct (42-52) % MCV (80-100) fL MCH (25-34) pg MCHC (32-36) g/dL RDW Std Deviation (36.4-46.3) fL RDW Coeff of Fito (11.5-14.5) % Plt Count (130-400) K/uL MPV (7.4-10.4) fL Immature Gran % (Auto) % Neut % (Auto) % Lymph % (Auto) % [place] % (Auto) % Eos % (Auto) % Baso % (Auto) % Immature Gran # (Auto) (0.00-0.02) K/uL Neut # (Auto) (1.4-6.5) K/uL Lymph # (Auto) (1.2-3.4) K/uL [place] # (Auto) (0.11-0.59) K/uL Eos # (Auto) (0-0.5) K/uL Baso # (Auto) (0-0.2) K/uL Toxic Vacuolation Echinocytes PT (9.0-12.0) Seconds INR (0.9-1.1) APTT (21.0-31.0) Seconds PTT Ratio VBG pH 7.48 H (7.36-7.41) VBG pCO2 28 L (38-50) mmHg VBG pO2 49 mmHg VBG HCO3 20 mmol/L VBG O2 Saturation 85.1 % VBG Base Excess -2.5 mEq/L Barometric Pressure 736.6 mm/Hg Sodium 105 L* (136-145) mmol/L Potassium 2.8 L (3.5-5.1) mmol/L Chloride 69 L (98-107) mmol/L Carbon Dioxide 19 L (21-32) mmol/L Anion Gap 17.0 H (3-11) BUN 2 L (7-18) mg/dl Creatinine 0.47 L (0.6-1.4) mg/dl POC Creatinine (0.6-1.3) mg/dl Est Cr Clr Drug Dosing 237.3 ml/min Est GFR ( Amer) > 150.0 Est GFR (Non-Af Amer) 149.2 BUN/Creatinine Ratio 3.6 L (10-20) Glucose 85 (70-99) mg/dl POC Glucose (70-99) mg/dl Osmolality (280-300) mOsm/kg Lactate 1.1 (0.4-2.0) mmol/L Calcium 8.6 (8.5-10.1) mg/dl Phosphorus (2.5-4.9) mg/dl Magnesium (1.8-2.4) mg/dl Total Bilirubin (0.2-1) mg/dl AST (15-37) U/L ALT (12-78) U/L Alkaline Phosphatase (45-117) U/L Troponin I (0-0.045) ng/ml Total Protein (6.4-8.2) gm/dl Albumin (3.4-5.0) gm/dl Globulin (2.5-4.0) gm/dl Albumin/Globulin Ratio (0.9-2) Procalcitonin (0-0.5) ng/ml Urine Color Urine Appearance (Clear) Urine pH (4.5-7.5) Ur Specific [place] (1.000-1.030) Urine Protein (Negative) Urine Glucose (UA) (Negative) Urine Ketones (Negative) Urine Blood (Negative) Urine Nitrite (Negative) Urine Bilirubin (Negative) Urine Urobilinogen (Negative) Ur Leukocyte Esterase (Negative) Nasal Screen MRSA (PCR) (Negative) Urine Opiates Screen (Neg) Ur Methadone, Qual (Neg) Urine Barbiturates (Neg) Ur Phencyclidine (PCP) (Neg) U Amphetamin/Meth Scrn (Neg) MDMA (Ecstasy) Screen (Neg) U Benzodiazepines Scrn (Neg) Ur Cocaine Metabolite (Neg) U Marijuana (THC) Screen (Neg) Ethyl Alcohol mg/dL (0-3) mg/dl Influenza Type A (PCR) (Neg) Influenza Type B (PCR) (Neg) Blood Type Antibody Screen 11/27/19 11/27/19 11/27/19 Range/Units 04:13 04:13 02:45 WBC 11.38 H (4.8-10.8) K/uL RBC 3.88 L (4.7-6.1) M/uL Hgb 12.2 L (14.0-18.0) g/dL Hct 30.9 L (42-52) % MCV 79.6 L (80-100) fL MCH 31.4 (25-34) pg MCHC 39.5 H (32-36) g/dL RDW Std Deviation 35.2 L (36.4-46.3) fL RDW Coeff of Fito 12.2 (11.5-14.5) % Plt Count 186 (130-400) K/uL MPV 10.6 H (7.4-10.4) fL Immature Gran % (Auto) 0.3 % Neut % (Auto) 84.4 % Lymph % (Auto) 6.0 % [place] % (Auto) 9.3 % Eos % (Auto) 0.0 % Baso % (Auto) 0.0 % Immature Gran # (Auto) 0.03 H (0.00-0.02) K/uL Neut # (Auto) 9.61 H (1.4-6.5) K/uL Lymph # (Auto) 0.68 L (1.2-3.4) K/uL [place] # (Auto) 1.06 H (0.11-0.59) K/uL Eos # (Auto) 0.00 (0-0.5) K/uL Baso # (Auto) 0.00 (0-0.2) K/uL Toxic Vacuolation Occasional Echinocytes 3+ PT (9.0-12.0) Seconds INR (0.9-1.1) APTT (21.0-31.0) Seconds PTT Ratio VBG pH (7.36-7.41) VBG pCO2 (38-50) mmHg VBG pO2 mmHg VBG HCO3 mmol/L VBG O2 Saturation % VBG Base Excess mEq/L Barometric Pressure mm/Hg Sodium 103 L* (136-145) mmol/L Potassium 2.5 L* (3.5-5.1) mmol/L Chloride 67 L (98-107) mmol/L Carbon Dioxide 19 L (21-32) mmol/L Anion Gap 17.0 H (3-11) BUN 2 L (7-18) mg/dl Creatinine 0.48 L (0.6-1.4) mg/dl POC Creatinine (0.6-1.3) mg/dl Est Cr Clr Drug Dosing 232.3 ml/min Est GFR ( Amer) > 150.0 Est GFR (Non-Af Amer) 147.9 BUN/Creatinine Ratio 3.6 L (10-20) Glucose 108 H (70-99) mg/dl POC Glucose 125 H (70-99) mg/dl Osmolality (280-300) mOsm/kg Lactate (0.4-2.0) mmol/L Calcium 8.2 L (8.5-10.1) mg/dl Phosphorus 2.6 (2.5-4.9) mg/dl Magnesium 1.9 (1.8-2.4) mg/dl Total Bilirubin (0.2-1) mg/dl AST (15-37) U/L ALT (12-78) U/L Alkaline Phosphatase (45-117) U/L Troponin I (0-0.045) ng/ml Total Protein (6.4-8.2) gm/dl Albumin (3.4-5.0) gm/dl Globulin (2.5-4.0) gm/dl Albumin/Globulin Ratio (0.9-2) Procalcitonin (0-0.5) ng/ml Urine Color Urine Appearance (Clear) Urine pH (4.5-7.5) Ur Specific [place] (1.000-1.030) Urine Protein (Negative) Urine Glucose (UA) (Negative) Urine Ketones (Negative) Urine Blood (Negative) Urine Nitrite (Negative) Urine Bilirubin (Negative) Urine Urobilinogen (Negative) Ur Leukocyte Esterase (Negative) Nasal Screen MRSA (PCR) (Negative) Urine Opiates Screen (Neg) Ur Methadone, Qual (Neg) Urine Barbiturates (Neg) Ur Phencyclidine (PCP) (Neg) U Amphetamin/Meth Scrn (Neg) MDMA (Ecstasy) Screen (Neg) U Benzodiazepines Scrn (Neg) Ur Cocaine Metabolite (Neg) U Marijuana (THC) Screen (Neg) Ethyl Alcohol mg/dL (0-3) mg/dl Influenza Type A (PCR) (Neg) Influenza Type B (PCR) (Neg) Blood Type Antibody Screen 11/27/19 11/27/19 11/27/19 Range/Units 02:16 02:16 01:50 WBC 13.71 H (4.8-10.8) K/uL RBC 3.98 L (4.7-6.1) M/uL Hgb 12.4 L (14.0-18.0) g/dL Hct 31.5 L (42-52) % MCV 79.1 L (80-100) fL MCH 31.2 (25-34) pg MCHC 39.4 H (32-36) g/dL RDW Std Deviation 35.5 L (36.4-46.3) fL RDW Coeff of Fito 12.2 (11.5-14.5) % Plt Count 194 (130-400) K/uL MPV 10.5 H (7.4-10.4) fL Immature Gran % (Auto) 0.1 % Neut % (Auto) 87.8 % Lymph % (Auto) 7.5 % [place] % (Auto) 4.6 % Eos % (Auto) 0.0 % Baso % (Auto) 0.0 % Immature Gran # (Auto) 0.02 (0.00-0.02) K/uL Neut # (Auto) 12.03 H (1.4-6.5) K/uL Lymph # (Auto) 1.03 L (1.2-3.4) K/uL [place] # (Auto) 0.63 H (0.11-0.59) K/uL Eos # (Auto) 0.00 (0-0.5) K/uL Baso # (Auto) 0.00 (0-0.2) K/uL Toxic Vacuolation Echinocytes 2+ PT (9.0-12.0) Seconds INR (0.9-1.1) APTT (21.0-31.0) Seconds PTT Ratio VBG pH (7.36-7.41) VBG pCO2 (38-50) mmHg VBG pO2 mmHg VBG HCO3 mmol/L VBG O2 Saturation % VBG Base Excess mEq/L Barometric Pressure mm/Hg Sodium 102 L* (136-145) mmol/L Potassium 2.6 L (3.5-5.1) mmol/L Chloride 67 L (98-107) mmol/L Carbon Dioxide 19 L (21-32) mmol/L Anion Gap 16.0 H (3-11) BUN 2 L (7-18) mg/dl Creatinine 0.46 L (0.6-1.4) mg/dl POC Creatinine (0.6-1.3) mg/dl Est Cr Clr Drug Dosing 242.5 ml/min Est GFR ( Amer) > 150.0 Est GFR (Non-Af Amer) > 150.0 BUN/Creatinine Ratio 4.6 L (10-20) Glucose 120 H (70-99) mg/dl POC Glucose (70-99) mg/dl Osmolality (280-300) mOsm/kg Lactate (0.4-2.0) mmol/L Calcium 7.9 L (8.5-10.1) mg/dl Phosphorus (2.5-4.9) mg/dl Magnesium (1.8-2.4) mg/dl Total Bilirubin (0.2-1) mg/dl AST (15-37) U/L ALT (12-78) U/L Alkaline Phosphatase (45-117) U/L Troponin I (0-0.045) ng/ml Total Protein (6.4-8.2) gm/dl Albumin (3.4-5.0) gm/dl Globulin (2.5-4.0) gm/dl Albumin/Globulin Ratio (0.9-2) Procalcitonin (0-0.5) ng/ml Urine Color Urine Appearance (Clear) Urine pH (4.5-7.5) Ur Specific [place] (1.000-1.030) Urine Protein (Negative) Urine Glucose (UA) (Negative) Urine Ketones (Negative) Urine Blood (Negative) Urine Nitrite (Negative) Urine Bilirubin (Negative) Urine Urobilinogen (Negative) Ur Leukocyte Esterase (Negative) Nasal Screen MRSA (PCR) Negative (Negative) Urine Opiates Screen (Neg) Ur Methadone, Qual (Neg) Urine Barbiturates (Neg) Ur Phencyclidine (PCP) (Neg) U Amphetamin/Meth Scrn (Neg) MDMA (Ecstasy) Screen (Neg) U Benzodiazepines Scrn (Neg) Ur Cocaine Metabolite (Neg) U Marijuana (THC) Screen (Neg) Ethyl Alcohol mg/dL (0-3) mg/dl Influenza Type A (PCR) (Neg) Influenza Type B (PCR) (Neg) Blood Type Antibody Screen 11/27/19 11/27/19 11/26/19 Range/Units 00:07 00:03 23:59 WBC (4.8-10.8) K/uL RBC (4.7-6.1) M/uL Hgb (14.0-18.0) g/dL Hct (42-52) % MCV (80-100) fL MCH (25-34) pg MCHC (32-36) g/dL RDW Std Deviation (36.4-46.3) fL RDW Coeff of Fito (11.5-14.5) % Plt Count (130-400) K/uL MPV (7.4-10.4) fL Immature Gran % (Auto) % Neut % (Auto) % Lymph % (Auto) % [place] % (Auto) % Eos % (Auto) % Baso % (Auto) % Immature Gran # (Auto) (0.00-0.02) K/uL Neut # (Auto) (1.4-6.5) K/uL Lymph # (Auto) (1.2-3.4) K/uL [place] # (Auto) (0.11-0.59) K/uL Eos # (Auto) (0-0.5) K/uL Baso # (Auto) (0-0.2) K/uL Toxic Vacuolation Echinocytes PT (9.0-12.0) Seconds INR (0.9-1.1) APTT (21.0-31.0) Seconds PTT Ratio VBG pH (7.36-7.41) VBG pCO2 (38-50) mmHg VBG pO2 mmHg VBG HCO3 mmol/L VBG O2 Saturation % VBG Base Excess mEq/L Barometric Pressure mm/Hg Sodium 100 L* (136-145) mmol/L Potassium 2.7 L (3.5-5.1) mmol/L Chloride 64 L (98-107) mmol/L Carbon Dioxide 19 L (21-32) mmol/L Anion Gap 16.0 H (3-11) BUN 2 L (7-18) mg/dl Creatinine 0.56 L D (0.6-1.4) mg/dl POC Creatinine (0.6-1.3) mg/dl Est Cr Clr Drug Dosing 211.4 ml/min Est GFR ( Amer) > 150.0 Est GFR (Non-Af Amer) 138.8 BUN/Creatinine Ratio 3.8 L (10-20) Glucose 121 H (70-99) mg/dl POC Glucose (70-99) mg/dl Osmolality (280-300) mOsm/kg Lactate 3.1 H* (0.4-2.0) mmol/L Calcium 8.0 L (8.5-10.1) mg/dl Phosphorus (2.5-4.9) mg/dl Magnesium (1.8-2.4) mg/dl Total Bilirubin (0.2-1) mg/dl AST (15-37) U/L ALT (12-78) U/L Alkaline Phosphatase (45-117) U/L Troponin I (0-0.045) ng/ml Total Protein (6.4-8.2) gm/dl Albumin (3.4-5.0) gm/dl Globulin (2.5-4.0) gm/dl Albumin/Globulin Ratio (0.9-2) Procalcitonin (0-0.5) ng/ml Urine Color Urine Appearance (Clear) Urine pH (4.5-7.5) Ur Specific [place] (1.000-1.030) Urine Protein (Negative) Urine Glucose (UA) (Negative) Urine Ketones (Negative) Urine Blood (Negative) Urine Nitrite (Negative) Urine Bilirubin (Negative) Urine Urobilinogen (Negative) Ur Leukocyte Esterase (Negative) Nasal Screen MRSA (PCR) (Negative) Urine Opiates Screen (Neg) Ur Methadone, Qual (Neg) Urine Barbiturates (Neg) Ur Phencyclidine (PCP) (Neg) U Amphetamin/Meth Scrn (Neg) MDMA (Ecstasy) Screen (Neg) U Benzodiazepines Scrn (Neg) Ur Cocaine Metabolite (Neg) U Marijuana (THC) Screen (Neg) Ethyl Alcohol mg/dL (0-3) mg/dl Influenza Type A (PCR) Neg for Influ A (Neg) Influenza Type B (PCR) Neg for Influ B (Neg) Blood Type Antibody Screen 11/26/19 11/26/19 11/26/19 Range/Units 23:40 23:40 22:08 WBC (4.8-10.8) K/uL RBC (4.7-6.1) M/uL Hgb (14.0-18.0) g/dL Hct (42-52) % MCV (80-100) fL MCH (25-34) pg MCHC (32-36) g/dL RDW Std Deviation (36.4-46.3) fL RDW Coeff of Fito (11.5-14.5) % Plt Count (130-400) K/uL MPV (7.4-10.4) fL Immature Gran % (Auto) % Neut % (Auto) % Lymph % (Auto) % [place] % (Auto) % Eos % (Auto) % Baso % (Auto) % Immature Gran # (Auto) (0.00-0.02) K/uL Neut # (Auto) (1.4-6.5) K/uL Lymph # (Auto) (1.2-3.4) K/uL [place] # (Auto) (0.11-0.59) K/uL Eos # (Auto) (0-0.5) K/uL Baso # (Auto) (0-0.2) K/uL Toxic Vacuolation Echinocytes PT (9.0-12.0) Seconds INR (0.9-1.1) APTT (21.0-31.0) Seconds PTT Ratio VBG pH (7.36-7.41) VBG pCO2 (38-50) mmHg VBG pO2 mmHg VBG HCO3 mmol/L VBG O2 Saturation % VBG Base Excess mEq/L Barometric Pressure mm/Hg Sodium (136-145) mmol/L Potassium (3.5-5.1) mmol/L Chloride (98-107) mmol/L Carbon Dioxide (21-32) mmol/L Anion Gap (3-11) BUN (7-18) mg/dl Creatinine (0.6-1.4) mg/dl POC Creatinine 0.4 L (0.6-1.3) mg/dl Est Cr Clr Drug Dosing ml/min Est GFR ( Amer) Est GFR (Non-Af Amer) BUN/Creatinine Ratio (10-20) Glucose (70-99) mg/dl POC Glucose (70-99) mg/dl Osmolality (280-300) mOsm/kg Lactate (0.4-2.0) mmol/L Calcium (8.5-10.1) mg/dl Phosphorus (2.5-4.9) mg/dl Magnesium (1.8-2.4) mg/dl Total Bilirubin (0.2-1) mg/dl AST (15-37) U/L ALT (12-78) U/L Alkaline Phosphatase (45-117) U/L Troponin I (0-0.045) ng/ml Total Protein (6.4-8.2) gm/dl Albumin (3.4-5.0) gm/dl Globulin (2.5-4.0) gm/dl Albumin/Globulin Ratio (0.9-2) Procalcitonin (0-0.5) ng/ml Urine Color Yellow Urine Appearance Clear (Clear) Urine pH 5.0 (4.5-7.5) Ur Specific [place] 1.012 (1.000-1.030) Urine Protein Negative (Negative) Urine Glucose (UA) 1+ H (Negative) Urine Ketones 1+ H (Negative) Urine Blood Negative (Negative) Urine Nitrite Negative (Negative) Urine Bilirubin Negative (Negative) Urine Urobilinogen Negative (Negative) Ur Leukocyte Esterase Negative (Negative) Nasal Screen MRSA (PCR) (Negative) Urine Opiates Screen Neg (Neg) Ur Methadone, Qual Neg (Neg) Urine Barbiturates Neg (Neg) Ur Phencyclidine (PCP) Neg (Neg) U Amphetamin/Meth Scrn Neg (Neg) MDMA (Ecstasy) Screen Neg (Neg) U Benzodiazepines Scrn Neg (Neg) Ur Cocaine Metabolite Neg (Neg) U Marijuana (THC) Screen Neg (Neg) Ethyl Alcohol mg/dL (0-3) mg/dl Influenza Type A (PCR) (Neg) Influenza Type B (PCR) (Neg) Blood Type Antibody Screen 11/26/19 11/26/19 11/26/19 Range/Units 22:00 21:59 21:59 WBC (4.8-10.8) K/uL RBC (4.7-6.1) M/uL Hgb (14.0-18.0) g/dL Hct (42-52) % MCV (80-100) fL MCH (25-34) pg MCHC (32-36) g/dL RDW Std Deviation (36.4-46.3) fL RDW Coeff of Fito (11.5-14.5) % Plt Count (130-400) K/uL MPV (7.4-10.4) fL Immature Gran % (Auto) % Neut % (Auto) % Lymph % (Auto) % [place] % (Auto) % Eos % (Auto) % Baso % (Auto) % Immature Gran # (Auto) (0.00-0.02) K/uL Neut # (Auto) (1.4-6.5) K/uL Lymph # (Auto) (1.2-3.4) K/uL [place] # (Auto) (0.11-0.59) K/uL Eos # (Auto) (0-0.5) K/uL Baso # (Auto) (0-0.2) K/uL Toxic Vacuolation Echinocytes PT (9.0-12.0) Seconds INR (0.9-1.1) APTT (21.0-31.0) Seconds PTT Ratio VBG pH (7.36-7.41) VBG pCO2 (38-50) mmHg VBG pO2 mmHg VBG HCO3 mmol/L VBG O2 Saturation % VBG Base Excess mEq/L Barometric Pressure mm/Hg Sodium (136-145) mmol/L Potassium (3.5-5.1) mmol/L Chloride (98-107) mmol/L Carbon Dioxide (21-32) mmol/L Anion Gap (3-11) BUN (7-18) mg/dl Creatinine (0.6-1.4) mg/dl POC Creatinine (0.6-1.3) mg/dl Est Cr Clr Drug Dosing ml/min Est GFR ( Amer) Est GFR (Non-Af Amer) BUN/Creatinine Ratio (10-20) Glucose (70-99) mg/dl POC Glucose 184 H (70-99) mg/dl Osmolality 206 L* (280-300) mOsm/kg Lactate (0.4-2.0) mmol/L Calcium (8.5-10.1) mg/dl Phosphorus (2.5-4.9) mg/dl Magnesium (1.8-2.4) mg/dl Total Bilirubin (0.2-1) mg/dl AST (15-37) U/L ALT (12-78) U/L Alkaline Phosphatase (45-117) U/L Troponin I (0-0.045) ng/ml Total Protein (6.4-8.2) gm/dl Albumin (3.4-5.0) gm/dl Globulin (2.5-4.0) gm/dl Albumin/Globulin Ratio (0.9-2) Procalcitonin < 0.05 (0-0.5) ng/ml Urine Color Urine Appearance (Clear) Urine pH (4.5-7.5) Ur Specific [place] (1.000-1.030) Urine Protein (Negative) Urine Glucose (UA) (Negative) Urine Ketones (Negative) Urine Blood (Negative) Urine Nitrite (Negative) Urine Bilirubin (Negative) Urine Urobilinogen (Negative) Ur Leukocyte Esterase (Negative) Nasal Screen MRSA (PCR) (Negative) Urine Opiates Screen (Neg) Ur Methadone, Qual (Neg) Urine Barbiturates (Neg) Ur Phencyclidine (PCP) (Neg) U Amphetamin/Meth Scrn (Neg) MDMA (Ecstasy) Screen (Neg) U Benzodiazepines Scrn (Neg) Ur Cocaine Metabolite (Neg) U Marijuana (THC) Screen (Neg) Ethyl Alcohol mg/dL (0-3) mg/dl Influenza Type A (PCR) (Neg) Influenza Type B (PCR) (Neg) Blood Type Antibody Screen 11/26/19 11/26/19 11/26/19 Range/Units 21:59 21:59 21:59 WBC (4.8-10.8) K/uL RBC (4.7-6.1) M/uL Hgb (14.0-18.0) g/dL Hct (42-52) % MCV (80-100) fL MCH (25-34) pg MCHC (32-36) g/dL RDW Std Deviation (36.4-46.3) fL RDW Coeff of Fito (11.5-14.5) % Plt Count (130-400) K/uL MPV (7.4-10.4) fL Immature Gran % (Auto) % Neut % (Auto) % Lymph % (Auto) % [place] % (Auto) % Eos % (Auto) % Baso % (Auto) % Immature Gran # (Auto) (0.00-0.02) K/uL Neut # (Auto) (1.4-6.5) K/uL Lymph # (Auto) (1.2-3.4) K/uL [place] # (Auto) (0.11-0.59) K/uL Eos # (Auto) (0-0.5) K/uL Baso # (Auto) (0-0.2) K/uL Toxic Vacuolation Echinocytes PT (9.0-12.0) Seconds INR (0.9-1.1) APTT (21.0-31.0) Seconds PTT Ratio VBG pH (7.36-7.41) VBG pCO2 (38-50) mmHg VBG pO2 mmHg VBG HCO3 mmol/L VBG O2 Saturation % VBG Base Excess mEq/L Barometric Pressure mm/Hg Sodium 97 L* (136-145) mmol/L Potassium 2.5 L* (3.5-5.1) mmol/L Chloride 61 L (98-107) mmol/L Carbon Dioxide 11 L (21-32) mmol/L Anion Gap 25.0 H (3-11) BUN 3 L (7-18) mg/dl Creatinine 0.98 (0.6-1.4) mg/dl POC Creatinine (0.6-1.3) mg/dl Est Cr Clr Drug Dosing 120.8 ml/min Est GFR ( Amer) 119.4 Est GFR (Non-Af Amer) 103.0 BUN/Creatinine Ratio 3.3 L (10-20) Glucose 156 H (70-99) mg/dl POC Glucose (70-99) mg/dl Osmolality (280-300) mOsm/kg Lactate 13.0 H* (0.4-2.0) mmol/L Calcium 8.0 L (8.5-10.1) mg/dl Phosphorus 1.9 L (2.5-4.9) mg/dl Magnesium 1.5 L (1.8-2.4) mg/dl Total Bilirubin 2.1 H (0.2-1) mg/dl AST 20 (15-37) U/L ALT 16 (12-78) U/L Alkaline Phosphatase 70 (45-117) U/L Troponin I < 0.015 (0-0.045) ng/ml Total Protein 7.5 (6.4-8.2) gm/dl Albumin 4.5 (3.4-5.0) gm/dl Globulin 3.0 (2.5-4.0) gm/dl Albumin/Globulin Ratio 1.5 (0.9-2) Procalcitonin (0-0.5) ng/ml Urine Color Urine Appearance (Clear) Urine pH (4.5-7.5) Ur Specific [place] (1.000-1.030) Urine Protein (Negative) Urine Glucose (UA) (Negative) Urine Ketones (Negative) Urine Blood (Negative) Urine Nitrite (Negative) Urine Bilirubin (Negative) Urine Urobilinogen (Negative) Ur Leukocyte Esterase (Negative) Nasal Screen MRSA (PCR) (Negative) Urine Opiates Screen (Neg) Ur Methadone, Qual (Neg) Urine Barbiturates (Neg) Ur Phencyclidine (PCP) (Neg) U Amphetamin/Meth Scrn (Neg) MDMA (Ecstasy) Screen (Neg) U Benzodiazepines Scrn (Neg) Ur Cocaine Metabolite (Neg) U Marijuana (THC) Screen (Neg) Ethyl Alcohol mg/dL < 3.0 (0-3) mg/dl Influenza Type A (PCR) (Neg) Influenza Type B (PCR) (Neg) Blood Type Antibody Screen 11/26/19 11/26/19 11/26/19 Range/Units 21:59 21:59 21:59 WBC 10.84 H (4.8-10.8) K/uL RBC 4.02 L (4.7-6.1) M/uL Hgb 12.5 L (14.0-18.0) g/dL Hct 33.0 L (42-52) % MCV 82.1 (80-100) fL MCH 31.1 (25-34) pg MCHC 37.9 H (32-36) g/dL RDW Std Deviation 36.4 (36.4-46.3) fL RDW Coeff of Fito 12.1 (11.5-14.5) % Plt Count 223 (130-400) K/uL MPV 10.5 H (7.4-10.4) fL Immature Gran % (Auto) 0.2 % Neut % (Auto) 81.8 % Lymph % (Auto) 8.1 % [place] % (Auto) 9.9 % Eos % (Auto) 0.0 % Baso % (Auto) 0.0 % Immature Gran # (Auto) 0.02 (0.00-0.02) K/uL Neut # (Auto) 8.78 H (1.4-6.5) K/uL Lymph # (Auto) 0.87 L (1.2-3.4) K/uL [place] # (Auto) 1.06 H (0.11-0.59) K/uL Eos # (Auto) 0.00 (0-0.5) K/uL Baso # (Auto) 0.00 (0-0.2) K/uL Toxic Vacuolation Echinocytes 3+ PT 11.4 (9.0-12.0) Seconds INR 1.1 (0.9-1.1) APTT 32.1 H (21.0-31.0) Seconds PTT Ratio 1.2 VBG pH (7.36-7.41) VBG pCO2 (38-50) mmHg VBG pO2 mmHg VBG HCO3 mmol/L VBG O2 Saturation % VBG Base Excess mEq/L Barometric Pressure mm/Hg Sodium (136-145) mmol/L Potassium (3.5-5.1) mmol/L Chloride (98-107) mmol/L Carbon Dioxide (21-32) mmol/L Anion Gap (3-11) BUN (7-18) mg/dl Creatinine (0.6-1.4) mg/dl POC Creatinine (0.6-1.3) mg/dl Est Cr Clr Drug Dosing ml/min Est GFR ( Amer) Est GFR (Non-Af Amer) BUN/Creatinine Ratio (10-20) Glucose (70-99) mg/dl POC Glucose (70-99) mg/dl Osmolality (280-300) mOsm/kg Lactate (0.4-2.0) mmol/L Calcium (8.5-10.1) mg/dl Phosphorus (2.5-4.9) mg/dl Magnesium (1.8-2.4) mg/dl Total Bilirubin (0.2-1) mg/dl AST (15-37) U/L ALT (12-78) U/L Alkaline Phosphatase (45-117) U/L Troponin I (0-0.045) ng/ml Total Protein (6.4-8.2) gm/dl Albumin (3.4-5.0) gm/dl Globulin (2.5-4.0) gm/dl Albumin/Globulin Ratio (0.9-2) Procalcitonin (0-0.5) ng/ml Urine Color Urine Appearance (Clear) Urine pH (4.5-7.5) Ur Specific [place] (1.000-1.030) Urine Protein (Negative) Urine Glucose (UA) (Negative) Urine Ketones (Negative) Urine Blood (Negative) Urine Nitrite (Negative) Urine Bilirubin (Negative) Urine Urobilinogen (Negative) Ur Leukocyte Esterase (Negative) Nasal Screen MRSA (PCR) (Negative) Urine Opiates Screen (Neg) Ur Methadone, Qual (Neg) Urine Barbiturates (Neg) Ur Phencyclidine (PCP) (Neg) U Amphetamin/Meth Scrn (Neg) MDMA (Ecstasy) Screen (Neg) U Benzodiazepines Scrn (Neg) Ur Cocaine Metabolite (Neg) U Marijuana (THC) Screen (Neg) Ethyl Alcohol mg/dL (0-3) mg/dl Influenza Type A (PCR) (Neg) Influenza Type B (PCR) (Neg) Blood Type A Positive Antibody Screen NEGATIVE
[2019-11-27 10:14] LABS: Albumin Level 4.1 gm/dl (3.4-5.0); Phosphorus 2.7 mg/dl (2.5-4.9)
--- NOTE | 2019-11-27 10:24 | Nephrology Consultation ---
Date of Consultation November 27, 2019 Assessment & Plan (1) DVT prophylaxis: Russell Was admitted with altered mental status, seizure in the setting of acute severe hyponatremia. Serum sodium initially was 97 which rapidly improved to 1 0 5/8 hours after receiving 1 L of IV normal saline. Urine osmolality was low and had more than 6 L urine output so far. Potassium has been low as well. Hyponatremia most likely secondary to psychogenic polydipsia with history of excessive fluid intake, extremely low urine osmolality. --monitor serum sodium every 2 hours, goal Sodium up to 107 in next 12 hours. Although there is concern for ROLL TENDER changes including osmotic demyelination with rapid correction of sodium however the risk of osmotic demyelination may not be as high as previously thought and may be safe to increase sodium to a safer level in case of acute hyponatremia. --would recommend to discontinue scheduled Desmopressin and use only as needed in case of rapid correction of sodium which is a possibility as patient has not been drinking as much as he used to at home because of change in mental status --replace potassium will follow Thank you for allowing me to participate in your patient's care. (2) Altered mental status: (3) Hypokalemia: (4) Psychogenic polydipsia: History of Present Illness Reason for Consultation: Acute hyponatremia and hypokalemia. Attending Physician: Dimitri Irving History of Present Illness Russell Whalen is a 29 year old male with past medical history significant for repeated episode of hyponatremia, body dysmorphic disorder and autism spectrum disorder admitted to hospital with altered mental status in the setting of severe acute hyponatremia. Nephrology consult was requested for further management of hyponatremia and hypokalemia. Electronic medical records including labs and imaging are reviewed in detail during patient's visit. Russell was brought to emergency room by EMS last night after his brother found him unresponsive at home. He also had an episode of witnessed seizure en route to the hospital and Ativan 2 mg was given. There has been reports of patient being C before few days prior to arrival with having cough and had 1 episode of vomiting prior to arrival. On admission was found to have acute hyponatremia, initial sodium was 97, potassium was 2.5. Urine osmolality was 50. Was also found to have bladder distension. Renal function was normal with creatinine around 0.5 to 0.6 He received 1 L of IV normal saline and sodium rapidly improved to 105 over 8 hours. He also had it diuresis with 6 L of urine output since arrival. Had history of recurrent episode of hyponatremia before and serum sodium lowest previously was 123. Was also found to have rectal prolapse. He was on multiple antipsychotic medications before however recently he was only on fluoxetine 30 mg daily. Blood pressure has been stable, currently he is awake, however did not communicate well or answer any question. Allergies Allergy/AdvReac Type Severity Reaction Status Date / Time No Known Allergies Allergy Verified 07/30/19 19:25 Home Medications Home Medications Medication Instructions Recorded Confirmed Type fluoxetine 30 mg PO QAM #90 cap 07/22/19 07/30/19 Rx Patient History Medical History Anxiety (Acute) Autism spectrum disorder Body dysmorphic disorder Delusional disorder (Chronic 04/30/13) Depression (Acute) DVT prophylaxis Hyponatremia (Acute) Hyponatremia (Acute) OCD (obsessive compulsive disorder) Psychogenic polydipsia (Acute) Family History Other No significant family history Denies family history of Myocardial infarction Stroke Social History Preferred Language: Lithuanian Communication Ability: Effective Management Architect Required: No Beliefs That Will Affect Care: None marital status: Single Current Living Situation: Parent Current Living Situation Comment: [facility]. going to [facility] eventually, wants admitted to mental health unit current occupational status: unemployed Other Information That Helps Us Care for You: No Feels Safe at Home: Yes Safety Concerns: Feels Safe At This Time Smoking Status: Never smoker Second Hand Exposure: No ; Hx Alcohol Use: No Hx Substance Use: No Review of Systems Review of Systems: Unobtainable due to cognitive status Physical Exam Constitutional: + ill appearing and + lethargic; no acute distress Eyes: PERRL, conjunctivae normal, anicteric sclerae ENMT: external ear and nose normal, oropharynx normal Ears: no hearing impairment Neck: trachea midline Respiratory: normal respiratory effort, lungs clear to auscultation no cough Auscultation: no crackles, no rales and no wheezes Cardiovascular: RRR, no murmur, no edema Gastrointestinal (Abdomen): normal bowel sounds, soft, nontender, no hepatosplenomegaly Percussion/Palpation: abdomen nontender, no guarding and abdomen not rigid Musculoskeletal: Extremities: extremities normal to inspection Gait: normal gait Skin: no rashes, warm and dry Neurologic: Awake, seems lethargy and did not communicate. Psychiatric: A+Ox3, euthymic affect Results & Data Vital Signs (Past 12 Hours) Vital Signs Temp Pulse Pulse Resp BP BP Pulse Ox 11/27/19 07:00 85 16 114/60 97 11/27/19 06:00 84 26 H 123/60 100 11/27/19 05:00 73 20 113/55 L 100 11/27/19 04:10 36.6 C 75 18 100/50 L 100 11/27/19 03:00 72 12 112/54 L 99 11/27/19 02:10 91 H 24 134/75 99 11/27/19 01:49 90 11/27/19 01:15 36.3 C L 90 28 H 134/78 98 11/27/19 01:10 36.3 C L 90 28 H 98 11/27/19 00:45 89 19 126/72 100 11/27/19 00:30 36.5 C 93 H 21 138/76 99 11/27/19 00:15 89 19 133/78 100 11/27/19 00:00 88 21 130/77 100 11/26/19 23:45 88 25 H 131/77 100 11/26/19 23:30 93 H 25 H 135/78 100 11/26/19 23:15 85 23 117/81 100 11/26/19 23:01 93 H 17 129/84 100 11/26/19 23:00 89 19 100 11/26/19 22:56 92 H 22 100 11/26/19 22:33 76 20 100 11/26/19 22:30 79 21 134/70 100 11/26/19 22:27 78 24 84 L 11/26/19 22:26 84 16 136/73 100 11/26/19 22:20 76 23 127/67 100 11/26/19 22:15 81 21 134/83 100 PG Care Time/CCT Total # of Minutes Spent Total Time Spent with Patient: Total time spent is greater than 50% in coordination of care (as documented) at patient's floor/unit and/or counseling patient: Coding Level of Care Code 14034 Inpt Consult Level 5 Diagnoses DVT prophylaxis Z29.9 Altered mental status R40.0 Altered mental status type: somnolence Hypokalemia E87.6 Psychogenic polydipsia R63.1; F54 (1) Altered mental status Altered mental status type: somnolence Qualified Code(s): R40.0 - Somnolence
--- NOTE | 2019-11-27 11:19 | Hospitalist Progress Note ---
Date of Service November 27, 2019 Assessment & Plan (1) Hyponatremia: Russell Whalen is a 29y/o M with PMH significant for OCD, body dysmorphic disorder, psychogenic polydipsia, autism spectrum disorder, hypernatremia with hospitalization, depression, and anxiety; who was found unresponsive by his brother, per EMS patient had an episode of emesis prior to admission and had a seizure episode during transport and was given 2 mg of Ativan. On arrival to the emergency department he was found to be profoundly hyponatremic to a serum sodium of 97, unclear duration. Severe symptomatic hyponatremia2/2 hx psychogenic polydipsia. - Pt ~500cc NSS in ED and rapidly diurested 3L. Estimate 1.9 mmol Na per 1L output for ~6-7Na change. held hypertonic saline tx at that time; NGT decompression of stomach emptied on arrival to ICU, patient vomited approximately 2 L of water - Sodium 97 on admit; serum osm 206, urine osm 50 - Sodium trending up throughout the day, 107 at last checked - Seizure x1 prior to admit treated with lorazepam in route to emergency department - Target sodium change less than equal to 810 mEQ 24-hour, BMP every 2 hour and adjust hypertonic saline 3% as needed - Nephrology consulted: monitor serum sodium every 2 hours, goal Sodium up to 107 in next 12 hours; discontinue scheduled Desmopressin and use only as needed in case of rapid correction of sodium History of intellectual disability with OCD/anxiety/body dysmorphic disorder: - on no medications in the last year. Previously on fluoxetine 20 mg nightly, Abilify, and Lorazepam 0.5 mg daily - On previous admissions patient was not able to capably show understanding of his ongoing medical issues - would benefit form psychiatric evaluation and follow-up once clinically stable Rectal Prolapse: - Edematous, reduced spontaneously in ICU - GI consulted: DVT prophylaxis: Heparin 5000 twice daily Diet: N.p.o. CODE STATUS: Full code Disposition: ICU (2) Psychogenic polydipsia: (3) Autism spectrum disorder: (4) OCD (obsessive compulsive disorder): (5) Body dysmorphic disorder: (6) Anxiety: (7) Depression: Admission and Anticipated Discharge Date Admission Date: November 27, 2019 Supervising Physician Co-Signing Physician Notes Resident Physician Supervision Note: I was present with Dr. Prabhjot Bloom during the history and exam. I discussed the case with the resident and agree with the findings and plan as documented in the note. Any exceptions or clarifications are listed here: none. 29yo male with extensive psych history (OCD, autism, etc) and psychogenic polydipsia who presented with severe, symptomatic hyponatremia (lethargy, seizure, etc). Critically low Na of 97 at presentation. During bedside rounds was awake but confused and could not offer meaningful history/ROS. exam - gen - NAD, awake but confused mouth - MMM, tongue bite [place] heart - RRR, s1 s2 lungs - CTA b/l abd - soft NT ext - no edema skin - erythematous rash on back; severely dry hands, with cuts/chafing Na now low 100s K 2.8 A/P: 1. severe, symptomatic hyponatremia 2nd to psychogenic polydipsia; defer management to critical care team & nephrology. Agree with no more than 8-10 meq of correction over 24 hours. 2. severe hypokalemia - improving; critical care team replacing 3. severe lactic acidosis - improved 4. seizure - 2nd to #1 - no recurrent seizure events 5. metabolic encephalopathy - 2nd to #1 - improved, but ongoing 6. autism, OCD, etc 7. rash on back - monitor for now; etiology uncertain Documented By: Dimitri Irving MD Subjective Patient remains acutely unaware of situation that led up to waking up in the hospital; this morning ackowledges that he has had this problem in the past but states that this hasn't been a problem in years and he has been doing well lately Review of Systems Review of Systems: Unobtainable due to cognitive status Physical Exam Constitutional: + well hydrated, + thin, + altered mental status, + behavioral limitations and + physical limitations Eyes: PERRL, conjunctivae normal, anicteric sclerae ENMT: external ear and nose normal, oropharynx normal Respiratory: normal respiratory effort, lungs clear to auscultation Cardiovascular: Rate/Rhythm: regular rate and regular rhythm Heart Sounds: normal S1 and normal S2; no gallop, no murmur and no cardiac rub Vessels: no JVD Gastrointestinal (Abdomen): normal bowel sounds, soft, nontender, no hepatosplenomegaly Inspection/Auscultation: abdomen not distended Percussion/Palpation: no guarding Neurologic: CN's II-XI intact bilaterally and moves all extremities; no focal motor deficits Motor/Sensory: no tremor Psychiatric: Orientation: alert, oriented to person and cooperative; + not oriented to place and + not oriented to time Apperance: + disheveled Affect: + depressed affect Mood: + depressed mood Results & Data ([facility]) Vital Signs (Past 12 Hours) Vital Signs Temp Pulse Pulse Resp BP BP Pulse Ox 11/27/19 10:01 72 13 11/27/19 10:00 73 12 100/48 L 11/27/19 09:01 84 23 11/27/19 09:00 83 16 104/50 L 11/27/19 08:07 36.8 C 87 29 H 127/65 99 11/27/19 07:00 84 85 22 114/60 114/60 100 11/27/19 06:00 84 26 H 123/60 100 11/27/19 05:00 73 20 113/55 L 100 11/27/19 04:10 36.6 C 75 18 100/50 L 100 11/27/19 03:00 72 12 112/54 L 99 11/27/19 02:10 91 H 24 134/75 99 11/27/19 01:49 90 11/27/19 01:15 36.3 C L 90 28 H 134/78 98 11/27/19 01:10 36.3 C L 90 28 H 98 11/27/19 00:45 89 19 126/72 100 11/27/19 00:30 36.5 C 93 H 21 138/76 99 11/27/19 00:15 89 19 133/78 100 11/27/19 00:00 88 21 130/77 100 11/26/19 23:45 88 25 H 131/77 100 11/26/19 23:30 93 H 25 H 135/78 100 Laboratory Results 11/27/19 11/27/19 11/27/19 Range/Units 07:01 07:01 04:13 WBC (4.8-10.8) K/uL RBC (4.7-6.1) M/uL Hgb (14.0-18.0) g/dL Hct (42-52) % MCV (80-100) fL MCH (25-34) pg MCHC (32-36) g/dL RDW Std Deviation (36.4-46.3) fL RDW Coeff of Fito (11.5-14.5) % Plt Count (130-400) K/uL MPV (7.4-10.4) fL Immature Gran % (Auto) % Neut % (Auto) % Lymph % (Auto) % [place] % (Auto) % Eos % (Auto) % Baso % (Auto) % Immature Gran # (Auto) (0.00-0.02) K/uL Neut # (Auto) (1.4-6.5) K/uL Lymph # (Auto) (1.2-3.4) K/uL [place] # (Auto) (0.11-0.59) K/uL Eos # (Auto) (0-0.5) K/uL Baso # (Auto) (0-0.2) K/uL Toxic Vacuolation Echinocytes PT (9.0-12.0) Seconds INR (0.9-1.1) APTT (21.0-31.0) Seconds PTT Ratio VBG pH 7.48 H (7.36-7.41) VBG pCO2 28 L (38-50) mmHg VBG pO2 49 mmHg VBG HCO3 20 mmol/L VBG O2 Saturation 85.1 % VBG Base Excess -2.5 mEq/L Barometric Pressure 736.6 mm/Hg Sodium Cancelled 105 L* (136-145) mmol/L Potassium Cancelled 2.8 L (3.5-5.1) mmol/L Chloride Cancelled 69 L (98-107) mmol/L Carbon Dioxide Cancelled 19 L (21-32) mmol/L Anion Gap Cancelled 17.0 H (3-11) BUN Cancelled 2 L (7-18) mg/dl Creatinine Cancelled 0.47 L (0.6-1.4) mg/dl POC Creatinine (0.6-1.3) mg/dl Est Cr Clr Drug Dosing Cancelled 237.3 ml/min Est GFR ( Amer) Cancelled > 150.0 Est GFR (Non-Af Amer) Cancelled 149.2 BUN/Creatinine Ratio Cancelled 3.6 L (10-20) Glucose Cancelled 85 (70-99) mg/dl POC Glucose (70-99) mg/dl Osmolality (280-300) mOsm/kg Lactate (0.4-2.0) mmol/L Calcium Cancelled 8.6 (8.5-10.1) mg/dl Phosphorus Cancelled 2.7 (2.5-4.9) mg/dl Magnesium (1.8-2.4) mg/dl Total Bilirubin (0.2-1) mg/dl AST (15-37) U/L ALT (12-78) U/L Alkaline Phosphatase (45-117) U/L Troponin I (0-0.045) ng/ml Total Protein (6.4-8.2) gm/dl Albumin Cancelled 4.1 (3.4-5.0) gm/dl Globulin (2.5-4.0) gm/dl Albumin/Globulin Ratio (0.9-2) Procalcitonin (0-0.5) ng/ml Urine Color Urine Appearance (Clear) Urine pH (4.5-7.5) Ur Specific [place] (1.000-1.030) Urine Protein (Negative) Urine Glucose (UA) (Negative) Urine Ketones (Negative) Urine Blood (Negative) Urine Nitrite (Negative) Urine Bilirubin (Negative) Urine Urobilinogen (Negative) Ur Leukocyte Esterase (Negative) Nasal Screen MRSA (PCR) (Negative) Urine Opiates Screen (Neg) Ur Methadone, Qual (Neg) Urine Barbiturates (Neg) Ur Phencyclidine (PCP) (Neg) U Amphetamin/Meth Scrn (Neg) MDMA (Ecstasy) Screen (Neg) U Benzodiazepines Scrn (Neg) Ur Cocaine Metabolite (Neg) U Marijuana (THC) Screen (Neg) Ethyl Alcohol mg/dL (0-3) mg/dl Influenza Type A (PCR) (Neg) Influenza Type B (PCR) (Neg) Blood Type Antibody Screen 11/27/19 11/27/19 11/27/19 Range/Units 04:13 04:13 04:13 WBC 11.38 H (4.8-10.8) K/uL RBC 3.88 L (4.7-6.1) M/uL Hgb 12.2 L (14.0-18.0) g/dL Hct 30.9 L (42-52) % MCV 79.6 L (80-100) fL MCH 31.4 (25-34) pg MCHC 39.5 H (32-36) g/dL RDW Std Deviation 35.2 L (36.4-46.3) fL RDW Coeff of Fito 12.2 (11.5-14.5) % Plt Count 186 (130-400) K/uL MPV 10.6 H (7.4-10.4) fL Immature Gran % (Auto) 0.3 % Neut % (Auto) 84.4 % Lymph % (Auto) 6.0 % [place] % (Auto) 9.3 % Eos % (Auto) 0.0 % Baso % (Auto) 0.0 % Immature Gran # (Auto) 0.03 H (0.00-0.02) K/uL Neut # (Auto) 9.61 H (1.4-6.5) K/uL Lymph # (Auto) 0.68 L (1.2-3.4) K/uL [place] # (Auto) 1.06 H (0.11-0.59) K/uL Eos # (Auto) 0.00 (0-0.5) K/uL Baso # (Auto) 0.00 (0-0.2) K/uL Toxic Vacuolation Occasional Echinocytes 3+ PT (9.0-12.0) Seconds INR (0.9-1.1) APTT (21.0-31.0) Seconds PTT Ratio VBG pH (7.36-7.41) VBG pCO2 (38-50) mmHg VBG pO2 mmHg VBG HCO3 mmol/L VBG O2 Saturation % VBG Base Excess mEq/L Barometric Pressure mm/Hg Sodium 103 L* (136-145) mmol/L Potassium 2.5 L* (3.5-5.1) mmol/L Chloride 67 L (98-107) mmol/L Carbon Dioxide 19 L (21-32) mmol/L Anion Gap 17.0 H (3-11) BUN 2 L (7-18) mg/dl Creatinine 0.48 L (0.6-1.4) mg/dl POC Creatinine (0.6-1.3) mg/dl Est Cr Clr Drug Dosing 232.3 ml/min Est GFR ( Amer) > 150.0 Est GFR (Non-Af Amer) 147.9 BUN/Creatinine Ratio 3.6 L (10-20) Glucose 108 H (70-99) mg/dl POC Glucose (70-99) mg/dl Osmolality (280-300) mOsm/kg Lactate 1.1 (0.4-2.0) mmol/L Calcium 8.2 L (8.5-10.1) mg/dl Phosphorus 2.6 (2.5-4.9) mg/dl Magnesium 1.9 (1.8-2.4) mg/dl Total Bilirubin (0.2-1) mg/dl AST (15-37) U/L ALT (12-78) U/L Alkaline Phosphatase (45-117) U/L Troponin I (0-0.045) ng/ml Total Protein (6.4-8.2) gm/dl Albumin (3.4-5.0) gm/dl Globulin (2.5-4.0) gm/dl Albumin/Globulin Ratio (0.9-2) Procalcitonin (0-0.5) ng/ml Urine Color Urine Appearance (Clear) Urine pH (4.5-7.5) Ur Specific [place] (1.000-1.030) Urine Protein (Negative) Urine Glucose (UA) (Negative) Urine Ketones (Negative) Urine Blood (Negative) Urine Nitrite (Negative) Urine Bilirubin (Negative) Urine Urobilinogen (Negative) Ur Leukocyte Esterase (Negative) Nasal Screen MRSA (PCR) (Negative) Urine Opiates Screen (Neg) Ur Methadone, Qual (Neg) Urine Barbiturates (Neg) Ur Phencyclidine (PCP) (Neg) U Amphetamin/Meth Scrn (Neg) MDMA (Ecstasy) Screen (Neg) U Benzodiazepines Scrn (Neg) Ur Cocaine Metabolite (Neg) U Marijuana (THC) Screen (Neg) Ethyl Alcohol mg/dL (0-3) mg/dl Influenza Type A (PCR) (Neg) Influenza Type B (PCR) (Neg) Blood Type Antibody Screen 11/27/19 11/27/19 11/27/19 Range/Units 02:45 02:16 02:16 WBC 13.71 H (4.8-10.8) K/uL RBC 3.98 L (4.7-6.1) M/uL Hgb 12.4 L (14.0-18.0) g/dL Hct 31.5 L (42-52) % MCV 79.1 L (80-100) fL MCH 31.2 (25-34) pg MCHC 39.4 H (32-36) g/dL RDW Std Deviation 35.5 L (36.4-46.3) fL RDW Coeff of Fito 12.2 (11.5-14.5) % Plt Count 194 (130-400) K/uL MPV 10.5 H (7.4-10.4) fL Immature Gran % (Auto) 0.1 % Neut % (Auto) 87.8 % Lymph % (Auto) 7.5 % [place] % (Auto) 4.6 % Eos % (Auto) 0.0 % Baso % (Auto) 0.0 % Immature Gran # (Auto) 0.02 (0.00-0.02) K/uL Neut # (Auto) 12.03 H (1.4-6.5) K/uL Lymph # (Auto) 1.03 L (1.2-3.4) K/uL [place] # (Auto) 0.63 H (0.11-0.59) K/uL Eos # (Auto) 0.00 (0-0.5) K/uL Baso # (Auto) 0.00 (0-0.2) K/uL Toxic Vacuolation Echinocytes 2+ PT (9.0-12.0) Seconds INR (0.9-1.1) APTT (21.0-31.0) Seconds PTT Ratio VBG pH (7.36-7.41) VBG pCO2 (38-50) mmHg VBG pO2 mmHg VBG HCO3 mmol/L VBG O2 Saturation % VBG Base Excess mEq/L Barometric Pressure mm/Hg Sodium 102 L* (136-145) mmol/L Potassium 2.6 L (3.5-5.1) mmol/L Chloride 67 L (98-107) mmol/L Carbon Dioxide 19 L (21-32) mmol/L Anion Gap 16.0 H (3-11) BUN 2 L (7-18) mg/dl Creatinine 0.46 L (0.6-1.4) mg/dl POC Creatinine (0.6-1.3) mg/dl Est Cr Clr Drug Dosing 242.5 ml/min Est GFR ( Amer) > 150.0 Est GFR (Non-Af Amer) > 150.0 BUN/Creatinine Ratio 4.6 L (10-20) Glucose 120 H (70-99) mg/dl POC Glucose 125 H (70-99) mg/dl Osmolality (280-300) mOsm/kg Lactate (0.4-2.0) mmol/L Calcium 7.9 L (8.5-10.1) mg/dl Phosphorus (2.5-4.9) mg/dl Magnesium (1.8-2.4) mg/dl Total Bilirubin (0.2-1) mg/dl AST (15-37) U/L ALT (12-78) U/L Alkaline Phosphatase (45-117) U/L Troponin I (0-0.045) ng/ml Total Protein (6.4-8.2) gm/dl Albumin (3.4-5.0) gm/dl Globulin (2.5-4.0) gm/dl Albumin/Globulin Ratio (0.9-2) Procalcitonin (0-0.5) ng/ml Urine Color Urine Appearance (Clear) Urine pH (4.5-7.5) Ur Specific [place] (1.000-1.030) Urine Protein (Negative) Urine Glucose (UA) (Negative) Urine Ketones (Negative) Urine Blood (Negative) Urine Nitrite (Negative) Urine Bilirubin (Negative) Urine Urobilinogen (Negative) Ur Leukocyte Esterase (Negative) Nasal Screen MRSA (PCR) (Negative) Urine Opiates Screen (Neg) Ur Methadone, Qual (Neg) Urine Barbiturates (Neg) Ur Phencyclidine (PCP) (Neg) U Amphetamin/Meth Scrn (Neg) MDMA (Ecstasy) Screen (Neg) U Benzodiazepines Scrn (Neg) Ur Cocaine Metabolite (Neg) U Marijuana (THC) Screen (Neg) Ethyl Alcohol mg/dL (0-3) mg/dl Influenza Type A (PCR) (Neg) Influenza Type B (PCR) (Neg) Blood Type Antibody Screen 11/27/19 11/27/19 11/27/19 Range/Units 01:50 00:07 00:03 WBC (4.8-10.8) K/uL RBC (4.7-6.1) M/uL Hgb (14.0-18.0) g/dL Hct (42-52) % MCV (80-100) fL MCH (25-34) pg MCHC (32-36) g/dL RDW Std Deviation (36.4-46.3) fL RDW Coeff of Fito (11.5-14.5) % Plt Count (130-400) K/uL MPV (7.4-10.4) fL Immature Gran % (Auto) % Neut % (Auto) % Lymph % (Auto) % [place] % (Auto) % Eos % (Auto) % Baso % (Auto) % Immature Gran # (Auto) (0.00-0.02) K/uL Neut # (Auto) (1.4-6.5) K/uL Lymph # (Auto) (1.2-3.4) K/uL [place] # (Auto) (0.11-0.59) K/uL Eos # (Auto) (0-0.5) K/uL Baso # (Auto) (0-0.2) K/uL Toxic Vacuolation Echinocytes PT (9.0-12.0) Seconds INR (0.9-1.1) APTT (21.0-31.0) Seconds PTT Ratio VBG pH (7.36-7.41) VBG pCO2 (38-50) mmHg VBG pO2 mmHg VBG HCO3 mmol/L VBG O2 Saturation % VBG Base Excess mEq/L Barometric Pressure mm/Hg Sodium 100 L* (136-145) mmol/L Potassium 2.7 L (3.5-5.1) mmol/L Chloride 64 L (98-107) mmol/L Carbon Dioxide 19 L (21-32) mmol/L Anion Gap 16.0 H (3-11) BUN 2 L (7-18) mg/dl Creatinine 0.56 L D (0.6-1.4) mg/dl POC Creatinine (0.6-1.3) mg/dl Est Cr Clr Drug Dosing 211.4 ml/min Est GFR ( Amer) > 150.0 Est GFR (Non-Af Amer) 138.8 BUN/Creatinine Ratio 3.8 L (10-20) Glucose 121 H (70-99) mg/dl POC Glucose (70-99) mg/dl Osmolality (280-300) mOsm/kg Lactate 3.1 H* (0.4-2.0) mmol/L Calcium 8.0 L (8.5-10.1) mg/dl Phosphorus (2.5-4.9) mg/dl Magnesium (1.8-2.4) mg/dl Total Bilirubin (0.2-1) mg/dl AST (15-37) U/L ALT (12-78) U/L Alkaline Phosphatase (45-117) U/L Troponin I (0-0.045) ng/ml Total Protein (6.4-8.2) gm/dl Albumin (3.4-5.0) gm/dl Globulin (2.5-4.0) gm/dl Albumin/Globulin Ratio (0.9-2) Procalcitonin (0-0.5) ng/ml Urine Color Urine Appearance (Clear) Urine pH (4.5-7.5) Ur Specific [place] (1.000-1.030) Urine Protein (Negative) Urine Glucose (UA) (Negative) Urine Ketones (Negative) Urine Blood (Negative) Urine Nitrite (Negative) Urine Bilirubin (Negative) Urine Urobilinogen (Negative) Ur Leukocyte Esterase (Negative) Nasal Screen MRSA (PCR) Negative (Negative) Urine Opiates Screen (Neg) Ur Methadone, Qual (Neg) Urine Barbiturates (Neg) Ur Phencyclidine (PCP) (Neg) U Amphetamin/Meth Scrn (Neg) MDMA (Ecstasy) Screen (Neg) U Benzodiazepines Scrn (Neg) Ur Cocaine Metabolite (Neg) U Marijuana (THC) Screen (Neg) Ethyl Alcohol mg/dL (0-3) mg/dl Influenza Type A (PCR) (Neg) Influenza Type B (PCR) (Neg) Blood Type Antibody Screen 11/26/19 11/26/19 11/26/19 Range/Units 23:59 23:40 23:40 WBC (4.8-10.8) K/uL RBC (4.7-6.1) M/uL Hgb (14.0-18.0) g/dL Hct (42-52) % MCV (80-100) fL MCH (25-34) pg MCHC (32-36) g/dL RDW Std Deviation (36.4-46.3) fL RDW Coeff of Fito (11.5-14.5) % Plt Count (130-400) K/uL MPV (7.4-10.4) fL Immature Gran % (Auto) % Neut % (Auto) % Lymph % (Auto) % [place] % (Auto) % Eos % (Auto) % Baso % (Auto) % Immature Gran # (Auto) (0.00-0.02) K/uL Neut # (Auto) (1.4-6.5) K/uL Lymph # (Auto) (1.2-3.4) K/uL [place] # (Auto) (0.11-0.59) K/uL Eos # (Auto) (0-0.5) K/uL Baso # (Auto) (0-0.2) K/uL Toxic Vacuolation Echinocytes PT (9.0-12.0) Seconds INR (0.9-1.1) APTT (21.0-31.0) Seconds PTT Ratio VBG pH (7.36-7.41) VBG pCO2 (38-50) mmHg VBG pO2 mmHg VBG HCO3 mmol/L VBG O2 Saturation % VBG Base Excess mEq/L Barometric Pressure mm/Hg Sodium (136-145) mmol/L Potassium (3.5-5.1) mmol/L Chloride (98-107) mmol/L Carbon Dioxide (21-32) mmol/L Anion Gap (3-11) BUN (7-18) mg/dl Creatinine (0.6-1.4) mg/dl POC Creatinine (0.6-1.3) mg/dl Est Cr Clr Drug Dosing ml/min Est GFR ( Amer) Est GFR (Non-Af Amer) BUN/Creatinine Ratio (10-20) Glucose (70-99) mg/dl POC Glucose (70-99) mg/dl Osmolality (280-300) mOsm/kg Lactate (0.4-2.0) mmol/L Calcium (8.5-10.1) mg/dl Phosphorus (2.5-4.9) mg/dl Magnesium (1.8-2.4) mg/dl Total Bilirubin (0.2-1) mg/dl AST (15-37) U/L ALT (12-78) U/L Alkaline Phosphatase (45-117) U/L Troponin I (0-0.045) ng/ml Total Protein (6.4-8.2) gm/dl Albumin (3.4-5.0) gm/dl Globulin (2.5-4.0) gm/dl Albumin/Globulin Ratio (0.9-2) Procalcitonin (0-0.5) ng/ml Urine Color Yellow Urine Appearance Clear (Clear) Urine pH 5.0 (4.5-7.5) Ur Specific [place] 1.012 (1.000-1.030) Urine Protein Negative (Negative) Urine Glucose (UA) 1+ H (Negative) Urine Ketones 1+ H (Negative) Urine Blood Negative (Negative) Urine Nitrite Negative (Negative) Urine Bilirubin Negative (Negative) Urine Urobilinogen Negative (Negative) Ur Leukocyte Esterase Negative (Negative) Nasal Screen MRSA (PCR) (Negative) Urine Opiates Screen Neg (Neg) Ur Methadone, Qual Neg (Neg) Urine Barbiturates Neg (Neg) Ur Phencyclidine (PCP) Neg (Neg) U Amphetamin/Meth Scrn Neg (Neg) MDMA (Ecstasy) Screen Neg (Neg) U Benzodiazepines Scrn Neg (Neg) Ur Cocaine Metabolite Neg (Neg) U Marijuana (THC) Screen Neg (Neg) Ethyl Alcohol mg/dL (0-3) mg/dl Influenza Type A (PCR) Neg for Influ A (Neg) Influenza Type B (PCR) Neg for Influ B (Neg) Blood Type Antibody Screen 11/26/19 11/26/19 11/26/19 Range/Units 22:08 22:00 21:59 WBC (4.8-10.8) K/uL RBC (4.7-6.1) M/uL Hgb (14.0-18.0) g/dL Hct (42-52) % MCV (80-100) fL MCH (25-34) pg MCHC (32-36) g/dL RDW Std Deviation (36.4-46.3) fL RDW Coeff of Fito (11.5-14.5) % Plt Count (130-400) K/uL MPV (7.4-10.4) fL Immature Gran % (Auto) % Neut % (Auto) % Lymph % (Auto) % [place] % (Auto) % Eos % (Auto) % Baso % (Auto) % Immature Gran # (Auto) (0.00-0.02) K/uL Neut # (Auto) (1.4-6.5) K/uL Lymph # (Auto) (1.2-3.4) K/uL [place] # (Auto) (0.11-0.59) K/uL Eos # (Auto) (0-0.5) K/uL Baso # (Auto) (0-0.2) K/uL Toxic Vacuolation Echinocytes PT (9.0-12.0) Seconds INR (0.9-1.1) APTT (21.0-31.0) Seconds PTT Ratio VBG pH (7.36-7.41) VBG pCO2 (38-50) mmHg VBG pO2 mmHg VBG HCO3 mmol/L VBG O2 Saturation % VBG Base Excess mEq/L Barometric Pressure mm/Hg Sodium (136-145) mmol/L Potassium (3.5-5.1) mmol/L Chloride (98-107) mmol/L Carbon Dioxide (21-32) mmol/L Anion Gap (3-11) BUN (7-18) mg/dl Creatinine (0.6-1.4) mg/dl POC Creatinine 0.4 L (0.6-1.3) mg/dl Est Cr Clr Drug Dosing ml/min Est GFR ( Amer) Est GFR (Non-Af Amer) BUN/Creatinine Ratio (10-20) Glucose (70-99) mg/dl POC Glucose 184 H (70-99) mg/dl Osmolality 206 L* (280-300) mOsm/kg Lactate (0.4-2.0) mmol/L Calcium (8.5-10.1) mg/dl Phosphorus (2.5-4.9) mg/dl Magnesium (1.8-2.4) mg/dl Total Bilirubin (0.2-1) mg/dl AST (15-37) U/L ALT (12-78) U/L Alkaline Phosphatase (45-117) U/L Troponin I (0-0.045) ng/ml Total Protein (6.4-8.2) gm/dl Albumin (3.4-5.0) gm/dl Globulin (2.5-4.0) gm/dl Albumin/Globulin Ratio (0.9-2) Procalcitonin (0-0.5) ng/ml Urine Color Urine Appearance (Clear) Urine pH (4.5-7.5) Ur Specific [place] (1.000-1.030) Urine Protein (Negative) Urine Glucose (UA) (Negative) Urine Ketones (Negative) Urine Blood (Negative) Urine Nitrite (Negative) Urine Bilirubin (Negative) Urine Urobilinogen (Negative) Ur Leukocyte Esterase (Negative) Nasal Screen MRSA (PCR) (Negative) Urine Opiates Screen (Neg) Ur Methadone, Qual (Neg) Urine Barbiturates (Neg) Ur Phencyclidine (PCP) (Neg) U Amphetamin/Meth Scrn (Neg) MDMA (Ecstasy) Screen (Neg) U Benzodiazepines Scrn (Neg) Ur Cocaine Metabolite (Neg) U Marijuana (THC) Screen (Neg) Ethyl Alcohol mg/dL (0-3) mg/dl Influenza Type A (PCR) (Neg) Influenza Type B (PCR) (Neg) Blood Type Antibody Screen 11/26/19 11/26/19 11/26/19 Range/Units 21:59 21:59 21:59 WBC (4.8-10.8) K/uL RBC (4.7-6.1) M/uL Hgb (14.0-18.0) g/dL Hct (42-52) % MCV (80-100) fL MCH (25-34) pg MCHC (32-36) g/dL RDW Std Deviation (36.4-46.3) fL RDW Coeff of Fito (11.5-14.5) % Plt Count (130-400) K/uL MPV (7.4-10.4) fL Immature Gran % (Auto) % Neut % (Auto) % Lymph % (Auto) % [place] % (Auto) % Eos % (Auto) % Baso % (Auto) % Immature Gran # (Auto) (0.00-0.02) K/uL Neut # (Auto) (1.4-6.5) K/uL Lymph # (Auto) (1.2-3.4) K/uL [place] # (Auto) (0.11-0.59) K/uL Eos # (Auto) (0-0.5) K/uL Baso # (Auto) (0-0.2) K/uL Toxic Vacuolation Echinocytes PT (9.0-12.0) Seconds INR (0.9-1.1) APTT (21.0-31.0) Seconds PTT Ratio VBG pH (7.36-7.41) VBG pCO2 (38-50) mmHg VBG pO2 mmHg VBG HCO3 mmol/L VBG O2 Saturation % VBG Base Excess mEq/L Barometric Pressure mm/Hg Sodium (136-145) mmol/L Potassium (3.5-5.1) mmol/L Chloride (98-107) mmol/L Carbon Dioxide (21-32) mmol/L Anion Gap (3-11) BUN (7-18) mg/dl Creatinine (0.6-1.4) mg/dl POC Creatinine (0.6-1.3) mg/dl Est Cr Clr Drug Dosing ml/min Est GFR ( Amer) Est GFR (Non-Af Amer) BUN/Creatinine Ratio (10-20) Glucose (70-99) mg/dl POC Glucose (70-99) mg/dl Osmolality (280-300) mOsm/kg Lactate 13.0 H* (0.4-2.0) mmol/L Calcium (8.5-10.1) mg/dl Phosphorus (2.5-4.9) mg/dl Magnesium (1.8-2.4) mg/dl Total Bilirubin (0.2-1) mg/dl AST (15-37) U/L ALT (12-78) U/L Alkaline Phosphatase (45-117) U/L Troponin I (0-0.045) ng/ml Total Protein (6.4-8.2) gm/dl Albumin (3.4-5.0) gm/dl Globulin (2.5-4.0) gm/dl Albumin/Globulin Ratio (0.9-2) Procalcitonin < 0.05 (0-0.5) ng/ml Urine Color Urine Appearance (Clear) Urine pH (4.5-7.5) Ur Specific [place] (1.000-1.030) Urine Protein (Negative) Urine Glucose (UA) (Negative) Urine Ketones (Negative) Urine Blood (Negative) Urine Nitrite (Negative) Urine Bilirubin (Negative) Urine Urobilinogen (Negative) Ur Leukocyte Esterase (Negative) Nasal Screen MRSA (PCR) (Negative) Urine Opiates Screen (Neg) Ur Methadone, Qual (Neg) Urine Barbiturates (Neg) Ur Phencyclidine (PCP) (Neg) U Amphetamin/Meth Scrn (Neg) MDMA (Ecstasy) Screen (Neg) U Benzodiazepines Scrn (Neg) Ur Cocaine Metabolite (Neg) U Marijuana (THC) Screen (Neg) Ethyl Alcohol mg/dL < 3.0 (0-3) mg/dl Influenza Type A (PCR) (Neg) Influenza Type B (PCR) (Neg) Blood Type Antibody Screen 11/26/19 11/26/19 11/26/19 Range/Units 21:59 21:59 21:59 WBC 10.84 H (4.8-10.8) K/uL RBC 4.02 L (4.7-6.1) M/uL Hgb 12.5 L (14.0-18.0) g/dL Hct 33.0 L (42-52) % MCV 82.1 (80-100) fL MCH 31.1 (25-34) pg MCHC 37.9 H (32-36) g/dL RDW Std Deviation 36.4 (36.4-46.3) fL RDW Coeff of Fito 12.1 (11.5-14.5) % Plt Count 223 (130-400) K/uL MPV 10.5 H (7.4-10.4) fL Immature Gran % (Auto) 0.2 % Neut % (Auto) 81.8 % Lymph % (Auto) 8.1 % [place] % (Auto) 9.9 % Eos % (Auto) 0.0 % Baso % (Auto) 0.0 % Immature Gran # (Auto) 0.02 (0.00-0.02) K/uL Neut # (Auto) 8.78 H (1.4-6.5) K/uL Lymph # (Auto) 0.87 L (1.2-3.4) K/uL [place] # (Auto) 1.06 H (0.11-0.59) K/uL Eos # (Auto) 0.00 (0-0.5) K/uL Baso # (Auto) 0.00 (0-0.2) K/uL Toxic Vacuolation Echinocytes 3+ PT 11.4 (9.0-12.0) Seconds INR 1.1 (0.9-1.1) APTT 32.1 H (21.0-31.0) Seconds PTT Ratio 1.2 VBG pH (7.36-7.41) VBG pCO2 (38-50) mmHg VBG pO2 mmHg VBG HCO3 mmol/L VBG O2 Saturation % VBG Base Excess mEq/L Barometric Pressure mm/Hg Sodium 97 L* (136-145) mmol/L Potassium 2.5 L* (3.5-5.1) mmol/L Chloride 61 L (98-107) mmol/L Carbon Dioxide 11 L (21-32) mmol/L Anion Gap 25.0 H (3-11) BUN 3 L (7-18) mg/dl Creatinine 0.98 (0.6-1.4) mg/dl POC Creatinine (0.6-1.3) mg/dl Est Cr Clr Drug Dosing 120.8 ml/min Est GFR ( Amer) 119.4 Est GFR (Non-Af Amer) 103.0 BUN/Creatinine Ratio 3.3 L (10-20) Glucose 156 H (70-99) mg/dl POC Glucose (70-99) mg/dl Osmolality (280-300) mOsm/kg Lactate (0.4-2.0) mmol/L Calcium 8.0 L (8.5-10.1) mg/dl Phosphorus 1.9 L (2.5-4.9) mg/dl Magnesium 1.5 L (1.8-2.4) mg/dl Total Bilirubin 2.1 H (0.2-1) mg/dl AST 20 (15-37) U/L ALT 16 (12-78) U/L Alkaline Phosphatase 70 (45-117) U/L Troponin I < 0.015 (0-0.045) ng/ml Total Protein 7.5 (6.4-8.2) gm/dl Albumin 4.5 (3.4-5.0) gm/dl Globulin 3.0 (2.5-4.0) gm/dl Albumin/Globulin Ratio 1.5 (0.9-2) Procalcitonin (0-0.5) ng/ml Urine Color Urine Appearance (Clear) Urine pH (4.5-7.5) Ur Specific [place] (1.000-1.030) Urine Protein (Negative) Urine Glucose (UA) (Negative) Urine Ketones (Negative) Urine Blood (Negative) Urine Nitrite (Negative) Urine Bilirubin (Negative) Urine Urobilinogen (Negative) Ur Leukocyte Esterase (Negative) Nasal Screen MRSA (PCR) (Negative) Urine Opiates Screen (Neg) Ur Methadone, Qual (Neg) Urine Barbiturates (Neg) Ur Phencyclidine (PCP) (Neg) U Amphetamin/Meth Scrn (Neg) MDMA (Ecstasy) Screen (Neg) U Benzodiazepines Scrn (Neg) Ur Cocaine Metabolite (Neg) U Marijuana (THC) Screen (Neg) Ethyl Alcohol mg/dL (0-3) mg/dl Influenza Type A (PCR) (Neg) Influenza Type B (PCR) (Neg) Blood Type Antibody Screen 11/26/19 Range/Units 21:59 WBC (4.8-10.8) K/uL RBC (4.7-6.1) M/uL Hgb (14.0-18.0) g/dL Hct (42-52) % MCV (80-100) fL MCH (25-34) pg MCHC (32-36) g/dL RDW Std Deviation (36.4-46.3) fL RDW Coeff of Fito (11.5-14.5) % Plt Count (130-400) K/uL MPV (7.4-10.4) fL Immature Gran % (Auto) % Neut % (Auto) % Lymph % (Auto) % [place] % (Auto) % Eos % (Auto) % Baso % (Auto) % Immature Gran # (Auto) (0.00-0.02) K/uL Neut # (Auto) (1.4-6.5) K/uL Lymph # (Auto) (1.2-3.4) K/uL [place] # (Auto) (0.11-0.59) K/uL Eos # (Auto) (0-0.5) K/uL Baso # (Auto) (0-0.2) K/uL Toxic Vacuolation Echinocytes PT (9.0-12.0) Seconds INR (0.9-1.1) APTT (21.0-31.0) Seconds PTT Ratio VBG pH (7.36-7.41) VBG pCO2 (38-50) mmHg VBG pO2 mmHg VBG HCO3 mmol/L VBG O2 Saturation % VBG Base Excess mEq/L Barometric Pressure mm/Hg Sodium (136-145) mmol/L Potassium (3.5-5.1) mmol/L Chloride (98-107) mmol/L Carbon Dioxide (21-32) mmol/L Anion Gap (3-11) BUN (7-18) mg/dl Creatinine (0.6-1.4) mg/dl POC Creatinine (0.6-1.3) mg/dl Est Cr Clr Drug Dosing ml/min Est GFR ( Amer) Est GFR (Non-Af Amer) BUN/Creatinine Ratio (10-20) Glucose (70-99) mg/dl POC Glucose (70-99) mg/dl Osmolality (280-300) mOsm/kg Lactate (0.4-2.0) mmol/L Calcium (8.5-10.1) mg/dl Phosphorus (2.5-4.9) mg/dl Magnesium (1.8-2.4) mg/dl Total Bilirubin (0.2-1) mg/dl AST (15-37) U/L ALT (12-78) U/L Alkaline Phosphatase (45-117) U/L Troponin I (0-0.045) ng/ml Total Protein (6.4-8.2) gm/dl Albumin (3.4-5.0) gm/dl Globulin (2.5-4.0) gm/dl Albumin/Globulin Ratio (0.9-2) Procalcitonin (0-0.5) ng/ml Urine Color Urine Appearance (Clear) Urine pH (4.5-7.5) Ur Specific [place] (1.000-1.030) Urine Protein (Negative) Urine Glucose (UA) (Negative) Urine Ketones (Negative) Urine Blood (Negative) Urine Nitrite (Negative) Urine Bilirubin (Negative) Urine Urobilinogen (Negative) Ur Leukocyte Esterase (Negative) Nasal Screen MRSA (PCR) (Negative) Urine Opiates Screen (Neg) Ur Methadone, Qual (Neg) Urine Barbiturates (Neg) Ur Phencyclidine (PCP) (Neg) U Amphetamin/Meth Scrn (Neg) MDMA (Ecstasy) Screen (Neg) U Benzodiazepines Scrn (Neg) Ur Cocaine Metabolite (Neg) U Marijuana (THC) Screen (Neg) Ethyl Alcohol mg/dL (0-3) mg/dl Influenza Type A (PCR) (Neg) Influenza Type B (PCR) (Neg) Blood Type A Positive Antibody Screen NEGATIVE Medications Administered Current Inpatient Medications Heparin Sodium (Porcine) (Heparin Sodium (Porcine)) 5,000 units SQ Q12 MICHAEL Stop: 12/27/19 08:59 Last Admin: 11/27/19 07:56 Dose: 5,000 units Documented by: Potassium Chloride (K Lee / Wtr) 10 meq in 100 mls @ 100 mls/hr IV Q1H MICHAEL Stop: 11/27/19 12:59 Last Admin: 11/27/19 11:06 Dose: 75 mls/hr Documented by: Ioversol (Optiray 320 100ml) 90 ml IV ONCE PRN PRN Reason: Interaction Checking Stop: 11/30/19 22:48 Last Admin: 11/26/19 22:49 Dose: 90 ml Documented by: Miscellaneous (Icu Protocol For Hyperglycemia) 1 ea N/A PRN PRN; Protocol PRN Reason: Hyperglycemia Protocol Stop: 11/29/19 01:48 Resident Activity Tracking Resident Involvement: Resident Care Provided Care Provided: Adult Hospital Medicine (1) Depression Depression Type: unspecified Qualified Code(s): F32.9 - Major depressive diso rder, single episode, unspecified
[2019-11-27 11:21] LABS: iSTAT Arterial Blood Gas HCO3 11 meg/L (19-24); iSTAT Arterial Blood Gas pCO2 24 mmHg (35-46); iSTAT Arterial Blood Gas pH 7.27 (7.35-7.45); iSTAT Arterial Blood Gas pO2 307 mmHg (80-95); iSTAT Carbon Dioxide 12 mmol/L (24-31); iSTAT Sample Type Arterial
[2019-11-27 13:14] LABS: BUN Creatinine Ratio 2.1 (10-20); Blood Urea Nitrogen 1 mg/dl (7-18); Calcium 8.6 mg/dl (8.5-10.1); Carbon Dioxide 19 mmol/L (21-32); Chloride 72 mmol/L (98-107); Creatinine Clr Calc Pharmacy 218.7 ml/min; Est GFR (African American) > 150.0; Est GFR (Non-African American) 144.2; Glucose 66 mg/dl (70-99); Phosphorus 2.4 mg/dl (2.5-4.9); Sodium 106 mmol/L (136-145)
[2019-11-27 16:19] LABS: Blood Urea Nitrogen < 1 mg/dl (7-18); Calcium 8.2 mg/dl (8.5-10.1); Carbon Dioxide 18 mmol/L (21-32); Chloride 75 mmol/L (98-107); Creatinine Clr Calc Pharmacy 218.7 ml/min; Est GFR (African American) > 150.0; Est GFR (Non-African American) 144.2; Glucose 66 mg/dl (70-99); Potassium 3.2 mmol/L (3.5-5.1); Sodium 107 mmol/L (136-145)
--- NOTE | 2019-11-27 19:49 | Billing Data ---
Date of Service November 27, 2019 Coding Level of Care Code 19329 Subseq Hosp Care Lvl 2
[2019-11-27 21:34] LABS: Blood Urea Nitrogen 1 mg/dl (7-18); Calcium 8.4 mg/dl (8.5-10.1); Carbon Dioxide 19 mmol/L (21-32); Chloride 80 mmol/L (98-107); Creatinine Clr Calc Pharmacy 179.9 ml/min; Est GFR (African American) > 150.0; Est GFR (Non-African American) 133.1; Glucose 65 mg/dl (70-99); Potassium 3.1 mmol/L (3.5-5.1); Sodium 110 mmol/L (136-145)
[2019-11-27] MEDS ORDERED: DESMOPRESSIN ACETATE 1 MCG in SODIUM CHLORIDE 0.9% 50 ML IV ONE (22:00)
[2019-11-27] MEDS ORDERED: GLUCOSE 40% GEL 15 GM TUBE PO PRN (22:31)
[2019-11-27] MEDS ORDERED: GLUCOSE 10 TABS/TUBE PO PRN (22:31)
[2019-11-27] MEDS ORDERED: CARBOHYDRATES FOR HYPOGLYCEMIA PO PRN (22:31)
[2019-11-27] MEDS ORDERED: GLUCAGON FOR INJ 1 MG VIAL SQ PRN (22:31)
[2019-11-27] MEDS ORDERED: DEXTROSE 50% 50 ML SYRINGE IV PRN (22:31)
--- NOTE | 2019-11-28 00:44 | Billing Data ---
Date of Service November 28, 2019 Coding Level of Care Code Critical Care 1st - mins
[2019-11-28 00:47] LABS: BUN Creatinine Ratio 3.8 (10-20); Blood Urea Nitrogen 3 mg/dl (7-18); Calcium 8.6 mg/dl (8.5-10.1); Carbon Dioxide 18 mmol/L (21-32); Chloride 83 mmol/L (98-107); Est GFR (African American) > 150.0; Est GFR (Non-African American) 129.7; Glucose 62 mg/dl (70-99); Potassium 3.4 mmol/L (3.5-5.1); Sodium 114 mmol/L (136-145)
[2019-11-28] MEDS ORDERED: DEXTROSE 5% 250 ML IV STA ×2 (00:50→02:22)
--- NOTE | 2019-11-28 05:57 | Electrocardiogram Report ---
Test Reason : Blood Pressure : / mmHG Vent. Rate : 076 BPM Atrial Rate : 076 BPM P-R Int : 214 ms QRS Dur : 112 ms QT Int : 436 ms P-R-T Axes : 078 058 064 degrees QTc Int : 490 ms Poor data quality, interpretation may be adversely affected Sinus rhythm with 1st degree A-V block Possible Left atrial enlargement Prolonged QT Abnormal ECG When compared with ECG of 19-SEP-2012 07:21, MD interval has increased QRS duration has increased QT has lengthened Confirmed by Brain Dee ([id number]) on 11/28/2019 5:56:42 AM Referred By: REFERRED SELF Confirmed By:Brain Dee
[2019-11-28 05:58] LABS: BUN Creatinine Ratio 3.5 (10-20); Blood Urea Nitrogen 2 mg/dl (7-18); Calcium 8.4 mg/dl (8.5-10.1); Carbon Dioxide 19 mmol/L (21-32); Chloride 82 mmol/L (98-107); Creatinine Clr Calc Pharmacy 174.3 ml/min; Est GFR (African American) > 150.0; Est GFR (Non-African American) 131.4; Glucose 75 mg/dl (70-99); Sodium 113 mmol/L (136-145)
[2019-11-28 06:01] LABS: Potassium 2.8 mmol/L (3.5-5.1)
[2019-11-28] MEDS: POTASSIUM CHLORIDE / WTR 10 MEQ/100 ML PLCT IV SCH ×2 (08:41→11:07)
[2019-11-28] MEDS: HEPARIN SOD 5,000 UNIT/0.5 ML VIAL SQ SCH ×2 (08:42→20:50)
--- NOTE | 2019-11-28 08:44 | Hospitalist Progress Note ---
Date of Service November 28, 2019 Assessment & Plan (1) Hyponatremia: Russell Whalen is a 29y/o M with PMH significant for OCD, body dysmorphic disorder, psychogenic polydipsia, autism spectrum disorder, hypernatremia with hospitalization, depression, and anxiety; who was found unresponsive by his brother, per EMS patient had an episode of emesis prior to admission and had a seizure episode during transport and was given 2 mg of Ativan. On arrival to the emergency department he was found to be profoundly hyponatremic to a serum sodium of 97, unclear duration. Severe symptomatic hyponatremia2/2 hx psychogenic polydipsia. - Pt ~500cc NSS in ED and rapidly diurested 3L. Estimate 1.9 mmol Na per 1L output for ~6-7Na change. held hypertonic saline tx at that time; NGT decompression of stomach emptied on arrival to ICU, patient vomited approximately 2 L of water - Sodium 97 on admit; serum osm 206, urine osm 50 - Sodium 118 at last checked - received 3 doses of DDAVP overnight for slowing of rapid correction - Seizure x1 prior to admit treated with lorazepam in route to emergency department - Target sodium change less than equal to 810 mEQ 24-hour, BMP every 2 hour and adjust hypertonic saline 3% as needed - Nephrology consulted: monitor serum sodium every 2 hours, goal Sodium up to 107 in next 12 hours; discontinue scheduled Desmopressin and use only as needed in case of rapid correction of sodium History of intellectual disability with OCD/anxiety/body dysmorphic disorder: - on no medications in the last year. Previously on fluoxetine 20 mg nightly, Abilify, and Lorazepam 0.5 mg daily - On previous admissions patient was not able to capably show understanding of his ongoing medical issues - would benefit form psychiatric evaluation and follow-up once clinically stable Rectal Prolapse: - reduced spontaneously in ICU - continue to monitor DVT prophylaxis: Heparin 5000 twice daily Diet: N.p.o. CODE STATUS: Full code Admission and Anticipated Discharge Date Admission Date: November 27, 2019 Supervising Physician Co-Signing Physician Notes I personally examined the patient and verified all [place] points of history and exam, discussed case, and agree with decision making with Dr Bloom. Seems to be feeling better. Mental health maintainer central office present and notes that while his speech is still slower than normal and his thought process seems slower he is more of himself than he was. She requests psych and neuro evaluations when he is at his baseline to try to help with services. She also notes that 1 of his coping mechanisms for when he feels stressful is to drink excessively. Patient himself denies drinking a lot for a long time, but whenever I tell him that hypothetically one bad day of drinking several gallons of water could cause this, he notes this could be the case. Vitals noted, in general he is awake and alert pleasant no distress. HEENT normocephalic atraumatic mucous membranes moist. Breathing unlabored no accessory muscle use good effort. Skin shows no rashes no pallor or icterus. No focal neuro deficits. Profound hyponatremia secondary most likely psychogenic polydipsiacontinue slow correction, follow closely. Anxiety with psychogenic polydipsiaas he improves, we will ask psychiatry to help with the management of this, given that it is quite severe and seems to put him at risk for significant problems. Most recently he was apparently on fluoxetine 30 mg daily. Rectal prolapsefortunately seems to have improved. Continue to follow. Otherwise as above. Subjective Patient remains acutely unaware of situation that led up to waking up in the hospital. Overnight received 3 doses of DDAVP for concern of rapid correction of sodium. No seizures overnight. Review of Systems Review of Systems: Unobtainable due to cognitive status Physical Exam Constitutional: + well hydrated, + thin, + altered mental status, + behavioral limitations and + physical limitations Eyes: PERRL, conjunctivae normal, anicteric sclerae ENMT: external ear and nose normal, oropharynx normal Respiratory: normal respiratory effort, lungs clear to auscultation Cardiovascular: Rate/Rhythm: regular rate and regular rhythm Heart Sounds: normal S1 and normal S2; no gallop, no murmur and no cardiac rub Vessels: no JVD Gastrointestinal (Abdomen): normal bowel sounds, soft, nontender, no hepatosplenomegaly Inspection/Auscultation: abdomen not distended Percussion/Palpation: no guarding Neurologic: CN's II-XI intact bilaterally and moves all extremities; no focal motor deficits Motor/Sensory: no tremor Psychiatric: Orientation: alert, oriented to person and cooperative; + not oriented to place and + not oriented to time Apperance: + disheveled Affect: + depressed affect Mood: + depressed mood Results & Data ([facility]) Vital Signs (Past 12 Hours) Vital Signs Temp Pulse Resp BP Pulse Ox 11/28/19 06:00 73 16 105/49 L 97 11/28/19 05:00 62 14 102/55 L 97 11/28/19 04:39 36.9 C 11/28/19 04:00 65 15 116/57 L 98 11/28/19 03:00 72 15 117/57 L 98 11/28/19 02:00 65 16 113/62 97 11/28/19 01:01 66 11 L 96 11/28/19 01:00 68 12 118/57 L 97 11/28/19 00:01 80 22 96 11/28/19 00:00 71 15 102/54 L 97 11/27/19 23:52 36.9 C 76 11/27/19 23:01 84 17 126/38 L 98 11/27/19 22:00 81 18 116/63 97 11/27/19 21:00 78 12 136/71 98 Laboratory Results 11/28/19 11/28/19 11/28/19 Range/Units 12:13 09:21 05:42 Sodium 118 L* 115 L* (136-145) mmol/L Potassium 3.3 L 2.9 L (3.5-5.1) mmol/L Chloride 86 L 83 L (98-107) mmol/L Carbon Dioxide 19 L 19 L (21-32) mmol/L Anion Gap 12.0 H 14.0 H (3-11) BUN 2 L 2 L (7-18) mg/dl Creatinine 0.71 0.68 (0.6-1.4) mg/dl Est Cr Clr Drug Dosing 149.3 155.9 ml/min Est GFR ( Amer) 145.9 148.5 Est GFR (Non-Af Amer) 125.9 128.2 BUN/Creatinine Ratio 2.8 L 2.9 L Glucose 75 70 (70-99) mg/dl POC Glucose 75 (70-99) mg/dl Calcium 9.0 8.8 (8.5-10.1) mg/dl Phosphorus 2.2 L (2.5-4.9) mg/dl Albumin 3.8 (3.4-5.0) gm/dl 11/28/19 11/28/19 11/28/19 Range/Units 04:07 01:20 00:14 Sodium 113 L* 113 L* 114 L* (136-145) mmol/L Potassium 2.8 L D 3.4 L (3.5-5.1) mmol/L Chloride 82 L 83 L (98-107) mmol/L Carbon Dioxide 19 L 18 L (21-32) mmol/L Anion Gap 12.0 H 13.0 H (3-11) BUN 2 L 3 L (7-18) mg/dl Creatinine 0.64 0.66 (0.6-1.4) mg/dl Est Cr Clr Drug Dosing 174.3 169.0 ml/min Est GFR ( Amer) > 150.0 > 150.0 Est GFR (Non-Af Amer) 131.4 129.7 BUN/Creatinine Ratio 3.5 L 3.8 L Glucose 75 62 L (70-99) mg/dl POC Glucose (70-99) mg/dl Calcium 8.4 L 8.6 (8.5-10.1) mg/dl Phosphorus (2.5-4.9) mg/dl Albumin (3.4-5.0) gm/dl 11/27/19 11/27/19 11/27/19 Range/Units 22:57 19:53 18:02 Sodium 110 L* (136-145) mmol/L Potassium 3.1 L (3.5-5.1) mmol/L Chloride 80 L (98-107) mmol/L Carbon Dioxide 19 L (21-32) mmol/L Anion Gap 12.0 H (3-11) BUN 1 L (7-18) mg/dl Creatinine 0.62 (0.6-1.4) mg/dl Est Cr Clr Drug Dosing 179.9 ml/min Est GFR ( Amer) > 150.0 Est GFR (Non-Af Amer) 133.1 BUN/Creatinine Ratio 2.0 L Glucose 65 L (70-99) mg/dl POC Glucose 72 74 (70-99) mg/dl Calcium 8.4 L (8.5-10.1) mg/dl Phosphorus (2.5-4.9) mg/dl Albumin (3.4-5.0) gm/dl 11/27/19 11/27/19 Range/Units 17:56 15:31 Sodium 107 L* (136-145) mmol/L Potassium 3.2 L (3.5-5.1) mmol/L Chloride 75 L (98-107) mmol/L Carbon Dioxide 18 L (21-32) mmol/L Anion Gap 14.0 H (3-11) BUN < 1 L (7-18) mg/dl Creatinine 0.51 L (0.6-1.4) mg/dl Est Cr Clr Drug Dosing 218.7 ml/min Est GFR ( Amer) > 150.0 Est GFR (Non-Af Amer) 144.2 BUN/Creatinine Ratio TNP Glucose 66 L (70-99) mg/dl POC Glucose 69 L* (70-99) mg/dl Calcium 8.2 L (8.5-10.1) mg/dl Phosphorus (2.5-4.9) mg/dl Albumin (3.4-5.0) gm/dl Medications Administered Current Inpatient Medications Dextrose (Dextrose 50%) 25 - 50 ml IV UD PRN; Protocol PRN Reason: Hypoglycemia Protocol Stop: 12/27/19 22:30 Glucagon (Glucagen) 1 mg SQ UD PRN; Protocol PRN Reason: Hypoglycemia Protocol Stop: 12/27/19 22:30 Glucose (Dex4 Glucose) 4 - 8 tabs PO UD PRN; Protocol PRN Reason: Hypoglycemia Protocol Stop: 12/27/19 22:30 Glucose (Glucose 40%) 15 - 30 gm PO UD PRN; Protocol PRN Reason: Hypoglycemia Protocol Stop: 12/27/19 22:30 Heparin Sodium (Porcine) (Heparin Sodium (Porcine)) 5,000 units SQ Q12 MICHAEL Stop: 12/27/19 08:59 Last Admin: 11/28/19 08:42 Dose: 5,000 units Documented by: Ioversol (Optiray 320 100ml) 90 ml IV ONCE PRN PRN Reason: Interaction Checking Stop: 11/30/19 22:48 Last Admin: 11/26/19 22:49 Dose: 90 ml Documented by: Miscellaneous (Icu Protocol For Hyperglycemia) 1 ea N/A PRN PRN; Protocol PRN Reason: Hyperglycemia Protocol Stop: 11/29/19 01:48 Miscellaneous (Carbohydrates For Hypoglycemia) 15 - 30 gm PO UD PRN PRN Reason: Hypoglycemia Protocol Stop: 12/27/19 22:30 Resident Activity Tracking Resident Involvement: Resident Care Provided Care Provided: Adult Hospital Medicine
--- NOTE | 2019-11-28 09:58 | Nephrology Progress Note ---
Date of Service November 28, 2019 Assessment & Plan (1) DVT prophylaxis: Russell Was admitted with altered mental status, seizure in the setting of acute severe hyponatremia. Serum sodium initially was 97 which rapidly improved to 1 0 5/8 hours after receiving 1 L of IV normal saline. Urine osmolality was low and had more than 6 L urine output so far. Potassium has been low as well. Hyponatremia most likely secondary to psychogenic polydipsia with history of excessive fluid intake, extremely low urine osmolality. Na improved and staying around 113 to 114 although UO has been high.K low --avoid D5W or Desmopressin as Na stable without rapid rise despite having high UO, goal to increase close to 120 over next 12 to 24 h --replace potassium will follow (2) Altered mental status: (3) Hypokalemia: (4) Psychogenic polydipsia: Subjective Russell was seen and examined this morning. Awake alert, answered q appropriately. BP stable. UO high, net negative >4 L. Na has been 113-114. K remain low. Review of Systems Review of Systems: All systems reviewed & are unremarkable except as noted in HPI & below Physical Exam Constitutional: WD/WN, vitals as above no acute distress Respiratory: normal respiratory effort, lungs clear to auscultation Cardiovascular: RRR, no murmur, no edema Skin: no rashes, warm and dry Neurologic: awake; not confused Speech / Cognition: normal speech Psychiatric: A+Ox3, euthymic affect Results & Data Vital Signs (Past 12 Hours) Vital Signs Temp Pulse Resp BP Pulse Ox 11/28/19 09:00 67 12 99 11/28/19 08:00 36.7 C 62 6 L 112/58 L 98 11/28/19 07:00 63 12 93/47 L 97 11/28/19 06:00 73 16 105/49 L 97 11/28/19 05:00 62 14 102/55 L 97 11/28/19 04:39 36.9 C 11/28/19 04:00 65 15 116/57 L 98 11/28/19 03:00 72 15 117/57 L 98 11/28/19 02:00 65 16 113/62 97 11/28/19 01:01 66 11 L 96 11/28/19 01:00 68 12 118/57 L 97 02/20/20 00:01 80 22 96 11/28/19 00:00 71 15 102/54 L 97 11/27/19 23:52 36.9 C 76 11/27/19 23:01 84 17 126/38 L 98 11/27/19 22:00 81 18 116/63 97 PG Care Time/CCT Total # of Minutes Spent Total Time Spent with Patient: Total time spent is greater than 50% in coordination of care (as documented) at patient's floor/unit and/or counseling patient: Coding Level of Care Code 79602 Subseq Hosp Care Lvl 3 Diagnoses DVT prophylaxis Z29.9 Altered mental status R40.0 Altered mental status type: somnolence Hypokalemia E87.6 Psychogenic polydipsia R63.1; F54 (1) Altered mental status Altered mental status type: somnolence Qualified Code(s): R40.0 - Somnolence
[2019-11-28 10:52] LABS: BUN Creatinine Ratio 2.9 (10-20); Calcium 8.8 mg/dl (8.5-10.1); Creatinine Clr Calc Pharmacy 155.9 ml/min; Est GFR (African American) 148.5; Est GFR (Non-African American) 128.2; Potassium 2.9 mmol/L (3.5-5.1)
[2019-11-28 11:17] LABS: Albumin Level 3.8 gm/dl (3.4-5.0); Phosphorus 2.2 mg/dl (2.5-4.9)
--- NOTE | 2019-11-28 11:58 | Critical Care Progress Note ---
Date of Service November 28, 2019 Assessment & Plan (1) Seizure: Impression: 29-year-old male with history of psychogenic polydipsia and multiple prior admissions for symptomatic hyponatremia presented with same. He apparently suffered a seizure. 24-hour events: The patient did receive 3 doses of DDAVP overnight as well as 2 fluid boluses of D5 water. Sodium is been 112-115. Urine output has been intermittently increasing. Mental status remains about the same. No evidence of ongoing seizure activity. Plan: 1. Symptomatic hyponatremia: Appreciate nephrology consult. Continue to monitor and fluid restrict. Continue serial BMPs. DDAVP in the event the patient should correct to rapidly. Will allow the patient to drink up to 1000 mL of water a day which should help with reducing the speed of correction of his hyponatremia. Goal to increase to about 120 over the next 12 to 24 hours. 2. Psychogenic polydipsia: Fluid restriction to 1 L free water per day although we could liberalize this if the patient appears to be correcting too rapidly. 3. Prolapsed rectum: Spontaneously resolved. Will need to follow-up colorectal surgery to see if intervention is required. 4. Massively dilated stomach. Suspect this is related to massive water intake. Continue to follow for now. Exam is benign. 5. Baseline psych issues: The patient has had multiple interventions performed previously. 6. Leukocytosis. Suspect stress reaction especially in the setting of seizure but will follow. No indication for antibiotics currently. 7. Lactic acidosis: Related to seizure. Now resolved. 8 Psych: will require psych input when medically clear. We will continue to follow in the ICU until sodium stabilizes and labs are required less frequently. Possibly back to floor in AM. (2) Altered mental status: (3) Hyponatremia: (4) Rectal prolapse: (5) Autism spectrum disorder: (6) Psychogenic polydipsia: Subjective No complaints today. Review of Systems Review of Systems: Unobtainable due to cognitive status Physical Exam Constitutional: WD/WN, vitals as above no acute distress Respiratory: normal respiratory effort, lungs clear to auscultation Cardiovascular: RRR, no murmur, no edema Skin: no rashes, warm and dry Neurologic: awake; not confused Speech / Cognition: normal speech Psychiatric: A+Ox3, euthymic affect Results & Data ([facility]) Vital Signs (Past 12 Hours) Vital Signs Temp Pulse Resp BP Pulse Ox 11/28/19 09:00 67 12 99 11/28/19 08:00 36.7 C 62 6 L 112/58 L 98 11/28/19 07:00 63 12 93/47 L 97 11/28/19 06:00 73 16 105/49 L 97 11/28/19 05:00 62 14 102/55 L 97 11/28/19 04:39 36.9 C 11/28/19 04:00 65 15 116/57 L 98 11/28/19 03:00 72 15 117/57 L 98 11/28/19 02:00 65 16 113/62 97 11/28/19 01:01 66 11 L 96 11/28/19 01:00 68 12 118/57 L 97 11/28/19 00:01 80 22 96 11/28/19 00:00 71 15 102/54 L 97 11/27/19 23:52 36.9 C 76 Laboratory Results 11/27/19 04:13 11/28/19 09:21 Diagnostic Findings No new imaging Coding Level of Care Code 59318 Subseq Hosp Care Lvl 3 Diagnoses Seizure R56.9 Altered mental status R40.0 Altered mental status type: somnolence Hyponatremia E87.1 Rectal prolapse K62.3 Autism spectrum disorder F84.0 Psychogenic polydipsia R63.1; F54 (1) Altered mental status Altered mental status type: somnolence Qualified Code(s): R40.0 - Somnolence
[2019-11-28 13:27] LABS: BUN Creatinine Ratio 2.8 (10-20); Creatinine Clr Calc Pharmacy 149.3 ml/min; Est GFR (African American) 145.9; Est GFR (Non-African American) 125.9; Potassium 3.3 mmol/L (3.5-5.1)
[2019-11-28] MEDS ORDERED: DEXTROSE 5% 500 ML IV ONE (15:00)
[2019-11-28] MEDS ORDERED: DESMOPRESSIN ACETATE 2 MCG in SYRINGE 9.5 ML IV ONE (15:15)
[2019-11-28 16:37] LABS: BUN Creatinine Ratio 2.8 (10-20); Creatinine Clr Calc Pharmacy 145.2 ml/min; Est GFR (African American) 144.3; Est GFR (Non-African American) 124.5; Potassium 3.4 mmol/L (3.5-5.1)
--- NOTE | 2019-11-28 16:45 | Billing Data ---
Date of Service November 28, 2019 Coding Level of Care Code 90130 Subseq Hosp Care Lvl 2
[2019-11-28 20:31] LABS: BUN Creatinine Ratio 4.3 (10-20); Calcium 9.3 mg/dl (8.5-10.1); Creatinine Clr Calc Pharmacy 137.7 ml/min; Est GFR (African American) 141.1; Est GFR (Non-African American) 121.8; Potassium 3.6 mmol/L (3.5-5.1)
[2019-11-29 00:57] LABS: BUN Creatinine Ratio 4.3 (10-20); Blood Urea Nitrogen 3 mg/dl (7-18); Calcium 8.6 mg/dl (8.5-10.1); Carbon Dioxide 19 mmol/L (21-32); Chloride 83 mmol/L (98-107); Creatinine Clr Calc Pharmacy 173.8 ml/min; Est GFR (African American) > 150.0; Glucose 80 mg/dl (70-99); Sodium 115 mmol/L (136-145)
[2019-11-29] MEDS ORDERED: POTASSIUM CHLORIDE 20 MEQ TABCR PO STA (01:01)
[2019-11-29] MEDS: POTASSIUM CHLORIDE / WTR 10 MEQ/100 ML PLCT IV SCH ×4 (01:12→04:57)
[2019-11-29 04:39] LABS: Eosinophils # (auto) 0.02 K/uL (0-0.5); Eosinophils % (auto) 0.3 %; Hematocrit (blood only) 34.3 % (42-52); Lymphocytes # (auto) 1.41 K/uL (1.2-3.4); Lymphocytes % (auto) 23.3 %; Mean Corpuscular Hemoglobin 31.4 pg (25-34); Mean Corpuscular Hgb Conc 37.9 g/dL (32-36); Mean Corpuscular Volume 82.9 fL (80-100); Mean Platelet Volume 11.3 fL (7.4-10.4); Monocytes % (auto) 11.6 %; Neutrophils # (auto) 3.93 K/uL (1.4-6.5); Neutrophils % (auto) 64.8 %; Platelet Count 203 K/uL (130-400); RDW Coefficient of Variation 12.7 % (11.5-14.5); RDW Standard Deviation 38.1 fL (36.4-46.3); Red Blood Count 4.14 M/uL (4.7-6.1); White Blood Count 6.06 K/uL (4.8-10.8)
[2019-11-29 04:59] LABS: BUN Creatinine Ratio 4.3 (10-20); Blood Urea Nitrogen 2 mg/dl (7-18); Calcium 8.7 mg/dl (8.5-10.1); Carbon Dioxide 20 mmol/L (21-32); Chloride 84 mmol/L (98-107); Creatinine Clr Calc Pharmacy 182.8 ml/min; Est GFR (African American) > 150.0; Est GFR (Non-African American) 136.8; Glucose 78 mg/dl (70-99); Magnesium 1.9 mg/dl (1.8-2.4); Phosphorus 2.1 mg/dl (2.5-4.9); Potassium 3.4 mmol/L (3.5-5.1); Sodium 115 mmol/L (136-145)
[2019-11-29] MEDS: HEPARIN SOD 5,000 UNIT/0.5 ML VIAL SQ SCH ×2 (08:43→21:37)
--- NOTE | 2019-11-29 09:42 | Hospitalist Progress Note ---
Date of Service November 29, 2019 Assessment & Plan (1) Hyponatremia: Russell Whalen is a 29y/o M with PMH significant for OCD, body dysmorphic disorder, psychogenic polydipsia, autism spectrum disorder, hypernatremia with hospitalization, depression, and anxiety; who was found unresponsive by his brother, per EMS patient had an episode of emesis prior to admission and had a seizure episode during transport and was given 2 mg of Ativan. On arrival to the emergency department he was found to be profoundly hyponatremic to a serum sodium of 97, unclear duration. Severe symptomatic hyponatremia2/2 hx psychogenic polydipsia. - Pt ~500cc NSS in ED and rapidly diurested 3L. Estimate 1.9 mmol Na per 1L output for ~6-7Na change. held hypertonic saline tx at that time; NGT decompression of stomach emptied on arrival to ICU, patient vomited approximately 2 L of water; Sodium 97 on admit; serum osm 206, urine osm 50 - Sodium 122 at last checked today; continue Q4h checks - received 1 doses of DDAVP overnight for slowing of rapid correction - Seizure x1 prior to admit treated with lorazepam in route to emergency department - Target sodium change less than equal to 810 mEQ 24-hour, BMP every 2 hour and adjust hypertonic saline 3% as needed - Nephrology consulted: discontinue scheduled Desmopressin and use only as needed in case of rapid correction of sodium History of intellectual disability with OCD/anxiety/body dysmorphic disorder: - on no medications in the last year. Previously on fluoxetine 20 mg nightly, Abilify, and Lorazepam 0.5 mg daily - On previous admissions patient was not able to capably show understanding of his ongoing medical issues - would benefit form psychiatric evaluation and follow-up once clinically stable Rectal Prolapse: - reduced spontaneously in ICU - continue to monitor DVT prophylaxis: Heparin 5000 twice daily Diet: N.p.o. CODE STATUS: Full code Admission and Anticipated Discharge Date Admission Date: November 27, 2019 Supervising Physician Co-Signing Physician Notes I personally examined the patient and verified all [place] points of history and exam, discussed case, and agree with decision making with Dr Bloom. feeling ok. no new complaints. eating well, no belly pain. Vitals noted, in general he is awake and alert pleasant no distress. HEENT normocephalic atraumatic mucous membranes moist. Breathing unlabored no accessory muscle use good effort. Skin shows no rashes no pallor or icterus. No focal neuro deficits. Profound hyponatremia secondary most likely psychogenic polydipsiaongoing correction, follow closely. loosened fluid restriction some to slow correction. Anxiety with psychogenic polydipsiaas he improves, we will ask psychiatry to help with the management of this, given that it is quite severe and seems to put him at risk for significant problems. Most recently he was apparently on fluoxetine 30 mg daily. hold meds for now Rectal prolapsefortunately seems to have improved. Continue to follow. nursing notes that he was ?disimpacting/reaching - needs to be closely followed. Otherwise as above. Subjective Patient remains acutely unaware of situation that led up to waking up in the hospital. Yesterday received 1 dose of DDAVP for concern of rapid correction of sodium. No seizures overnight. Review of Systems Review of Systems: Unobtainable due to cognitive status Physical Exam Constitutional: + well hydrated, + thin, + altered mental status, + behavioral limitations and + physical limitations Eyes: PERRL, conjunctivae normal, anicteric sclerae ENMT: external ear and nose normal, oropharynx normal Respiratory: normal respiratory effort, lungs clear to auscultation Cardiovascular: Rate/Rhythm: regular rate and regular rhythm Heart Sounds: normal S1 and normal S2; no gallop, no murmur and no cardiac rub Vessels: no JVD Gastrointestinal (Abdomen): normal bowel sounds, soft, nontender, no hepatosplenomegaly Inspection/Auscultation: abdomen not distended Percussion/Palpation: no guarding Neurologic: CN's II-XI intact bilaterally and moves all extremities; no focal motor deficits Motor/Sensory: no tremor Psychiatric: Orientation: alert, oriented to person and cooperative; + not oriented to place and + not oriented to time Apperance: + disheveled Affect: + depressed affect Mood: + depressed mood Results & Data ([facility]) Vital Signs (Past 12 Hours) Vital Signs Temp Pulse Resp BP Pulse Ox 11/29/19 06:00 66 12 130/77 99 11/29/19 05:00 65 15 119/72 11/29/19 04:00 60 17 127/79 11/29/19 03:46 36.9 C 11/29/19 03:14 62 15 121/71 11/29/19 02:00 73 17 123/77 100 11/29/19 01:17 69 17 119/85 11/29/19 00:00 75 22 101/59 L 100 11/28/19 23:27 36.9 C 11/28/19 23:18 67 11/28/19 23:00 67 16 118/58 L 99 11/28/19 22:01 66 21 114/64 Laboratory Results 11/29/19 11/29/19 11/29/19 Range/Units 15:43 11:51 09:06 WBC (4.8-10.8) K/uL RBC (4.7-6.1) M/uL Hgb (14.0-18.0) g/dL Hct (42-52) % MCV (80-100) fL MCH (25-34) pg MCHC (32-36) g/dL RDW Std Deviation (36.4-46.3) fL RDW Coeff of Fito (11.5-14.5) % Plt Count (130-400) K/uL MPV (7.4-10.4) fL Immature Gran % (Auto) % Neut % (Auto) % Lymph % (Auto) % Appling % (Auto) % Eos % (Auto) % Baso % (Auto) % Immature Gran # (Auto) (0.00-0.02) K/uL Neut # (Auto) (1.4-6.5) K/uL Lymph # (Auto) (1.2-3.4) K/uL Appling # (Auto) (0.11-0.59) K/uL Eos # (Auto) (0-0.5) K/uL Baso # (Auto) (0-0.2) K/uL Sodium 122 L 118 L* 118 L* (136-145) mmol/L Potassium 4.4 4.0 D 3.1 L (3.5-5.1) mmol/L Chloride 92 L 88 L 87 L (98-107) mmol/L Carbon Dioxide 20 L 22 22 (21-32) mmol/L Anion Gap 10.0 9.0 10.0 (3-11) BUN 3 L 3 L 2 L (7-18) mg/dl Creatinine 0.70 0.81 0.83 (0.6-1.4) mg/dl Est Cr Clr Drug Dosing 147.5 127.5 124.4 ml/min Est GFR ( Amer) 146.8 138.2 136.8 Est GFR (Non-Af Amer) 126.6 119.3 118.1 BUN/Creatinine Ratio 4.7 L 3.3 L 2.3 L (10-20) Glucose 95 116 H 96 (70-99) mg/dl Calcium 9.9 9.6 9.1 (8.5-10.1) mg/dl Ionized Calcium (1.12-1.32) mmol/L Phosphorus (2.5-4.9) mg/dl Magnesium (1.8-2.4) mg/dl 11/29/19 11/29/19 11/29/19 Range/Units 04:13 04:13 04:13 WBC 6.06 (4.8-10.8) K/uL RBC 4.14 L (4.7-6.1) M/uL Hgb 13.0 L (14.0-18.0) g/dL Hct 34.3 L (42-52) % MCV 82.9 (80-100) fL MCH 31.4 (25-34) pg MCHC 37.9 H (32-36) g/dL RDW Std Deviation 38.1 (36.4-46.3) fL RDW Coeff of Fito 12.7 (11.5-14.5) % Plt Count 203 (130-400) K/uL MPV 11.3 H (7.4-10.4) fL Immature Gran % (Auto) 0.0 % Neut % (Auto) 64.8 % Lymph % (Auto) 23.3 % Appling % (Auto) 11.6 % Eos % (Auto) 0.3 % Baso % (Auto) 0.0 % Immature Gran # (Auto) 0.00 (0.00-0.02) K/uL Neut # (Auto) 3.93 (1.4-6.5) K/uL Lymph # (Auto) 1.41 (1.2-3.4) K/uL Appling # (Auto) 0.70 H (0.11-0.59) K/uL Eos # (Auto) 0.02 (0-0.5) K/uL Baso # (Auto) 0.00 (0-0.2) K/uL Sodium (136-145) mmol/L Potassium (3.5-5.1) mmol/L Chloride (98-107) mmol/L Carbon Dioxide (21-32) mmol/L Anion Gap (3-11) BUN (7-18) mg/dl Creatinine (0.6-1.4) mg/dl Est Cr Clr Drug Dosing ml/min Est GFR ( Amer) Est GFR (Non-Af Amer) BUN/Creatinine Ratio (10-20) Glucose (70-99) mg/dl Calcium (8.5-10.1) mg/dl Ionized Calcium 1.06 L (1.12-1.32) mmol/L Phosphorus Cancelled (2.5-4.9) mg/dl Magnesium Cancelled (1.8-2.4) mg/dl 11/29/19 11/29/19 11/28/19 Range/Units 04:13 00:16 19:53 WBC (4.8-10.8) K/uL RBC (4.7-6.1) M/uL Hgb (14.0-18.0) g/dL Hct (42-52) % MCV (80-100) fL MCH (25-34) pg MCHC (32-36) g/dL RDW Std Deviation (36.4-46.3) fL RDW Coeff of Fito (11.5-14.5) % Plt Count (130-400) K/uL MPV (7.4-10.4) fL Immature Gran % (Auto) % Neut % (Auto) % Lymph % (Auto) % Appling % (Auto) % Eos % (Auto) % Baso % (Auto) % Immature Gran # (Auto) (0.00-0.02) K/uL Neut # (Auto) (1.4-6.5) K/uL Lymph # (Auto) (1.2-3.4) K/uL Appling # (Auto) (0.11-0.59) K/uL Eos # (Auto) (0-0.5) K/uL Baso # (Auto) (0-0.2) K/uL Sodium 115 L* 115 L* 116 L* (136-145) mmol/L Potassium 3.4 L 3.0 L D 3.6 (3.5-5.1) mmol/L Chloride 84 L 83 L 84 L (98-107) mmol/L Carbon Dioxide 20 L 19 L 22 (21-32) mmol/L Anion Gap 11.0 13.0 H 8.0 (3-11) BUN 2 L 3 L 3 L (7-18) mg/dl Creatinine 0.58 L 0.61 0.77 (0.6-1.4) mg/dl Est Cr Clr Drug Dosing 182.8 173.8 137.7 ml/min Est GFR ( Amer) > 150.0 > 150.0 141.1 Est GFR (Non-Af Amer) 136.8 134.0 121.8 BUN/Creatinine Ratio 4.3 L 4.3 L 4.3 L (10-20) Glucose 78 80 89 (70-99) mg/dl Calcium 8.7 8.6 9.3 (8.5-10.1) mg/dl Ionized Calcium (1.12-1.32) mmol/L Phosphorus 2.1 L (2.5-4.9) mg/dl Magnesium 1.9 (1.8-2.4) mg/dl Medications Administered Current Inpatient Medications Dextrose (Dextrose 50%) 25 - 50 ml IV UD PRN; Protocol PRN Reason: Hypoglycemia Protocol Stop: 12/27/19 22:30 Docusate Sodium (Colace) 100 mg PO DAILY [facility] Stop: 12/29/19 10:59 Last Admin: 11/29/19 11:01 Dose: 100 mg Documented by: Glucagon (Glucagen) 1 mg SQ UD PRN; Protocol PRN Reason: Hypoglycemia Protocol Stop: 12/27/19 22:30 Glucose (Dex4 Glucose) 4 - 8 tabs PO UD PRN; Protocol PRN Reason: Hypoglycemia Protocol Stop: 12/27/19 22:30 Glucose (Glucose 40%) 15 - 30 gm PO UD PRN; Protocol PRN Reason: Hypoglycemia Protocol Stop: 12/27/19 22:30 Heparin Sodium (Porcine) (Heparin Sodium (Porcine)) 5,000 units SQ Q12 MICHAEL Stop: 12/27/19 08:59 Last Admin: 11/29/19 08:43 Dose: 5,000 units Documented by: Ioversol (Optiray 320 100ml) 90 ml IV ONCE PRN PRN Reason: Interaction Checking Stop: 11/30/19 22:48 Last Admin: 11/26/19 22:49 Dose: 90 ml Documented by: Miscellaneous (Carbohydrates For Hypoglycemia) 15 - 30 gm PO UD PRN PRN Reason: Hypoglycemia Protocol Stop: 12/27/19 22:30 Resident Activity Tracking Resident Involvement: Resident Care Provided Care Provided: Adult Hospital Medicine
[2019-11-29] MEDS ORDERED: POT PHOSPHATE MONOBASIC W/ SOD TAB PO SCH (10:00)
--- NOTE | 2019-11-29 10:19 | Nephrology Progress Note ---
Date of Service November 29, 2019 Assessment & Plan (1) Hyponatremia: Russell Was admitted with altered mental status, seizure in the setting of acute severe hyponatremia. Serum sodium initially was 97 which rapidly improved to 105 over 8 hours after receiving 1 L of IV normal saline. Urine osmolality was low and had more than 6 L urine output so far. Potassium has been low as well. Hyponatremia most likely secondary to psychogenic polydipsia with history of excessive fluid intake, extremely low urine osmolality. Na improved and staying around 113 to 114 although UO has been high.K low Na improved to 118 but dropped again. Clinically improving, although UO has been higha nd net negative, Na did not increase rapidly. --avoid D5W or Desmopressin as Na stable without rapid rise despite having high UO, expect Na to improve slowly, since it has been 3 days, Na has been around 1 15-118, even if Na goes upto 124-125, that should be fine without any significant FLIGHT NURSE effect,. --replace potassium will follow (2) Altered mental status: (3) Hypokalemia: (4) Psychogenic polydipsia: Subjective Russell was seen and examined this morning. Awake alert, answered q appropriately. BP stable. UO high, net negative. Na improved to 118 but dropped again after D5W and desmopressin yesterday afternoon. Review of Systems Review of Systems: All systems reviewed & are unremarkable except as noted in HPI & below Physical Exam Constitutional: well developed and well nourished; no acute distress Respiratory: normal respiratory effort, lungs clear to auscultation Cardiovascular: RRR, no murmur, no edema Neurologic: moves all extremities and awake; not confused Psychiatric: A+Ox3, euthymic affect Results & Data Vital Signs (Past 12 Hours) Vital Signs Temp Pulse Resp BP Pulse Ox 11/29/19 09:00 60 11/29/19 06:00 66 12 130/77 99 11/29/19 05:00 65 15 119/72 11/29/19 04:00 60 17 127/79 11/29/19 03:46 36.9 C 11/29/19 03:14 62 15 121/71 11/29/19 02:00 73 17 123/77 100 11/29/19 01:17 69 17 119/85 11/29/19 00:00 75 22 101/59 L 100 11/28/19 23:27 36.9 C 11/28/19 23:18 67 11/28/19 23:00 67 16 118/58 L 99 PG Care Time/CCT Total # of Minutes Spent Total Time Spent with Patient: Total time spent is greater than 50% in coordination of care (as documented) at patient's floor/unit and/or counseling patient: Coding Level of Care Code 90002 Subseq Hosp Care Lvl 3 Diagnoses Hyponatremia E87.1 Altered mental status R40.0 Altered mental status type: somnolence Hypokalemia E87.6 Psychogenic polydipsia R63.1; F54 (1) Altered mental status Altered mental status type: somnolence Qualified Code(s): R40.0 - Somnolence
[2019-11-29 10:24] LABS: BUN Creatinine Ratio 2.3 (10-20); Calcium 9.1 mg/dl (8.5-10.1); Creatinine Clr Calc Pharmacy 124.4 ml/min; Est GFR (African American) 136.8; Est GFR (Non-African American) 118.1; Potassium 3.1 mmol/L (3.5-5.1)
[2019-11-29] MEDS: DOCUSATE SODIUM 100 MG CAP PO SCH (11:01)
--- NOTE | 2019-11-29 11:53 | Critical Care Progress Note ---
Date of Service November 29, 2019 Assessment & Plan (1) Seizure: Impression: 29-year-old male with history of psychogenic polydipsia and multiple prior admissions for symptomatic hyponatremia presented with same. He apparently suffered a seizure. 24-hour events: Patient continues to auto correct his hyponatremia without significant intervention other than mild fluid restriction. We have liberalized his fluid intake to 1.5 L per 24 hours. He is not required any additional free water boluses or DDAVP. Plan: 1. Symptomatic hyponatremia: Correcting at an appropriate rate. He is not required any DDAVP or additional free water boluses. Okay to space chemistries out every 6-8 hours. Agree with nephrology that he is now outside the window for risk of central pontine myelinolysis 2. Psychogenic polydipsia: Fluid restriction to 1.5 L free water per day 3. Prolapsed rectum: Spontaneously resolved. Will need to follow-up colorectal surgery to see if intervention is required. I think this is going to be an ongoing issue as the patient has some rectal fixation and its difficulty to prevent the patient from picking at his rectum. 4. Massively dilated stomach. Suspect this is related to massive water intake. Continue to follow for now. Exam is benign. 5. Baseline psych issues: The patient has had multiple interventions performed previously. He will have repeat behavioral health evaluation once medically cleared. 6. Leukocytosis. Resolved 7. Lactic acidosis: Related to seizure. Now resolved. The patient appears to be stable at this point time and can transfer out of the intensive care unit to the floor under the care of the hospitalist. Feel free to contact us if we can be of additional critical care assistance (2) Altered mental status: (3) Hyponatremia: (4) Rectal prolapse: (5) Autism spectrum disorder: (6) Psychogenic polydipsia: Subjective No complaints this morning. Review of Systems Review of Systems: Unobtainable due to cognitive status Physical Exam Constitutional: WD/WN, vitals as above no acute distress Respiratory: normal respiratory effort, lungs clear to auscultation Cardiovascular: RRR, no murmur, no edema Skin: no rashes, warm and dry Neurologic: awake; not confused Speech / Cognition: normal speech Psychiatric: A+Ox3, euthymic affect Results & Data ([facility]) Vital Signs (Past 12 Hours) Vital Signs Temp Pulse Resp BP Pulse Ox 11/29/19 09:01 88 20 114/57 L 100 11/29/19 09:00 60 11/29/19 08:47 74 17 120/66 11/29/19 08:01 36.7 C 79 19 112/69 100 11/29/19 07:01 58 L 21 107/64 11/29/19 06:00 66 12 130/77 99 11/29/19 05:00 65 15 119/72 11/29/19 04:00 60 17 127/79 11/29/19 03:46 36.9 C 11/29/19 03:14 62 15 121/71 11/29/19 02:00 73 17 123/77 100 11/29/19 01:17 69 17 119/85 11/29/19 00:00 75 22 101/59 L 100 Laboratory Results 11/29/19 04:13 11/29/19 09:06 Diagnostic Findings No new imaging Coding Level of Care Code 20476 Subseq Hosp Care Lvl 3 Diagnoses Seizure R56.9 Altered mental status R40.0 Altered mental status type: somnolence Hyponatremia E87.1 Rectal prolapse K62.3 Autism spectrum disorder F84.0 Psychogenic polydipsia R63.1; F54 (1) Altered mental status Altered mental status type: somnolence Qualified Code(s): R40.0 - Somnolence
[2019-11-29 12:42] LABS: BUN Creatinine Ratio 3.3 (10-20); Calcium 9.6 mg/dl (8.5-10.1); Creatinine Clr Calc Pharmacy 127.5 ml/min; Est GFR (African American) 138.2; Est GFR (Non-African American) 119.3
[2019-11-29 16:11] LABS: BUN Creatinine Ratio 4.7 (10-20); Calcium 9.9 mg/dl (8.5-10.1); Creatinine Clr Calc Pharmacy 147.5 ml/min; Est GFR (African American) 146.8; Est GFR (Non-African American) 126.6; Potassium 4.4 mmol/L (3.5-5.1)
--- NOTE | 2019-11-29 18:00 | Billing Data ---
Date of Service November 29, 2019 Coding Level of Care Code 94330 Subseq Hosp Care Lvl 3
[2019-11-29 20:26] LABS: BUN Creatinine Ratio 4.4 (10-20); Calcium 10.1 mg/dl (8.5-10.1); Creatinine Clr Calc Pharmacy 103.3 ml/min; Est GFR (African American) 116.5; Est GFR (Non-African American) 100.6; Potassium 4.6 mmol/L (3.5-5.1)
[2019-11-30 03:03] LABS: Albumin Level 4.1 gm/dl (3.4-5.0); BUN Creatinine Ratio 3.5 (10-20); Calcium 9.8 mg/dl (8.5-10.1); Creatinine Clr Calc Pharmacy 118.7 ml/min; Est GFR (African American) 134.2; Est GFR (Non-African American) 115.8; Potassium 4.3 mmol/L (3.5-5.1)
[2019-11-30 03:04] LABS: BUN Creatinine Ratio 4.1 (10-20); Calcium 9.9 mg/dl (8.5-10.1); Creatinine Clr Calc Pharmacy 118.7 ml/min; Est GFR (African American) 134.2; Est GFR (Non-African American) 115.8; Potassium 4.4 mmol/L (3.5-5.1)
[2019-11-30 03:27] LABS: Phosphorus 3.3 mg/dl (2.5-4.9)
--- NOTE | 2019-11-30 07:02 | Hospitalist Progress Note ---
Date of Service November 30, 2019 Assessment & Plan (1) Hyponatremia: Russell Whalen is a 29y/o M with PMH significant for OCD, body dysmorphic disorder, psychogenic polydipsia, autism spectrum disorder, hypernatremia with hospitalization, depression, and anxiety; who was found unresponsive by his brother, per EMS patient had an episode of emesis prior to admission and had a seizure episode during transport and was given 2 mg of Ativan. On arrival to the emergency department he was found to be profoundly hyponatremic to a serum sodium of 97, unclear duration. Severe symptomatic hyponatremia2/2 hx psychogenic polydipsia. - Pt ~500cc NSS in ED and rapidly diurested 3L. Estimate 1.9 mmol Na per 1L output for ~6-7Na change. held hypertonic saline tx at that time; NGT decompression of stomach emptied on arrival to ICU, patient vomited approximately 2 L of water; Sodium 97 on admit; serum osm 206, urine osm 50 - Sodium 128 at last checked today; continue Q4h checks - received no doses of DDAVP overnight - Target sodium change less than equal to 810 mEQ 24-hour - Nephrology consulted: discontinue scheduled Desmopressin and use only as needed in case of rapid correction of sodium History of intellectual disability with OCD/anxiety/body dysmorphic disorder: - on no medications in the last year. Previously on fluoxetine 30 mg - On previous admissions patient was not able to capably show understanding of his ongoing medical issues - would benefit form psychiatric evaluation and follow-up once clinically stable - started on Abilify 5mg daily - started one-to-one sitter out of concern of patient safety Rectal Prolapse: - reduced spontaneously in ICU - continue to monitor DVT prophylaxis: Heparin 5000 twice daily Diet: regular, fluid restrict 2500mL CODE STATUS: Full code Admission and Anticipated Discharge Date Admission Date: November 27, 2019 Supervising Physician Co-Signing Physician Notes I personally examined the patient and verified all de [place] ve[place] points of history and exam, discussed case, and agree with decision making with Dr Bloom. Feeling more anxious and restless. Also notes he is feeling hot and thirsty. Vitals noted, in general he is awake and alert pleasant no distress. HEENT normocephalic atraumatic mucous membranes moist. Breathing unlabored no accessory muscle use good effort. Skin shows no rashes no pallor or icterus. No focal neuro deficits. Profound hyponatremia secondary most likely psychogenic polydipsiaongoing correction, follow closely. loosened fluid restriction to more physiologic range for maintenance of hydration. Tried to reiterate with patient the complications that can come from excess water, but also empathized that it seems to be a compulsion and he likely has a difficult time understanding this. Anxiety with psychogenic polydipsiaanticipate input from psychiatry soon given that he is getting closer to baseline. For now given that he is feeling extremely restless, reasonable to give short acting medications to help calm his what seems to be growing restlessness. Rectal prolapsefortunately seems to have improved. Continue to follow. One-to-one sitter, given that he seems to exercise these compulsions quite a bit whenever he is going to the bathroombut need to try to keep him from having a repeat of his rectal prolapse. Otherwise as above. Subjective Patient feels like he is becoming more and more alert, and feels like he is starting to feel more and more anxious and bothersome feelings. Review of Systems Review of Systems: Unobtainable due to cognitive status Physical Exam Constitutional: + well hydrated, + thin, + altered mental status, + behavioral limitations and + physical limitations Eyes: PERRL, conjunctivae normal, anicteric sclerae ENMT: external ear and nose normal, oropharynx normal Respiratory: normal respiratory effort, lungs clear to auscultation Cardiovascular: Rate/Rhythm: regular rate and regular rhythm Heart Sounds: normal S1 and normal S2; no gallop, no murmur and no cardiac rub Vessels: no JVD Gastrointestinal (Abdomen): normal bowel sounds, soft, nontender, no hepatosplenomegaly Inspection/Auscultation: abdomen not distended Percussion/Palpation: no guarding Neurologic: CN's II-XI intact bilaterally and moves all extremities; no focal motor deficits Motor/Sensory: no tremor Psychiatric: Orientation: alert, oriented to person and cooperative; + not oriented to place and + not oriented to time Apperance: + disheveled Affect: + depressed affect Mood: + depressed mood Results & Data ([facility]) Vital Signs (Past 12 Hours) Vital Signs Temp Pulse Pulse Resp BP Pulse Ox 11/30/19 04:27 36.4 C L 73 16 123/64 99 11/30/19 01:00 69 11/29/19 23:31 36.6 C 66 16 107/62 100 11/29/19 19:24 94 H Laboratory Results 11/30/19 11/30/19 11/30/19 Range/Units 14:03 10:03 06:13 Sodium 128 L 127 L 127 L (136-145) mmol/L Potassium 4.2 3.8 4.1 (3.5-5.1) mmol/L Chloride 96 L 95 L 97 L (98-107) mmol/L Carbon Dioxide 26 24 22 (21-32) mmol/L Anion Gap 6.0 8.0 8.0 (3-11) BUN 4 L 3 L 3 L (7-18) mg/dl Creatinine 0.95 1.04 0.83 (0.6-1.4) mg/dl Est Cr Clr Drug Dosing 103.7 94.8 118.7 ml/min Est GFR ( Amer) 124.0 111.1 136.8 Est GFR (Non-Af Amer) 107.0 95.9 118.1 BUN/Creatinine Ratio 4.3 L 3.3 L 4.1 L (10-20) Glucose 127 H 116 H 88 (70-99) mg/dl Calcium 10.1 9.8 10.0 (8.5-10.1) mg/dl Phosphorus (2.5-4.9) mg/dl Albumin (3.4-5.0) gm/dl 11/30/19 11/30/19 11/29/19 Range/Units 02:18 02:18 20:01 Sodium 126 L 127 L 121 L (136-145) mmol/L Potassium 4.4 4.3 4.6 (3.5-5.1) mmol/L Chloride 95 L 95 L 90 L (98-107) mmol/L Carbon Dioxide 24 24 23 (21-32) mmol/L Anion Gap 7.0 8.0 7.0 (3-11) BUN 4 L 3 L 4 L (7-18) mg/dl Creatinine 0.87 0.87 1.00 D (0.6-1.4) mg/dl Est Cr Clr Drug Dosing 118.7 118.7 103.3 ml/min Est GFR ( Amer) 134.2 134.2 116.5 Est GFR (Non-Af Amer) 115.8 115.8 100.6 BUN/Creatinine Ratio 4.1 L 3.5 L 4.4 L (10-20) Glucose 105 H 104 H 124 H (70-99) mg/dl Calcium 9.9 9.8 10.1 (8.5-10.1) mg/dl Phosphorus 3.3 D (2.5-4.9) mg/dl Albumin 4.1 (3.4-5.0) gm/dl 11/29/19 Range/Units 15:43 Sodium 122 L (136-145) mmol/L Potassium 4.4 (3.5-5.1) mmol/L Chloride 92 L (98-107) mmol/L Carbon Dioxide 20 L (21-32) mmol/L Anion Gap 10.0 (3-11) BUN 3 L (7-18) mg/dl Creatinine 0.70 (0.6-1.4) mg/dl Est Cr Clr Drug Dosing 147.5 ml/min Est GFR ( Amer) 146.8 Est GFR (Non-Af Amer) 126.6 BUN/Creatinine Ratio 4.7 L (10-20) Glucose 95 (70-99) mg/dl Calcium 9.9 (8.5-10.1) mg/dl Phosphorus (2.5-4.9) mg/dl Albumin (3.4-5.0) gm/dl Medications Administered Current Inpatient Medications Aripiprazole (Abilify) 5 mg PO QAM [facility] Stop: 12/30/19 11:44 Last Admin: 11/30/19 14:39 Dose: 5 mg Documented by: Dextrose (Dextrose 50%) 25 - 50 ml IV UD PRN; Protocol PRN Reason: Hypoglycemia Protocol Stop: 12/27/19 22:30 Docusate Sodium (Colace) 100 mg PO DAILY [facility] Stop: 12/29/19 10:59 Last Admin: 11/30/19 08:03 Dose: 100 mg Documented by: Glucagon (Glucagen) 1 mg SQ UD PRN; Protocol PRN Reason: Hypoglycemia Protocol Stop: 12/27/19 22:30 Glucose (Dex4 Glucose) 4 - 8 tabs PO UD PRN; Protocol PRN Reason: Hypoglycemia Protocol Stop: 12/27/19 22:30 Glucose (Glucose 40%) 15 - 30 gm PO UD PRN; Protocol PRN Reason: Hypoglycemia Protocol Stop: 12/27/19 22:30 Heparin Sodium (Porcine) (Heparin Sodium (Porcine)) 5,000 units SQ Q12 MICHAEL Stop: 12/27/19 08:59 Last Admin: 11/30/19 08:04 Dose: 5,000 units Documented by: Ioversol (Optiray 320 100ml) 90 ml IV ONCE PRN PRN Reason: Interaction Checking Stop: 11/30/19 22:48 Last Admin: 11/26/19 22:49 Dose: 90 ml Documented by: Miscellaneous (Carbohydrates For Hypoglycemia) 15 - 30 gm PO UD PRN PRN Reason: Hypoglycemia Protocol Stop: 12/27/19 22:30 Resident Activity Tracking Resident Involvement: Resident Care Provided Care Provided: Adult Hospital Medicine
[2019-11-30 07:11] LABS: BUN Creatinine Ratio 4.1 (10-20); Creatinine Clr Calc Pharmacy 118.7 ml/min; Est GFR (African American) 136.8; Est GFR (Non-African American) 118.1; Potassium 4.1 mmol/L (3.5-5.1)
[2019-11-30] MEDS: DOCUSATE SODIUM 100 MG CAP PO SCH (08:03)
[2019-11-30] MEDS: HEPARIN SOD 5,000 UNIT/0.5 ML VIAL SQ SCH ×2 (08:04→23:32)
[2019-11-30 10:42] LABS: BUN Creatinine Ratio 3.3 (10-20); Calcium 9.8 mg/dl (8.5-10.1); Creatinine Clr Calc Pharmacy 94.8 ml/min; Est GFR (African American) 111.1; Est GFR (Non-African American) 95.9; Potassium 3.8 mmol/L (3.5-5.1)
--- NOTE | 2019-11-30 11:48 | Nephrology Progress Note ---
Date of Service November 30, 2019 Assessment & Plan (1) Hyponatremia: Acute/symptomatic. Appropriate rate of correction since admission. Rate upper limit of goal in past 24 hours. Close observation continues to be necessary. Russell is tolerating treatment well. Maintain 2 L daily fluid restr iction. Continue Q6-8 hour monitoring of metabolic profile. Document I/O's. Repeat urine osmolality in the AM. 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 (2) Psychogenic polydipsia: Recent admission to [facility] in July reviewed. Psychiatric evaluation will be necessary prior to discharge. Subjective No acute events overnight. 1:1 remains at the bedside. Tolerating fluid restriction. Russell feels well today. Appetite is good. Denies headaches. Denies any pain. No nausea. Review of Systems Review of Systems: All systems reviewed & are unremarkable except as noted in HPI & below Physical Exam Constitutional: well developed; no acute distress Eyes: no scleral abnormality and no corneal abnormality ENMT: Mouth: no oral mucosal abnormality and oral mucous membranes not dry Neck: normal visual inspection and trachea midline Respiratory: normal respiratory effort Auscultation: lungs clear to auscultation bilaterally Cardiovascular: Rate/Rhythm: regular rate Heart Sounds: normal S1 and normal S2 Extremities: no edema Musculoskeletal: Extremities: no cyanosis and no clubbing Skin: normal turgor; no lesions Neurologic: Motor/Sensory: no tremor and no asterixis Psychiatric: Orientation: alert and oriented x 3 Results & Data Vital Signs (Past 12 Hours) Vital Signs Temp Pulse Pulse Resp BP Pulse Ox 11/30/19 08:00 69 11/30/19 07:53 36.3 C L 91 H 12 115/81 11/30/19 04:27 36.4 C L 73 16 123/64 99 11/30/19 01:00 69 Laboratory Results Laboratory Results - last 24 hr 11/29/19 11/29/19 11/29/19 11:51 15:43 20:01 Sodium 118 L* 122 L 121 L Potassium 4.0 D 4.4 4.6 Chloride 88 L 92 L 90 L Carbon Dioxide 22 20 L 23 Anion Gap 9.0 10.0 7.0 BUN 3 L 3 L 4 L Creatinine 0.81 0.70 1.00 D Est Cr Clr Drug Dosing 127.5 147.5 103.3 Est GFR ( Amer) 138.2 146.8 116.5 Est GFR (Non-Af Amer) 119.3 126.6 100.6 BUN/Creatinine Ratio 3.3 L 4.7 L 4.4 L Glucose 116 H 95 124 H Calcium 9.6 9.9 10.1 Phosphorus Albumin 11/30/19 11/30/19 11/30/19 02:18 02:18 06:13 Sodium 127 L 126 L 127 L Potassium 4.3 4.4 4.1 Chloride 95 L 95 L 97 L Carbon Dioxide 24 24 22 Anion Gap 8.0 7.0 8.0 BUN 3 L 4 L 3 L Creatinine 0.87 0.87 0.83 Est Cr Clr Drug Dosing 118.7 118.7 118.7 Est GFR ( Amer) 134.2 134.2 136.8 Est GFR (Non-Af Amer) 115.8 115.8 118.1 BUN/Creatinine Ratio 3.5 L 4.1 L 4.1 L Glucose 104 H 105 H 88 Calcium 9.8 9.9 10.0 Phosphorus 3.3 D Albumin 4.1 11/30/19 10:03 Sodium 127 L Potassium 3.8 Chloride 95 L Carbon Dioxide 24 Anion Gap 8.0 BUN 3 L Creatinine 1.04 Est Cr Clr Drug Dosing 94.8 Est GFR ( Amer) 111.1 Est GFR (Non-Af Amer) 95.9 BUN/Creatinine Ratio 3.3 L Glucose 116 H Calcium 9.8 Phosphorus Albumin PG Care Time/CCT Total # of Minutes Spent Total Time Spent with Patient: Total time spent is greater than 50% in coordination of care (as documented) at patient's floor/unit and/or counseling patient: Coding Level of Care Code 08478 Subseq Hosp Care Lvl 3 Diagnoses Hyponatremia E87.1 Psychogenic polydipsia R63.1; F54
[2019-11-30 14:32] LABS: BUN Creatinine Ratio 4.3 (10-20); Calcium 10.1 mg/dl (8.5-10.1); Creatinine Clr Calc Pharmacy 103.7 ml/min; Potassium 4.2 mmol/L (3.5-5.1)
[2019-11-30] MEDS: ARIPiprazole 5 MG TAB PO SCH (14:39)
--- NOTE | 2019-11-30 15:21 | Billing Data ---
Date of Service November 30, 2019 Coding Level of Care Code 24798 Subseq Hosp Care Lvl 3
[2019-11-30 18:53] LABS: BUN Creatinine Ratio 6.9 (10-20); Calcium 10.3 mg/dl (8.5-10.1); Creatinine Clr Calc Pharmacy 84.2 ml/min; Est GFR (African American) 96.4; Est GFR (Non-African American) 83.2
[2019-11-30 22:10] LABS: BUN Creatinine Ratio 8.1 (10-20); Calcium 10.1 mg/dl (8.5-10.1); Creatinine Clr Calc Pharmacy 99.5 ml/min; Est GFR (Non-African American) 101.8; Potassium 3.9 mmol/L (3.5-5.1)
[2019-12-01 02:26] LABS: BUN Creatinine Ratio 8.3 (10-20); Creatinine Clr Calc Pharmacy 103.7 ml/min; Potassium 4.3 mmol/L (3.5-5.1)
--- NOTE | 2019-12-01 07:49 | Hospitalist Progress Note ---
Date of Service December 01, 2019 Assessment & Plan (1) Hyponatremia: Russell Whalen is a 29y/o M with PMH significant for OCD, body dysmorphic disorder, psychogenic polydipsia, autism spectrum disorder, hypernatremia with hospitalization, depression, and anxiety; who was found unresponsive by his brother, per EMS patient had an episode of emesis prior to admission and had a seizure episode during transport and was given 2 mg of Ativan. On arrival to the emergency department he was found to be profoundly hyponatremic to a serum sodium of 97, unclear duration. Severe symptomatic hyponatremia2/2 hx psychogenic polydipsia. - Pt ~500cc NSS in ED and rapidly diurested 3L. Estimate 1.9 mmol Na per 1L output for ~6-7Na change. held hypertonic saline tx at that time; NGT decompression of stomach emptied on arrival to ICU, patient vomited approximately 2 L of water; Sodium 97 on admit; serum osm 206, urine osm 50 - repeat urine osm 321 today - Sodium 129 at last checked today; continue BID checks - Target sodium change less than equal to 810 mEQ 24-hour - Nephrology consulted: concern for stalled out progression, ordered urine osm; advised Lasix as urine osm increasing History of intellectual disability with OCD/anxiety/body dysmorphic disorder: - on no medications in the last year. Previously on fluoxetine 30 mg - On previous admissions patient was not able to capably show understanding of his ongoing medical issues - would benefit form psychiatric evaluation and follow-up once clinically stable - Psych consulted: stop Abilify 5mg daily, start fluoxetine 10mg; family is willing to complete 302 - started one-to-one sitter out of concern of patient safety Rectal Prolapse: - reduced spontaneously in ICU - continue to monitor DVT prophylaxis: Heparin 5000 twice daily Diet: regular, fluid restrict 2500mL CODE STATUS: Full code Admission and Anticipated Discharge Date Admission Date: November 27, 2019 Supervising Physician Co-Signing Physician Notes I personally examined the patient and verified all [place] points of history and exam, discussed case, and agree with decision making with Dr Bloom. feeling a little less restless today. watching [employer] (original) - doesn't care for the new trilogy. no other new issues or complaints today. Vitals noted, in general he is awake and alert pleasant no distress. HEENT normocephalic atraumatic mucous membranes moist. Breathing unlabored no accessory muscle use good effort. Skin shows no rashes no pallor or icterus. No focal neuro deficits. Profound hyponatremia secondary most likely psychogenic polydipsiasodium leveled out - fluid restriction tightened, consider salt tabs or lasix. continue to follow Na. Anxiety with psychogenic polydipsiashort term restarted on abilify to help w restlessness. anticipate further management per psych Rectal prolapsefortunately has improved. Continue to follow. One-to-one sitter, given that he seems to exercise these compulsions quite a bit whenever he is going to the bathroombut need to try to keep him from having a repeat of his rectal prolapse. Otherwise as above. Subjective Patient feels like he is becoming more and more alert, and feels like he is starting to feel more and more anxious and bothersome feeling this is relatively unchanged after starting . Is unable to remember what the specific reason was why he started drinking water, but does recognize that he likely drank a large amount of water. Review of Systems Review of Systems: All systems reviewed & are unremarkable except as noted in Subjective Physical Exam Constitutional: + thin, + altered mental status and + behavioral limitations; no physical limitations Eyes: PERRL, conjunctivae normal, anicteric sclerae ENMT: external ear and nose normal, oropharynx normal Respiratory: normal respiratory effort, lungs clear to auscultation Cardiovascular: Rate/Rhythm: regular rate and regular rhythm Heart Sounds: normal S1 and normal S2; no gallop, no murmur and no cardiac rub Vessels: no JVD Gastrointestinal (Abdomen): normal bowel sounds, soft, nontender, no hepatosplenomegaly Neurologic: moves all extremities; no focal motor deficits Psychiatric: Orientation: alert, oriented to person and cooperative; + not oriented to place and + not oriented to time Apperance: + disheveled Affect: + depressed affect Mood: + depressed mood Results & Data ([facility]) Vital Signs (Past 12 Hours) Vital Signs Temp Pulse Pulse Resp BP Pulse Ox 12/01/19 06:13 77 12/01/19 04:05 36.8 C 85 18 140/83 99 11/30/19 22:58 36.6 C 77 18 115/72 98 11/30/19 22:08 80 Laboratory Results 12/01/19 11/30/19 11/30/19 Range/Units 01:45 21:47 17:58 Sodium 128 L 128 L 128 L (136-145) mmol/L Potassium 4.3 3.9 4.0 (3.5-5.1) mmol/L Chloride 97 L 97 L 96 L (98-107) mmol/L Carbon Dioxide 24 24 22 (21-32) mmol/L Anion Gap 7.0 7.0 10.0 (3-11) BUN 8 8 8 (7-18) mg/dl Creatinine 0.95 0.99 1.17 (0.6-1.4) mg/dl Est Cr Clr Drug Dosing 103.7 99.5 84.2 ml/min Est GFR ( Amer) 124.0 118.0 96.4 Est GFR (Non-Af Amer) 107.0 101.8 83.2 BUN/Creatinine Ratio 8.3 L 8.1 L 6.9 L (10-20) Glucose 114 H 111 H 121 H (70-99) mg/dl Calcium 10.0 10.1 10.3 H (8.5-10.1) mg/dl 11/30/19 Range/Units 14:03 Sodium 128 L (136-145) mmol/L Potassium 4.2 (3.5-5.1) mmol/L Chloride 96 L (98-107) mmol/L Carbon Dioxide 26 (21-32) mmol/L Anion Gap 6.0 (3-11) BUN 4 L (7-18) mg/dl Creatinine 0.95 (0.6-1.4) mg/dl Est Cr Clr Drug Dosing 103.7 ml/min Est GFR ( Amer) 124.0 Est GFR (Non-Af Amer) 107.0 BUN/Creatinine Ratio 4.3 L (10-20) Glucose 127 H (70-99) mg/dl Calcium 10.1 (8.5-10.1) mg/dl Medications Administered Current Inpatient Medications Aripiprazole (Abilify) 5 mg PO QAM MICHAEL Stop: 12/30/19 11:44 Last Admin: 12/01/19 08:06 Dose: 5 mg Documented by: Dextrose (Dextrose 50%) 25 - 50 ml IV UD PRN; Protocol PRN Reason: Hypoglycemia Protocol Stop: 12/27/19 22:30 Docusate Sodium (Colace) 100 mg PO DAILY MICHAEL Stop: 12/29/19 10:59 Last Admin: 12/01/19 08:06 Dose: 100 mg Documented by: Glucagon (Glucagen) 1 mg SQ UD PRN; Protocol PRN Reason: Hypoglycemia Protocol Stop: 12/27/19 22:30 Glucose (Dex4 Glucose) 4 - 8 tabs PO UD PRN; Protocol PRN Reason: Hypoglycemia Protocol Stop: 12/27/19 22:30 Glucose (Glucose 40%) 15 - 30 gm PO UD PRN; Protocol PRN Reason: Hypoglycemia Protocol Stop: 12/27/19 22:30 Heparin Sodium (Porcine) (Heparin Sodium (Porcine)) 5,000 units SQ Q12 MICHAEL Stop: 12/27/19 08:59 Last Admin: 12/01/19 08:06 Dose: 5,000 units Documented by: Miscellaneous (Carbohydrates For Hypoglycemia) 15 - 30 gm PO UD PRN PRN Reason: Hypoglycemia Protocol Stop: 12/27/19 22:30 Resident Activity Tracking Resident Involvement: Resident Care Provided Care Provided: Adult Hospital Medicine
[2019-12-01] MEDS: ARIPiprazole 5 MG TAB PO SCH (08:06)
[2019-12-01] MEDS: DOCUSATE SODIUM 100 MG CAP PO SCH (08:06)
[2019-12-01] MEDS: HEPARIN SOD 5,000 UNIT/0.5 ML VIAL SQ SCH ×2 (08:06→20:55)
--- NOTE | 2019-12-01 09:59 | Nephrology Progress Note ---
Date of Service December 01, 2019 Assessment & Plan (1) Hyponatremia: Appropriate rate of correction since admission. Close observation continues to be necessary. Russell is tolerating treatment well. Fluid restriction decreased to 1.5 L daily today. Volume status appears euvolemic. Urine osmolality to be checked with repeat BMP this afternoon. Continue twice daily monitoring of metabolic profile. Document I/O's. Document orthostatic vitals today. (2) Psychogenic polydipsia: Recent admission to [facility] in July reviewed. Psychiatric evaluation will be necessary prior to discharge. I briefly spoke to Dr. Rg yesterday. Suggest consultation once sodium appropriately corrected. Subjective Russell had a fall yesterday while on the commode. He describes lightheadedness while straining to move his bowels. He denies syncope. He denies chest pain or palpitations. He denies orthostatic lightheadedness. No nausea. Appetite is good. 1:1 remains at the bedside. Review of Systems Review of Systems: All systems reviewed & are unremarkable except as noted in HPI & below Physical Exam Constitutional: well developed; no acute distress Eyes: no scleral abnormality and no corneal abnormality ENMT: Mouth: no oral mucosal abnormality and oral mucous membranes not dry Neck: normal visual inspection and trachea midline Respiratory: normal respiratory effort Auscultation: lungs clear to auscultation bilaterally Cardiovascular: Rate/Rhythm: regular rate Heart Sounds: normal S1 and normal S2 Extremities: no edema Musculoskeletal: Extremities: no cyanosis and no clubbing Skin: normal turgor; no lesions Neurologic: Motor/Sensory: no tremor and no asterixis Psychiatric: Orientation: alert and oriented x 3 Results & Data Vital Signs (Past 12 Hours) Vital Signs Temp Pulse Pulse Resp BP Pulse Ox 12/01/19 08:00 77 12/01/19 06:13 77 12/01/19 04:05 36.8 C 85 18 140/83 99 11/30/19 22:58 36.6 C 77 18 115/72 98 11/30/19 22:08 80 Laboratory Results Laboratory Results - last 24 hr 11/30/19 11/30/19 11/30/19 10:03 14:03 17:58 Sodium 127 L 128 L 128 L Potassium 3.8 4.2 4.0 Chloride 95 L 96 L 96 L Carbon Dioxide 24 22 Anion Gap 8.0 6.0 10.0 BUN 3 L 4 L 8 Creatinine 1.04 0.95 1.17 Est Cr Clr Drug Dosing 94.8 103.7 84.2 Est GFR ( Amer) 111.1 124.0 96.4 Est GFR (Non-Af Amer) 95.9 107.0 83.2 BUN/Creatinine Ratio 3.3 L 4.3 L 6.9 L Glucose 116 H 127 H 121 H Calcium 9.8 10.1 10.3 H 11/30/19 12/01/19 21:47 01:45 Sodium 128 L 128 L Potassium 3.9 4.3 Chloride 97 L 97 L Carbon Dioxide 24 24 Anion Gap 7.0 7.0 BUN 8 8 Creatinine 0.99 0.95 Est Cr Clr Drug Dosing 99.5 103.7 Est GFR ( Amer) 118.0 124.0 Est GFR (Non-Af Amer) 101.8 107.0 BUN/Creatinine Ratio 8.1 L 8.3 L Glucose 111 H 114 H Calcium 10.1 10.0 PG Care Time/CCT Total # of Minutes Spent Total Time Spent with Patient: Total time spent is greater than 50% in coordination of care (as documented) at patient's floor/unit and/or counseling patient: Coding Level of Care Code 83948 Subseq Hosp Care Lvl 3 Diagnoses Hyponatremia E87.1 Psychogenic polydipsia R63.1; F54
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
--- NOTE | 2019-12-01 15:13 | Billing Data ---
Date of Service December 01, 2019 Coding Level of Care Code 89808 Subseq Hosp Care Lvl 3
[2019-12-01 15:25] LABS: BUN Creatinine Ratio 6.8 (10-20); Calcium 9.9 mg/dl (8.5-10.1); Creatinine Clr Calc Pharmacy 84.9 ml/min; Est GFR (African American) 97.4; Potassium 4.3 mmol/L (3.5-5.1)
[2019-12-01 15:26] LABS: Phosphorus 4.1 mg/dl (2.5-4.9)
[2019-12-01] MEDS ORDERED: FUROSEMIDE 40 MG TAB PO ONE (15:45)
[2019-12-02 07:03] LABS: Basophils # (auto) 0.03 K/uL (0-0.2); Basophils % (auto) 0.7 %; Eosinophils # (auto) 0.01 K/uL (0-0.5); Eosinophils % (auto) 0.2 %; Hematocrit (blood only) 38.3 % (42-52); Hemoglobin 13.5 g/dL (14.0-18.0); Immature Granulocytes # (auto) 0.01 K/uL (0.00-0.02); Immature Granulocytes % (auto) 0.2 %; Lymphocytes # (auto) 1.33 K/uL (1.2-3.4); Mean Corpuscular Hemoglobin 31.5 pg (25-34); Mean Corpuscular Hgb Conc 35.2 g/dL (32-36); Mean Corpuscular Volume 89.5 fL (80-100); Mean Platelet Volume 10.7 fL (7.4-10.4); Monocytes # (auto) 0.55 K/uL (0.11-0.59); Neutrophils # (auto) 2.66 K/uL (1.4-6.5); Neutrophils % (auto) 57.9 %; Platelet Count 317 K/uL (130-400); RDW Coefficient of Variation 13.1 % (11.5-14.5); RDW Standard Deviation 42.8 fL (36.4-46.3); Red Blood Count 4.28 M/uL (4.7-6.1); White Blood Count 4.59 K/uL (4.8-10.8)
[2019-12-02 07:17] LABS: BUN Creatinine Ratio 7.3 (10-20); Calcium 9.4 mg/dl (8.5-10.1); Creatinine Clr Calc Pharmacy 102.2 ml/min; Est GFR (African American) 120.9; Est GFR (Non-African American) 104.3; Potassium 4.2 mmol/L (3.5-5.1)
[2019-12-02] MEDS: DOCUSATE SODIUM 100 MG CAP PO SCH (08:38)
[2019-12-02] MEDS: HEPARIN SOD 5,000 UNIT/0.5 ML VIAL SQ SCH ×2 (08:39→20:15)
[2019-12-02] MEDS ORDERED: FLUOXETINE HCL 10 MG CAP PO SCH (09:00)
--- NOTE | 2019-12-02 10:24 | Hospitalist Progress Note ---
Date of Service December 02, 2019 Assessment & Plan (1) Hyponatremia: 29 yo M with PMH OCD, body dysmorphic disorder, psychogenic polydipsia, depression, anxiety, autism spectrum disorder, who was admitted to the hospital after being found down at home, having a witnessed seizure in the ambulance and being found to have a sodium of 97 in the emergency department. Initially managed in ICU for severe hypovolemic hyponatremia after diuresing 3 L in the ED and having 2L fluid removed from NG tube. Returned to management on the floor on 11/29. 1) Severe symptomatic hyponatremia 2/2 psychogenic polydipsia. - Na improved to 131 from 129 yesterday. Now Euvolemic. - urine Osm up from 308 on 11/27 to 321 yesterday. - concern for mix of SIADH underneath psychogenic polydipsia given slowing rise of Na and increase in urine Osm. received 40 mg PO Lasix yesterday, can supplement oral salt tabs if Na stops increasing. - continue to target sodium change of less than 8-10 mEq per 24 hour period though patient is outside of window of CPM. - Nephrology following. - continue BMP BID. 2) History of intellectual disability with OCD/anxiety/body dysmorphic disorder: - Previously on fluoxetine 30 mg, has been noncompliant with medication regimen recently. - On previous admissions patient was not able to capably show understanding of his ongoing medical issues - Psychiatry following; Abilify discontinued, re-started on Fluoxetine 10 mg. - Family willing to 302 patient given severity of condition and lack of insight - continuing one to one sitter for patient safety, hope to transfer to inpatient psychiatric floor for continuation of care as patient is approaching medical stability. - would benefit form psychiatric evaluation and follow-up once clinically stable - Psych consulted: stop Abilify 5mg daily, start fluoxetine 10mg; family is willing to complete 302 - started one-to-one sitter out of concern of patient safety 3) Rectal Prolapse: - reduced spontaneously in ICU - follow up with colorectal surgery/general surgery if continues to be problematic outpatient DVT prophylaxis: Heparin 5000 twice daily Diet: regular, fluid restrict 1.5L/day CODE STATUS: Full code Admission and Anticipated Discharge Date Admission Date: November 27, 2019 Supervising Physician Co-Signing Physician Notes Attending attestation Pt seen and examined in concert with Dr. Chowdhury. In agreement with the documented findings as noted in the resident documentation with any exceptions or additions as noted here. Resting comfortably in bed without complaint. On examination, S1/S2 nl RRR no MCG. CTAB. Abd NT/ND BS+ve Hyponatremia in the setting of psychogenic polydipsia - improved with fluid restriction. Continue to trend BMP. Psychiatry consultation appreciated, would appear to do well with inpatient psych stay. OCD w/ body dysmorphia - agree w/ switch to SSRI from abilify with monitoring for mood changes and tolerance. Trending BMP as above to monitor for sodium changes acutely. Else see resident documentation as noted. Subjective 29 yo M with H OCD, body dysmorphic disorder, psychogenic polydipsia who was admitted to the hospital after being found down at home, having a witnessed seizure in the ambulance and being found to have a sodium of 97 in the emergency department. Initially managed in ICU for severe hypovolemic hyponatremia after diuresing 3 L in the ED and having 2L fluid removed from NG tube. Returned to management on the floor on 11/29. This morning he denies any thoughts of self harm, suicidal ideation previously or currently. Denies any weakness, lightheadedness, instability with walking, numbness, tingling, confusion, headache. No chest pain, shortness of breath, diarrhea, constipation, nausea, vomiting. Review of Systems Constitutional: no fever, no chills, no body aches and no fatigue Respiratory: no cough and no dyspnea Cardiovascular: no chest pain, no dyspnea and no edema Gastrointestinal: no abdominal pain, no nausea, no vomiting, no constipation and no diarrhea/loose stools Physical Exam Constitutional: cooperative; no acute distress and not ill appearing Neck: normal visual inspection Respiratory: normal respiratory effort and able to speak in complete sentences; no respiratory distress, no labored breathing, no retractions, no cough and no audible wheezes Auscultation: lungs clear to auscultation bilaterally; no crackles, no rales, no rhonchi and no wheezes Cardiovascular: Rate/Rhythm: regular rate and regular rhythm Heart Sounds: normal S1 and normal S2; no gallop, no murmur and no cardiac rub Vessels: posterior tibial pulses present Extremities: no pedal edema and no edema Gastrointestinal (Abdomen): Inspection/Auscultation: abdomen normal to inspection and normal bowel sounds; abdomen not distended Percussion/Palpation: abdomen soft; abdomen nontender, no guarding, abdomen not rigid and no abdominal mass Psychiatric: A+Ox3, euthymic affect Eye Contact: good eye contact Motor Behavior: no abnormal motor movements Speech: no pressured speech and no loud speech Suicidal Thoughts: denies suicidal thoughts Results & Data ([facility]) Vital Signs (Past 12 Hours) Vital Signs Temp Pulse Pulse Resp BP Pulse Ox 12/02/19 07:00 36.6 C 80 18 124/74 100 12/02/19 03:58 36.7 C 81 18 133/73 99 12/02/19 00:00 71 12/02/19 12/02/19 12/02/19 Range/Units 09:25 06:17 06:17 WBC 4.59 L (4.8-10.8) K/uL RBC 4.28 L (4.7-6.1) M/uL Hgb 13.5 L (14.0-18.0) g/dL Hct 38.3 L (42-52) % MCV 89.5 (80-100) fL MCH 31.5 (25-34) pg MCHC 35.2 (32-36) g/dL RDW Std Deviation 42.8 (36.4-46.3) fL RDW Coeff of Fito 13.1 (11.5-14.5) % Plt Count 317 (130-400) K/uL MPV 10.7 H (7.4-10.4) fL Immature Gran % (Auto) 0.2 % Neut % (Auto) 57.9 % Lymph % (Auto) 29.0 % Bath % (Auto) 12.0 % Eos % (Auto) 0.2 % Baso % (Auto) 0.7 % Immature Gran # (Auto) 0.01 (0.00-0.02) K/uL Neut # (Auto) 2.66 (1.4-6.5) K/uL Lymph # (Auto) 1.33 (1.2-3.4) K/uL Bath # (Auto) 0.55 (0.11-0.59) K/uL Eos # (Auto) 0.01 (0-0.5) K/uL Baso # (Auto) 0.03 (0-0.2) K/uL Sodium 131 L (136-145) mmol/L Potassium 4.2 (3.5-5.1) mmol/L Chloride 99 (98-107) mmol/L Carbon Dioxide 25 (21-32) mmol/L Anion Gap 7.0 (3-11) BUN 7 (7-18) mg/dl Creatinine 0.97 (0.6-1.4) mg/dl Est Cr Clr Drug Dosing 102.2 ml/min Est GFR ( Amer) 120.9 Est GFR (Non-Af Amer) 104.3 BUN/Creatinine Ratio 7.3 L (10-20) Glucose 94 (70-99) mg/dl Calcium 9.4 (8.5-10.1) mg/dl Urine Osmolality 333 L (500-800) mOsm/kg Resident Activity Tracking Resident Involvement: Resident Care Provided Care Provided: Adult Hospital Medicine
--- NOTE | 2019-12-02 10:29 | Nephrology Progress Note ---
Date of Service December 02, 2019 Assessment & Plan (1) Hyponatremia: Fluid restriction decreased to 1.5 L daily today. Volume status appears euvolemic. Furosemide 20 mg provided yesterday. Urine osmolality remains high suggestive of SIADH versus volume depletion. Will add oral NaCl as needed. Continue twice daily monitoring of metabolic profile. Document I/O's. (2) Psychogenic polydipsia: Anticipated return to [facility] today versus tomorrow. Subjective No acute events overnight. Overall, Russell feels well this morning. Denies lightheadedness, dizziness, syncope, or presyncope. Continues to worry about moving his bowels. States that he was able to have a bowel movement this morning. Does not want a laxative. No abdominal discomfort. Appetite is good. Review of Systems Review of Systems: All systems reviewed & are unremarkable except as noted in HPI & below Physical Exam Constitutional: well developed; no acute distress Eyes: no scleral abnormality and no corneal abnormality ENMT: Mouth: no oral mucosal abnormality and oral mucous membranes not dry Neck: normal visual inspection and trachea midline Respiratory: normal respiratory effort Auscultation: lungs clear to auscultation bilaterally Cardiovascular: Rate/Rhythm: regular rate Heart Sounds: normal S1 and normal S2 Extremities: no edema Musculoskeletal: Extremities: no cyanosis and no clubbing Skin: normal turgor; no lesions Neurologic: Motor/Sensory: no tremor and no asterixis Psychiatric: Orientation: alert and oriented x 3 Results & Data Vital Signs (Past 12 Hours) Vital Signs Temp Pulse Pulse Resp BP Pulse Ox 12/02/19 07:00 36.6 C 80 18 124/74 100 12/02/19 03:58 36.7 C 81 18 133/73 99 12/02/19 00:00 71 Laboratory Results Laboratory Results - last 24 hr 12/01/19 12/01/19 12/02/19 14:50 14:57 06:17 WBC 4.59 L RBC 4.28 L Hgb 13.5 L Hct 38.3 L MCV 89.5 MCH 31.5 MCHC 35.2 RDW Std Deviation 42.8 RDW Coeff of Fito 13.1 Plt Count 317 MPV 10.7 H Immature Gran % (Auto) 0.2 Neut % (Auto) 57.9 Lymph % (Auto) 29.0 Hamlin % (Auto) 12.0 Eos % (Auto) 0.2 Baso % (Auto) 0.7 Immature Gran # (Auto) 0.01 Neut # (Auto) 2.66 Lymph # (Auto) 1.33 Hamlin # (Auto) 0.55 Eos # (Auto) 0.01 Baso # (Auto) 0.03 Sodium 129 L Potassium 4.3 Chloride 95 L Carbon Dioxide 24 Anion Gap 10.0 BUN 8 Creatinine 1.16 Est Cr Clr Drug Dosing 84.9 Est GFR ( Amer) 97.4 Est GFR (Non-Af Amer) 84.0 BUN/Creatinine Ratio 6.8 L Glucose 122 H Calcium 9.9 Phosphorus 4.1 Albumin 4.0 Urine Osmolality 321 L 12/02/19 12/02/19 06:17 09:25 WBC RBC Hgb Hct MCV MCH MCHC RDW Std Deviation RDW Coeff of Fito Plt Count MPV Immature Gran % (Auto) Neut % (Auto) Lymph % (Auto) Hamlin % (Auto) Eos % (Auto) Baso % (Auto) Immature Gran # (Auto) Neut # (Auto) Lymph # (Auto) [place]lin # (Auto) Eos # (Auto) Baso # (Auto) Sodium 131 L Potassium 4.2 Chloride 99 Carbon Dioxide 25 Anion Gap 7.0 BUN 7 Creatinine 0.97 Est Cr Clr Drug Dosing 102.2 Est GFR ( Amer) 120.9 Est GFR (Non-Af Amer) 104.3 BUN/Creatinine Ratio 7.3 L Glucose 94 Calcium 9.4 Phosphorus Albumin Urine Osmolality 333 L PG Care Time/CCT Total # of Minutes Spent Total Time Spent with Patient: Total time spent is greater than 50% in coordination of care (as documented) at patient's floor/unit and/or counseling patient: Coding Level of Care Code 87257 Subseq Hosp Care Lvl 3 Diagnoses Hyponatremia E87.1 Psychogenic polydipsia R63.1; F54
[2019-12-02 17:06] LABS: BUN Creatinine Ratio 11.5 (10-20); Calcium 9.6 mg/dl (8.5-10.1); Creatinine Clr Calc Pharmacy 112.7 ml/min; Est GFR (African American) 133.6; Est GFR (Non-African American) 115.3; Potassium 4.7 mmol/L (3.5-5.1)
[2019-12-02] MEDS ORDERED: SODIUM CHLORIDE 1 GM TABLET PO SCH (21:00)
== END 2019-12-02 23:04 | DRG 641 ==
LOC: ED 21:49 → 1E 11-27 00:20 → SUATTDRO 11-27 00:20 → 1E 11-27 00:45 → 2E 11-29 15:26 → 2N 12-02 17:33